=== PATIENT | male | born 1955 | race Two or more races ===

== ENCOUNTER 2016-05-30 15:24 | Inpatient (IN) | payer SELFPAY ==
[~2016-05-30] VITALS: Ht 170.2 cm; Wt 104.3 kg
[2016-05-30] MEDS ORDERED: IV NORMAL SALINE 1000ML BAG 1,000 ML IV SCH (15:52)
[2016-05-30 16:42] LABS: BASO # 0.1 x10^3/uL (0.0-0.2); BASO % 1 % (0-3); EOS % 3 % (0-3); HEMOGLOBIN 12.2 g/dL (13.0-17.5); LYMPH # 1.8 x10^3/uL (1.0-4.8); LYMPH % 17 % (24-48); MEAN CORPUSCULAR HEMOGLOBIN 30 pg (25-35); MEAN CORPUSCULAR HGB CONC 33 g/dL (31-37); MEAN CORPUSCULAR VOLUME 92 fL (79-100); MONO % 5 % (0-9); NEUT % 74 % (31-73); PLATELET COUNT 194 x10^3/uL (140-400); RED BLOOD COUNT 4.03 x10^6/uL (4.30-5.70); RED CELL DISTRIBUTION WIDTH 14.4 % (11.5-14.5); WHITE BLOOD COUNT 10.9 x10^3/uL (4.0-11.0)
[2016-05-30 17:03] LABS: CALCIUM 8.6 mg/dL (8.5-10.1); CREATININE 3.6 mg/dL (0.7-1.3); GFR 17.3; POTASSIUM 3.9 mmol/L (3.5-5.1)
--- NOTE | 2016-05-30 17:23 | PHYS DOC ---
Past Medical History Past Medical History: High Cholesterol, Hypertension, Hypothyroid, Renal Disease, Other Additional Past Medical Histor: pre DM Past Surgical History: Cholecystectomy, Tonsillectomy Alcohol Use: None Drug Use: None Adult General Chief Complaint Chief Complaint: ABNORMAL LABS [facility] HPI Patient is a 60 year old male who presents from Dr. Lord's office for elevated creatinine. Patient states he has been followed recently by nephrology for kidney disease. He states he has slight fatigue, otherwise has no symptoms. He denies take, dizziness, vision changes, chest pain, dyspnea, fever or chills, nausea or vomiting, abdominal pain, diarrhea, dysuria, hematuria. He has been eating and drinking normal. Review of Systems Review of Systems Constitutional: Denies fever or chills [] Eyes: Denies change in visual acuity, redness, or eye pain [] HENT: Denies nasal congestion or sore throat [] Respiratory: Denies cough or shortness of breath [] Cardiovascular: No additional information not addressed in HPI [] GI: Denies abdominal pain, nausea, vomiting, bloody stools or diarrhea [] : Denies dysuria or hematuria [] Musculoskeletal: Denies back pain or joint pain [] Integument: Denies rash or skin lesions [] Neurologic: Denies headache, focal weakness or sensory changes [] Endocrine: Denies polyuria or polydipsia [] Current Medications Current Medications Current Medications Medications (Trade) Dose Ordered Sig/Theo Start Time Stop Time Status Last Admin Dose Admin Acetaminophen (Tylenol) 650 mg PRN Q4HRS PRN 05/30/16 17:30 05/31/16 17:29 Ondansetron HCl (Zofran) 4 mg PRN Q8HRS PRN 05/30/16 17:30 05/31/16 17:29 Sodium Chloride (Iv Sodium Chloride 0.9% 1000ml Bag) 1,000 ml @ 1,000 mls/hr Q1H 05/30/16 15:52 05/30/16 16:51 DC 05/30/16 16:40 1,000 MLS/HR Allergies Allergies Allergies Coded Allergies Type Severity Reaction Last Updated Verified No Known Drug Allergies 05/30/16 No Physical Exam Physical Exam Constitutional: Well developed, well nourished, no acute distress, non-toxic appearance. [] HENT: Normocephalic, atraumatic, bilateral external ears normal, oropharynx moist, no oral exudates, nose normal. [] Eyes: PERRLA, EOMI, conjunctiva normal, no discharge. [] Neck: Normal range of motion, no tenderness, supple, no stridor. [] Cardiovascular:Heart rate regular rhythm, no murmur [] Lungs & Thorax: Bilateral breath sounds clear to auscultation [] Abdomen: Bowel sounds normal, soft, no tenderness, no masses, no pulsatile masses. [] Skin: Warm, dry, no erythema, no rash. [] Back: No tenderness, no CVA tenderness. [] Extremities: No tenderness, no cyanosis, no clubbing, ROM intact, no edema. [] Neurologic: Alert and oriented X 3, normal motor function, normal sensory function, no focal deficits noted. [] Psychologic: Affect normal, judgement normal, mood normal. [] Current Patient Data Vital Signs Vital Signs Date Time Temp Pulse Resp B/P Pulse Ox O2 Delivery O2 Flow Rate FiO2 05/30/16 15:28 97.7 92 18 179/113 97 Room Air 97.7 Lab Values Laboratory Tests Test 05/30/16 16:30 White Blood Count 10.9x10^3/uL (4.0-11.0) Red Blood Count 4.03x10^6/uL (4.30-5.70) L Hemoglobin 12.2g/dL (13.0-17.5) L Hematocrit 37.0% (39.0-53.0) L Mean Corpuscular Volume 92fL (79-100) Mean Corpuscular Hemoglobin 30pg (25-35) Mean Corpuscular Hemoglobin Concent 33g/dL (31-37) Red Cell Distribution Width 14.4% (11.5-14.5) Platelet Count 194x10^3/uL (140-400) Neutrophils (%) (Auto) 74% (31-73) H Lymphocytes (%) (Auto) 17% (24-48) L Monocytes (%) (Auto) 5% (0-9) Eosinophils (%) (Auto) 3% (0-3) Basophils (%) (Auto) 1% (0-3) Neutrophils # (Auto) 8.1x10^3uL (1.8-7.7) H Lymphocytes # (Auto) 1.8x10^3/uL (1.0-4.8) Monocytes # (Auto) 0.5x10^3/uL (0.0-1.1) Eosinophils # (Auto) 0.4x10^3/uL (0.0-0.7) Basophils # (Auto) 0.1x10^3/uL (0.0-0.2) Sodium Level 141mmol/L (136-145) Potassium Level 3.9mmol/L (3.5-5.1) Chloride Level 103mmol/L (98-107) Carbon Dioxide Level 26mmol/L (21-32) Anion Gap 12 (6-14) Blood Urea Nitrogen 57mg/dL (8-26) H Creatinine 3.6mg/dL (0.7-1.3) H Estimated GFR (Cockcroft-Gault) 17.3 Glucose Level 122mg/dL (70-99) H Calcium Level 8.6mg/dL (8.5-10.1) Laboratory Tests 05/30/16 16:30 Laboratory Tests 05/30/16 16:30 Course & Med Decision Making Course & Med Decision Making Pertinent Labs and Imaging studies reviewed. (See chart for details) Creatinine is elevated at 3.6. Discussed case with Dr. Lord, who notes he also had large amount of protein on recent 24-hour urine collection. Dr. Lord recommends admission for renal biopsy and further workup; recommends NPO at midnight for likely procedure tomorrow. Discussed case with Dr. Meraz, who will admit. [place] Disclaimer Dragon Disclaimer This electronic medical record was generated, in whole or in part, using a voice recognition dictation system. Departure Departure Impression: Primary Impression: Acute renal failure Disposition: ADMITTED INPATIENT Condition: STABLE Referrals: UNKNOWN PCP NAME (PCP) Problem Qualifiers Primary Impression: Acute renal failure Acute renal failure type: unspecified Qualified Code: N17.9 - Acute kidney failure, unspecified Kilo RICHARDSON MD May 30, 2016 17:23
[2016-05-30] MEDS ORDERED: ACETAMINOPHEN 325 MG TABLET. PO PRN ×2 (17:30→19:00)
[2016-05-30] MEDS ORDERED: ONDANSETRON PF 4 MG/2 ML VIAL. IV PRN ×2 (17:30→19:00)
[2016-05-30] MEDS ORDERED: hydrALAZINE 20 MG/ML VIAL. IVP PRN (19:00)
[2016-05-30] MEDS ORDERED: HYDROCODONE/APAP 5/325MG TABLET. PO PRN (19:00)
[2016-05-30] MEDS ORDERED: ALBUTEROL SULFATE 2.5 MG/3 ML NEBU. NEB PRN (19:00)
[2016-05-30 19:30] VITALS: BP 180/110
--- NOTE | 2016-05-30 19:32 | PDOC1 ---
History and Physical Current Problem List Problem List Problems Medical Problems: (1) Acute renal failure Status: Acute Current Medications Current Medications Current Medications Medications (Trade) Dose Ordered Sig/Theo Start Time Stop Time Status Last Admin Dose Admin Acetaminophen (Tylenol) 325 mg PRN Q6HRS PRN 05/30/16 19:00 Acetaminophen/ Hydrocodone Bitart (Lortab 5/325) 1 tab PRN Q6HRS PRN 05/30/16 19:00 Albuterol Sulfate (Ventolin Neb Soln) 2.5 mg PRN Q4HRS PRN 05/30/16 19:00 Hydralazine HCl (Apresoline) 10 mg PRN Q4HRS PRN 05/30/16 19:00 Ondansetron HCl (Zofran) 4 mg PRN Q8HRS PRN 05/30/16 19:00 Sodium Chloride (Iv Sodium Chloride 0.9% 1000ml Bag) 1,000 ml @ 1,000 mls/hr Q1H 05/30/16 15:52 05/30/16 16:51 DC 05/30/16 16:40 1,000 MLS/HR Allergies Allergies Allergies Coded Allergies Type Severity Reaction Last Updated Verified No Known Drug Allergies 05/30/16 No ROS Review of System CONSTITUTIONAL: No fever or chills but generalized weakness EYES: No recent changes SKIN: No rash or itching CARDIOVASCULAR: No chest pain, syncope, palpitations, or edema RESPIRATORY: No SOB or cough GASTROINTESTINAL: No nausea, vomiting or abdominal pain NEUROLOGICAL: No headaches or weakness ENDOCRINE: No cold or heat intolerance GENITOURINARY: No urgency or frequency of urination MUSCULOSKELETAL: No back pain or joint pain LYMPHATICS: No enlarged lymph nodes PSYCHIATRIC: No anxiety or depression Physical Exam Physical Exam GEN.: No apparent distress. Alert and oriented. HEENT: Head is normocephalic, atraumatic NECK: Supple. no JVD LUNGS: Clear to auscultation. Normal airflow HEART: RRR, S1, S2 present. Peripheral pulses intact ABDOMEN: Soft, nontender. Positive bowel sounds. EXTREMITIES: Without any cyanosis.+2 edema NEUROLOGIC: Normal speech, normal tone PSYCHIATRIC: Normal affect, normal mood. SKIN: No visible skin lesions Vitals Vitals Vital Signs Date Time Temp Pulse Resp B/P Pulse Ox O2 Delivery O2 Flow Rate FiO2 05/30/16 18:00 88 19 159/103 99 Room Air 05/30/16 15:28 97.7 97.7 Labs Labs Laboratory Tests Test 05/30/16 16:30 White Blood Count 10.9x10^3/uL (4.0-11.0) Red Blood Count 4.03x10^6/uL (4.30-5.70) Hemoglobin 12.2g/dL (13.0-17.5) Hematocrit 37.0% (39.0-53.0) Mean Corpuscular Volume 92fL (79-100) Mean Corpuscular Hemoglobin 30pg (25-35) Mean Corpuscular Hemoglobin Concent 33g/dL (31-37) Red Cell Distribution Width 14.4% (11.5-14.5) Platelet Count 194x10^3/uL (140-400) Neutrophils (%) (Auto) 74% (31-73) Lymphocytes (%) (Auto) 17% (24-48) Monocytes (%) (Auto) 5% (0-9) Eosinophils (%) (Auto) 3% (0-3) Basophils (%) (Auto) 1% (0-3) Neutrophils # (Auto) 8.1x10^3uL (1.8-7.7) Lymphocytes # (Auto) 1.8x10^3/uL (1.0-4.8) Monocytes # (Auto) 0.5x10^3/uL (0.0-1.1) Eosinophils # (Auto) 0.4x10^3/uL (0.0-0.7) Basophils # (Auto) 0.1x10^3/uL (0.0-0.2) Sodium Level 141mmol/L (136-145) Potassium Level 3.9mmol/L (3.5-5.1) Chloride Level 103mmol/L (98-107) Carbon Dioxide Level 26mmol/L (21-32) Anion Gap 12 (6-14) Blood Urea Nitrogen 57mg/dL (8-26) Creatinine 3.6mg/dL (0.7-1.3) Estimated GFR (Cockcroft-Gault) 17.3 Glucose Level 122mg/dL (70-99) Calcium Level 8.6mg/dL (8.5-10.1) Laboratory Tests Test 05/30/16 16:30 White Blood Count 10.9x10^3/uL (4.0-11.0) Red Blood Count 4.03x10^6/uL (4.30-5.70) Hemoglobin 12.2g/dL (13.0-17.5) Hematocrit 37.0% (39.0-53.0) Mean Corpuscular Volume 92fL (79-100) Mean Corpuscular Hemoglobin 30pg (25-35) Mean Corpuscular Hemoglobin Concent 33g/dL (31-37) Red Cell Distribution Width 14.4% (11.5-14.5) Platelet Count 194x10^3/uL (140-400) Neutrophils (%) (Auto) 74% (31-73) Lymphocytes (%) (Auto) 17% (24-48) Monocytes (%) (Auto) 5% (0-9) Eosinophils (%) (Auto) 3% (0-3) Basophils (%) (Auto) 1% (0-3) Neutrophils # (Auto) 8.1x10^3uL (1.8-7.7) Lymphocytes # (Auto) 1.8x10^3/uL (1.0-4.8) Monocytes # (Auto) 0.5x10^3/uL (0.0-1.1) Eosinophils # (Auto) 0.4x10^3/uL (0.0-0.7) Basophils # (Auto) 0.1x10^3/uL (0.0-0.2) Sodium Level 141mmol/L (136-145) Potassium Level 3.9mmol/L (3.5-5.1) Chloride Level 103mmol/L (98-107) Carbon Dioxide Level 26mmol/L (21-32) Anion Gap 12 (6-14) Blood Urea Nitrogen 57mg/dL (8-26) Creatinine 3.6mg/dL (0.7-1.3) Estimated GFR (Cockcroft-Gault) 17.3 Glucose Level 122mg/dL (70-99) Calcium Level 8.6mg/dL (8.5-10.1) VTE Prophylaxis Ordered VTE Prophylaxis Devices: Yes VTE Pharmacological Prophylaxi: Yes DAIJA GOLDSMITH MD May 30, 2016 19:32
[2016-05-30] MEDS: IV NORMAL SALINE 1000ML BAG 1,000 ML IV SCH (21:34)
--- NOTE | 2016-05-30 21:48 | HP ---
ADMIT DATE: 05/30/2016 CHIEF COMPLAINT: Abnormal labs. HISTORY OF PRESENT ILLNESS: A 60-year-old male patient with prior history of hypertension, unknown renal disease, hyperlipidemia, hypothyroidism, presented to the ER with abnormal renal functions. Reportedly, the patient noted to have some kind of fatigue and weakness. Otherwise, he denies any symptoms, visited to Dr. Lord's office today for elevated creatinine. Dr. Lord asked the patient to go to ER, has been admitted to the hospital for abnormal renal functions and fatigue. The patient says lately his blood pressure has been not controlled. Denies any other symptoms such as fever, chills, nausea, vomiting or abdominal pain. PAST MEDICAL HISTORY: Hyperlipidemia, hypertension, hypothyroidism and renal disease. PAST SURGICAL HISTORY: Cholecystectomy and tonsillectomy. PERSONAL HISTORY: No smoking, no alcohol, no drug abuse. FAMILY HISTORY: Unknown to the patient. REVIEW OF SYSTEMS: Please see my electronic H and P. PHYSICAL EXAMINATION: Please see my electronic H and P. ALLERGIES: NKDA. LABORATORY DATA: WBC 10.9, hemoglobin 12.2, MCV 92, platelets 194. Chemistry: Sodium is 141, potassium 3.9, chloride 103, carbon dioxide 26, anion gap 12, BUN is 57, creatinine 3.6, GFR 7.3, glucose 122. ASSESSMENT AND PLAN: 1. Acute kidney injury. 2. Hypertension, not controlled. 3. Hyperlipidemia. 4. Hypothyroidism. PLAN: 1. Keep the patient on n.p.o. from midnight, mild IV hydration. 2. Monitor labs in a.m. 3. Possible renal biopsy. 4. Supportive care. The patient did not bring his home medications at this time. I will ask RN to call pharmacy to verify home medications. Meanwhile, control blood pressure with hydralazine. 5. DVT prophylaxis. DAIJA GOLDSMITH MD DR: ARLETH/david JOB#: [id number] / [id number] JODYD
[2016-05-30 22:50] VITALS: BP 146/102
[2016-05-31] VITALS (27 sets, daily range): BP systolic 128–200; BP diastolic 76–113
[2016-05-31] MEDS ORDERED: hydrALAZINE 20 MG/ML VIAL. IVP PRN (00:30)
[2016-05-31] MEDS: IV NORMAL SALINE 1000ML BAG 1,000 ML IV SCH ×2 (05:18→16:00)
[2016-05-31] MEDS ORDERED: ASPI-482 PO (05:40)
[2016-05-31 06:55] LABS: BASO % 1 % (0-3); EOS % 4 % (0-3); HEMATOCRIT 33.8 % (39.0-53.0); HEMOGLOBIN 11.2 g/dL (13.0-17.5); LYMPH # 1.8 x10^3/uL (1.0-4.8); LYMPH % 22 % (24-48); MEAN CORPUSCULAR HEMOGLOBIN 30 pg (25-35); MEAN CORPUSCULAR HGB CONC 33 g/dL (31-37); MEAN CORPUSCULAR VOLUME 92 fL (79-100); MONO % 7 % (0-9); NEUT % 67 % (31-73); PLATELET COUNT 179 x10^3/uL (140-400); RED BLOOD COUNT 3.69 x10^6/uL (4.30-5.70); WHITE BLOOD COUNT 8.2 x10^3/uL (4.0-11.0)
[2016-05-31 07:14] LABS: ALBUMIN 2.7 g/dL (3.4-5.0); TOTAL PROTEIN 6.1 g/dL (6.4-8.2)
[2016-05-31 07:15] LABS: ALBUMIN/GLOBULIN RATIO 0.8 (1.0-1.7); POTASSIUM 3.8 mmol/L (3.5-5.1); TOTAL BILIRUBIN 0.3 mg/dL (0.2-1.0)
[2016-05-31 07:26] LABS: CALCIUM 8.2 mg/dL (8.5-10.1); CREATININE 3.6 mg/dL (0.7-1.3); GFR 17.3
[2016-05-31 08:14] LABS: INR 1.1 (0.8-1.1); PROTHROMBIN TIME PATIENT 13.4 SEC (11.7-14.0)
[2016-05-31 09:07] LABS: BILIRUBIN,URINE NEGATIVE (NEG); GLUCOSE,URINE NEGATIVE (NEG); NITRITE,URINE NEGATIVE (NEG); PROTEIN,URINE >=300 mg/dL (NEG-TRACE); UROBILINOGEN,URINE 0.2 mg/dL (0.2 mg/dL)
[2016-05-31 09:52] LABS: BACTERIA,URINE 0 /HPF (0-FEW); SQUAMOUS EPITHELIAL CELL,UR FEW /LPF; WBC,URINE 0 /HPF (0-4)
--- NOTE | 2016-05-31 10:02 | PDOC ---
PROGRESS NOTES Chief Complaint Chief Complaint 1. Acute kidney injury. 2. Hypertension, not controlled. 3. Hyperlipidemia. 4. Hypothyroidism. Plan Renal biopsy today BP not controlled Nephrology following metoprolol for HTN Vitals Vitals Vital Signs Date Time Temp Pulse Resp B/P Pulse Ox O2 Delivery O2 Flow Rate FiO2 05/31/16 09:04 98 Room Air 05/31/16 08:30 139/89 05/31/16 07:25 97.7 79 18 97.7 Physical Exam General: Alert, Oriented X3 Heart: Normal S1 Lungs: Wheezing Abdomen: Normal bowel sounds Extremities: No clubbing Labs LABS Laboratory Tests Test 05/30/16 16:30 05/31/16 06:30 05/31/16 07:00 05/31/16 07:30 White Blood Count 10.9x10^3/uL (4.0-11.0) 8.2x10^3/uL (4.0-11.0) Red Blood Count 4.03x10^6/uL (4.30-5.70) 3.69x10^6/uL (4.30-5.70) Hemoglobin 12.2g/dL (13.0-17.5) 11.2g/dL (13.0-17.5) Hematocrit 37.0% (39.0-53.0) 33.8% (39.0-53.0) Mean Corpuscular Volume 92fL (79-100) 92fL (79-100) Mean Corpuscular Hemoglobin 30pg (25-35) 30pg (25-35) Mean Corpuscular Hemoglobin Concent 33g/dL (31-37) 33g/dL (31-37) Red Cell Distribution Width 14.4% (11.5-14.5) 14.0% (11.5-14.5) Platelet Count 194x10^3/uL (140-400) 179x10^3/uL (140-400) Neutrophils (%) (Auto) 74% (31-73) 67% (31-73) Lymphocytes (%) (Auto) 17% (24-48) 22% (24-48) Monocytes (%) (Auto) 5% (0-9) 7% (0-9) Eosinophils (%) (Auto) 3% (0-3) 4% (0-3) Basophils (%) (Auto) 1% (0-3) 1% (0-3) Neutrophils # (Auto) 8.1x10^3uL (1.8-7.7) 5.5x10^3uL (1.8-7.7) Lymphocytes # (Auto) 1.8x10^3/uL (1.0-4.8) 1.8x10^3/uL (1.0-4.8) Monocytes # (Auto) 0.5x10^3/uL (0.0-1.1) 0.6x10^3/uL (0.0-1.1) Eosinophils # (Auto) 0.4x10^3/uL (0.0-0.7) 0.3x10^3/uL (0.0-0.7) Basophils # (Auto) 0.1x10^3/uL (0.0-0.2) 0.0x10^3/uL (0.0-0.2) Sodium Level 141mmol/L (136-145) 143mmol/L (136-145) Potassium Level 3.9mmol/L (3.5-5.1) 3.8mmol/L (3.5-5.1) Chloride Level 103mmol/L (98-107) 106mmol/L (98-107) Carbon Dioxide Level 26mmol/L (21-32) 24mmol/L (21-32) Anion Gap 12 (6-14) 13 (6-14) Blood Urea Nitrogen 57mg/dL (8-26) 51mg/dL (8-26) Creatinine 3.6mg/dL (0.7-1.3) 3.6mg/dL (0.7-1.3) Estimated GFR (Cockcroft-Gault) 17.3 17.3 Glucose Level 122mg/dL (70-99) 120mg/dL (70-99) Calcium Level 8.6mg/dL (8.5-10.1) 8.2mg/dL (8.5-10.1) BUN/Creatinine Ratio 14 (6-20) Total Bilirubin 0.3mg/dL (0.2-1.0) Aspartate Amino Transf (AST/SGOT) 13U/L (15-37) Alanine Aminotransferase (ALT/SGPT) 25U/L (16-63) Alkaline Phosphatase 50U/L (46-116) Total Protein 6.1g/dL (6.4-8.2) Albumin 2.7g/dL (3.4-5.0) Albumin/Globulin Ratio 0.8 (1.0-1.7) Urine Collection Type Unknown Urine Color Yellow Urine Clarity Clear Urine pH 7.0 Urine Specific [place] 1.010 Urine Protein >=300mg/dL (NEG-TRACE) Urine Glucose (UA) Negativemg/dL (NEG) Urine Ketones (Stick) Negativemg/dL (NEG) Urine Blood Trace (NEG) Urine Nitrite Negative (NEG) Urine Bilirubin Negative (NEG) Urine Urobilinogen Dipstick 0.2mg/dL (0.2 mg/dL) Urine Leukocyte Esterase Negative (NEG) Urine RBC 1-2/HPF (0-2) Urine WBC 0/HPF (0-4) Urine Squamous Epithelial Cells Few/LPF Urine Bacteria 0/HPF (0-FEW) Prothrombin Time 13.4SEC (11.7-14.0) Prothromb Time International Ratio 1.1 (0.8-1.1) Assessment and Plan Assessmemt and Plan Problems Medical Problems: (1) Acute renal failure Status: Acute Problems: Comment Review of Relevant I have reviewed the following items jose (where applicable) has been applied. Labs Laboratory Tests Test 05/30/16 16:30 05/31/16 06:30 05/31/16 07:00 05/31/16 07:30 White Blood Count 10.9x10^3/uL (4.0-11.0) 8.2x10^3/uL (4.0-11.0) Red Blood Count 4.03x10^6/uL (4.30-5.70) 3.69x10^6/uL (4.30-5.70) Hemoglobin 12.2g/dL (13.0-17.5) 11.2g/dL (13.0-17.5) Hematocrit 37.0% (39.0-53.0) 33.8% (39.0-53.0) Mean Corpuscular Volume 92fL (79-100) 92fL (79-100) Mean Corpuscular Hemoglobin 30pg (25-35) 30pg (25-35) Mean Corpuscular Hemoglobin Concent 33g/dL (31-37) 33g/dL (31-37) Red Cell Distribution Width 14.4% (11.5-14.5) 14.0% (11.5-14.5) Platelet Count 194x10^3/uL (140-400) 179x10^3/uL (140-400) Neutrophils (%) (Auto) 74% (31-73) 67% (31-73) Lymphocytes (%) (Auto) 17% (24-48) 22% (24-48) Monocytes (%) (Auto) 5% (0-9) 7% (0-9) Eosinophils (%) (Auto) 3% (0-3) 4% (0-3) Basophils (%) (Auto) 1% (0-3) 1% (0-3) Neutrophils # (Auto) 8.1x10^3uL (1.8-7.7) 5.5x10^3uL (1.8-7.7) Lymphocytes # (Auto) 1.8x10^3/uL (1.0-4.8) 1.8x10^3/uL (1.0-4.8) Monocytes # (Auto) 0.5x10^3/uL (0.0-1.1) 0.6x10^3/uL (0.0-1.1) Eosinophils # (Auto) 0.4x10^3/uL (0.0-0.7) 0.3x10^3/uL (0.0-0.7) Basophils # (Auto) 0.1x10^3/uL (0.0-0.2) 0.0x10^3/uL (0.0-0.2) Sodium Level 141mmol/L (136-145) 143mmol/L (136-145) Potassium Level 3.9mmol/L (3.5-5.1) 3.8mmol/L (3.5-5.1) Chloride Level 103mmol/L (98-107) 106mmol/L (98-107) Carbon Dioxide Level 26mmol/L (21-32) 24mmol/L (21-32) Anion Gap 12 (6-14) 13 (6-14) Blood Urea Nitrogen 57mg/dL (8-26) 51mg/dL (8-26) Creatinine 3.6mg/dL (0.7-1.3) 3.6mg/dL (0.7-1.3) Estimated GFR (Cockcroft-Gault) 17.3 17.3 Glucose Level 122mg/dL (70-99) 120mg/dL (70-99) Calcium Level 8.6mg/dL (8.5-10.1) 8.2mg/dL (8.5-10.1) BUN/Creatinine Ratio 14 (6-20) Total Bilirubin 0.3mg/dL (0.2-1.0) Aspartate Amino Transf (AST/SGOT) 13U/L (15-37) Alanine Aminotransferase (ALT/SGPT) 25U/L (16-63) Alkaline Phosphatase 50U/L (46-116) Total Protein 6.1g/dL (6.4-8.2) Albumin 2.7g/dL (3.4-5.0) Albumin/Globulin Ratio 0.8 (1.0-1.7) Urine Collection Type Unknown Urine Color Yellow Urine Clarity Clear Urine pH 7.0 Urine Specific [place] 1.010 Urine Protein >=300mg/dL (NEG-TRACE) Urine Glucose (UA) Negativemg/dL (NEG) Urine Ketones (Stick) Negativemg/dL (NEG) Urine Blood Trace (NEG) Urine Nitrite Negative (NEG) Urine Bilirubin Negative (NEG) Urine Urobilinogen Dipstick 0.2mg/dL (0.2 mg/dL) Urine Leukocyte Esterase Negative (NEG) Urine RBC 1-2/HPF (0-2) Urine WBC 0/HPF (0-4) Urine Squamous Epithelial Cells Few/LPF Urine Bacteria 0/HPF (0-FEW) Prothrombin Time 13.4SEC (11.7-14.0) Prothromb Time International Ratio 1.1 (0.8-1.1) Laboratory Tests Test 05/30/16 16:30 05/31/16 06:30 05/31/16 07:00 05/31/16 07:30 White Blood Count 10.9x10^3/uL (4.0-11.0) 8.2x10^3/uL (4.0-11.0) Red Blood Count 4.03x10^6/uL (4.30-5.70) 3.69x10^6/uL (4.30-5.70) Hemoglobin 12.2g/dL (13.0-17.5) 11.2g/dL (13.0-17.5) Hematocrit 37.0% (39.0-53.0) 33.8% (39.0-53.0) Mean Corpuscular Volume 92fL (79-100) 92fL (79-100) Mean Corpuscular Hemoglobin 30pg (25-35) 30pg (25-35) Mean Corpuscular Hemoglobin Concent 33g/dL (31-37) 33g/dL (31-37) Red Cell Distribution Width 14.4% (11.5-14.5) 14.0% (11.5-14.5) Platelet Count 194x10^3/uL (140-400) 179x10^3/uL (140-400) Neutrophils (%) (Auto) 74% (31-73) 67% (31-73) Lymphocytes (%) (Auto) 17% (24-48) 22% (24-48) Monocytes (%) (Auto) 5% (0-9) 7% (0-9) Eosinophils (%) (Auto) 3% (0-3) 4% (0-3) Basophils (%) (Auto) 1% (0-3) 1% (0-3) Neutrophils # (Auto) 8.1x10^3uL (1.8-7.7) 5.5x10^3uL (1.8-7.7) Lymphocytes # (Auto) 1.8x10^3/uL (1.0-4.8) 1.8x10^3/uL (1.0-4.8) Monocytes # (Auto) 0.5x10^3/uL (0.0-1.1) 0.6x10^3/uL (0.0-1.1) Eosinophils # (Auto) 0.4x10^3/uL (0.0-0.7) 0.3x10^3/uL (0.0-0.7) Basophils # (Auto) 0.1x10^3/uL (0.0-0.2) 0.0x10^3/uL (0.0-0.2) Sodium Level 141mmol/L (136-145) 143mmol/L (136-145) Potassium Level 3.9mmol/L (3.5-5.1) 3.8mmol/L (3.5-5.1) Chloride Level 103mmol/L (98-107) 106mmol/L (98-107) Carbon Dioxide Level 26mmol/L (21-32) 24mmol/L (21-32) Anion Gap 12 (6-14) 13 (6-14) Blood Urea Nitrogen 57mg/dL (8-26) 51mg/dL (8-26) Creatinine 3.6mg/dL (0.7-1.3) 3.6mg/dL (0.7-1.3) Estimated GFR (Cockcroft-Gault) 17.3 17.3 Glucose Level 122mg/dL (70-99) 120mg/dL (70-99) Calcium Level 8.6mg/dL (8.5-10.1) 8.2mg/dL (8.5-10.1) BUN/Creatinine Ratio 14 (6-20) Total Bilirubin 0.3mg/dL (0.2-1.0) Aspartate Amino Transf (AST/SGOT) 13U/L (15-37) Alanine Aminotransferase (ALT/SGPT) 25U/L (16-63) Alkaline Phosphatase 50U/L (46-116) Total Protein 6.1g/dL (6.4-8.2) Albumin 2.7g/dL (3.4-5.0) Albumin/Globulin Ratio 0.8 (1.0-1.7) Urine Collection Type Unknown Urine Color Yellow Urine Clarity Clear Urine pH 7.0 Urine Specific [place] 1.010 Urine Protein >=300mg/dL (NEG-TRACE) Urine Glucose (UA) Negativemg/dL (NEG) Urine Ketones (Stick) Negativemg/dL (NEG) Urine Blood Trace (NEG) Urine Nitrite Negative (NEG) Urine Bilirubin Negative (NEG) Urine Urobilinogen Dipstick 0.2mg/dL (0.2 mg/dL) Urine Leukocyte Esterase Negative (NEG) Urine RBC 1-2/HPF (0-2) Urine WBC 0/HPF (0-4) Urine Squamous Epithelial Cells Few/LPF Urine Bacteria 0/HPF (0-FEW) Prothrombin Time 13.4SEC (11.7-14.0) Prothromb Time International Ratio 1.1 (0.8-1.1) Medications Current Medications Sodium Chloride (Iv Sodium Chloride 0.9% 1000ml Bag) 1,000 ml @ 1,000 mls/hr Q1H IV Last administered on 05/30/16 16:40; Start 05/30/16 at 15:52; Stop at 16:51; Status DC Ondansetron HCl (Zofran) 4 mg PRN Q8HRS PRN IV NAUSEA/VOMITING; Start 05/30/16 at 17:30; Stop 05/31/16 at 17:29 Acetaminophen (Tylenol) 650 mg PRN Q4HRS PRN PO FEVER; Start 05/30/16 at 17:30 ; Stop 05/31/16 at 17:29 Acetaminophen (Tylenol) 325 mg PRN Q6HRS PRN PO MILD PAIN / TEMP; Start at 19:00 Acetaminophen/ Hydrocodone Bitart (Lortab 5/325) 1 tab PRN Q6HRS PRN PO MODERATE TO SEVERE PAIN; Start 05/30/16 at 19:00 Hydralazine HCl (Apresoline) 10 mg PRN Q4HRS PRN IVP ELEVATED BP, SEE COMMENTS ; Start 05/30/16 at 19:00 Ondansetron HCl (Zofran) 4 mg PRN Q8HRS PRN IV NAUSEA/VOMITING; Start 05/30/16 at 19:00 Albuterol Sulfate (Ventolin Neb Soln) 2.5 mg PRN Q4HRS PRN NEB SHORTNESS OF BREATH; Start 05/30/16 at 19:00 Acetaminophen 650 mg 650 mg PRN Q6HRS PRN PO MILD PAIN / TEMP; Start 05/30/16 at 20:00 Sodium Chloride (Iv Sodium Chloride 0.9% 1000ml Bag) 1,000 ml @ 100 mls/hr Q10H IV Last administered on 05/31/16 05:18; Start 05/30/16 at 20:00 Hydralazine HCl (Apresoline) 10 mg PRN Q4HRS PRN IVP for SBP > 170; Start 05/31 at 00:30 Active Scripts Active Reported Aspir 81 (Aspirin) 81 Mg Tablet. 1 Tab PO DAILY Vitals/I & O Vital Sign - Last 24 Hours 05/30/16 05/30/16 05/30/16 05/30/16 15:28 15:30 16:00 16:30 Temp 97.7 97.7 Pulse 92 90 90 88 Resp 18 18 20 22 B/P 179/113 179/106 159/101 158/104 Pulse Ox 97 98 98 97 O2 Delivery Room Air Room Air 05/30/16 05/30/16 05/30/16 05/30/16 17:00 17:30 18:00 19:30 Temp 98.2 98.2 Pulse 90 96 88 86 Resp 17 22 19 20 B/P 156/94 157/103 159/103 180/110 Pulse Ox 97 96 99 97 O2 Delivery Room Air Room Air 05/30/16 05/30/16 05/30/16 05/31/16 21:41 22:13 22:50 03:00 Temp 98.2 98.1 98.2 98.1 Pulse 87 80 Resp 20 20 B/P 146/102 144/99 Pulse Ox 96 96 O2 Delivery Room Air Room Air Room Air Room Air 05/31/16 05/31/16 05/31/16 07:25 08:30 09:04 Temp 97.7 97.7 Pulse 79 Resp 18 B/P 161/106 139/89 Pulse Ox 96 98 O2 Delivery Room Air Room Air Room Air Intake and Output 05/30/16 05/30/16 05/31/16 15:00 23:00 07:00 Intake Total 1480 ml 0 ml Output Total 500 ml Balance 1480 ml -500 ml DAIJA GOLDSMITH MD May 31, 2016 10:02
--- NOTE | 2016-05-31 10:17 | RAD ---
Indication acute renal failure. Grayscale imaging targeted to the kidneys was performed. No prior imaging is available. The right kidney measures 12.7 x 6.3 x 5.3 cm. The kidney is echogenic compatible with medical renal disease. There are 2 hypoechoic masses in the right kidney compatible with cysts. The largest measures 2.6 cm in greatest dimension. The left kidney is also echogenic compatible with medical renal disease. It measures approximately 11.7 x 6.3 x 4.5 cm. There is a left renal cyst measuring approximately 2.5 cm in greatest dimension. No hydronephrosis or definite solid mass is seen associated with either kidney. The urinary bladder appears grossly normal. IMPRESSION: Findings compatible with medical renal disease. Bilateral renal cysts. No hydronephrosis or definite solid mass seen associated with either kidney
--- NOTE | 2016-05-31 11:08 | PDOC2 ---
CONSULT Date of Consult Date of Consult DATE: 05/31/16 TIME: 11:00 Reason for Consult Reason for Consult: NICOLE Referring Physician Referring Physician: RUPAL Identification/Chief Complaint Chief Complaint ABNORMAL LABS Source Source: Chart review History of Present Illness Reason for Visit: THIS IS A 60 YR OLD I FIRST MET SEVERAL WEEKS AGO. HE WAS NOTED TO HAVE WHAT WAS FELT TO BE CKD. HIS CR WAS IN THE 1.4 RANGE IN 2013, THEN 1.7 LAST YEAR AND 2.5 EARLIER THIS MONTH AND NOW 3.6. 24 HR URINE SHOWED ABOUT 14 GRAMS OF PROTEIN. UA HAS SHOWN TRACE BLOOD AND GRANULAR CAST, HPF RBC'S WERE FEW Past Medical History Cardiovascular: HTN Renal/: Chronic renal insuff Past Surgical History Past Surgical History NONE Family History Family History: Hypertension Social History # pack years ALCOHOL: rare Lives: with Family Current Problem List Problem List Problems Medical Problems: (1) Acute renal failure Status: Acute Current Medications Current Medications Current Medications Sodium Chloride (Iv Sodium Chloride 0.9% 1000ml Bag) 1,000 ml @ 1,000 mls/hr Q1H IV Last administered on 05/30/16t 16:40; Start 05/30/16 at 15:52; Stop at 16:51; Status DC Ondansetron HCl (Zofran) 4 mg PRN Q8HRS PRN IV NAUSEA/VOMITING; Start 05/30/16 at 17:30; Stop 05/31/16 at 17:29 Acetaminophen (Tylenol) 650 mg PRN Q4HRS PRN PO FEVER; Start 05/30/16 at 17:30 ; Stop 05/31/16 at 17:29 Acetaminophen (Tylenol) 325 mg PRN Q6HRS PRN PO MILD PAIN / TEMP; Start at 19:00 Acetaminophen/ Hydrocodone Bitart (Lortab 5/325) 1 tab PRN Q6HRS PRN PO MODERATE TO SEVERE PAIN; Start 05/30/16 at 19:00 Hydralazine HCl (Apresoline) 10 mg PRN Q4HRS PRN IVP ELEVATED BP, SEE COMMENTS ; Start 05/30/16 at 19:00 Ondansetron HCl (Zofran) 4 mg PRN Q8HRS PRN IV NAUSEA/VOMITING; Start 05/30/16 at 19:00 Albuterol Sulfate (Ventolin Neb Soln) 2.5 mg PRN Q4HRS PRN NEB SHORTNESS OF BREATH; Start 05/30/16 at 19:00 Acetaminophen 650 mg 650 mg PRN Q6HRS PRN PO MILD PAIN / TEMP; Start 05/30/16 at 20:00 Sodium Chloride (Iv Sodium Chloride 0.9% 1000ml Bag) 1,000 ml @ 100 mls/hr Q10H IV Last administered on 05/31/16t 05:18; Start 05/30/16 at 20:00 Hydralazine HCl (Apresoline) 10 mg PRN Q4HRS PRN IVP for SBP > 170; Start 05/31 at 00:30 Active Scripts Active Reported Aspir 81 (Aspirin) 81 Mg Tablet. 1 Tab PO DAILY Allergies Allergies: Coded Allergies: No Known Drug Allergies (Unverified , 05/30/16) ROS Review of System NO OTHER COMPLAINTS IN FULL ROS General: YES: Fatigue Physical Exam General: Alert, Oriented X3, Cooperative, No acute distress HEENT: Atraumatic, PERRLA, EOMI, Mucous membr. moist/pink Lungs: Clear to auscultation, Normal air movement Heart: Regular rate, Normal S1, Normal S2, No murmurs Abdomen: Normal bowel sounds Extremities: No clubbing Skin: No breakdown Neuro: Normal speech, Cranial nerves 3-12 NL Psych/Mental Status: Mental status NL, Mood NL MUSCULOSKELETAL: No deformity, No swelling Vitals VITALS Vital Signs Date Time Temp Pulse Resp B/P Pulse Ox O2 Delivery O2 Flow Rate FiO2 05/31/16 10:10 97.9 81 18 167/109 96 Room Air 97.9 Labs Labs Laboratory Tests Test 05/30/16 16:30 05/31/16 06:30 05/31/16 07:00 05/31/16 07:30 White Blood Count 10.9x10^3/uL (4.0-11.0) 8.2x10^3/uL (4.0-11.0) Red Blood Count 4.03x10^6/uL (4.30-5.70) 3.69x10^6/uL (4.30-5.70) Hemoglobin 12.2g/dL (13.0-17.5) 11.2g/dL (13.0-17.5) Hematocrit 37.0% (39.0-53.0) 33.8% (39.0-53.0) Mean Corpuscular Volume 92fL (79-100) 92fL (79-100) Mean Corpuscular Hemoglobin 30pg (25-35) 30pg (25-35) Mean Corpuscular Hemoglobin Concent 33g/dL (31-37) 33g/dL (31-37) Red Cell Distribution Width 14.4% (11.5-14.5) 14.0% (11.5-14.5) Platelet Count 194x10^3/uL (140-400) 179x10^3/uL (140-400) Neutrophils (%) (Auto) 74% (31-73) 67% (31-73) Lymphocytes (%) (Auto) 17% (24-48) 22% (24-48) Monocytes (%) (Auto) 5% (0-9) 7% (0-9) Eosinophils (%) (Auto) 3% (0-3) 4% (0-3) Basophils (%) (Auto) 1% (0-3) 1% (0-3) Neutrophils # (Auto) 8.1x10^3uL (1.8-7.7) 5.5x10^3uL (1.8-7.7) Lymphocytes # (Auto) 1.8x10^3/uL (1.0-4.8) 1.8x10^3/uL (1.0-4.8) Monocytes # (Auto) 0.5x10^3/uL (0.0-1.1) 0.6x10^3/uL (0.0-1.1) Eosinophils # (Auto) 0.4x10^3/uL (0.0-0.7) 0.3x10^3/uL (0.0-0.7) Basophils # (Auto) 0.1x10^3/uL (0.0-0.2) 0.0x10^3/uL (0.0-0.2) Sodium Level 141mmol/L (136-145) 143mmol/L (136-145) Potassium Level 3.9mmol/L (3.5-5.1) 3.8mmol/L (3.5-5.1) Chloride Level 103mmol/L (98-107) 106mmol/L (98-107) Carbon Dioxide Level 26mmol/L (21-32) 24mmol/L (21-32) Anion Gap 12 (6-14) 13 (6-14) Blood Urea Nitrogen 57mg/dL (8-26) 51mg/dL (8-26) Creatinine 3.6mg/dL (0.7-1.3) 3.6mg/dL (0.7-1.3) Estimated GFR (Cockcroft-Gault) 17.3 17.3 Glucose Level 122mg/dL (70-99) 120mg/dL (70-99) Calcium Level 8.6mg/dL (8.5-10.1) 8.2mg/dL (8.5-10.1) BUN/Creatinine Ratio 14 (6-20) Total Bilirubin 0.3mg/dL (0.2-1.0) Aspartate Amino Transf (AST/SGOT) 13U/L (15-37) Alanine Aminotransferase (ALT/SGPT) 25U/L (16-63) Alkaline Phosphatase 50U/L (46-116) Total Protein 6.1g/dL (6.4-8.2) Albumin 2.7g/dL (3.4-5.0) Albumin/Globulin Ratio 0.8 (1.0-1.7) Urine Collection Type Unknown Urine Color Yellow Urine Clarity Clear Urine pH 7.0 Urine Specific [place] 1.010 Urine Protein >=300mg/dL (NEG-TRACE) Urine Glucose (UA) Negativemg/dL (NEG) Urine Ketones (Stick) Negativemg/dL (NEG) Urine Blood Trace (NEG) Urine Nitrite Negative (NEG) Urine Bilirubin Negative (NEG) Urine Urobilinogen Dipstick 0.2mg/dL (0.2 mg/dL) Urine Leukocyte Esterase Negative (NEG) Urine RBC 1-2/HPF (0-2) Urine WBC 0/HPF (0-4) Urine Squamous Epithelial Cells Few/LPF Urine Bacteria 0/HPF (0-FEW) Prothrombin Time 13.4SEC (11.7-14.0) Prothromb Time International Ratio 1.1 (0.8-1.1) Laboratory Tests Test 05/30/16 16:30 05/31/16 06:30 05/31/16 07:00 05/31/16 07:30 White Blood Count 10.9x10^3/uL (4.0-11.0) 8.2x10^3/uL (4.0-11.0) Red Blood Count 4.03x10^6/uL (4.30-5.70) 3.69x10^6/uL (4.30-5.70) Hemoglobin 12.2g/dL (13.0-17.5) 11.2g/dL (13.0-17.5) Hematocrit 37.0% (39.0-53.0) 33.8% (39.0-53.0) Mean Corpuscular Volume 92fL (79-100) 92fL (79-100) Mean Corpuscular Hemoglobin 30pg (25-35) 30pg (25-35) Mean Corpuscular Hemoglobin Concent 33g/dL (31-37) 33g/dL (31-37) Red Cell Distribution Width 14.4% (11.5-14.5) 14.0% (11.5-14.5) Platelet Count 194x10^3/uL (140-400) 179x10^3/uL (140-400) Neutrophils (%) (Auto) 74% (31-73) 67% (31-73) Lymphocytes (%) (Auto) 17% (24-48) 22% (24-48) Monocytes (%) (Auto) 5% (0-9) 7% (0-9) Eosinophils (%) (Auto) 3% (0-3) 4% (0-3) Basophils (%) (Auto) 1% (0-3) 1% (0-3) Neutrophils # (Auto) 8.1x10^3uL (1.8-7.7) 5.5x10^3uL (1.8-7.7) Lymphocytes # (Auto) 1.8x10^3/uL (1.0-4.8) 1.8x10^3/uL (1.0-4.8) Monocytes # (Auto) 0.5x10^3/uL (0.0-1.1) 0.6x10^3/uL (0.0-1.1) Eosinophils # (Auto) 0.4x10^3/uL (0.0-0.7) 0.3x10^3/uL (0.0-0.7) Basophils # (Auto) 0.1x10^3/uL (0.0-0.2) 0.0x10^3/uL (0.0-0.2) Sodium Level 141mmol/L (136-145) 143mmol/L (136-145) Potassium Level 3.9mmol/L (3.5-5.1) 3.8mmol/L (3.5-5.1) Chloride Level 103mmol/L (98-107) 106mmol/L (98-107) Carbon Dioxide Level 26mmol/L (21-32) 24mmol/L (21-32) Anion Gap 12 (6-14) 13 (6-14) Blood Urea Nitrogen 57mg/dL (8-26) 51mg/dL (8-26) Creatinine 3.6mg/dL (0.7-1.3) 3.6mg/dL (0.7-1.3) Estimated GFR (Cockcroft-Gault) 17.3 17.3 Glucose Level 122mg/dL (70-99) 120mg/dL (70-99) Calcium Level 8.6mg/dL (8.5-10.1) 8.2mg/dL (8.5-10.1) BUN/Creatinine Ratio 14 (6-20) Total Bilirubin 0.3mg/dL (0.2-1.0) Aspartate Amino Transf (AST/SGOT) 13U/L (15-37) Alanine Aminotransferase (ALT/SGPT) 25U/L (16-63) Alkaline Phosphatase 50U/L (46-116) Total Protein 6.1g/dL (6.4-8.2) Albumin 2.7g/dL (3.4-5.0) Albumin/Globulin Ratio 0.8 (1.0-1.7) Urine Collection Type Unknown Urine Color Yellow Urine Clarity Clear Urine pH 7.0 Urine Specific [place] 1.010 Urine Protein >=300mg/dL (NEG-TRACE) Urine Glucose (UA) Negativemg/dL (NEG) Urine Ketones (Stick) Negativemg/dL (NEG) Urine Blood Trace (NEG) Urine Nitrite Negative (NEG) Urine Bilirubin Negative (NEG) Urine Urobilinogen Dipstick 0.2mg/dL (0.2 mg/dL) Urine Leukocyte Esterase Negative (NEG) Urine RBC 1-2/HPF (0-2) Urine WBC 0/HPF (0-4) Urine Squamous Epithelial Cells Few/LPF Urine Bacteria 0/HPF (0-FEW) Prothrombin Time 13.4SEC (11.7-14.0) Prothromb Time International Ratio 1.1 (0.8-1.1) Assessment/Plan Assessment/Plan IMP NICOLE WITH CR OF 3.6 CKD-UNKNOWN BASELINE BUT PROGRESSIVE SEVERE NEPHROTIC RANGE PROTEINURIA-14 GRAMS A DAY NON COMPLIANCE HTN ? DM VS GLUCOSE INTOLERANCE PLAN IVF'S STOP HIS HOME MEDS MADDI ADD NORVASC RENAL BIOPSY CHECK AIC LEVEL CHECK PO4 CHECK SEROLOGY WILL FOLLOW CHRISSIE AMANDA MD May 31, 2016 11:08
[2016-05-31] MEDS ORDERED: LIDOCAINE 1% / SOD BICARB 8.4% 20 ML VIAL. IJ ONE ×2 (12:22→13:00)
[2016-05-31] MEDS ORDERED: FLUMAZENIL 0.5 MG/5 ML VIAL. IV ONE (12:43)
[2016-05-31] MEDS ORDERED: MIDAZOLAM HCL/PF 5 MG/5 ML VIAL ONE (12:43)
[2016-05-31] MEDS ORDERED: NALOXONE 0.4 MG/ML VIAL. ONE (12:43)
[2016-05-31] MEDS ORDERED: FENTANYL PF 250 MCG/5 ML VIAL. ONE (12:44)
[2016-05-31] MEDS ORDERED: FENTANYL PF 250 MCG/5 ML VIAL. IV ONE (13:00)
[2016-05-31] MEDS ORDERED: MIDAZOLAM HCL/PF 5 MG/5 ML VIAL IV ONE (13:00)
--- NOTE | 2016-05-31 13:46 | PDOC ---
MODERATE SEDATION ASSESSMENT RISKS/ALTERNATIVES Risks/Alternatives Risks and alternatives of this type of sedation and procedure discussed with: RISK/ALTERNATIVES: Patient (Patient and ) H & P ON CHART H & P H & P on chart and reviewed for co-morbid conditions and appropriate labs. H&P ON CHART: Yes STATUS PREG STATUS ASSESSED: N/A MEDS/ALLERGIES REVIEWED Meds/Allergies Reviewed Medications and Allergies including time and route of recently administered narcotics and sedatives. MEDS/ALLERGIES REVIEWED: Yes ASA RATING ASA RATING: II AIRWAY ASSESSMENT Airway Assessment Airway patency, oral function limitations, presence of caps, crowns, dentures, partials, and ability to extend neck assessed. AIRWAY ASSESSMENT: Yes MALLAMPATI SCORE MALLAMPATI SCORE: II PRE-SEDATION ASSESSMENT PRE-SEDATION ASSESSMENT: Yes SOFIE GLEASON MD May 31, 2016 13:46
--- NOTE | 2016-05-31 13:54 | PDOC ---
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 Post-Procedure Diagnosis Post-Procedure Diagnosis Same Procedure Performed Procedure Performed CT guided bx lower pole right kidney Type of Anesthesia Type of Anesthesia Local + Mod sedation Estimated Blood Loss EBL: Minimal Specimens Specimans 3 18G core bx in formalin to path 3 18G core bx in Mahamed's fixative to path Condition of Patient Condition of Patient Hemodynamically stable. Mild post bx perinephric bleed---stable over 30 minutes. Disposition Disposition From IR/CT return to 528. F/u with HIMS and Renal. Full report to follow. Will need close VS observation over next 4 hrs to exclude clinically significant post bx bleed. SOFIE GLEASON MD May 31, 2016 13:54
[2016-05-31] MEDS ORDERED: METOPROLOL TART IMMED RELEASE 25 MG TABLET PO SCH (15:00)
--- NOTE | 2016-05-31 15:08 | RAD ---
CT-guided renal biopsy Indication: 60-year-old male with acute kidney injury, chronic kidney disease, and proteinuria. Image guided renal biopsy has been requested by nephrology. Anesthesia: 52 minutes moderate sedation was provided utilizing a total of 3 mg Versed and 150 mcg fentanyl, IV. The patient was appropriately monitored by a qualified independent observer throughout the time of moderate sedation. PQRS Compliance Statement: One or more of the following individualized dose reduction techniques were utilized for this CT procedure: 1. Automated exposure control. 2. Adjustment of mA and/or kV according to patient size. 3. Iterative reconstruction technique. Procedure: Informed consent was obtained from the patient. He was placed prone on the CT scanner. Preliminary noncontrast CT images were obtained through kidneys. An overlying right posterolateral skin site suitable for CT-guided biopsy of lower pole of right kidney was selected and marked. That area was prepped and draped in the usual sterile fashion. Moderate sedation was provided with IV Versed and fentanyl. Using aseptic technique, local anesthesia, and CT guidance, a 17-gauge guide needle was successfully advanced into parenchyma of lower pole of right kidney. A total of 6 18-gauge core biopsy samples were obtained. 3 samples were submitted in formalin to pathology. 3 samples were submitted in Mahamed's fixative to pathology. Hemostasis was achieved with autologous clot introduced through the biopsy guide needle, which was then removed. A sterile dressing was applied. Completion CT images revealed mild postbiopsy perinephric bleeding, which remained stable on 30 minute follow-up CT images. Impression: CT-guided biopsy of lower pole of right kidney, as described.
[2016-05-31] MEDS: ACETAMINOPHEN 325 MG TABLET. PO PRN ×2 (15:39→21:45)
[2016-05-31] MEDS ORDERED: METO50TA2 PO (16:18)
[2016-05-31] MEDS ORDERED: LEVO150T5 PO ×2 (16:18→16:23)
[2016-05-31] MEDS ORDERED: ALLO100T PO (16:18)
[2016-05-31] MEDS ORDERED: AMLO1TAB78 PO (16:18)
[2016-05-31] MEDS: ALLOPURINOL 100 MG TABLET. PO SCH (17:00)
[2016-05-31] MEDS: METOPROLOL TART IMMED RELEASE 50 MG TABLET PO SCH (21:43)
[2016-06-01] MEDS: IV NORMAL SALINE 1000ML BAG 1,000 ML IV SCH ×2 (02:20→17:47)
[2016-06-01 03:00] VITALS: BP 149/96
[2016-06-01 04:58] LABS: BASO % 1 % (0-3); EOS % 3 % (0-3); HEMOGLOBIN 11.6 g/dL (13.0-17.5); LYMPH # 1.6 x10^3/uL (1.0-4.8); LYMPH % 18 % (24-48); MEAN CORPUSCULAR HEMOGLOBIN 31 pg (25-35); MEAN CORPUSCULAR HGB CONC 33 g/dL (31-37); MEAN CORPUSCULAR VOLUME 92 fL (79-100); MONO % 8 % (0-9); NEUT % 71 % (31-73); PLATELET COUNT 184 x10^3/uL (140-400); RED BLOOD COUNT 3.81 x10^6/uL (4.30-5.70); RED CELL DISTRIBUTION WIDTH 14.5 % (11.5-14.5)
[2016-06-01 05:38] LABS: CALCIUM 8.2 mg/dL (8.5-10.1); CREATININE 3.5 mg/dL (0.7-1.3); GFR 17.8; POTASSIUM 3.6 mmol/L (3.5-5.1)
[2016-06-01] MEDS ORDERED: ONDANSETRON PF 4 MG/2 ML VIAL. IV PRN (05:45)
[2016-06-01 05:48] LABS: ALBUMIN 2.7 g/dL (3.4-5.0); ALK PHOS 52 U/L (46-116); ALT (SGPT) 25 U/L (16-63); AST (SGOT) 15 U/L (15-37); DIRECT BILIRUBIN < 0.1 mg/dL (0.0-0.2); PHOSPHORUS 4.1 mg/dL (2.6-4.7); TOTAL BILIRUBIN 0.2 mg/dL (0.2-1.0); TOTAL PROTEIN 6.2 g/dL (6.4-8.2)
[2016-06-01 07:00] VITALS: BP 158/110
[2016-06-01] MEDS ORDERED: AMLODIPINE BESYLATE 10 MG TABLET. ONE (08:27)
[2016-06-01] MEDS ORDERED: AMLODIPINE BESYLATE 10 MG TABLET PO SCH (09:00)
[2016-06-01] MEDS: LEVOTHYROXINE 150 MCG TABLET PO SCH (09:16)
[2016-06-01] MEDS: LOSARTAN POTASSIUM 50 MG TABLET. PO SCH (09:17)
[2016-06-01] MEDS: ALLOPURINOL 100 MG TABLET. PO SCH (09:18)
[2016-06-01] MEDS: METOPROLOL TART IMMED RELEASE 50 MG TABLET PO SCH ×2 (09:18→20:54)
--- NOTE | 2016-06-01 10:29 | PDOC ---
PROGRESS NOTES Chief Complaint Chief Complaint 1. Acute kidney injury, 2. Hypertension, not controlled. 3. Hyperlipidemia. 4. Hypothyroidism. Plan S/P CT-guided biopsy of lower pole of right kidney BP not controlled, restarted home medications with PRN hydralazine SSI Hemiglobin A1C Nephrology started on IV solumedrol not ready for DC IV hydration Monitor renal functions. History of Present Illness History of Present Illness asymptomatic Vitals Vitals Vital Signs Date Time Temp Pulse Resp B/P Pulse Ox O2 Delivery O2 Flow Rate FiO2 06/01/16 09:18 85 158/110 06/01/16 07:00 97.9 16 97 Room Air 97.9 Physical Exam General: Alert, Oriented X3 Heart: Normal S1 Lungs: Wheezing Abdomen: Normal bowel sounds Extremities: No clubbing Skin: No breakdown Labs LABS Laboratory Tests Test 06/01/16 04:34 White Blood Count 9.0x10^3/uL (4.0-11.0) Red Blood Count 3.81x10^6/uL (4.30-5.70) Hemoglobin 11.6g/dL (13.0-17.5) Hematocrit 35.0% (39.0-53.0) Mean Corpuscular Volume 92fL (79-100) Mean Corpuscular Hemoglobin 31pg (25-35) Mean Corpuscular Hemoglobin Concent 33g/dL (31-37) Red Cell Distribution Width 14.5% (11.5-14.5) Platelet Count 184x10^3/uL (140-400) Neutrophils (%) (Auto) 71% (31-73) Lymphocytes (%) (Auto) 18% (24-48) Monocytes (%) (Auto) 8% (0-9) Eosinophils (%) (Auto) 3% (0-3) Basophils (%) (Auto) 1% (0-3) Neutrophils # (Auto) 6.4x10^3uL (1.8-7.7) Lymphocytes # (Auto) 1.6x10^3/uL (1.0-4.8) Monocytes # (Auto) 0.7x10^3/uL (0.0-1.1) Eosinophils # (Auto) 0.3x10^3/uL (0.0-0.7) Basophils # (Auto) 0.0x10^3/uL (0.0-0.2) Sodium Level 145mmol/L (136-145) Potassium Level 3.6mmol/L (3.5-5.1) Chloride Level 108mmol/L (98-107) Carbon Dioxide Level 26mmol/L (21-32) Anion Gap 11 (6-14) Blood Urea Nitrogen 47mg/dL (8-26) Creatinine 3.5mg/dL (0.7-1.3) Estimated GFR (Cockcroft-Gault) 17.8 Glucose Level 125mg/dL (70-99) Calcium Level 8.2mg/dL (8.5-10.1) Phosphorus Level 4.1mg/dL (2.6-4.7) Total Bilirubin 0.2mg/dL (0.2-1.0) Direct Bilirubin < 0.1mg/dL (0.0-0.2) Aspartate Amino Transf (AST/SGOT) 15U/L (15-37) Alanine Aminotransferase (ALT/SGPT) 25U/L (16-63) Alkaline Phosphatase 52U/L (46-116) Total Protein 6.2g/dL (6.4-8.2) Albumin 2.7g/dL (3.4-5.0) Assessment and Plan Assessmemt and Plan Problems Medical Problems: (1) Acute renal failure Status: Acute Problems: Comment Review of Relevant I have reviewed the following items jose (where applicable) has been applied. Labs Laboratory Tests Test 05/30/16 16:30 05/31/16 06:30 05/31/16 07:00 05/31/16 07:30 White Blood Count 10.9x10^3/uL (4.0-11.0) 8.2x10^3/uL (4.0-11.0) Red Blood Count 4.03x10^6/uL (4.30-5.70) 3.69x10^6/uL (4.30-5.70) Hemoglobin 12.2g/dL (13.0-17.5) 11.2g/dL (13.0-17.5) Hematocrit 37.0% (39.0-53.0) 33.8% (39.0-53.0) Mean Corpuscular Volume 92fL (79-100) 92fL (79-100) Mean Corpuscular Hemoglobin 30pg (25-35) 30pg (25-35) Mean Corpuscular Hemoglobin Concent 33g/dL (31-37) 33g/dL (31-37) Red Cell Distribution Width 14.4% (11.5-14.5) 14.0% (11.5-14.5) Platelet Count 194x10^3/uL (140-400) 179x10^3/uL (140-400) Neutrophils (%) (Auto) 74% (31-73) 67% (31-73) Lymphocytes (%) (Auto) 17% (24-48) 22% (24-48) Monocytes (%) (Auto) 5% (0-9) 7% (0-9) Eosinophils (%) (Auto) 3% (0-3) 4% (0-3) Basophils (%) (Auto) 1% (0-3) 1% (0-3) Neutrophils # (Auto) 8.1x10^3uL (1.8-7.7) 5.5x10^3uL (1.8-7.7) Lymphocytes # (Auto) 1.8x10^3/uL (1.0-4.8) 1.8x10^3/uL (1.0-4.8) Monocytes # (Auto) 0.5x10^3/uL (0.0-1.1) 0.6x10^3/uL (0.0-1.1) Eosinophils # (Auto) 0.4x10^3/uL (0.0-0.7) 0.3x10^3/uL (0.0-0.7) Basophils # (Auto) 0.1x10^3/uL (0.0-0.2) 0.0x10^3/uL (0.0-0.2) Sodium Level 141mmol/L (136-145) 143mmol/L (136-145) Potassium Level 3.9mmol/L (3.5-5.1) 3.8mmol/L (3.5-5.1) Chloride Level 103mmol/L (98-107) 106mmol/L (98-107) Carbon Dioxide Level 26mmol/L (21-32) 24mmol/L (21-32) Anion Gap 12 (6-14) 13 (6-14) Blood Urea Nitrogen 57mg/dL (8-26) 51mg/dL (8-26) Creatinine 3.6mg/dL (0.7-1.3) 3.6mg/dL (0.7-1.3) Estimated GFR (Cockcroft-Gault) 17.3 17.3 Glucose Level 122mg/dL (70-99) 120mg/dL (70-99) Calcium Level 8.6mg/dL (8.5-10.1) 8.2mg/dL (8.5-10.1) BUN/Creatinine Ratio 14 (6-20) Total Bilirubin 0.3mg/dL (0.2-1.0) Aspartate Amino Transf (AST/SGOT) 13U/L (15-37) Alanine Aminotransferase (ALT/SGPT) 25U/L (16-63) Alkaline Phosphatase 50U/L (46-116) Total Protein 6.1g/dL (6.4-8.2) Albumin 2.7g/dL (3.4-5.0) Albumin/Globulin Ratio 0.8 (1.0-1.7) Urine Collection Type Unknown Urine Color Yellow Urine Clarity Clear Urine pH 7.0 Urine Specific [place] 1.010 Urine Protein >=300mg/dL (NEG-TRACE) Urine Glucose (UA) Negativemg/dL (NEG) Urine Ketones (Stick) Negativemg/dL (NEG) Urine Blood Trace (NEG) Urine Nitrite Negative (NEG) Urine Bilirubin Negative (NEG) Urine Urobilinogen Dipstick 0.2mg/dL (0.2 mg/dL) Urine Leukocyte Esterase Negative (NEG) Urine RBC 1-2/HPF (0-2) Urine WBC 0/HPF (0-4) Urine Squamous Epithelial Cells Few/LPF Urine Bacteria 0/HPF (0-FEW) Prothrombin Time 13.4SEC (11.7-14.0) Prothromb Time International Ratio 1.1 (0.8-1.1) Test 06/01/16 04:34 White Blood Count 9.0x10^3/uL (4.0-11.0) Red Blood Count 3.81x10^6/uL (4.30-5.70) Hemoglobin 11.6g/dL (13.0-17.5) Hematocrit 35.0% (39.0-53.0) Mean Corpuscular Volume 92fL (79-100) Mean Corpuscular Hemoglobin 31pg (25-35) Mean Corpuscular Hemoglobin Concent 33g/dL (31-37) Red Cell Distribution Width 14.5% (11.5-14.5) Platelet Count 184x10^3/uL (140-400) Neutrophils (%) (Auto) 71% (31-73) Lymphocytes (%) (Auto) 18% (24-48) Monocytes (%) (Auto) 8% (0-9) Eosinophils (%) (Auto) 3% (0-3) Basophils (%) (Auto) 1% (0-3) Neutrophils # (Auto) 6.4x10^3uL (1.8-7.7) Lymphocytes # (Auto) 1.6x10^3/uL (1.0-4.8) Monocytes # (Auto) 0.7x10^3/uL (0.0-1.1) Eosinophils # (Auto) 0.3x10^3/uL (0.0-0.7) Basophils # (Auto) 0.0x10^3/uL (0.0-0.2) Sodium Level 145mmol/L (136-145) Potassium Level 3.6mmol/L (3.5-5.1) Chloride Level 108mmol/L (98-107) Carbon Dioxide Level 26mmol/L (21-32) Anion Gap 11 (6-14) Blood Urea Nitrogen 47mg/dL (8-26) Creatinine 3.5mg/dL (0.7-1.3) Estimated GFR (Cockcroft-Gault) 17.8 Glucose Level 125mg/dL (70-99) Calcium Level 8.2mg/dL (8.5-10.1) Phosphorus Level 4.1mg/dL (2.6-4.7) Total Bilirubin 0.2mg/dL (0.2-1.0) Direct Bilirubin < 0.1mg/dL (0.0-0.2) Aspartate Amino Transf (AST/SGOT) 15U/L (15-37) Alanine Aminotransferase (ALT/SGPT) 25U/L (16-63) Alkaline Phosphatase 52U/L (46-116) Total Protein 6.2g/dL (6.4-8.2) Albumin 2.7g/dL (3.4-5.0) Laboratory Tests Test 06/01/16 04:34 White Blood Count 9.0x10^3/uL (4.0-11.0) Red Blood Count 3.81x10^6/uL (4.30-5.70) Hemoglobin 11.6g/dL (13.0-17.5) Hematocrit 35.0% (39.0-53.0) Mean Corpuscular Volume 92fL (79-100) Mean Corpuscular Hemoglobin 31pg (25-35) Mean Corpuscular Hemoglobin Concent 33g/dL (31-37) Red Cell Distribution Width 14.5% (11.5-14.5) Platelet Count 184x10^3/uL (140-400) Neutrophils (%) (Auto) 71% (31-73) Lymphocytes (%) (Auto) 18% (24-48) Monocytes (%) (Auto) 8% (0-9) Eosinophils (%) (Auto) 3% (0-3) Basophils (%) (Auto) 1% (0-3) Neutrophils # (Auto) 6.4x10^3uL (1.8-7.7) Lymphocytes # (Auto) 1.6x10^3/uL (1.0-4.8) Monocytes # (Auto) 0.7x10^3/uL (0.0-1.1) Eosinophils # (Auto) 0.3x10^3/uL (0.0-0.7) Basophils # (Auto) 0.0x10^3/uL (0.0-0.2) Sodium Level 145mmol/L (136-145) Potassium Level 3.6mmol/L (3.5-5.1) Chloride Level 108mmol/L (98-107) Carbon Dioxide Level 26mmol/L (21-32) Anion Gap 11 (6-14) Blood Urea Nitrogen 47mg/dL (8-26) Creatinine 3.5mg/dL (0.7-1.3) Estimated GFR (Cockcroft-Gault) 17.8 Glucose Level 125mg/dL (70-99) Calcium Level 8.2mg/dL (8.5-10.1) Phosphorus Level 4.1mg/dL (2.6-4.7) Total Bilirubin 0.2mg/dL (0.2-1.0) Direct Bilirubin < 0.1mg/dL (0.0-0.2) Aspartate Amino Transf (AST/SGOT) 15U/L (15-37) Alanine Aminotransferase (ALT/SGPT) 25U/L (16-63) Alkaline Phosphatase 52U/L (46-116) Total Protein 6.2g/dL (6.4-8.2) Albumin 2.7g/dL (3.4-5.0) Medications Current Medications Sodium Chloride (Iv Sodium Chloride 0.9% 1000ml Bag) 1,000 ml @ 1,000 mls/hr Q1H IV Last administered on 05/30/16 16:40; Start 05/30/16 at 15:52; Stop at 16:51; Status DC Ondansetron HCl (Zofran) 4 mg PRN Q8HRS PRN IV NAUSEA/VOMITING; Start 05/30/16 at 17:30; Stop 05/31/16 at 14:56; Status DC Acetaminophen (Tylenol) 650 mg PRN Q4HRS PRN PO FEVER; Start 05/30/16 at 17:30 ; Stop 05/31/16 at 14:56; Status DC Acetaminophen (Tylenol) 325 mg PRN Q6HRS PRN PO MILD PAIN / TEMP; Start at 19:00; Stop 06/01/16 at 05:45; Status DC Acetaminophen/ Hydrocodone Bitart (Lortab 5/325) 1 tab PRN Q6HRS PRN PO MODERATE TO SEVERE PAIN; Start 05/30/16 at 19:00 Hydralazine HCl (Apresoline) 10 mg PRN Q4HRS PRN IVP ELEVATED BP, SEE COMMENTS Last administered on 05/31/16 14:40; Start 05/30/16 at 19:00; Stop 05/31/16 at 14:56; Status DC Ondansetron HCl (Zofran) 4 mg PRN Q8HRS PRN IV NAUSEA/VOMITING; Start 05/30/16 at 19:00; Stop 06/01/16 at 05:45; Status DC Albuterol Sulfate (Ventolin Neb Soln) 2.5 mg PRN Q4HRS PRN NEB SHORTNESS OF BREATH; Start 05/30/16 at 19:00 Acetaminophen 650 mg 650 mg PRN Q6HRS PRN PO MILD PAIN / TEMP Last administered on 05/31/16 21:45; Start 05/30/16 at 20:00; Stop 06/01/16 at 05:46 ; Status DC Sodium Chloride (Iv Sodium Chloride 0.9% 1000ml Bag) 1,000 ml @ 100 mls/hr Q10H IV Last administered on 06/01/16 02:20; Start 05/30/16 at 20:00 Hydralazine HCl (Apresoline) 10 mg PRN Q4HRS PRN IVP for SBP > 170; Start 05/31 at 00:30 Lidocaine/Sodium Bicarbonate (Buffered Lidocaine 1%) 20 ml STK-MED ONCE IJ ; Start 05/31/16 at 12:22; Stop 05/31/16 at 12:23; Status DC Naloxone HCl (Narcan) 0.4 mg STK-MED ONCE .ROUTE ; Start 05/31/16 at 12:43; Stop 05/31/16 at 12:44; Status DC Flumazenil (Romazicon) 0.5 mg STK-MED ONCE IV ; Start 05/31/16 at 12:43; Stop at 12:44; Status DC Midazolam HCl (Versed) 5 mg STK-MED ONCE .ROUTE ; Start 05/31/16 at 12:43; Stop 05/31/16 at 12:44; Status DC Fentanyl Citrate (Fentanyl 5ml Vial) 250 mcg STK-MED ONCE .ROUTE ; Start at 12:44; Stop 05/31/16 at 12:45; Status DC Lidocaine/Sodium Bicarbonate (Buffered Lidocaine 1%) 20 ml 1X ONCE IJ Last administered on 05/31/16 14:03; Start 05/31/16 at 13:00; Stop 05/31/16 at 13:01 ; Status DC Midazolam HCl (Versed) 5 mg 1X ONCE IV Last administered on 05/31/16 14:04; Start 05/31/16 at 13:00; Stop 05/31/16 at 13:01; Status DC Fentanyl Citrate (Fentanyl 5ml Vial) 250 mcg 1X ONCE IV Last administered on 14:04; Start 05/31/16 at 13:00; Stop 05/31/16 at 13:01; Status DC Metoprolol Tartrate (Lopressor) 25 mg BID PO Last administered on 05/31/16 15: 39; Start 05/31/16 at 15:00; Stop 05/31/16 at 16:51; Status DC Allopurinol (Zyloprim) 100 mg DAILY PO Last administered on 06/01/16 09:18; Start 05/31/16 at 17:00 Levothyroxine Sodium (Synthroid) 150 mcg DAILYAC PO Last administered on 09:16; Start 06/01/16 at 07:30 Metoprolol Tartrate (Lopressor) 50 mg BID PO Last administered on 06/01/16 09: 18; Start 05/31/16 at 21:00 Amlodipine Besylate (Norvasc) 10 mg DAILY PO Last administered on 06/01/16 09: 17; Start 06/01/16 at 09:00 Losartan Potassium (Cozaar) 100 mg DAILY PO Last administered on 06/01/16 09: 17; Start 06/01/16 at 09:00 Acetaminophen (Tylenol) 325 mg PRN Q6HRS PRN PO MILD PAIN / TEMP; Start at 05:45 Ondansetron HCl (Zofran) 4 mg PRN Q8HRS PRN IV NAUSEA/VOMITING; Start 06/01/16 at 05:45 Acetaminophen (Tylenol) 650 mg PRN Q6HRS PRN PO MILD PAIN / TEMP; Start at 05:45 Amlodipine Besylate (Norvasc) 10 mg STK-MED ONCE .ROUTE ; Start 06/01/16 at 08: 27; Stop 06/01/16 at 08:28; Status DC Active Scripts Active Reported Levothyroxine Sodium 150 Mcg Tablet 150 Mcg PO DAILYAC Gaby 10-40 Mg Tablet (Amlodipine Bes/Olmesartan Med) 1 Each Tablet 1 Each PO DAILY Allopurinol 100 Mg Tablet 100 Mg PO Metoprolol Tartrate 50 Mg Tablet 50 Mg PO BID Aspir 81 (Aspirin) 81 Mg Tablet.dr 1 Tab PO DAILY Vitals/I & O Vital Sign - Last 24 Hours 3/29/17 3/29/17 3/29/17 3/29/17 13:08 13:10 13:15 13:20 Pulse 95 95 97 97 Resp 18 14 14 14 Pulse Ox 98 94 94 94 O2 Delivery Room Air Room Air Room Air Room Air 05/31/16 05/31/16 05/31/16 05/31/16 13:25 13:30 13:35 13:40 Pulse 93 93 84 84 Resp 14 14 14 14 Pulse Ox 95 95 95 95 O2 Delivery Room Air Room Air Room Air Room Air 05/31/16 05/31/16 05/31/16 05/31/16 13:45 13:50 14:04 14:04 Pulse 84 84 86 Resp 14 14 14 16 Pulse Ox 98 98 98 98 O2 Delivery Room Air Room Air Room Air 05/31/16 05/31/16 05/31/16 05/31/16 14:15 14:30 14:32 14:40 Temp 97.9 97.9 97.9 97.9 Pulse 80 79 80 80 Resp 15 15 B/P 173/101 155/111 173/101 173/101 Pulse Ox 94 O2 Delivery Room Air Room Air 05/31/16 05/31/16 05/31/16 05/31/16 14:45 15:00 15:15 15:39 Pulse 90 92 94 100 B/P 152/107 168/95 168/96 177/96 05/31/16 05/31/16 05/31/16 05/31/16 15:45 16:15 16:42 17:15 Pulse 100 104 111 108 B/P 177/96 195/108 128/98 149/93 05/31/16 05/31/16 05/31/16 05/31/16 19:00 20:00 21:43 22:53 Temp 98.1 98.1 98.1 98.1 Pulse 109 109 82 Resp 22 22 B/P 154/110 154/110 148/102 Pulse Ox 97 96 O2 Delivery Room Air Room Air Room Air 06/01/16 06/01/16 06/01/16 06/01/16 03:00 07:00 09:17 09:17 Temp 98.1 97.9 98.1 97.9 Pulse 71 85 85 85 Resp 22 16 B/P 149/96 158/110 158/110 158/110 Pulse Ox 97 97 O2 Delivery Room Air Room Air 06/01/16 09:18 Pulse 85 B/P 158/110 Intake and Output 05/31/16 05/31/16 06/01/16 15:00 23:00 07:00 Intake Total 180 ml 1200 ml 0 ml Balance 180 ml 1200 ml 0 ml DAIJA GOLDSMITH MD Jun 01, 2016 10:29
[2016-06-01 11:00] VITALS: BP 144/92
--- NOTE | 2016-06-01 11:26 | PDOC ---
Renal-Progress Notes Subjective Notes Notes NONE History of Present Illness Hx of present illness NO CHANGE Vitals Vitals Vital Signs Date Time Temp Pulse Resp B/P Pulse Ox O2 Delivery O2 Flow Rate FiO2 06/01/16 09:18 85 158/110 06/01/16 08:00 Room Air 06/01/16 07:00 97.9 16 97 97.9 Weight Weight [ ] I.O. Intake and Output Intake and Output 06/01/16 07:00 Intake Total 1380 ml Balance 1380 ml Intake Oral 480 ml IV Total 900 ml # Voids 1 Labs Labs Laboratory Tests Test 06/01/16 04:34 White Blood Count 9.0x10^3/uL (4.0-11.0) Red Blood Count 3.81x10^6/uL (4.30-5.70) Hemoglobin 11.6g/dL (13.0-17.5) Hematocrit 35.0% (39.0-53.0) Mean Corpuscular Volume 92fL (79-100) Mean Corpuscular Hemoglobin 31pg (25-35) Mean Corpuscular Hemoglobin Concent 33g/dL (31-37) Red Cell Distribution Width 14.5% (11.5-14.5) Platelet Count 184x10^3/uL (140-400) Neutrophils (%) (Auto) 71% (31-73) Lymphocytes (%) (Auto) 18% (24-48) Monocytes (%) (Auto) 8% (0-9) Eosinophils (%) (Auto) 3% (0-3) Basophils (%) (Auto) 1% (0-3) Neutrophils # (Auto) 6.4x10^3uL (1.8-7.7) Lymphocytes # (Auto) 1.6x10^3/uL (1.0-4.8) Monocytes # (Auto) 0.7x10^3/uL (0.0-1.1) Eosinophils # (Auto) 0.3x10^3/uL (0.0-0.7) Basophils # (Auto) 0.0x10^3/uL (0.0-0.2) Sodium Level 145mmol/L (136-145) Potassium Level 3.6mmol/L (3.5-5.1) Chloride Level 108mmol/L (98-107) Carbon Dioxide Level 26mmol/L (21-32) Anion Gap 11 (6-14) Blood Urea Nitrogen 47mg/dL (8-26) Creatinine 3.5mg/dL (0.7-1.3) Estimated GFR (Cockcroft-Gault) 17.8 Glucose Level 125mg/dL (70-99) Calcium Level 8.2mg/dL (8.5-10.1) Phosphorus Level 4.1mg/dL (2.6-4.7) Total Bilirubin 0.2mg/dL (0.2-1.0) Direct Bilirubin < 0.1mg/dL (0.0-0.2) Aspartate Amino Transf (AST/SGOT) 15U/L (15-37) Alanine Aminotransferase (ALT/SGPT) 25U/L (16-63) Alkaline Phosphatase 52U/L (46-116) Total Protein 6.2g/dL (6.4-8.2) Albumin 2.7g/dL (3.4-5.0) Review of Systems Constitutional: yes: alert, oriented Ears/Nose/Throat: Yes: no symptom reported Eyes: Yes: no symptom reported Pulmonary: Yes no symptom reported Cardiovascular: Yes no symptom reported Genitourinary: Yes: no symptom reported Skin: Yes no symptom reported Physical Exam General Appearance: no apparent distress Skin: warm Respiratory: bilateral CTA Heart: S1S2, RRR Abdomen: soft, bowel sounds present Genitourinary: bladder flat Extremities: no edema Neurology: alert Assessment Assessment IMP NEPHROTIC SYNDROME-SEVERE WITH ABOUT 14 GM A DAY CKD WITH NICOLE WITH CR AT 3.5 PROB DM II HTN UNCONTROLLED NON COMPLIANCE S/P RENAL BIOPSY RENAL SONO SHOWED CMRD PLAN AWAIT BX RESULTS RESUME BP MEDS START SOLUMEDROL CONT WITH IVF'S SEROLOGY PENDING UPDATED PT AND CHRISSIE AMANDA MD Jun 01, 2016 11:26
[2016-06-01] MEDS ORDERED: DEXTROSE 50% 25 GM / 50ML DISP.SYRIN. IV PRN (11:45)
[2016-06-01] MEDS: INSULIN ASPART 300 UNITS/3 ML INSULN.PEN SQ SCH ×2 (12:00→17:52)
[2016-06-01] MEDS: NORMAL SALINE IV SCH ×2 (12:30→17:47)
[2016-06-01] MEDS: METHYLPREDNISOLONE SOD SUCC IV SCH ×2 (12:30→17:47)
[2016-06-01 13:24] LABS: C3 COMPLEMENT 129 mg/dL (82-167); C4 COMPLEMENT 56 mg/dL (14-44)
[2016-06-01 15:00] VITALS: BP 157/108
[2016-06-01 19:00] VITALS: BP 151/102
[2016-06-01] MEDS: ACETAMINOPHEN 325 MG TABLET. PO PRN (19:26)
[2016-06-01] MEDS: MAG HYDROX/ALUMINUM HYD/SIMETH 30 ML ORAL.SUSP PO PRN (21:47)
[2016-06-01 23:02] VITALS: BP 158/95
[2016-06-02] MEDS: METHYLPREDNISOLONE SOD SUCC IV SCH ×4 (00:09→17:30)
[2016-06-02] MEDS: NORMAL SALINE IV SCH ×4 (00:09→17:30)
[2016-06-02] MEDS: IV NORMAL SALINE 1000ML BAG 1,000 ML IV SCH ×3 (00:10→17:30)
[2016-06-02 03:00] VITALS: BP 120/84
[2016-06-02] MEDS: MAG HYDROX/ALUMINUM HYD/SIMETH 30 ML ORAL.SUSP PO PRN ×3 (05:21→18:31)
[2016-06-02 05:37] LABS: BASO % 0 % (0-3); EOS % 0 % (0-3); HEMOGLOBIN 11.8 g/dL (13.0-17.5); LYMPH % 9 % (24-48); MEAN CORPUSCULAR HEMOGLOBIN 30 pg (25-35); MEAN CORPUSCULAR HGB CONC 34 g/dL (31-37); MEAN CORPUSCULAR VOLUME 90 fL (79-100); MONO % 1 % (0-9); NEUT % 90 % (31-73); PLATELET COUNT 205 x10^3/uL (140-400); RED BLOOD COUNT 3.91 x10^6/uL (4.30-5.70); WHITE BLOOD COUNT 11.2 x10^3/uL (4.0-11.0)
[2016-06-02 05:48] LABS: CALCIUM 8.2 mg/dL (8.5-10.1); CREATININE 3.8 mg/dL (0.7-1.3); GFR 16.2; POTASSIUM 3.6 mmol/L (3.5-5.1)
[2016-06-02] MEDS: LEVOTHYROXINE 150 MCG TABLET PO SCH (06:33)
[2016-06-02] MEDS: ACETAMINOPHEN 325 MG TABLET. PO PRN ×2 (06:35→11:39)
[2016-06-02 07:00] VITALS: BP 157/101
[2016-06-02 07:15] LABS: PLT ESTIMATE ADEQUATE (ADEQUATE)
[2016-06-02] MEDS: LOSARTAN POTASSIUM 50 MG TABLET. PO SCH (08:31)
[2016-06-02] MEDS: AMLODIPINE BESYLATE 10 MG TABLET. PO SCH (08:33)
[2016-06-02] MEDS: ALLOPURINOL 100 MG TABLET. PO SCH (08:33)
[2016-06-02] MEDS: INSULIN ASPART 300 UNITS/3 ML INSULN.PEN SQ SCH ×3 (08:38→17:42)
[2016-06-02] MEDS ORDERED: METOPROLOL TART IMMED RELEASE 50 MG TABLET. PO SCH (09:00)
--- NOTE | 2016-06-02 10:10 | PDOC ---
PROGRESS NOTES Chief Complaint Chief Complaint 1. Acute kidney injury, Nephrotic range proteinuria, 2. Hypertension, not controlled. 3. Hyperlipidemia. 4. Hypothyroidism. 5. Pre diabetes Plan S/P CT-guided biopsy of lower pole of right kidney, bopsy resutls pending, started on Solumedrol per Nephrology BP not controlled, increased metoprolol, add clonidine SSI for hyperglycemia due to steroids. Hemiglobin A1C- 6.1, pre diabetes. Serology pending. History of Present Illness History of Present Illness asymptomatic Vitals Vitals Vital Signs Date Time Temp Pulse Resp B/P Pulse Ox O2 Delivery O2 Flow Rate FiO2 06/02/16 08:33 94 157/101 06/02/16 07:00 98.2 16 93 Room Air 98.2 Physical Exam General: Alert, Oriented X3 Heart: Normal S1 Lungs: Wheezing Abdomen: Normal bowel sounds Extremities: No clubbing, Other (mild edema) Skin: No breakdown Labs LABS Laboratory Tests Test 06/01/16 12:30 06/01/16 15:49 06/02/16 05:06 06/02/16 08:05 Glucose (Fingerstick) 123mg/dL (70-99) 157mg/dL (70-99) 163mg/dL (70-99) White Blood Count 11.2x10^3/uL (4.0-11.0) Red Blood Count 3.91x10^6/uL (4.30-5.70) Hemoglobin 11.8g/dL (13.0-17.5) Hematocrit 35.0% (39.0-53.0) Mean Corpuscular Volume 90fL (79-100) Mean Corpuscular Hemoglobin 30pg (25-35) Mean Corpuscular Hemoglobin Concent 34g/dL (31-37) Red Cell Distribution Width 14.0% (11.5-14.5) Platelet Count 205x10^3/uL (140-400) Neutrophils (%) (Auto) 90% (31-73) Lymphocytes (%) (Auto) 9% (24-48) Monocytes (%) (Auto) 1% (0-9) Eosinophils (%) (Auto) 0% (0-3) Basophils (%) (Auto) 0% (0-3) Neutrophils # (Auto) 10.1x10^3uL (1.8-7.7) Lymphocytes # (Auto) 1.0x10^3/uL (1.0-4.8) Monocytes # (Auto) 0.1x10^3/uL (0.0-1.1) Eosinophils # (Auto) 0.0x10^3/uL (0.0-0.7) Basophils # (Auto) 0.0x10^3/uL (0.0-0.2) Segmented Neutrophils % 90% (35-66) Band Neutrophils % 1% (0-9) Lymphocytes % 9% (24-48) Platelet Estimate Adequate (ADEQUATE) Sodium Level 142mmol/L (136-145) Potassium Level 3.6mmol/L (3.5-5.1) Chloride Level 106mmol/L (98-107) Carbon Dioxide Level 23mmol/L (21-32) Anion Gap 13 (6-14) Blood Urea Nitrogen 43mg/dL (8-26) Creatinine 3.8mg/dL (0.7-1.3) Estimated GFR (Cockcroft-Gault) 16.2 Glucose Level 172mg/dL (70-99) Calcium Level 8.2mg/dL (8.5-10.1) Assessment and Plan Assessmemt and Plan Problems Medical Problems: (1) Acute renal failure Status: Acute Problems: Comment Review of Relevant I have reviewed the following items jose (where applicable) has been applied. Labs Laboratory Tests Test 06/01/16 04:34 06/01/16 12:30 06/01/16 15:49 06/02/16 05:06 White Blood Count 9.0x10^3/uL (4.0-11.0) 11.2x10^3/uL (4.0-11.0) Red Blood Count 3.81x10^6/uL (4.30-5.70) 3.91x10^6/uL (4.30-5.70) Hemoglobin 11.6g/dL (13.0-17.5) 11.8g/dL (13.0-17.5) Hematocrit 35.0% (39.0-53.0) 35.0% (39.0-53.0) Mean Corpuscular Volume 92fL (79-100) 90fL (79-100) Mean Corpuscular Hemoglobin 31pg (25-35) 30pg (25-35) Mean Corpuscular Hemoglobin Concent 33g/dL (31-37) 34g/dL (31-37) Red Cell Distribution Width 14.5% (11.5-14.5) 14.0% (11.5-14.5) Platelet Count 184x10^3/uL (140-400) 205x10^3/uL (140-400) Neutrophils (%) (Auto) 71% (31-73) 90% (31-73) Lymphocytes (%) (Auto) 18% (24-48) 9% (24-48) Monocytes (%) (Auto) 8% (0-9) 1% (0-9) Eosinophils (%) (Auto) 3% (0-3) 0% (0-3) Basophils (%) (Auto) 1% (0-3) 0% (0-3) Neutrophils # (Auto) 6.4x10^3uL (1.8-7.7) 10.1x10^3uL (1.8-7.7) Lymphocytes # (Auto) 1.6x10^3/uL (1.0-4.8) 1.0x10^3/uL (1.0-4.8) Monocytes # (Auto) 0.7x10^3/uL (0.0-1.1) 0.1x10^3/uL (0.0-1.1) Eosinophils # (Auto) 0.3x10^3/uL (0.0-0.7) 0.0x10^3/uL (0.0-0.7) Basophils # (Auto) 0.0x10^3/uL (0.0-0.2) 0.0x10^3/uL (0.0-0.2) Sodium Level 145mmol/L (136-145) 142mmol/L (136-145) Potassium Level 3.6mmol/L (3.5-5.1) 3.6mmol/L (3.5-5.1) Chloride Level 108mmol/L (98-107) 106mmol/L (98-107) Carbon Dioxide Level 26mmol/L (21-32) 23mmol/L (21-32) Anion Gap 11 (6-14) 13 (6-14) Blood Urea Nitrogen 47mg/dL (8-26) 43mg/dL (8-26) Creatinine 3.5mg/dL (0.7-1.3) 3.8mg/dL (0.7-1.3) Estimated GFR (Cockcroft-Gault) 17.8 16.2 Glucose Level 125mg/dL (70-99) 172mg/dL (70-99) Hemoglobin A1c 6.1% (4.8-5.6) Calcium Level 8.2mg/dL (8.5-10.1) 8.2mg/dL (8.5-10.1) Phosphorus Level 4.1mg/dL (2.6-4.7) Total Bilirubin 0.2mg/dL (0.2-1.0) Direct Bilirubin < 0.1mg/dL (0.0-0.2) Aspartate Amino Transf (AST/SGOT) 15U/L (15-37) Alanine Aminotransferase (ALT/SGPT) 25U/L (16-63) Alkaline Phosphatase 52U/L (46-116) Total Protein 6.2g/dL (6.4-8.2) Albumin 2.7g/dL (3.4-5.0) Complement C3 129mg/dL (82-167) Complement C4 56mg/dL (14-44) Hepatitis B Core Total Antibody Negative (Negative) Glucose (Fingerstick) 123mg/dL (70-99) 157mg/dL (70-99) Segmented Neutrophils % 90% (35-66) Band Neutrophils % 1% (0-9) Lymphocytes % 9% (24-48) Platelet Estimate Adequate (ADEQUATE) Test 06/02/16 08:05 Glucose (Fingerstick) 163mg/dL (70-99) Laboratory Tests Test 06/01/16 12:30 06/01/16 15:49 06/02/16 05:06 06/02/16 08:05 Glucose (Fingerstick) 123mg/dL (70-99) 157mg/dL (70-99) 163mg/dL (70-99) White Blood Count 11.2x10^3/uL (4.0-11.0) Red Blood Count 3.91x10^6/uL (4.30-5.70) Hemoglobin 11.8g/dL (13.0-17.5) Hematocrit 35.0% (39.0-53.0) Mean Corpuscular Volume 90fL (79-100) Mean Corpuscular Hemoglobin 30pg (25-35) Mean Corpuscular Hemoglobin Concent 34g/dL (31-37) Red Cell Distribution Width 14.0% (11.5-14.5) Platelet Count 205x10^3/uL (140-400) Neutrophils (%) (Auto) 90% (31-73) Lymphocytes (%) (Auto) 9% (24-48) Monocytes (%) (Auto) 1% (0-9) Eosinophils (%) (Auto) 0% (0-3) Basophils (%) (Auto) 0% (0-3) Neutrophils # (Auto) 10.1x10^3uL (1.8-7.7) Lymphocytes # (Auto) 1.0x10^3/uL (1.0-4.8) Monocytes # (Auto) 0.1x10^3/uL (0.0-1.1) Eosinophils # (Auto) 0.0x10^3/uL (0.0-0.7) Basophils # (Auto) 0.0x10^3/uL (0.0-0.2) Segmented Neutrophils % 90% (35-66) Band Neutrophils % 1% (0-9) Lymphocytes % 9% (24-48) Platelet Estimate Adequate (ADEQUATE) Sodium Level 142mmol/L (136-145) Potassium Level 3.6mmol/L (3.5-5.1) Chloride Level 106mmol/L (98-107) Carbon Dioxide Level 23mmol/L (21-32) Anion Gap 13 (6-14) Blood Urea Nitrogen 43mg/dL (8-26) Creatinine 3.8mg/dL (0.7-1.3) Estimated GFR (Cockcroft-Gault) 16.2 Glucose Level 172mg/dL (70-99) Calcium Level 8.2mg/dL (8.5-10.1) Medications Current Medications Sodium Chloride (Iv Sodium Chloride 0.9% 1000ml Bag) 1,000 ml @ 1,000 mls/hr Q1H IV Last administered on 05/30/16t 16:40; Start 05/30/16 at 15:52; Stop at 16:51; Status DC Ondansetron HCl (Zofran) 4 mg PRN Q8HRS PRN IV NAUSEA/VOMITING; Start 05/30/16 at 17:30; Stop 05/31/16 at 14:56; Status DC Acetaminophen (Tylenol) 650 mg PRN Q4HRS PRN PO FEVER; Start 05/30/16 at 17:30 ; Stop 05/31/16 at 14:56; Status DC Acetaminophen (Tylenol) 325 mg PRN Q6HRS PRN PO MILD PAIN / TEMP; Start at 19:00; Stop 06/01/16 at 05:45; Status DC Acetaminophen/ Hydrocodone Bitart (Lortab 5/325) 1 tab PRN Q6HRS PRN PO MODERATE TO SEVERE PAIN; Start 05/30/16 at 19:00 Hydralazine HCl (Apresoline) 10 mg PRN Q4HRS PRN IVP ELEVATED BP, SEE COMMENTS Last administered on 05/31/16 14:40; Start 05/30/16 at 19:00; Stop 05/31/16 at 14:56; Status DC Ondansetron HCl (Zofran) 4 mg PRN Q8HRS PRN IV NAUSEA/VOMITING; Start 05/30/16 at 19:00; Stop 06/01/16 at 05:45; Status DC Albuterol Sulfate (Ventolin Neb Soln) 2.5 mg PRN Q4HRS PRN NEB SHORTNESS OF BREATH; Start 05/30/16 at 19:00 Acetaminophen 650 mg 650 mg PRN Q6HRS PRN PO MILD PAIN / TEMP Last administered on 05/31/16 21:45; Start 05/30/16 at 20:00; Stop 06/01/16 at 05:46 ; Status DC Sodium Chloride (Iv Sodium Chloride 0.9% 1000ml Bag) 1,000 ml @ 100 mls/hr Q10H IV Last administered on 06/02/16 00:10; Start 05/30/16 at 20:00 Hydralazine HCl (Apresoline) 10 mg PRN Q4HRS PRN IVP for SBP > 170; Start 05/31 at 00:30 Lidocaine/Sodium Bicarbonate (Buffered Lidocaine 1%) 20 ml STK-MED ONCE IJ ; Start 05/31/16 at 12:22; Stop 05/31/16 at 12:23; Status DC Naloxone HCl (Narcan) 0.4 mg STK-MED ONCE .ROUTE ; Start 05/31/16 at 12:43; Stop 05/31/16 at 12:44; Status DC Flumazenil (Romazicon) 0.5 mg STK-MED ONCE IV ; Start 05/31/16 at 12:43; Stop at 12:44; Status DC Midazolam HCl (Versed) 5 mg STK-MED ONCE .ROUTE ; Start 05/31/16 at 12:43; Stop 05/31/16 at 12:44; Status DC Fentanyl Citrate (Fentanyl 5ml Vial) 250 mcg STK-MED ONCE .ROUTE ; Start at 12:44; Stop 05/31/16 at 12:45; Status DC Lidocaine/Sodium Bicarbonate (Buffered Lidocaine 1%) 20 ml 1X ONCE IJ Last administered on 05/31/16 14:03; Start 05/31/16 at 13:00; Stop 05/31/16 at 13:01 ; Status DC Midazolam HCl (Versed) 5 mg 1X ONCE IV Last administered on 05/31/16 14:04; Start 05/31/16 at 13:00; Stop 05/31/16 at 13:01; Status DC Fentanyl Citrate (Fentanyl 5ml Vial) 250 mcg 1X ONCE IV Last administered on 14:04; Start 05/31/16 at 13:00; Stop 05/31/16 at 13:01; Status DC Metoprolol Tartrate (Lopressor) 25 mg BID PO Last administered on 05/31/16 15: 39; Start 05/31/16 at 15:00; Stop 05/31/16 at 16:51; Status DC Allopurinol (Zyloprim) 100 mg DAILY PO Last administered on 06/02/16 08:33; Start 05/31/16 at 17:00 Levothyroxine Sodium (Synthroid) 150 mcg DAILYAC PO Last administered on 06:33; Start 06/01/16 at 07:30 Metoprolol Tartrate (Lopressor) 50 mg BID PO Last administered on 06/01/16 20: 54; Start 05/31/16 at 21:00; Stop 06/02/16 at 05:39; Status DC Amlodipine Besylate (Norvasc) 10 mg DAILY PO Last administered on 06/01/16 09: 17; Start 06/01/16 at 09:00; Stop 06/01/16 at 20:59; Status DC Losartan Potassium (Cozaar) 100 mg DAILY PO Last administered on 06/02/16 08: 31; Start 06/01/16 at 09:00 Acetaminophen (Tylenol) 325 mg PRN Q6HRS PRN PO MILD PAIN / TEMP Last administered on 06/02/16 06:35; Start 06/01/16 at 05:45 Ondansetron HCl (Zofran) 4 mg PRN Q8HRS PRN IV NAUSEA/VOMITING; Start 06/01/16 at 05:45 Acetaminophen (Tylenol) 650 mg PRN Q6HRS PRN PO MILD PAIN / TEMP; Start at 05:45 Amlodipine Besylate 10 mg 10 mg STK-MED ONCE .ROUTE ; Start 06/01/16 at 08:27; Stop 06/01/16 at 08:28; Status DC Methylprednisolone Sodium Succinate/ Sodium Chloride (Solu-Medrol/Iv Sodium Chloride 0.9% 50ml) 50 ml @ 100 mls/hr Q6HRS IV Last administered on 06:13; Start 06/01/16 at 12:00; Stop 06/04/16 at 06:29 Insulin Aspart (Novolog) 0-7 UNITS TIDWMEALS SQ Last administered on 06/02/16 08:38; Start 06/01/16 at 12:00 Dextrose 12.5 gm PRN Q15MIN PRN IV SEE COMMENTS; Start 06/01/16 at 11:45 Amlodipine Besylate (Norvasc) 10 mg DAILY PO Last administered on 06/02/16 08: 33; Start 06/02/16 at 09:00 Al Hydroxide/Mg Hydroxide (Mylanta Plus Xs) 30 ml PRN Q6HRS PRN PO HEARTBURN / GAS Last administered on 06/02/16 05:21; Start 06/01/16 at 21:45 Metoprolol Tartrate (Lopressor) 50 mg BID PO Last administered on 06/02/16t 08: 32; Start 06/02/16 at 09:00 Active Scripts Active Reported Levothyroxine Sodium 150 Mcg Tablet 150 Mcg PO DAILYAC Gaby 10-40 Mg Tablet (Amlodipine Bes/Olmesartan Med) 1 Each Tablet 1 Each PO DAILY Allopurinol 100 Mg Tablet 100 Mg PO Metoprolol Tartrate 50 Mg Tablet 50 Mg PO BID Aspir 81 (Aspirin) 81 Mg Tablet. 1 Tab PO DAILY Vitals/I & O Vital Sign - Last 24 Hours 06/01/16 06/01/16 06/01/16 06/01/16 11:00 15:00 19:00 20:00 Temp 98.7 97.8 97.9 98.7 97.8 97.9 Pulse 78 88 103 Resp 18 B/P 144/92 157/108 151/102 Pulse Ox 97 97 96 O2 Delivery Room Air Room Air Room Air Room Air 06/01/16 06/01/16 06/02/16 06/02/16 20:54 23:02 03:00 07:00 Temp 97.9 96.3 98.2 97.9 96.3 98.2 Pulse 100 85 98 94 Resp 16 B/P 151/108 158/95 120/84 157/101 Pulse Ox 95 93 93 O2 Delivery Room Air Room Air Room Air 06/02/16 06/02/16 06/02/16 08:31 08:32 08:33 Pulse 94 94 94 B/P 157/101 157/101 157/101 Intake and Output 06/01/16 06/01/16 06/02/16 15:00 23:00 07:00 Intake Total 380 ml 200 ml 200 ml Output Total 500 ml Balance 380 ml 200 ml -300 ml DAIJA GOLDSMITH MD Jun 02, 2016 10:10
[2016-06-02] MEDS ORDERED: METOPROLOL TART IMMED RELEASE 25 MG TABLET. PO ONE (10:15)
[2016-06-02 10:34] VITALS: BP 142/103
--- NOTE | 2016-06-02 11:58 | PDOC ---
Renal-Progress Notes Subjective Notes Notes NO NEW COMPLAINTS History of Present Illness Hx of present illness STABLE Vitals Vitals Vital Signs Date Time Temp Pulse Resp B/P Pulse Ox O2 Delivery O2 Flow Rate FiO2 06/02/16 11:40 98 142/103 06/02/16 10:34 98.9 18 97 Room Air 98.9 Weight Weight [ ] I.O. Intake and Output Intake and Output 06/02/16 07:00 Intake Total 780 ml Output Total 500 ml Balance 280 ml Intake Oral 780 ml Output Urine Total 500 ml # Voids 1 Labs Labs Laboratory Tests Test 06/01/16 12:30 06/01/16 15:49 06/02/16 05:06 06/02/16 08:05 Glucose (Fingerstick) 123mg/dL (70-99) 157mg/dL (70-99) 163mg/dL (70-99) White Blood Count 11.2x10^3/uL (4.0-11.0) Red Blood Count 3.91x10^6/uL (4.30-5.70) Hemoglobin 11.8g/dL (13.0-17.5) Hematocrit 35.0% (39.0-53.0) Mean Corpuscular Volume 90fL (79-100) Mean Corpuscular Hemoglobin 30pg (25-35) Mean Corpuscular Hemoglobin Concent 34g/dL (31-37) Red Cell Distribution Width 14.0% (11.5-14.5) Platelet Count 205x10^3/uL (140-400) Neutrophils (%) (Auto) 90% (31-73) Lymphocytes (%) (Auto) 9% (24-48) Monocytes (%) (Auto) 1% (0-9) Eosinophils (%) (Auto) 0% (0-3) Basophils (%) (Auto) 0% (0-3) Neutrophils # (Auto) 10.1x10^3uL (1.8-7.7) Lymphocytes # (Auto) 1.0x10^3/uL (1.0-4.8) Monocytes # (Auto) 0.1x10^3/uL (0.0-1.1) Eosinophils # (Auto) 0.0x10^3/uL (0.0-0.7) Basophils # (Auto) 0.0x10^3/uL (0.0-0.2) Segmented Neutrophils % 90% (35-66) Band Neutrophils % 1% (0-9) Lymphocytes % 9% (24-48) Platelet Estimate Adequate (ADEQUATE) Sodium Level 142mmol/L (136-145) Potassium Level 3.6mmol/L (3.5-5.1) Chloride Level 106mmol/L (98-107) Carbon Dioxide Level 23mmol/L (21-32) Anion Gap 13 (6-14) Blood Urea Nitrogen 43mg/dL (8-26) Creatinine 3.8mg/dL (0.7-1.3) Estimated GFR (Cockcroft-Gault) 16.2 Glucose Level 172mg/dL (70-99) Calcium Level 8.2mg/dL (8.5-10.1) Test 06/02/16 10:58 Glucose (Fingerstick) 200mg/dL (70-99) Review of Systems Constitutional: yes: alert, oriented Ears/Nose/Throat: Yes: no symptom reported Eyes: Yes: no symptom reported Pulmonary: Yes no symptom reported Cardiovascular: Yes no symptom reported Genitourinary: Yes: no symptom reported Skin: Yes no symptom reported Physical Exam General Appearance: no apparent distress Skin: warm Respiratory: bilateral CTA Heart: S1S2, RRR Abdomen: soft, bowel sounds present Genitourinary: bladder flat Extremities: no edema Neurology: alert Assessment Assessment IMP NEPHROTIC SYNDROME-SEVERE WITH ABOUT 14 GM A DAY CKD WITH NICOLE WITH CR AT 3.9 PROB DM II HTN UNCONTROLLED-WORSE DUE TO STEROIDS NON COMPLIANCE S/P RENAL BIOPSY RENAL SONO SHOWED CMRD DM II -AIC GOOD AT 6.1 PLAN AWAIT BX RESULTS ADD PO CLONIDINE CONT SOLUMEDROL CONT WITH IVF'S SEROLOGY PENDING START GLYBURIDE UPDATED PT AND CHRISSIE AMANDA MD Jun 02, 2016 11:58
[2016-06-02 15:00] VITALS: BP 135/91
[2016-06-02] MEDS: GLYBURIDE 5 MG TABLET PO SCH (17:29)
[2016-06-02 19:00] VITALS: BP 129/86
[2016-06-02] MEDS: METOPROLOL TART IMMED RELEASE 50 MG TABLET. PO SCH (20:35)
[2016-06-02 23:00] VITALS: BP 150/92
[2016-06-03] MEDS: NORMAL SALINE IV SCH ×4 (00:10→17:32)
[2016-06-03] MEDS: METHYLPREDNISOLONE SOD SUCC IV SCH ×4 (00:10→17:32)
[2016-06-03 03:00] VITALS: BP 129/86
[2016-06-03] MEDS: IV NORMAL SALINE 1000ML BAG 1,000 ML IV SCH ×2 (05:13→17:32)
[2016-06-03] MEDS: LEVOTHYROXINE 150 MCG TABLET PO SCH (06:22)
[2016-06-03 06:29] LABS: BASO % 0 % (0-3); EOS % 0 % (0-3); HEMOGLOBIN 11.2 g/dL (13.0-17.5); LYMPH # 1.2 x10^3/uL (1.0-4.8); LYMPH % 5 % (24-48); MEAN CORPUSCULAR HEMOGLOBIN 30 pg (25-35); MEAN CORPUSCULAR HGB CONC 33 g/dL (31-37); MEAN CORPUSCULAR VOLUME 90 fL (79-100); MONO % 2 % (0-9); NEUT % 93 % (31-73); PLATELET COUNT 197 x10^3/uL (140-400); RED BLOOD COUNT 3.77 x10^6/uL (4.30-5.70); RED CELL DISTRIBUTION WIDTH 14.7 % (11.5-14.5); WHITE BLOOD COUNT 24.2 x10^3/uL (4.0-11.0)
[2016-06-03 06:42] LABS: CALCIUM 8.2 mg/dL (8.5-10.1); CREATININE 3.6 mg/dL (0.7-1.3); GFR 17.3; POTASSIUM 3.4 mmol/L (3.5-5.1)
[2016-06-03 07:00] VITALS: BP 145/103
[2016-06-03] MEDS: INSULIN ASPART 300 UNITS/3 ML INSULN.PEN SQ SCH ×3 (08:00→17:15)
[2016-06-03] MEDS ORDERED: LOSARTAN POTASSIUM 50 MG TABLET. ONE (08:04)
[2016-06-03] MEDS: ALLOPURINOL 100 MG TABLET. PO SCH (08:20)
[2016-06-03] MEDS: METOPROLOL TART IMMED RELEASE 50 MG TABLET. PO SCH ×2 (08:20→20:56)
[2016-06-03] MEDS: LOSARTAN POTASSIUM 50 MG TABLET. PO SCH (08:21)
[2016-06-03] MEDS: AMLODIPINE BESYLATE 10 MG TABLET. PO SCH (08:22)
[2016-06-03] MEDS: GLYBURIDE 5 MG TABLET PO SCH ×2 (08:22→17:13)
[2016-06-03 09:14] LABS: PLT ESTIMATE ADEQUATE (ADEQUATE)
[2016-06-03 11:13] VITALS: BP 136/88
[2016-06-03] MEDS: POTASSIUM CHLORIDE 20 MEQ TABLET.ER. PO SCH (12:17)
[2016-06-03] MEDS ORDERED: DEXTROSE 50% 25 GM / 50ML DISP.SYRIN. IV PRN (13:30)
[2016-06-03 14:57] VITALS: BP 138/84
--- NOTE | 2016-06-03 15:16 | PDOC ---
PROGRESS NOTES Chief Complaint Chief Complaint NICOLE ASSESSMENT AND PLAN: 1. NICOLE: nephrotic range proteinuria, unchanged creat. s/p renal bx yesterday. Dr Lord following, steroids started. C4 elevated 2. DM2: diet controlled at home (HgbA1c 6.1), but severe with steroids. cover w/ ISS for now. if prolonged steroids, may benefit from long-acting insulin 3. HTN: better controlled; increased dose of Losartan 4. Hyperlipidemia: on statin 5. Hypothyroidism: on synthroid 6. Leukocytosis: massive, suspect response to steroids 7. Anemia: mild. obtain anemia labs. suspect 2/2 compromised renal fxn 8. Pain in RUQ: prob bx related. tylenol works 9. Prophylaxis: H2B, heparin Vitals Vitals Vital Signs Date Time Temp Pulse Resp B/P Pulse Ox O2 Delivery O2 Flow Rate FiO2 06/03/16 14:57 99.0 86 18 138/84 95 Room Air 99.0 Physical Exam General: Alert, Oriented X3, Cooperative, No acute distress Heart: Regular rate Lungs: Clear Abdomen: Normal bowel sounds Extremities: No clubbing, Other (mild edema) Skin: No significant lesion Labs LABS Laboratory Tests Test 06/02/16 16:41 06/02/16 21:07 06/03/16 05:50 06/03/16 11:32 Glucose (Fingerstick) 224mg/dL (70-99) 218mg/dL (70-99) 158mg/dL (70-99) White Blood Count 24.2x10^3/uL (4.0-11.0) Red Blood Count 3.77x10^6/uL (4.30-5.70) Hemoglobin 11.2g/dL (13.0-17.5) Hematocrit 34.0% (39.0-53.0) Mean Corpuscular Volume 90fL (79-100) Mean Corpuscular Hemoglobin 30pg (25-35) Mean Corpuscular Hemoglobin Concent 33g/dL (31-37) Red Cell Distribution Width 14.7% (11.5-14.5) Platelet Count 197x10^3/uL (140-400) Neutrophils (%) (Auto) 93% (31-73) Lymphocytes (%) (Auto) 5% (24-48) Monocytes (%) (Auto) 2% (0-9) Eosinophils (%) (Auto) 0% (0-3) Basophils (%) (Auto) 0% (0-3) Neutrophils # (Auto) 22.4x10^3uL (1.8-7.7) Lymphocytes # (Auto) 1.2x10^3/uL (1.0-4.8) Monocytes # (Auto) 0.5x10^3/uL (0.0-1.1) Eosinophils # (Auto) 0.0x10^3/uL (0.0-0.7) Basophils # (Auto) 0.0x10^3/uL (0.0-0.2) Segmented Neutrophils % 98% (35-66) Monocytes % 2% (0-10) Platelet Estimate Adequate (ADEQUATE) Sodium Level 145mmol/L (136-145) Potassium Level 3.4mmol/L (3.5-5.1) Chloride Level 108mmol/L (98-107) Carbon Dioxide Level 24mmol/L (21-32) Anion Gap 13 (6-14) Blood Urea Nitrogen 46mg/dL (8-26) Creatinine 3.6mg/dL (0.7-1.3) Estimated GFR (Cockcroft-Gault) 17.3 Glucose Level 81mg/dL (70-99) Calcium Level 8.2mg/dL (8.5-10.1) Review of Systems Review of Systems mild pain in R UQ/flank. no N/V or other sx ESTHER RAGLAND MD Jun 03, 2016 15:16
[2016-06-03] MEDS: ACETAMINOPHEN 325 MG TABLET. PO PRN (17:43)
[2016-06-03 19:28] VITALS: BP 144/90
[2016-06-03] MEDS: FAMOTIDINE 20 MG TABLET. PO SCH (20:55)
[2016-06-03] MEDS: HEPARIN PF for SUB-Q USE 5,000 UNIT/0.5 ML VIAL. SQ SCH (22:17)
[2016-06-03] MEDS: MAG HYDROX/ALUMINUM HYD/SIMETH 30 ML ORAL.SUSP PO PRN (22:23)
[2016-06-03 23:40] VITALS: BP 132/85
[2016-06-04] MEDS: METHYLPREDNISOLONE SOD SUCC IV SCH ×2 (00:02→06:02)
[2016-06-04] MEDS: NORMAL SALINE IV SCH ×2 (00:02→06:02)
[2016-06-04 03:45] VITALS: BP 111/54
[2016-06-04 05:11] LABS: BASO % 0 % (0-3); EOS % 0 % (0-3); HEMATOCRIT 31.1 % (39.0-53.0); HEMOGLOBIN 10.1 g/dL (13.0-17.5); LYMPH # 0.9 x10^3/uL (1.0-4.8); LYMPH % 5 % (24-48); MEAN CORPUSCULAR HEMOGLOBIN 30 pg (25-35); MEAN CORPUSCULAR HGB CONC 32 g/dL (31-37); MEAN CORPUSCULAR VOLUME 92 fL (79-100); MONO % 2 % (0-9); NEUT % 94 % (31-73); PLATELET COUNT 171 x10^3/uL (140-400); RED BLOOD COUNT 3.38 x10^6/uL (4.30-5.70); RED CELL DISTRIBUTION WIDTH 14.7 % (11.5-14.5); WHITE BLOOD COUNT 19.7 x10^3/uL (4.0-11.0)
[2016-06-04 05:24] LABS: CALCIUM 7.7 mg/dL (8.5-10.1); CREATININE 3.8 mg/dL (0.7-1.3); GFR 16.2; POTASSIUM 3.7 mmol/L (3.5-5.1)
[2016-06-04 05:34] LABS: % SAT IRON 56 % (15-34); IRON,SERUM 100 ug/dL (65-175)
[2016-06-04] MEDS: LEVOTHYROXINE 150 MCG TABLET PO SCH (06:05)
[2016-06-04] MEDS: HEPARIN PF for SUB-Q USE 5,000 UNIT/0.5 ML VIAL. SQ SCH ×3 (06:13→20:37)
[2016-06-04] MEDS: IV NORMAL SALINE 1000ML BAG 1,000 ML IV SCH ×2 (06:38→22:44)
[2016-06-04 07:00] VITALS: BP 148/98
[2016-06-04] MEDS: INSULIN ASPART 300 UNITS/3 ML INSULN.PEN SQ SCH ×3 (08:00→17:01)
[2016-06-04] MEDS: GLYBURIDE 5 MG TABLET PO SCH ×2 (08:00→16:57)
[2016-06-04] MEDS: METOPROLOL TART IMMED RELEASE 50 MG TABLET. PO SCH ×2 (08:24→20:32)
[2016-06-04] MEDS: POTASSIUM CHLORIDE 20 MEQ TABLET.ER. PO SCH (08:25)
[2016-06-04] MEDS: AMLODIPINE BESYLATE 10 MG TABLET. PO SCH (08:26)
[2016-06-04] MEDS: ALLOPURINOL 100 MG TABLET. PO SCH (08:26)
[2016-06-04] MEDS: LOSARTAN POTASSIUM 50 MG TABLET. PO SCH (08:27)
[2016-06-04 11:00] VITALS: BP 158/111
--- NOTE | 2016-06-04 14:14 | PDOC ---
PROGRESS NOTES Chief Complaint Chief Complaint NICOLE ASSESSMENT AND PLAN: 1. NICOLE: nephrotic range proteinuria, unchanged creat. s/p renal bx 06/02. Dr Lord following, steroids started. serologies pending; C4 elevated 2. DM2: diet controlled at home (HgbA1c 6.1), but severe with steroids. cover w/ glyburide and ISS for now. 3. HTN: better controlled; increased dose of Losartan 4. Hyperlipidemia: on statin 5. Hypothyroidism: on synthroid 6. Leukocytosis: massive, suspect response to steroids 7. Anemia: mild. obtain anemia labs. suspect 2/2 compromised renal fxn 8. Pain in RUQ: prob bx related. tylenol works 9. Prophylaxis: H2B, heparin Vitals Vitals Vital Signs Date Time Temp Pulse Resp B/P Pulse Ox O2 Delivery O2 Flow Rate FiO2 06/04/16 11:00 98.1 79 16 158/111 96 Room Air 98.1 Physical Exam General: Alert, Oriented X3, Cooperative, No acute distress Heart: Regular rate Lungs: Clear Abdomen: Normal bowel sounds Extremities: No clubbing, Other (mild edema) Skin: No significant lesion Labs LABS Laboratory Tests Test 06/03/16 17:00 06/04/16 04:40 06/04/16 08:21 Glucose (Fingerstick) 213mg/dL (70-99) 121mg/dL (70-99) White Blood Count 19.7x10^3/uL (4.0-11.0) Red Blood Count 3.38x10^6/uL (4.30-5.70) Hemoglobin 10.1g/dL (13.0-17.5) Hematocrit 31.1% (39.0-53.0) Mean Corpuscular Volume 92fL (79-100) Mean Corpuscular Hemoglobin 30pg (25-35) Mean Corpuscular Hemoglobin Concent 32g/dL (31-37) Red Cell Distribution Width 14.7% (11.5-14.5) Platelet Count 171x10^3/uL (140-400) Neutrophils (%) (Auto) 94% (31-73) Lymphocytes (%) (Auto) 5% (24-48) Monocytes (%) (Auto) 2% (0-9) Eosinophils (%) (Auto) 0% (0-3) Basophils (%) (Auto) 0% (0-3) Neutrophils # (Auto) 18.4x10^3uL (1.8-7.7) Lymphocytes # (Auto) 0.9x10^3/uL (1.0-4.8) Monocytes # (Auto) 0.4x10^3/uL (0.0-1.1) Eosinophils # (Auto) 0.0x10^3/uL (0.0-0.7) Basophils # (Auto) 0.0x10^3/uL (0.0-0.2) Reticulocyte Count (auto) 1.1% (0.5-2.5) Sodium Level 147mmol/L (136-145) Potassium Level 3.7mmol/L (3.5-5.1) Chloride Level 112mmol/L (98-107) Carbon Dioxide Level 25mmol/L (21-32) Anion Gap 10 (6-14) Blood Urea Nitrogen 58mg/dL (8-26) Creatinine 3.8mg/dL (0.7-1.3) Estimated GFR (Cockcroft-Gault) 16.2 Glucose Level 140mg/dL (70-99) Calcium Level 7.7mg/dL (8.5-10.1) Iron Level 100ug/dL (65-175) Total Iron Binding Capacity 179ug/dL (250-450) Iron Saturation 56% (15-34) Ferritin 344ng/mL (26-388) Review of Systems Review of Systems pain in R abd resolved, mild in flank. tylenol sufficient ESTHER RAGLAND MD Jun 04, 2016 14:14
[2016-06-04 14:25] VITALS: BP 163/98
[2016-06-04] MEDS: ACETAMINOPHEN 325 MG TABLET. PO PRN ×2 (14:34→20:39)
[2016-06-04 19:34] VITALS: BP 144/98
[2016-06-04] MEDS: MAG HYDROX/ALUMINUM HYD/SIMETH 30 ML ORAL.SUSP PO PRN (20:32)
[2016-06-04] MEDS: FAMOTIDINE 20 MG TABLET. PO SCH (20:32)
[2016-06-04] MEDS ORDERED: hydrALAZINE 20 MG/ML VIAL. IVP ONE (23:00)
[2016-06-04 23:29] VITALS: BP 145/102
[2016-06-05 03:55] VITALS: BP 107/53
[2016-06-05] MEDS: LEVOTHYROXINE 150 MCG TABLET PO SCH (06:00)
[2016-06-05 06:03] LABS: BASO % 0 % (0-3); EOS % 0 % (0-3); HEMATOCRIT 30.5 % (39.0-53.0); LYMPH # 1.1 x10^3/uL (1.0-4.8); LYMPH % 6 % (24-48); MEAN CORPUSCULAR HEMOGLOBIN 30 pg (25-35); MEAN CORPUSCULAR HGB CONC 33 g/dL (31-37); MEAN CORPUSCULAR VOLUME 92 fL (79-100); MONO % 5 % (0-9); NEUT % 89 % (31-73); PLATELET COUNT 158 x10^3/uL (140-400); RED BLOOD COUNT 3.31 x10^6/uL (4.30-5.70); RED CELL DISTRIBUTION WIDTH 14.6 % (11.5-14.5); WHITE BLOOD COUNT 18.6 x10^3/uL (4.0-11.0)
[2016-06-05] MEDS: ACETAMINOPHEN 325 MG TABLET. PO PRN ×3 (06:03→20:57)
[2016-06-05] MEDS: HEPARIN PF for SUB-Q USE 5,000 UNIT/0.5 ML VIAL. SQ SCH ×3 (06:07→20:58)
[2016-06-05 06:18] LABS: CALCIUM 7.3 mg/dL (8.5-10.1); CREATININE 3.8 mg/dL (0.7-1.3); GFR 16.2; POTASSIUM 3.4 mmol/L (3.5-5.1)
[2016-06-05 07:00] VITALS: BP 141/85
[2016-06-05] MEDS: INSULIN ASPART 300 UNITS/3 ML INSULN.PEN SQ SCH ×3 (08:00→17:00)
[2016-06-05] MEDS: GLYBURIDE 5 MG TABLET PO SCH ×2 (08:42→18:20)
[2016-06-05] MEDS: POTASSIUM CHLORIDE 20 MEQ TABLET.ER. PO SCH (08:42)
[2016-06-05] MEDS: AMLODIPINE BESYLATE 10 MG TABLET. PO SCH (08:42)
[2016-06-05] MEDS: METOPROLOL TART IMMED RELEASE 50 MG TABLET. PO SCH ×2 (08:43→20:57)
[2016-06-05] MEDS: LOSARTAN POTASSIUM 50 MG TABLET. PO SCH (08:43)
[2016-06-05 08:49] LABS: FOLATE 18.52 ng/ml (3.2-20.0)
[2016-06-05] MEDS: ALLOPURINOL 100 MG TABLET. PO SCH (09:00)
[2016-06-05] MEDS: IV NORMAL SALINE 1000ML BAG 1,000 ML IV SCH ×2 (10:19→14:26)
--- NOTE | 2016-06-05 10:26 | PDOC ---
PROGRESS NOTES Chief Complaint Chief Complaint acute renal failure on poss CKD ASSESSMENT AND PLAN: 1. NICOLE: nephrotic range proteinuria, s/p renal bx 06/02. renal consult following, steroids started. serologies pending; C4 elevated 2. DM2: diet controlled at home (HgbA1c 6.1), exac. with steroids. 3. HTN: 4. Hyperlipidemia: statin 5. Hypothyroidism: synthroid 6. Leukocytosis: response to steroids 7. Anemia: mild. of CKD 8. Pain in RUQ: bx related History of Present Illness History of Present Illness feels well inq. about DC, his sister is a physician in [facility], recommeneded IV nephrovite Vitals Vitals Vital Signs Date Time Temp Pulse Resp B/P Pulse Ox O2 Delivery O2 Flow Rate FiO2 06/05/16 08:43 77 141/85 06/05/16 07:00 98.1 20 96 Room Air 98.1 Physical Exam General: Alert, Oriented X3, Cooperative, No acute distress Heart: Regular rate Lungs: Clear Abdomen: Normal bowel sounds Extremities: No clubbing, Other (mild edema) Skin: No significant lesion Labs LABS Laboratory Tests Test 06/04/16 11:43 06/04/16 16:47 06/05/16 05:10 06/05/16 07:41 Glucose (Fingerstick) 198mg/dL (70-99) 173mg/dL (70-99) 83mg/dL (70-99) White Blood Count 18.6x10^3/uL (4.0-11.0) Red Blood Count 3.31x10^6/uL (4.30-5.70) Hemoglobin 10.0g/dL (13.0-17.5) Hematocrit 30.5% (39.0-53.0) Mean Corpuscular Volume 92fL (79-100) Mean Corpuscular Hemoglobin 30pg (25-35) Mean Corpuscular Hemoglobin Concent 33g/dL (31-37) Red Cell Distribution Width 14.6% (11.5-14.5) Platelet Count 158x10^3/uL (140-400) Neutrophils (%) (Auto) 89% (31-73) Lymphocytes (%) (Auto) 6% (24-48) Monocytes (%) (Auto) 5% (0-9) Eosinophils (%) (Auto) 0% (0-3) Basophils (%) (Auto) 0% (0-3) Neutrophils # (Auto) 16.5x10^3uL (1.8-7.7) Lymphocytes # (Auto) 1.1x10^3/uL (1.0-4.8) Monocytes # (Auto) 1.0x10^3/uL (0.0-1.1) Eosinophils # (Auto) 0.0x10^3/uL (0.0-0.7) Basophils # (Auto) 0.0x10^3/uL (0.0-0.2) Sodium Level 146mmol/L (136-145) Potassium Level 3.4mmol/L (3.5-5.1) Chloride Level 111mmol/L (98-107) Carbon Dioxide Level 23mmol/L (21-32) Anion Gap 12 (6-14) Blood Urea Nitrogen 64mg/dL (8-26) Creatinine 3.8mg/dL (0.7-1.3) Estimated GFR (Cockcroft-Gault) 16.2 Glucose Level 104mg/dL (70-99) Calcium Level 7.3mg/dL (8.5-10.1) Assessment and Plan Assessmemt and Plan Biopsy pending, dc plan soon he needs to locate insurance for follow up plan Problems Medical Problems: (1) Acute renal failure Status: Acute Problems: Comment Review of Relevant I have reviewed the following items jose (where applicable) has been applied. Labs Laboratory Tests Test 06/03/16 11:32 06/03/16 17:00 06/03/16 21:16 06/04/16 04:40 Glucose (Fingerstick) 158mg/dL (70-99) 213mg/dL (70-99) 178mg/dL (70-99) White Blood Count 19.7x10^3/uL (4.0-11.0) Red Blood Count 3.38x10^6/uL (4.30-5.70) Hemoglobin 10.1g/dL (13.0-17.5) Hematocrit 31.1% (39.0-53.0) Mean Corpuscular Volume 92fL (79-100) Mean Corpuscular Hemoglobin 30pg (25-35) Mean Corpuscular Hemoglobin Concent 32g/dL (31-37) Red Cell Distribution Width 14.7% (11.5-14.5) Platelet Count 171x10^3/uL (140-400) Neutrophils (%) (Auto) 94% (31-73) Lymphocytes (%) (Auto) 5% (24-48) Monocytes (%) (Auto) 2% (0-9) Eosinophils (%) (Auto) 0% (0-3) Basophils (%) (Auto) 0% (0-3) Neutrophils # (Auto) 18.4x10^3uL (1.8-7.7) Lymphocytes # (Auto) 0.9x10^3/uL (1.0-4.8) Monocytes # (Auto) 0.4x10^3/uL (0.0-1.1) Eosinophils # (Auto) 0.0x10^3/uL (0.0-0.7) Basophils # (Auto) 0.0x10^3/uL (0.0-0.2) Reticulocyte Count (auto) 1.1% (0.5-2.5) Sodium Level 147mmol/L (136-145) Potassium Level 3.7mmol/L (3.5-5.1) Chloride Level 112mmol/L (98-107) Carbon Dioxide Level 25mmol/L (21-32) Anion Gap 10 (6-14) Blood Urea Nitrogen 58mg/dL (8-26) Creatinine 3.8mg/dL (0.7-1.3) Estimated GFR (Cockcroft-Gault) 16.2 Glucose Level 140mg/dL (70-99) Calcium Level 7.7mg/dL (8.5-10.1) Iron Level 100ug/dL (65-175) Total Iron Binding Capacity 179ug/dL (250-450) Iron Saturation 56% (15-34) Ferritin 344ng/mL (26-388) Vitamin B12 Level 750pg/mL (247-911) Serum Folate 18.52ng/ml (3.2-20.0) Test 06/04/16 08:21 06/04/16 11:43 06/04/16 16:47 06/05/16 05:10 Glucose (Fingerstick) 121mg/dL (70-99) 198mg/dL (70-99) 173mg/dL (70-99) White Blood Count 18.6x10^3/uL (4.0-11.0) Red Blood Count 3.31x10^6/uL (4.30-5.70) Hemoglobin 10.0g/dL (13.0-17.5) Hematocrit 30.5% (39.0-53.0) Mean Corpuscular Volume 92fL (79-100) Mean Corpuscular Hemoglobin 30pg (25-35) Mean Corpuscular Hemoglobin Concent 33g/dL (31-37) Red Cell Distribution Width 14.6% (11.5-14.5) Platelet Count 158x10^3/uL (140-400) Neutrophils (%) (Auto) 89% (31-73) Lymphocytes (%) (Auto) 6% (24-48) Monocytes (%) (Auto) 5% (0-9) Eosinophils (%) (Auto) 0% (0-3) Basophils (%) (Auto) 0% (0-3) Neutrophils # (Auto) 16.5x10^3uL (1.8-7.7) Lymphocytes # (Auto) 1.1x10^3/uL (1.0-4.8) Monocytes # (Auto) 1.0x10^3/uL (0.0-1.1) Eosinophils # (Auto) 0.0x10^3/uL (0.0-0.7) Basophils # (Auto) 0.0x10^3/uL (0.0-0.2) Sodium Level 146mmol/L (136-145) Potassium Level 3.4mmol/L (3.5-5.1) Chloride Level 111mmol/L (98-107) Carbon Dioxide Level 23mmol/L (21-32) Anion Gap 12 (6-14) Blood Urea Nitrogen 64mg/dL (8-26) Creatinine 3.8mg/dL (0.7-1.3) Estimated GFR (Cockcroft-Gault) 16.2 Glucose Level 104mg/dL (70-99) Calcium Level 7.3mg/dL (8.5-10.1) Test 06/05/16 07:41 Glucose (Fingerstick) 83mg/dL (70-99) Laboratory Tests Test 06/04/16 11:43 06/04/16 16:47 06/05/16 05:10 06/05/16 07:41 Glucose (Fingerstick) 198mg/dL (70-99) 173mg/dL (70-99) 83mg/dL (70-99) White Blood Count 18.6x10^3/uL (4.0-11.0) Red Blood Count 3.31x10^6/uL (4.30-5.70) Hemoglobin 10.0g/dL (13.0-17.5) Hematocrit 30.5% (39.0-53.0) Mean Corpuscular Volume 92fL (79-100) Mean Corpuscular Hemoglobin 30pg (25-35) Mean Corpuscular Hemoglobin Concent 33g/dL (31-37) Red Cell Distribution Width 14.6% (11.5-14.5) Platelet Count 158x10^3/uL (140-400) Neutrophils (%) (Auto) 89% (31-73) Lymphocytes (%) (Auto) 6% (24-48) Monocytes (%) (Auto) 5% (0-9) Eosinophils (%) (Auto) 0% (0-3) Basophils (%) (Auto) 0% (0-3) Neutrophils # (Auto) 16.5x10^3uL (1.8-7.7) Lymphocytes # (Auto) 1.1x10^3/uL (1.0-4.8) Monocytes # (Auto) 1.0x10^3/uL (0.0-1.1) Eosinophils # (Auto) 0.0x10^3/uL (0.0-0.7) Basophils # (Auto) 0.0x10^3/uL (0.0-0.2) Sodium Level 146mmol/L (136-145) Potassium Level 3.4mmol/L (3.5-5.1) Chloride Level 111mmol/L (98-107) Carbon Dioxide Level 23mmol/L (21-32) Anion Gap 12 (6-14) Blood Urea Nitrogen 64mg/dL (8-26) Creatinine 3.8mg/dL (0.7-1.3) Estimated GFR (Cockcroft-Gault) 16.2 Glucose Level 104mg/dL (70-99) Calcium Level 7.3mg/dL (8.5-10.1) Medications Current Medications Sodium Chloride (Iv Sodium Chloride 0.9% 1000ml Bag) 1,000 ml @ 1,000 mls/hr Q1H IV Last administered on 05/30/16 16:40; Start 05/30/16 at 15:52; Stop at 16:51; Status DC Ondansetron HCl (Zofran) 4 mg PRN Q8HRS PRN IV NAUSEA/VOMITING; Start 05/30/16 at 17:30; Stop 05/31/16 at 14:56; Status DC Acetaminophen (Tylenol) 650 mg PRN Q4HRS PRN PO FEVER; Start 05/30/16 at 17:30 ; Stop 05/31/16 at 14:56; Status DC Acetaminophen (Tylenol) 325 mg PRN Q6HRS PRN PO MILD PAIN / TEMP; Start at 19:00; Stop 06/01/16 at 05:45; Status DC Acetaminophen/ Hydrocodone Bitart (Lortab 5/325) 1 tab PRN Q6HRS PRN PO MODERATE TO SEVERE PAIN; Start 05/30/16 at 19:00 Hydralazine HCl (Apresoline) 10 mg PRN Q4HRS PRN IVP ELEVATED BP, SEE COMMENTS Last administered on 05/31/16 14:40; Start 05/30/16 at 19:00; Stop 05/31/16 at 14:56; Status DC Ondansetron HCl (Zofran) 4 mg PRN Q8HRS PRN IV NAUSEA/VOMITING; Start 05/30/16 at 19:00; Stop 06/01/16 at 05:45; Status DC Albuterol Sulfate (Ventolin Neb Soln) 2.5 mg PRN Q4HRS PRN NEB SHORTNESS OF BREATH; Start 05/30/16 at 19:00 Acetaminophen 650 mg 650 mg PRN Q6HRS PRN PO MILD PAIN / TEMP Last administered on 05/31/16 21:45; Start 05/30/16 at 20:00; Stop 06/01/16 at 05:46 ; Status DC Sodium Chloride (Iv Sodium Chloride 0.9% 1000ml Bag) 1,000 ml @ 100 mls/hr Q10H IV Last administered on 06/05/16 10:19; Start 05/30/16 at 20:00 Hydralazine HCl (Apresoline) 10 mg PRN Q4HRS PRN IVP for SBP > 170; Start 05/31 at 00:30 Lidocaine/Sodium Bicarbonate (Buffered Lidocaine 1%) 20 ml STK-MED ONCE IJ ; Start 05/31/16 at 12:22; Stop 05/31/16 at 12:23; Status DC Naloxone HCl (Narcan) 0.4 mg STK-MED ONCE .ROUTE ; Start 05/31/16 at 12:43; Stop 05/31/16 at 12:44; Status DC Flumazenil (Romazicon) 0.5 mg STK-MED ONCE IV ; Start 05/31/16 at 12:43; Stop at 12:44; Status DC Midazolam HCl (Versed) 5 mg STK-MED ONCE .ROUTE ; Start 05/31/16 at 12:43; Stop 05/31/16 at 12:44; Status DC Fentanyl Citrate (Fentanyl 5ml Vial) 250 mcg STK-MED ONCE .ROUTE ; Start at 12:44; Stop 05/31/16 at 12:45; Status DC Lidocaine/Sodium Bicarbonate (Buffered Lidocaine 1%) 20 ml 1X ONCE IJ Last administered on 05/31/16 14:03; Start 05/31/16 at 13:00; Stop 05/31/16 at 13:01 ; Status DC Midazolam HCl (Versed) 5 mg 1X ONCE IV Last administered on 05/31/16 14:04; Start 05/31/16 at 13:00; Stop 05/31/16 at 13:01; Status DC Fentanyl Citrate (Fentanyl 5ml Vial) 250 mcg 1X ONCE IV Last administered on 14:04; Start 05/31/16 at 13:00; Stop 05/31/16 at 13:01; Status DC Metoprolol Tartrate (Lopressor) 25 mg BID PO Last administered on 05/31/16 15: 39; Start 05/31/16 at 15:00; Stop 05/31/16 at 16:51; Status DC Allopurinol (Zyloprim) 100 mg DAILY PO Last administered on 06/04/16 08:26; Start 05/31/16 at 17:00 Levothyroxine Sodium (Synthroid) 150 mcg DAILYAC PO Last administered on 06:00; Start 06/01/16 at 07:30 Metoprolol Tartrate (Lopressor) 50 mg BID PO Last administered on 06/01/16 20: 54; Start 05/31/16 at 21:00; Stop 06/02/16 at 05:39; Status DC Amlodipine Besylate (Norvasc) 10 mg DAILY PO Last administered on 06/01/16 09: 17; Start 06/01/16 at 09:00; Stop 06/01/16 at 20:59; Status DC Losartan Potassium (Cozaar) 100 mg DAILY PO Last administered on 06/03/16 08:21 ; Start 06/01/16 at 09:00; Stop 06/03/16 at 13:17; Status DC Acetaminophen (Tylenol) 325 mg PRN Q6HRS PRN PO MILD PAIN / TEMP Last administered on 06/03/16 17:43; Start 06/01/16 at 05:45 Ondansetron HCl (Zofran) 4 mg PRN Q8HRS PRN IV NAUSEA/VOMITING; Start 06/01/16 at 05:45 Acetaminophen (Tylenol) 650 mg PRN Q6HRS PRN PO MILD PAIN / TEMP Last administered on 06/05/16 06:03; Start 06/01/16 at 05:45 Amlodipine Besylate 10 mg 10 mg STK-MED ONCE .ROUTE ; Start 06/01/16 at 08:27; Stop 06/01/16 at 08:28; Status DC Methylprednisolone Sodium Succinate/ Sodium Chloride (Solu-Medrol/Iv Sodium Chloride 0.9% 50ml) 50 ml @ 100 mls/hr Q6HRS IV Last administered on 06/04/16 06:02; Start 06/01/16 at 12:00; Stop 06/04/16 at 06:29; Status DC Insulin Aspart (Novolog) 0-7 UNITS TIDWMEALS SQ Last administered on 06/04/16 17:01; Start 06/01/16 at 12:00 Dextrose 12.5 gm PRN Q15MIN PRN IV SEE COMMENTS; Start 06/01/16 at 11:45; Stop 06/03/16 at 13:17; Status DC Amlodipine Besylate (Norvasc) 10 mg DAILY PO Last administered on 06/05/16 08: 42; Start 06/02/16 at 09:00 Al Hydroxide/Mg Hydroxide (Mylanta Plus Xs) 30 ml PRN Q6HRS PRN PO HEARTBURN / GAS Last administered on 06/04/16 20:32; Start 06/01/16 at 21:45 Metoprolol Tartrate (Lopressor) 50 mg BID PO Last administered on 06/02/16 08: 32; Start 06/02/16 at 09:00; Stop 06/02/16 at 10:10; Status DC Metoprolol Tartrate (Lopressor) 100 mg BID PO Last administered on 06/05/16 08: 43; Start 06/02/16 at 21:00 Metoprolol Tartrate (Lopressor) 25 mg 1X ONCE PO Last administered on 11:40; Start 06/02/16 at 10:15; Stop 06/02/16 at 10:16; Status DC Glyburide (Diabeta) 5 mg BIDWMEALS PO Last administered on 06/05/16 08:42; Start 06/02/16 at 17:00 Losartan Potassium (Cozaar) 50 mg STK-MED ONCE .ROUTE ; Start 06/03/16 at 08:04; Stop 06/03/16 at 08:05; Status DC Potassium Chloride (Klor-Con) 40 meq DAILY PO Last administered on 06/05/16 08: 42; Start 06/03/16 at 12:00 Losartan Potassium (Cozaar) 100 mg DAILY PO Last administered on 06/05/16 08:43 ; Start 06/04/16 at 09:00 Dextrose (Dextrose 50%-Water Syringe) 12.5 gm PRN Q15MIN PRN IV SEE COMMENTS; Start 06/03/16 at 13:30 Heparin Sodium (Porcine) 5,000 unit Q8HRS SQ Last administered on 06/05/16 06: 07; Start 06/03/16 at 22:00 Famotidine (Pepcid) 20 mg QHS PO Last administered on 06/04/16 20:32; Start 06/03/16 at 21:00 Hydralazine HCl (Apresoline) 10 mg 1X ONCE IVP Last administered on 06/04/16t 22:44; Start 06/04/16 at 23:00; Stop 06/04/16 at 23:01; Status DC Active Scripts Active Reported Levothyroxine Sodium 150 Mcg Tablet 150 Mcg PO DAILYAC Gaby 10-40 Mg Tablet (Amlodipine Bes/Olmesartan Med) 1 Each Tablet 1 Each PO DAILY Allopurinol 100 Mg Tablet 100 Mg PO Metoprolol Tartrate 50 Mg Tablet 50 Mg PO BID Aspir 81 (Aspirin) 81 Mg Tablet. 1 Tab PO DAILY Vitals/I & O Vital Sign - Last 24 Hours 06/04/16 06/04/16 06/04/16 06/04/16 11:00 14:25 19:34 20:30 Temp 98.1 98.1 98.5 98.1 98.1 98.5 Pulse 79 80 79 Resp 16 16 18 B/P 158/111 163/98 144/98 Pulse Ox 96 96 97 O2 Delivery Room Air Room Air Room Air Room Air 06/04/16 06/04/16 06/04/16 06/05/16 20:32 22:44 23:29 03:55 Temp 97.8 97.8 Pulse 79 78 78 80 Resp 20 B/P 144/98 145/102 145/102 107/53 Pulse Ox 97 97 O2 Delivery Room Air Room Air 06/05/16 06/05/16 06/05/16 06/05/16 07:00 08:42 08:43 08:43 Temp 98.1 98.1 Pulse 77 77 77 77 Resp 20 B/P 141/85 141/85 141/85 141/85 Pulse Ox 96 O2 Delivery Room Air Intake and Output 06/04/16 06/04/16 06/05/16 15:00 23:00 07:00 Intake Total 600 ml 597 ml Balance 600 ml 597 ml SUPA TEJEDA MD Jun 05, 2016 10:26
[2016-06-05] MEDS ORDERED: POLYETHYLENE GLYCOL 3350 17 GM PACKET. PO PRN (10:30)
[2016-06-05] MEDS ORDERED: DOCUSATE SODIUM 100 MG CAPSULE. PO PRN (10:30)
[2016-06-05 10:37] LABS: MAGNESIUM 2.7 mg/dL (1.8-2.4); PHOSPHORUS 3.7 mg/dL (2.6-4.7)
[2016-06-05 10:47] VITALS: BP 142/96
[2016-06-05] MEDS ORDERED: POLYETHYLENE GLYCOL 3350 17 GM PACKET. PO ONE (11:15)
--- NOTE | 2016-06-05 11:45 | PDOC ---
SUBJECTIVE ROS NICOLE/ CKD IV/ V with Nephrotic Syndrome doig [place] OBJECTIVE Vital Signs Vital Signs Date Time Temp Pulse Resp B/P Pulse Ox O2 Delivery O2 Flow Rate FiO2 06/05/16 10:47 97.5 72 20 142/96 97 Room Air 97.5 I & 0 Intake and Output 06/05/16 07:00 Intake Total 1197 ml Balance 1197 ml Intake Oral 600 ml IV Total 597 ml # Voids 5 # Bowel Movements 1 PHYSICAL EXAM Physical Exam General Appearance: Awake: Alert Oriented x 3 Neck: No JVD or JVP Chest: CTA Estuardo Heart: S1 S2 Abdomen - Soft NTND Extremities - No Edema DIAGNOSIS/ASSESSMENT Assessment & Plan CKD IV/ V - No uremic s/s per se 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 Doubt that he will respond to steroids given current level of int fibrosis. Change to PO prednsone. Check HIV Problems: COMMENT/RELEVANT DATA Meds Current Medications Medications (Trade) Dose Ordered Sig/Theo Start Time Stop Time Status Last Admin Dose Admin Acetaminophen (Tylenol) 650 mg PRN Q6HRS PRN 06/01/16 05:45 06/05/16 06:03 650 MG Acetaminophen 650 mg 650 mg PRN Q6HRS PRN 05/30/16 20:00 06/01/16 05:46 DC 05/31/16 21:45 650 MG Acetaminophen/ Hydrocodone Bitart (Lortab 5/325) 1 tab PRN Q6HRS PRN 05/30/16 19:00 Al Hydroxide/Mg Hydroxide (Mylanta Plus Xs) 30 ml PRN Q6HRS PRN 06/01/16 21:45 06/04/16 20:32 30 ML Albuterol Sulfate (Ventolin Neb Soln) 2.5 mg PRN Q4HRS PRN 05/30/16 19:00 Allopurinol (Zyloprim) 100 mg DAILY 05/31/16 17:00 06/04/16 08:26 100 MG Amlodipine Besylate (Norvasc) 10 mg DAILY 06/02/16 09:00 06/05/16 08:42 10 MG Amlodipine Besylate 10 mg 10 mg STK-MED ONCE 06/01/16 08:27 06/01/16 08:28 DC Dextrose (Dextrose 50%-Water Syringe) 12.5 gm PRN Q15MIN PRN 06/03/16 13:30 Docusate Sodium (Colace) 100 mg PRN DAILY PRN 06/05/16 10:30 Famotidine (Pepcid) 20 mg QHS 06/03/16 21:00 06/04/16 20:32 20 MG Fentanyl Citrate (Fentanyl 5ml Vial) 250 mcg 1X ONCE 05/31/16 13:00 05/31/16 13:01 DC 05/31/16 14:04 150 MCG Flumazenil (Romazicon) 0.5 mg STK-MED ONCE 05/31/16 12:43 05/31/16 12:44 DC Glyburide (Diabeta) 5 mg BIDWMEALS 06/02/16 17:00 06/05/16 08:42 5 MG Heparin Sodium (Porcine) 5,000 unit Q8HRS 06/03/16 22:00 06/05/16 06:07 5,000 UNIT Hydralazine HCl (Apresoline) 10 mg 1X ONCE 06/04/16 23:00 06/04/16 23:01 DC 06/04/16 22:44 10 MG Insulin Aspart (Novolog) 0-7 UNITS TIDWMEALS 06/01/16 12:00 06/04/16 17:01 3 UNITS Levothyroxine Sodium (Synthroid) 150 mcg DAILYAC 06/01/16 07:30 06/05/16 06:00 150 MCG Lidocaine/Sodium Bicarbonate (Buffered Lidocaine 1%) 20 ml 1X ONCE 05/31/16 13:00 05/31/16 13:01 DC 05/31/16 14:03 3 ML Losartan Potassium (Cozaar) 100 mg DAILY 06/04/16 09:00 06/05/16 08:43 100 MG Methylprednisolone Sodium Succinate/ Sodium Chloride (Solu-Medrol/Iv Sodium Chloride 0.9% 50ml) 50 ml @ 100 mls/hr Q6HRS 06/01/16 12:00 06/04/16 06:29 DC 06/04/16 06:02 100 MLS/HR Metoprolol Tartrate (Lopressor) 25 mg 1X ONCE 06/02/16 10:15 06/02/16 10:16 DC 06/02/16 11:40 25 MG Midazolam HCl (Versed) 5 mg 1X ONCE 05/31/16 13:00 05/31/16 13:01 DC 05/31/16 14:04 3 MG Naloxone HCl (Narcan) 0.4 mg STK-MED ONCE 05/31/16 12:43 05/31/16 12:44 DC Ondansetron HCl (Zofran) 4 mg PRN Q8HRS PRN 06/01/16 05:45 Polyethylene Glycol (miraLAX PACKET) 17 gm PRN DAILY PRN 06/05/16 10:30 Potassium Chloride (Klor-Con) 40 meq DAILY 06/03/16 12:00 06/05/16 08:42 40 MEQ Sodium Chloride (Iv Sodium Chloride 0.9% 1000ml Bag) 1,000 ml @ 100 mls/hr Q10H 05/30/16 20:00 06/05/16 10:19 100 MLS/HR Vitamin B Complex/ Vitamin C (Vikki-Toño) 1 tab DAILY 06/05/16 11:30 Lab Laboratory Tests Test 06/04/16 11:43 06/04/16 16:47 06/05/16 05:10 06/05/16 07:41 Glucose (Fingerstick) 198mg/dL (70-99) 173mg/dL (70-99) 83mg/dL (70-99) White Blood Count 18.6x10^3/uL (4.0-11.0) Red Blood Count 3.31x10^6/uL (4.30-5.70) Hemoglobin 10.0g/dL (13.0-17.5) Hematocrit 30.5% (39.0-53.0) Mean Corpuscular Volume 92fL (79-100) Mean Corpuscular Hemoglobin 30pg (25-35) Mean Corpuscular Hemoglobin Concent 33g/dL (31-37) Red Cell Distribution Width 14.6% (11.5-14.5) Platelet Count 158x10^3/uL (140-400) Neutrophils (%) (Auto) 89% (31-73) Lymphocytes (%) (Auto) 6% (24-48) Monocytes (%) (Auto) 5% (0-9) Eosinophils (%) (Auto) 0% (0-3) Basophils (%) (Auto) 0% (0-3) Neutrophils # (Auto) 16.5x10^3uL (1.8-7.7) Lymphocytes # (Auto) 1.1x10^3/uL (1.0-4.8) Monocytes # (Auto) 1.0x10^3/uL (0.0-1.1) Eosinophils # (Auto) 0.0x10^3/uL (0.0-0.7) Basophils # (Auto) 0.0x10^3/uL (0.0-0.2) Sodium Level 146mmol/L (136-145) Potassium Level 3.4mmol/L (3.5-5.1) Chloride Level 111mmol/L (98-107) Carbon Dioxide Level 23mmol/L (21-32) Anion Gap 12 (6-14) Blood Urea Nitrogen 64mg/dL (8-26) Creatinine 3.8mg/dL (0.7-1.3) Estimated GFR (Cockcroft-Gault) 16.2 Glucose Level 104mg/dL (70-99) Calcium Level 7.3mg/dL (8.5-10.1) Phosphorus Level 3.7mg/dL (2.6-4.7) Magnesium Level 2.7mg/dL (1.8-2.4) Test 06/05/16 10:27 Glucose (Fingerstick) 101mg/dL (70-99) SHILO SIBLEY MD Jun 05, 2016 11:45
[2016-06-05] MEDS ORDERED: GLYB2.5T2 PO (12:12)
[2016-06-05] MEDS ORDERED: FOLI0.8T21 PO (12:12)
[2016-06-05] MEDS ORDERED: PRED20TA PO (12:12)
[2016-06-05] MEDS ORDERED: METO100T2 PO (12:12)
[2016-06-05] MEDS ORDERED: POTA10TA10 PO (12:14)
[2016-06-05] MEDS: FOLIC/VIT B COMP W-C (RENAL) TABLET. PO SCH (13:27)
[2016-06-05] MEDS: PREDNISONE 20 MG TABLET PO SCH (13:28)
[2016-06-05 15:00] VITALS: BP 138/86
[2016-06-05 15:27] LABS: ALPHA 1 0.1 g/dL (0.0-0.4); ALPHA 2 0.9 g/dL (0.4-1.0); BETA 0.9 g/dL (0.7-1.3); GAMMA 0.9 g/dL (0.4-1.8); M-SPIKE Not Observed g/dL (Not Observed); PROTEIN TOTAL 5.6 g/dL (6.0-8.5)
[2016-06-05] MEDS: MAG HYDROX/ALUMINUM HYD/SIMETH 30 ML ORAL.SUSP PO PRN (18:24)
[2016-06-05 19:00] VITALS: BP 144/99
[2016-06-05] MEDS: FAMOTIDINE 20 MG TABLET. PO SCH (20:57)
[2016-06-05 21:14] LABS: HEP A IGM ABDY Negative (Negative); HEP B SURFACE ABDY Non Reactive (.)
[2016-06-05 23:00] VITALS: BP 144/103
[2016-06-06] MEDS: MAG HYDROX/ALUMINUM HYD/SIMETH 30 ML ORAL.SUSP PO PRN ×3 (00:22→16:11)
[2016-06-06 03:00] VITALS: BP 115/79
[2016-06-06 04:42] LABS: CALCIUM 7.5 mg/dL (8.5-10.1); CREATININE 3.5 mg/dL (0.7-1.3); GFR 17.8; POTASSIUM 3.5 mmol/L (3.5-5.1)
[2016-06-06] MEDS: LEVOTHYROXINE 150 MCG TABLET PO SCH (05:17)
[2016-06-06] MEDS: HEPARIN PF for SUB-Q USE 5,000 UNIT/0.5 ML VIAL. SQ SCH ×2 (05:21→14:21)
[2016-06-06 07:00] VITALS: BP 134/99
[2016-06-06] MEDS: INSULIN ASPART 300 UNITS/3 ML INSULN.PEN SQ SCH ×3 (08:00→17:00)
[2016-06-06] MEDS: LOSARTAN POTASSIUM 50 MG TABLET. PO SCH (08:40)
[2016-06-06] MEDS: POTASSIUM CHLORIDE 20 MEQ TABLET.ER. PO SCH (08:41)
[2016-06-06] MEDS: METOPROLOL TART IMMED RELEASE 50 MG TABLET. PO SCH (08:41)
[2016-06-06] MEDS: FOLIC/VIT B COMP W-C (RENAL) TABLET. PO SCH (08:42)
[2016-06-06] MEDS: PREDNISONE 20 MG TABLET PO SCH (08:42)
[2016-06-06] MEDS: AMLODIPINE BESYLATE 10 MG TABLET. PO SCH (08:42)
[2016-06-06] MEDS: GLYBURIDE 5 MG TABLET PO SCH (08:42)
[2016-06-06] MEDS: ALLOPURINOL 100 MG TABLET. PO SCH (08:52)
[2016-06-06 11:23] LABS: KAPPA LAMBDA RATIO 1.08 (0.26-1.65)
[2016-06-06 11:24] VITALS: BP 140/100
[2016-06-06 14:28] LABS: PTH INTACT 328 pg/mL (15-65)
[2016-06-06 14:45] VITALS: BP 129/89
--- NOTE | 2016-06-06 15:01 | PDOC ---
PROGRESS NOTES Chief Complaint Chief Complaint Focal segmental glomerular sclerosis, 1. NICOLE: nephrotic range proteinuria, 2. DM2: diet controlled at home (HgbA1c 6.1), exac. with steroids. 3. HTN: 4. Hyperlipidemia: statin 5. Hypothyroidism: synthroid 6. Leukocytosis: response to steroids 7. Anemia: mild. of CKD 8. Pain in RUQ: bx related History of Present Illness History of Present Illness feels well DC today 24 hour urine done at 4pm labs hguhes pending, will f/u renal Vitals Vitals Vital Signs Date Time Temp Pulse Resp B/P Pulse Ox O2 Delivery O2 Flow Rate FiO2 06/06/16 14:45 98.7 67 20 129/89 94 Room Air 98.7 Physical Exam General: Alert, Oriented X3, Cooperative, No acute distress Heart: Regular rate Lungs: Clear Abdomen: Normal bowel sounds Extremities: No clubbing, Other (mild edema) Skin: No significant lesion Labs LABS Laboratory Tests Test 06/05/16 16:19 06/06/16 03:33 06/06/16 07:49 06/06/16 08:13 Glucose (Fingerstick) 74mg/dL (70-99) 63mg/dL (70-99) 162mg/dL (70-99) Sodium Level 143mmol/L (136-145) Potassium Level 3.5mmol/L (3.5-5.1) Chloride Level 106mmol/L (98-107) Carbon Dioxide Level 25mmol/L (21-32) Anion Gap 12 (6-14) Blood Urea Nitrogen 56mg/dL (8-26) Creatinine 3.5mg/dL (0.7-1.3) Estimated GFR (Cockcroft-Gault) 17.8 Glucose Level 66mg/dL (70-99) Calcium Level 7.5mg/dL (8.5-10.1) Test 06/06/16 10:22 Glucose (Fingerstick) 131mg/dL (70-99) Assessment and Plan Assessmemt and Plan DC home Problems Medical Problems: (1) Acute renal failure Status: Acute (2) FSGS (focal segmental glomerulosclerosis) Status: Acute Problems: Comment Review of Relevant I have reviewed the following items jose (where applicable) has been applied. Labs Laboratory Tests Test 06/04/16 16:47 06/05/16 05:10 06/05/16 07:41 06/05/16 10:27 Glucose (Fingerstick) 173mg/dL (70-99) 83mg/dL (70-99) 101mg/dL (70-99) White Blood Count 18.6x10^3/uL (4.0-11.0) Red Blood Count 3.31x10^6/uL (4.30-5.70) Hemoglobin 10.0g/dL (13.0-17.5) Hematocrit 30.5% (39.0-53.0) Mean Corpuscular Volume 92fL (79-100) Mean Corpuscular Hemoglobin 30pg (25-35) Mean Corpuscular Hemoglobin Concent 33g/dL (31-37) Red Cell Distribution Width 14.6% (11.5-14.5) Platelet Count 158x10^3/uL (140-400) Neutrophils (%) (Auto) 89% (31-73) Lymphocytes (%) (Auto) 6% (24-48) Monocytes (%) (Auto) 5% (0-9) Eosinophils (%) (Auto) 0% (0-3) Basophils (%) (Auto) 0% (0-3) Neutrophils # (Auto) 16.5x10^3uL (1.8-7.7) Lymphocytes # (Auto) 1.1x10^3/uL (1.0-4.8) Monocytes # (Auto) 1.0x10^3/uL (0.0-1.1) Eosinophils # (Auto) 0.0x10^3/uL (0.0-0.7) Basophils # (Auto) 0.0x10^3/uL (0.0-0.2) Sodium Level 146mmol/L (136-145) Potassium Level 3.4mmol/L (3.5-5.1) Chloride Level 111mmol/L (98-107) Carbon Dioxide Level 23mmol/L (21-32) Anion Gap 12 (6-14) Blood Urea Nitrogen 64mg/dL (8-26) Creatinine 3.8mg/dL (0.7-1.3) Estimated GFR (Cockcroft-Gault) 16.2 Glucose Level 104mg/dL (70-99) Calcium Level 7.3mg/dL (8.5-10.1) Phosphorus Level 3.7mg/dL (2.6-4.7) Magnesium Level 2.7mg/dL (1.8-2.4) Test 06/05/16 12:10 06/05/16 16:19 06/06/16 03:33 06/06/16 07:49 Erythrocyte Sedimentation Rate 58 (0-15) Estimated GFR (Non- 17 (>59) EGFR 19 (>59) PTH (Intact) Specimen Description Comment (.) Parathyroid Hormone (Intact) 328pg/mL (15-65) Calcium (PTH Intact) 7.6mg/dL (8.6-10.2) Creatinine (PTH Intact) 3.65mg/dL (0.76-1.27) Phosphorus (PTH Intact) 3.4mg/dL (2.5-4.5) Immunoglobulin [place]/Lambda Ratio 1.08 (0.26-1.65) Free [place] Light Chains 23.45mg/L (3.30-19.40) Free Lambda Light Chains 21.69mg/L (5.71-26.30) Hepatitis A IgM Antibody Negative (Negative) Hepatitis B Surface Antigen Negative (Negative) Hepatitis B Surface Antibody Non reactive (.) Hepatitis B Core IgM Antibody Negative (Negative) Hepatitis C Antibody <0.1s/co ratio (0.0-0.9) HIV-1 Antibody Non reactive (Non Reactive) Glucose (Fingerstick) 74mg/dL (70-99) 63mg/dL (70-99) Sodium Level 143mmol/L (136-145) Potassium Level 3.5mmol/L (3.5-5.1) Chloride Level 106mmol/L (98-107) Carbon Dioxide Level 25mmol/L (21-32) Anion Gap 12 (6-14) Blood Urea Nitrogen 56mg/dL (8-26) Creatinine 3.5mg/dL (0.7-1.3) Estimated GFR (Cockcroft-Gault) 17.8 Glucose Level 66mg/dL (70-99) Calcium Level 7.5mg/dL (8.5-10.1) Test 06/06/16 08:13 06/06/16 10:22 Glucose (Fingerstick) 162mg/dL (70-99) 131mg/dL (70-99) Laboratory Tests Test 06/05/16 16:19 06/06/16 03:33 06/06/16 07:49 06/06/16 08:13 Glucose (Fingerstick) 74mg/dL (70-99) 63mg/dL (70-99) 162mg/dL (70-99) Sodium Level 143mmol/L (136-145) Potassium Level 3.5mmol/L (3.5-5.1) Chloride Level 106mmol/L (98-107) Carbon Dioxide Level 25mmol/L (21-32) Anion Gap 12 (6-14) Blood Urea Nitrogen 56mg/dL (8-26) Creatinine 3.5mg/dL (0.7-1.3) Estimated GFR (Cockcroft-Gault) 17.8 Glucose Level 66mg/dL (70-99) Calcium Level 7.5mg/dL (8.5-10.1) Test 06/06/16 10:22 Glucose (Fingerstick) 131mg/dL (70-99) Medications Current Medications Sodium Chloride (Iv Sodium Chloride 0.9% 1000ml Bag) 1,000 ml @ 1,000 mls/hr Q1H IV Last administered on 05/30/16t 16:40; Start 05/30/16 at 15:52; Stop at 16:51; Status DC Ondansetron HCl (Zofran) 4 mg PRN Q8HRS PRN IV NAUSEA/VOMITING; Start 05/30/16 at 17:30; Stop 05/31/16 at 14:56; Status DC Acetaminophen (Tylenol) 650 mg PRN Q4HRS PRN PO FEVER; Start 05/30/16 at 17:30 ; Stop 05/31/16 at 14:56; Status DC Acetaminophen (Tylenol) 325 mg PRN Q6HRS PRN PO MILD PAIN / TEMP; Start at 19:00; Stop 06/01/16 at 05:45; Status DC Acetaminophen/ Hydrocodone Bitart (Lortab 5/325) 1 tab PRN Q6HRS PRN PO MODERATE TO SEVERE PAIN; Start 05/30/16 at 19:00 Hydralazine HCl (Apresoline) 10 mg PRN Q4HRS PRN IVP ELEVATED BP, SEE COMMENTS Last administered on 05/31/16 14:40; Start 05/30/16 at 19:00; Stop 05/31/16 at 14:56; Status DC Ondansetron HCl (Zofran) 4 mg PRN Q8HRS PRN IV NAUSEA/VOMITING; Start 05/30/16 at 19:00; Stop 06/01/16 at 05:45; Status DC Albuterol Sulfate (Ventolin Neb Soln) 2.5 mg PRN Q4HRS PRN NEB SHORTNESS OF BREATH; Start 05/30/16 at 19:00 Acetaminophen 650 mg 650 mg PRN Q6HRS PRN PO MILD PAIN / TEMP Last administered on 05/31/16 21:45; Start 05/30/16 at 20:00; Stop 06/01/16 at 05:46 ; Status DC Sodium Chloride (Iv Sodium Chloride 0.9% 1000ml Bag) 1,000 ml @ 100 mls/hr Q10H IV Last administered on 06/05/16 10:19; Start 05/30/16 at 20:00; Stop 06/05 at 11:34; Status DC Hydralazine HCl (Apresoline) 10 mg PRN Q4HRS PRN IVP for SBP > 170; Start 05/31 at 00:30 Lidocaine/Sodium Bicarbonate (Buffered Lidocaine 1%) 20 ml STK-MED ONCE IJ ; Start 05/31/16 at 12:22; Stop 05/31/16 at 12:23; Status DC Naloxone HCl (Narcan) 0.4 mg STK-MED ONCE .ROUTE ; Start 05/31/16 at 12:43; Stop 05/31/16 at 12:44; Status DC Flumazenil (Romazicon) 0.5 mg STK-MED ONCE IV ; Start 05/31/16 at 12:43; Stop at 12:44; Status DC Midazolam HCl (Versed) 5 mg STK-MED ONCE .ROUTE ; Start 05/31/16 at 12:43; Stop 05/31/16 at 12:44; Status DC Fentanyl Citrate (Fentanyl 5ml Vial) 250 mcg STK-MED ONCE .ROUTE ; Start at 12:44; Stop 05/31/16 at 12:45; Status DC Lidocaine/Sodium Bicarbonate (Buffered Lidocaine 1%) 20 ml 1X ONCE IJ Last administered on 05/31/16 14:03; Start 05/31/16 at 13:00; Stop 05/31/16 at 13:01 ; Status DC Midazolam HCl (Versed) 5 mg 1X ONCE IV Last administered on 05/31/16 14:04; Start 05/31/16 at 13:00; Stop 05/31/16 at 13:01; Status DC Fentanyl Citrate (Fentanyl 5ml Vial) 250 mcg 1X ONCE IV Last administered on 14:04; Start 05/31/16 at 13:00; Stop 05/31/16 at 13:01; Status DC Metoprolol Tartrate (Lopressor) 25 mg BID PO Last administered on 05/31/16 15: 39; Start 05/31/16 at 15:00; Stop 05/31/16 at 16:51; Status DC Allopurinol (Zyloprim) 100 mg DAILY PO Last administered on 06/04/16 08:26; Start 05/31/16 at 17:00 Levothyroxine Sodium (Synthroid) 150 mcg DAILYAC PO Last administered on 05:17; Start 06/01/16 at 07:30 Metoprolol Tartrate (Lopressor) 50 mg BID PO Last administered on 06/01/16 20: 54; Start 05/31/16 at 21:00; Stop 06/02/16 at 05:39; Status DC Amlodipine Besylate (Norvasc) 10 mg DAILY PO Last administered on 06/01/16 09: 17; Start 06/01/16 at 09:00; Stop 06/01/16 at 20:59; Status DC Losartan Potassium (Cozaar) 100 mg DAILY PO Last administered on 06/03/16 08:21 ; Start 06/01/16 at 09:00; Stop 06/03/16 at 13:17; Status DC Acetaminophen (Tylenol) 325 mg PRN Q6HRS PRN PO MILD PAIN / TEMP Last administered on 06/05/16 20:57; Start 06/01/16 at 05:45 Ondansetron HCl (Zofran) 4 mg PRN Q8HRS PRN IV NAUSEA/VOMITING; Start 06/01/16 at 05:45 Acetaminophen (Tylenol) 650 mg PRN Q6HRS PRN PO MILD PAIN / TEMP Last administered on 06/05/16 13:28; Start 06/01/16 at 05:45 Amlodipine Besylate 10 mg 10 mg STK-MED ONCE .ROUTE ; Start 06/01/16 at 08:27; Stop 06/01/16 at 08:28; Status DC Methylprednisolone Sodium Succinate/ Sodium Chloride (Solu-Medrol/Iv Sodium Chloride 0.9% 50ml) 50 ml @ 100 mls/hr Q6HRS IV Last administered on 06/04/16 06:02; Start 06/01/16 at 12:00; Stop 06/04/16 at 06:29; Status DC Insulin Aspart (Novolog) 0-7 UNITS TIDWMEALS SQ Last administered on 06/04/16 17:01; Start 06/01/16 at 12:00 Dextrose 12.5 gm PRN Q15MIN PRN IV SEE COMMENTS; Start 06/01/16 at 11:45; Stop 06/03/16 at 13:17; Status DC Amlodipine Besylate (Norvasc) 10 mg DAILY PO Last administered on 06/06/16 08: 42; Start 06/02/16 at 09:00 Al Hydroxide/Mg Hydroxide (Mylanta Plus Xs) 30 ml PRN Q6HRS PRN PO HEARTBURN / GAS Last administered on 06/06/16 08:42; Start 06/01/16 at 21:45 Metoprolol Tartrate (Lopressor) 50 mg BID PO Last administered on 06/02/16 08: 32; Start 06/02/16 at 09:00; Stop 06/02/16 at 10:10; Status DC Metoprolol Tartrate (Lopressor) 100 mg BID PO Last administered on 06/06/16 08: 41; Start 06/02/16 at 21:00 Metoprolol Tartrate (Lopressor) 25 mg 1X ONCE PO Last administered on 11:40; Start 06/02/16 at 10:15; Stop 06/02/16 at 10:16; Status DC Glyburide (Diabeta) 5 mg BIDWMEALS PO Last administered on 06/06/16 08:42; Start 06/02/16 at 17:00; Stop 06/06/16 at 10:16; Status DC Losartan Potassium (Cozaar) 50 mg STK-MED ONCE .ROUTE ; Start 06/03/16 at 08:04; Stop 06/03/16 at 08:05; Status DC Potassium Chloride (Klor-Con) 40 meq DAILY PO Last administered on 06/06/16 08: 41; Start 06/03/16 at 12:00 Losartan Potassium (Cozaar) 100 mg DAILY PO Last administered on 06/06/16 08:40 ; Start 06/04/16 at 09:00 Dextrose (Dextrose 50%-Water Syringe) 12.5 gm PRN Q15MIN PRN IV SEE COMMENTS Last administered on 06/06/16 08:04; Start 06/03/16 at 13:30 Heparin Sodium (Porcine) 5,000 unit Q8HRS SQ Last administered on 06/06/16 14: 21; Start 06/03/16 at 22:00 Famotidine (Pepcid) 20 mg QHS PO Last administered on 06/05/16 20:57; Start 06/03/16 at 21:00 Hydralazine HCl (Apresoline) 10 mg 1X ONCE IVP Last administered on 06/04/16 22:44; Start 06/04/16 at 23:00; Stop 06/04/16 at 23:01; Status DC Docusate Sodium (Colace) 100 mg PRN DAILY PRN PO CONSTIPATION Last administered on 06/06/16 00:22; Start 06/05/16 at 10:30 Polyethylene Glycol (miraLAX PACKET) 17 gm 1X ONCE PO Last administered on 06/05 13:27; Start 06/05/16 at 11:15; Stop 06/05/16 at 11:16; Status DC Polyethylene Glycol (miraLAX PACKET) 17 gm PRN DAILY PRN PO CONSTIPATION Last administered on 06/06/16 00:23; Start 06/05/16 at 10:30 Vitamin B Complex/ Vitamin C (Vikki-Toño) 1 tab DAILY PO Last administered on 08:42; Start 06/05/16 at 11:30 Prednisone (Prednisone) 40 mg DAILY PO Last administered on 06/06/16 08:42; Start 06/05/16 at 11:45 Glyburide (Diabeta) 2.5 mg DAILY08 PO ; Start 06/07/16 at 08:00 Active Scripts Active Reported Levothyroxine Sodium 150 Mcg Tablet 150 Mcg PO DAILYAC Gaby 10-40 Mg Tablet (Amlodipine Bes/Olmesartan Med) 1 Each Tablet 1 Each PO DAILY Allopurinol 100 Mg Tablet 100 Mg PO Metoprolol Tartrate 50 Mg Tablet 50 Mg PO BID Aspir 81 (Aspirin) 81 Mg Tablet. 1 Tab PO DAILY Vitals/I & O Vital Sign - Last 24 Hours 06/05/16 06/05/16 06/05/16 06/05/16 19:00 20:00 20:57 23:00 Temp 98.4 98.4 98.4 98.4 Pulse 82 83 69 Resp 18 B/P 144/99 149/89 144/103 Pulse Ox 95 95 O2 Delivery Room Air 06/06/16 06/06/16 06/06/16 06/06/16 03:00 07:00 08:00 08:40 Temp 97.9 98.4 97.9 98.4 Pulse 69 76 76 Resp 16 20 B/P 115/79 134/99 134/99 Pulse Ox 83 93 O2 Delivery Room Air Room Air 06/06/16 06/06/16 06/06/16 06/06/16 08:41 08:42 11:24 14:45 Temp 98.8 98.7 98.8 98.7 Pulse 76 76 69 67 Resp 20 B/P 134/99 134/99 140/100 129/89 Pulse Ox 95 94 O2 Delivery Room Air Room Air Intake and Output 06/05/16 06/05/16 06/06/16 15:00 23:00 07:00 Intake Total 550 ml 250 ml Output Total 700 ml 3900 ml Balance 550 ml -450 ml -3900 ml SUPA TEJEDA MD Jun 06, 2016 15:01
--- NOTE | 2016-06-06 15:05 | PDOC3 ---
Discharge Summary Visit Information Date of Admission: May 30, 2016 Date of Discharge: Jun 06, 2016 Admitting Diagnosis: renal failure Final Diagnosis Focal segmental glomerular sclerosis, 1. NICOLE: nephrotic range proteinuria, 2. DM2: diet controlled at home (HgbA1c 6.1), 3. HTN: 4. Hyperlipidemia: statin 5. Hypothyroidism: synthroid 6. Leukocytosis: 7. Anemia: mild. of CKD 8. Pain in RUQ: bx related Problems Medical Problems: (1) Acute renal failure Status: Acute (2) FSGS (focal segmental glomerulosclerosis) Status: Acute Brief Hospital Course Allergies Allergies Coded Allergies Type Severity Reaction Last Updated Verified No Known Drug Allergies 05/30/16 No Vital Signs Vital Signs Date Time Temp Pulse Resp B/P Pulse Ox O2 Delivery O2 Flow Rate FiO2 06/06/16 14:45 98.7 67 20 129/89 94 Room Air 98.7 Lab Results Laboratory Tests Test 06/04/16 16:47 06/05/16 05:10 06/05/16 07:41 06/05/16 10:27 Glucose (Fingerstick) 173mg/dL (70-99) 83mg/dL (70-99) 101mg/dL (70-99) White Blood Count 18.6x10^3/uL (4.0-11.0) Red Blood Count 3.31x10^6/uL (4.30-5.70) Hemoglobin 10.0g/dL (13.0-17.5) Hematocrit 30.5% (39.0-53.0) Mean Corpuscular Volume 92fL (79-100) Mean Corpuscular Hemoglobin 30pg (25-35) Mean Corpuscular Hemoglobin Concent 33g/dL (31-37) Red Cell Distribution Width 14.6% (11.5-14.5) Platelet Count 158x10^3/uL (140-400) Neutrophils (%) (Auto) 89% (31-73) Lymphocytes (%) (Auto) 6% (24-48) Monocytes (%) (Auto) 5% (0-9) Eosinophils (%) (Auto) 0% (0-3) Basophils (%) (Auto) 0% (0-3) Neutrophils # (Auto) 16.5x10^3uL (1.8-7.7) Lymphocytes # (Auto) 1.1x10^3/uL (1.0-4.8) Monocytes # (Auto) 1.0x10^3/uL (0.0-1.1) Eosinophils # (Auto) 0.0x10^3/uL (0.0-0.7) Basophils # (Auto) 0.0x10^3/uL (0.0-0.2) Sodium Level 146mmol/L (136-145) Potassium Level 3.4mmol/L (3.5-5.1) Chloride Level 111mmol/L (98-107) Carbon Dioxide Level 23mmol/L (21-32) Anion Gap 12 (6-14) Blood Urea Nitrogen 64mg/dL (8-26) Creatinine 3.8mg/dL (0.7-1.3) Estimated GFR (Cockcroft-Gault) 16.2 Glucose Level 104mg/dL (70-99) Calcium Level 7.3mg/dL (8.5-10.1) Phosphorus Level 3.7mg/dL (2.6-4.7) Magnesium Level 2.7mg/dL (1.8-2.4) Test 06/05/16 12:10 06/05/16 16:19 06/06/16 03:33 06/06/16 07:49 Erythrocyte Sedimentation Rate 58 (0-15) Estimated GFR (Non- 17 (>59) EGFR 19 (>59) PTH (Intact) Specimen Description Comment (.) Parathyroid Hormone (Intact) 328pg/mL (15-65) Calcium (PTH Intact) 7.6mg/dL (8.6-10.2) Creatinine (PTH Intact) 3.65mg/dL (0.76-1.27) Phosphorus (PTH Intact) 3.4mg/dL (2.5-4.5) Immunoglobulin [place]/Lambda Ratio 1.08 (0.26-1.65) Free [place] Light Chains 23.45mg/L (3.30-19.40) Free Lambda Light Chains 21.69mg/L (5.71-26.30) Hepatitis A IgM Antibody Negative (Negative) Hepatitis B Surface Antigen Negative (Negative) Hepatitis B Surface Antibody Non reactive (.) Hepatitis B Core IgM Antibody Negative (Negative) Hepatitis C Antibody <0.1s/co ratio (0.0-0.9) HIV-1 Antibody Non reactive (Non Reactive) Glucose (Fingerstick) 74mg/dL (70-99) 63mg/dL (70-99) Sodium Level 143mmol/L (136-145) Potassium Level 3.5mmol/L (3.5-5.1) Chloride Level 106mmol/L (98-107) Carbon Dioxide Level 25mmol/L (21-32) Anion Gap 12 (6-14) Blood Urea Nitrogen 56mg/dL (8-26) Creatinine 3.5mg/dL (0.7-1.3) Estimated GFR (Cockcroft-Gault) 17.8 Glucose Level 66mg/dL (70-99) Calcium Level 7.5mg/dL (8.5-10.1) Test 06/06/16 08:13 06/06/16 10:22 Glucose (Fingerstick) 162mg/dL (70-99) 131mg/dL (70-99) Laboratory Tests Test 06/05/16 16:19 06/06/16 03:33 06/06/16 07:49 06/06/16 08:13 Glucose (Fingerstick) 74mg/dL (70-99) 63mg/dL (70-99) 162mg/dL (70-99) Sodium Level 143mmol/L (136-145) Potassium Level 3.5mmol/L (3.5-5.1) Chloride Level 106mmol/L (98-107) Carbon Dioxide Level 25mmol/L (21-32) Anion Gap 12 (6-14) Blood Urea Nitrogen 56mg/dL (8-26) Creatinine 3.5mg/dL (0.7-1.3) Estimated GFR (Cockcroft-Gault) 17.8 Glucose Level 66mg/dL (70-99) Calcium Level 7.5mg/dL (8.5-10.1) Test 06/06/16 10:22 Glucose (Fingerstick) 131mg/dL (70-99) Brief Hospital Course Mr. Frazier is a 60 old male, sent from Dr. Lei office, renal for elevated creatinine. was 1.4 in 2013, then 1.7, then 2.5, now 3.6 cr stable on this Admit admit and renal biopsy done 24 hour urine repeated, HIV pending, FSGS diagnosed, steroids started, f.u Dr. lei Discharge Information Condition at Discharge: Improved Follow Up: Weeks Disposition/Orders: D/C to Home Scheduled Amlodipine Bes/Olmesartan Med ([place]aby 10-40 Mg Tablet) 1 EACH PO DAILY (Reported) Aspirin (Aspir 81) 1 TAB PO DAILY (Reported) Levothyroxine Sodium (Levothyroxine Sodium) 150 MCG PO DAILYAC (Reported) Metoprolol Tartrate (Metoprolol Tartrate) 50 MG PO BID (Reported) Miscellaneous Medications Allopurinol (Allopurinol) 100 MG PO (Reported) Patient Instructions Patient Instructions time > 30 min cont steroids w/u other causes pending f/u renal 2-4 weeks handout given in indonesian text explaining FSGS SUPA TEJEDA MD Jun 06, 2016 15:05
[2016-06-07] MEDS ORDERED: GLYBURIDE 5 MG TABLET PO SCH (08:00)
[2016-06-07 16:23] LABS: TOTAL SERUM CREATININE 3.39 mg/dL (0.76-1.27); TOTAL URINE CREATININE 30.6 mg/dL (Not Estab.)
[2016-06-08 17:18] LABS: ALPHA 1 0.2 g/dL (0.0-0.4); ALPHA 2 1.2 g/dL (0.4-1.0); BETA 0.9 g/dL (0.7-1.3); GAMMA 0.9 g/dL (0.4-1.8); M-SPIKE Not Observed g/dL (Not Observed); PROTEIN TOTAL 5.8 g/dL (6.0-8.5)
[2016-06-08 18:14] LABS: IMMUNOGLOBULIN A 169 mg/dL (61-437); IMMUNOGLOBULIN G 900 mg/dL (700-1600); IMMUNOGLOBULIN M 42 mg/dL (20-172)
[2016-06-09 16:22] LABS: GAMMA UR 11.2 % (.); M-SPIKE, % Not Observed % (Not Observed); PROTEIN 24 UR 20929.1 mg/24 hr (30.0-150.0); PROTEIN UR 377.1 mg/dL (Not Estab.)
== END 2016-06-06 16:30 | disposition home or self-care (01) | DRG 699 ==
LOC: ER 15:24 → 5 NORTH 17:20
PROVIDERS: ADMIT Internal Medicine; ATTEND Internal Medicine
PROC: 0TB03ZX Excision of Right Kidney, Percutaneous Approach, Diagnostic (ICD-10-PCS; principal; 2016-05-31)
DX: N04.9 Nephrotic syndrome with unspecified morphologic changes (principal); I12.0 Hypertensive chronic kidney disease with stage 5 chronic kidney disease or end stage renal disease; N17.9 Acute kidney failure, unspecified; D64.9 Anemia, unspecified; E03.9 Hypothyroidism, unspecified; E11.22 Type 2 diabetes mellitus with diabetic chronic kidney disease; E78.00 Pure hypercholesterolemia, unspecified; E78.5 Hyperlipidemia, unspecified; T38.0X5A Adverse effect of glucocorticoids and synthetic analogues, initial encounter; R80.9 Proteinuria, unspecified; N18.5 Chronic kidney disease, stage 5; D63.1 Anemia in chronic kidney disease; Z82.49 Family history of ischemic heart disease and other diseases of the circulatory system; Z91.19 Patient's noncompliance with other medical treatment and regimen; Z90.49 Acquired absence of other specified parts of digestive tract
CPT/HCPCS: 36415; 50200; 76770; 77012; 80048; 80053; 80074; 80076; 81001; 82575; 82607; 82728; 82746; 82947; 83036; 83520; 83540; 83550; 83735; 83970; 84100; 84165; 84166; 85007; 85027; 85045; 85610; 85651; 86160; 86162; 86334; 86703; 86704; 86706; 94640; 96360; C1892; J0360; J1815; J2250; J2930; J3010; J7030; J7042; J7512; 99285-25

== ENCOUNTER 2016-06-12 07:46 | Inpatient (IN) | payer SELFPAY ==
[~2016-06-12] VITALS: Ht 170.2 cm; Wt 98.4 kg
[~2016-06-12 07:46] MED LIST: ALLO100T PO; AMLO1TAB78 PO; ASPI-482 PO; FOLI0.8T21 PO; GLYB2.5T2 PO; LEVO150T5 PO; METO100T2 PO; METO50TA2 PO; POTA10TA10 PO; PRED20TA PO
[2016-06-12 08:41] LABS: CALCIUM 7.4 mg/dL (8.5-10.1); CREATININE 4.7 mg/dL (0.7-1.3); GFR 12.7; POTASSIUM 4.5 mmol/L (3.5-5.1)
[2016-06-12] MEDS ORDERED: MORPHINE SULFATE 10 MG/ML VIAL. IV ONE ×2 (08:45→11:00)
[2016-06-12] MEDS ORDERED: ONDANSETRON PF 4 MG/2 ML VIAL. IV ONE (08:45)
[2016-06-12 08:47] LABS: ALBUMIN 2.7 g/dL (3.4-5.0); TOTAL BILIRUBIN 0.3 mg/dL (0.2-1.0); TOTAL PROTEIN 5.5 g/dL (6.4-8.2)
[2016-06-12 08:49] LABS: BASO # 0.1 x10^3/uL (0.0-0.2); BASO % 0 % (0-3); EOS % 0 % (0-3); HEMATOCRIT 33.3 % (39.0-53.0); HEMOGLOBIN 10.7 g/dL (13.0-17.5); LYMPH # 1.5 x10^3/uL (1.0-4.8); LYMPH % 6 % (24-48); MEAN CORPUSCULAR HEMOGLOBIN 30 pg (25-35); MEAN CORPUSCULAR HGB CONC 32 g/dL (31-37); MEAN CORPUSCULAR VOLUME 93 fL (79-100); MONO % 4 % (0-9); NEUT % 90 % (31-73); PLATELET COUNT 132 x10^3/uL (140-400); RED BLOOD COUNT 3.58 x10^6/uL (4.30-5.70); RED CELL DISTRIBUTION WIDTH 14.6 % (11.5-14.5); WHITE BLOOD COUNT 25.9 x10^3/uL (4.0-11.0)
--- NOTE | 2016-06-12 08:53 | PHYS DOC ---
Past Medical History Past Medical History: High Cholesterol, Hypertension, Hypothyroid, Renal Disease, Other Additional Past Medical Histor: pre DM Past Surgical History: Cholecystectomy, Tonsillectomy, Other Additional Past Surgical Histo: R kidney biopsy Alcohol Use: None Drug Use: None Adult General Chief Complaint Chief Complaint: FLANK PAIN HPI HPI Patient is a 60 year old male with history of hypertension high cholesterol renal disease who presents today with mild right flank pain that began last night. Patient's also complaining of blood in his urine. Patient states he had a biopsy done of his kidneys May 31, 2016. He is also complaining of vomiting. Denies any dysuria. Denies any abdominal pain. Denies any fever. Review of Systems Review of Systems Constitutional: Denies fever or chills [] Eyes: Denies change in visual acuity, redness, or eye pain [] HENT: Denies nasal congestion or sore throat [] Respiratory: Denies cough or shortness of breath [] Cardiovascular: No additional information not addressed in HPI [] GI: Denies abdominal pain, nausea, vomiting, bloody stools or diarrhea [] : Right flank pain and hematuria Musculoskeletal: Denies back pain or joint pain [] Integument: Denies rash or skin lesions [] Neurologic: Denies headache, focal weakness or sensory changes [] Endocrine: Denies polyuria or polydipsia [] Current Medications Current Medications Current Medications Medications (Trade) Dose Ordered Sig/[facility] Start Time Stop Time Status Last Admin Dose Admin Morphine Sulfate 5 mg 1X ONCE 06/12/16 08:45 06/12/16 08:46 DC 06/12/16 08:30 5 MG Ondansetron HCl (Zofran) 4 mg 1X ONCE 06/12/16 08:45 06/12/16 08:46 DC 06/12/16 08:30 4 MG Allergies Allergies Allergies Coded Allergies Type Severity Reaction Last Updated Verified No Known Drug Allergies 06/12/16 No Physical Exam Physical Exam Constitutional: Well developed, well nourished, no acute distress, non-toxic appearance. [] HENT: Normocephalic, atraumatic, bilateral external ears normal, oropharynx moist, no oral exudates, nose normal. [] Eyes: PERRLA, EOMI, conjunctiva normal, no discharge. [] Neck: Normal range of motion, no tenderness, supple, no stridor. [] Cardiovascular:Heart rate regular rhythm, no murmur [] Lungs & Thorax: Bilateral breath sounds clear to auscultation [] Abdomen: Bowel sounds normal, soft, no tenderness, no masses, no pulsatile masses. [] Skin: Warm, dry, no erythema, no rash. [] Back: No tenderness, mild right CVA tenderness. [] Extremities: No tenderness, no cyanosis, no clubbing, ROM intact, no edema. [] Neurologic: Alert and oriented X 3, normal motor function, normal sensory function, no focal deficits noted. [] Psychologic: Affect normal, judgement normal, mood normal. [] Current Patient Data Vital Signs Vital Signs Date Time Temp Pulse Resp B/P Pulse Ox O2 Delivery O2 Flow Rate FiO2 06/12/16 10:43 81 20 148/95 92 06/12/16 07:57 98.8 Room Air 98.8 Lab Values Laboratory Tests Test 06/12/16 08:03 06/12/16 08:20 White Blood Count 25.9x10^3/uL (4.0-11.0) H Red Blood Count 3.58x10^6/uL (4.30-5.70) L Hemoglobin 10.7g/dL (13.0-17.5) L Hematocrit 33.3% (39.0-53.0) L Mean Corpuscular Volume 93fL (79-100) Mean Corpuscular Hemoglobin 30pg (25-35) Mean Corpuscular Hemoglobin Concent 32g/dL (31-37) Red Cell Distribution Width 14.6% (11.5-14.5) H Platelet Count 132x10^3/uL (140-400) L Neutrophils (%) (Auto) 90% (31-73) H Lymphocytes (%) (Auto) 6% (24-48) L Monocytes (%) (Auto) 4% (0-9) Eosinophils (%) (Auto) 0% (0-3) Basophils (%) (Auto) 0% (0-3) Neutrophils # (Auto) 23.2x10^3uL (1.8-7.7) H Lymphocytes # (Auto) 1.5x10^3/uL (1.0-4.8) Monocytes # (Auto) 1.0x10^3/uL (0.0-1.1) Eosinophils # (Auto) 0.0x10^3/uL (0.0-0.7) Basophils # (Auto) 0.1x10^3/uL (0.0-0.2) Segmented Neutrophils % 91% (35-66) H Band Neutrophils % 1% (0-9) Lymphocytes % 5% (24-48) L Monocytes % 3% (0-10) Toxic Granulation Present Platelet Estimate Decreased (ADEQUATE) Anisocytosis Present Sodium Level 140mmol/L (136-145) Potassium Level 4.5mmol/L (3.5-5.1) Chloride Level 103mmol/L (98-107) Carbon Dioxide Level 26mmol/L (21-32) Anion Gap 11 (6-14) Blood Urea Nitrogen 81mg/dL (8-26) H Creatinine 4.7mg/dL (0.7-1.3) H Estimated GFR (Cockcroft-Gault) 12.7 BUN/Creatinine Ratio 17 (6-20) Glucose Level 118mg/dL (70-99) H Calcium Level 7.4mg/dL (8.5-10.1) L Total Bilirubin 0.3mg/dL (0.2-1.0) Aspartate Amino Transferase (AST) 18U/L (15-37) Alanine Aminotransferase (ALT) 46U/L (16-63) Alkaline Phosphatase 43U/L (46-116) L Total Protein 5.5g/dL (6.4-8.2) L Albumin 2.7g/dL (3.4-5.0) L Albumin/Globulin Ratio 1.0 (1.0-1.7) Lipase 634U/L (73-393) H Ethyl Alcohol Level < 10mg/dL (0-10) Urine Color Red Urine Clarity Turbid Urine pH 6.5 Urine Specific [place] 1.015 Urine Protein >=300mg/dL (NEG-TRACE) Urine Glucose (UA) Negativemg/dL (NEG) Urine Ketones (Stick) 15mg/dL (NEG) Urine Blood Large (NEG) Urine Nitrite Negative (NEG) Urine Bilirubin Moderate (NEG) Urine Urobilinogen Dipstick 1.0mg/dL (0.2 mg/dL) Urine Leukocyte Esterase Moderate (NEG) Urine RBC Tntc/HPF (0-2) Urine WBC 5-10/HPF (0-4) Urine Squamous Epithelial Cells Occ/LPF Urine Bacteria 0/HPF (0-FEW) Urine Opiates Screen Neg (NEG) Urine Methadone Screen Neg (NEG) Urine Barbiturates Neg (NEG) Urine Phencyclidine Screen Neg (NEG) Urine Amphetamine/Methamphetamine Neg (NEG) Urine Benzodiazepines Screen Neg (NEG) Urine Cocaine Screen Neg (NEG) Urine Cannabinoids Screen Neg (NEG) Urine Ethyl Alcohol Neg (NEG) Laboratory Tests 06/12/16 08:03 Laboratory Tests 06/12/16 08:03 EKG EKG [] Radiology/Procedures Radiology/Procedures []PROCEDURE: CT ABDOMEN PELVIS WO CONTRAST CT scan of the abdomen and pelvis without contrast 06/12/2016 Clinical history: Right flank pain. Technique: Unenhanced, contiguous, 2 mm axial sections were obtained through the abdomen and pelvis. One or more of the following individualized dose reduction techniques were utilized for this study: 1. Automated exposure control. 2. Adjustment of the mA and/or kV according to patient size. 3. Use of iterative reconstruction technique. Findings: Comparison is made to images from a recent CT-guided renal biopsy dated 05/31/2016. Findings: Images through the lung bases demonstrate minimal dependent subsegmental atelectasis bilaterally. Fairly extensive coronary artery calcifications are seen. The heart is mildly enlarged. The unenhanced CT appearance of the liver, spleen, pancreas and right adrenal gland are within normal limits. A 2.9 cm rounded predominantly low-attenuation lesion is seen involving the left adrenal gland. This is consistent with an adrenal adenoma. No renal or ureteral calculus is seen. A 3.5 cm residual hematoma is seen involving the lower pole of the right kidney consistent with the patient's history of a recent renal biopsy. No focal abnormality of the left kidney is seen. Atherosclerotic calcification of the abdominal aorta and its branches is noted. The abdominal aorta is ectatic tapers normally. No free fluid or free air is seen within the abdomen. Scattered diverticula are seen involving the colon. No inflammatory changes are seen adjacent fat. The appendix is well-visualized and is within normal limits. Images through the pelvis demonstrate the urinary bladder distended with urine. A 6 cm rounded area of slightly increased attenuation is seen within the dependent aspect of the urinary bladder which is presumably a hematoma related to the patient's recent renal biopsy. An underlying mass in this region is not excluded. The prostate gland is enlarged likely related to BPH. Calcifications are seen within the pelvis consistent with phleboliths. Multiple diverticula are seen along the sigmoid colon. No inflammatory changes are seen in the adjacent fat. Degenerative changes are seen involving the lower thoracic and throughout the lumbar spine Impression: Hematomas are seen involving the right kidney and within the dependent aspect of the urinary bladder consistent with the patient's history of a recent renal biopsy. No additional acute abnormality is seen. DICTATED and SIGNED BY: SOFIE MANUEL MD DATE: 06/12/16 0934 CC: ERICA GAMA APRN; NON,STAFF; UNKNOWN PCP NAME ~ Course & Med Decision Making Course & Med Decision Making Pertinent Labs and Imaging studies reviewed. (See chart for details) Patient is in the ED with complaints of right flank pain and hematuria. He had a renal biopsy done 05/31/2016. Patient was given morphine on arrival to the ED. Patient was also given Zofran. CBC with a WBC of 25.9. Hemoglobin 10.7, hematocrit 33.3. Creatinine 4.[address] Lord who stated this patient is on prednisone. He requested patient to be admitted under HIMs and consult to interventional radiology. CT of the abdomen and pelvic was hematomas are seen involving the right kidney and within the dependent aspect of the urinary bladder consistent with the patient's history of a recent renal biopsy. No additional acute abnormality is seen. I spoke to Dr. Gonzalez who accepted patient for admission. I spoke to Breana the Interventional radiologist and gave her information on patient's condition. Admitted in stable condition. Dragon Disclaimer Dragon Disclaimer This electronic medical record was generated, in whole or in part, using a voice recognition dictation system. Departure Departure Impression: Primary Impression: Acute renal failure Disposition: ADMITTED INPATIENT Condition: STABLE Referrals: UNKNOWN PCP NAME (PCP) Problem Qualifiers Primary Impression: Acute renal failure Acute renal failure type: unspecified Qualified Code: N17.9 - Acute kidney failure, unspecified ERICA GAMA APRN Jun 12, 2016 08:53
[2016-06-12 09:09] LABS: BARBITURATES NEG (NEG); BENZODIAZEPINES NEG (NEG); CANNABINOIDS NEG (NEG); COCAINE NEG (NEG); METHADONE NEG (NEG); OPIATES NEG (NEG); PHENCYCLIDINE NEG (NEG)
[2016-06-12 09:10] LABS: ETHANOL, URINE NEG (NEG)
--- NOTE | 2016-06-12 09:50 | RAD ---
CT scan of the abdomen and pelvis without contrast 06/12/2016 Clinical history: Right flank pain. Technique: Unenhanced, contiguous, 2 mm axial sections were obtained through the abdomen and pelvis. One or more of the following individualized dose reduction techniques were utilized for this study: 1. Automated exposure control. 2. Adjustment of the mA and/or kV according to patient size. 3. Use of iterative reconstruction technique. Findings: Comparison is made to images from a recent CT-guided renal biopsy dated 05/31/2016. Findings: Images through the lung bases demonstrate minimal dependent subsegmental atelectasis bilaterally. Fairly extensive coronary artery calcifications are seen. The heart is mildly enlarged. The unenhanced CT appearance of the liver, spleen, pancreas and right adrenal gland are within normal limits. A 2.9 cm rounded predominantly low-attenuation lesion is seen involving the left adrenal gland. This is consistent with an adrenal adenoma. No renal or ureteral calculus is seen. A 3.5 cm residual hematoma is seen involving the lower pole of the right kidney consistent with the patient's history of a recent renal biopsy. No focal abnormality of the left kidney is seen. Atherosclerotic calcification of the abdominal aorta and its branches is noted. The abdominal aorta is ectatic tapers normally. No free fluid or free air is seen within the abdomen. Scattered diverticula are seen involving the colon. No inflammatory changes are seen adjacent fat. The appendix is well-visualized and is within normal limits. Images through the pelvis demonstrate the urinary bladder distended with urine. A 6 cm rounded area of slightly increased attenuation is seen within the dependent aspect of the urinary bladder which is presumably a hematoma related to the patient's recent renal biopsy. An underlying mass in this region is not excluded. The prostate gland is enlarged likely related to BPH. Calcifications are seen within the pelvis consistent with phleboliths. Multiple diverticula are seen along the sigmoid colon. No inflammatory changes are seen in the adjacent fat. Degenerative changes are seen involving the lower thoracic and throughout the lumbar spine Impression: Hematomas are seen involving the right kidney and within the dependent aspect of the urinary bladder consistent with the patient's history of a recent renal biopsy. No additional acute abnormality is seen.
[2016-06-12 10:39] LABS: ANISOCYTOSIS PRESENT; PLT ESTIMATE DECREASED (ADEQUATE); TOXIC GRANULATION PRESENT
[2016-06-12] MEDS ORDERED: ONDANSETRON PF 4 MG/2 ML VIAL. IV PRN ×3 (11:30→17:30)
[2016-06-12] MEDS ORDERED: hydrALAZINE 20 MG/ML VIAL. IVP PRN ×2 (12:30→17:30)
[2016-06-12] MEDS ORDERED: IV NORMAL SALINE 1000ML BAG 1,000 ML IV ONE (12:30)
[2016-06-12] MEDS ORDERED: HYDROCODONE/APAP 5/325MG TABLET. PO PRN (12:30)
[2016-06-12] MEDS ORDERED: ACETAMINOPHEN 325 MG TABLET. PO PRN ×3 (12:30→17:45)
[2016-06-12] MEDS ORDERED: ALBUTEROL SULFATE 2.5 MG/3 ML NEBU. NEB PRN ×2 (12:30→17:30)
--- NOTE | 2016-06-12 13:31 | PDOC ---
Provider Note Provider Note IR Note: Mr Frazier is 60 YO male admitted with right flank pain and hematuria. He is s/p CT guided bx lower pole right kidney 06/01/15. Current CT revealed hyperdense post-bx intraparenchymal hematoma within lower pole right kidney, with hyperdense blood clot at right UPJ and within urinary bladder, but only minimal caliectasis, and no evidence of significant perinephric bleeding. Compared to discharge labs from 06/05/16, today's Hgb is stable at 10.7. VS stable, as well, with SBP of 148 and HR of 81. Leukocytosis likely secondary to steroids. Creatinine worse at 4.1. 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 In light of CT findings, stable hgb and stable VS, and severe kidney disease, I would defer contrast angio evaluation for now---have discussed with Dr Lord, who is in agreement. I would Rx Urology consult---have discussed with Dr Burciaga---tentatively on schedule for cystoscopy tomorrow. If persistent bleeding results in blood loss anemia or hemodynamic compromise, then would proceed to angio +/- embolization. Will follow. SOFIE GLEASON MD Jun 12, 2016 13:31
[2016-06-12 13:35] LABS: BILIRUBIN,URINE MODERATE (NEG); GLUCOSE,URINE NEGATIVE (NEG); NITRITE,URINE NEGATIVE (NEG); PH,URINE 6.5; PROTEIN,URINE >=300 mg/dL (NEG-TRACE)
[2016-06-12 14:27] LABS: BACTERIA,URINE 0 /HPF (0-FEW); RBC,URINE TNTC /HPF (0-2); SQUAMOUS EPITHELIAL CELL,UR OCC /LPF
[2016-06-12 14:55] VITALS: BP 150/99
[2016-06-12] MEDS: MORPHINE SULFATE 4 MG/ML DISP.SYRIN. IV PRN ×2 (15:29→20:33)
--- NOTE | 2016-06-12 16:38 | PDOC2 ---
CONSULT Date of Consult Date of Consult DATE: 06/12/16 TIME: 16:28 Reason for Consult Reason for Consult: RENAL FAILURE Referring Physician Referring Physician: RUPAL Identification/Chief Complaint Chief Complaint BLOOD IN THE URINE Source Source: Chart review, Patient History of Present Illness Reason for Visit: THIS IS A 60 YR OLD WHO COMES IN WITH HEMATURIA. HE UNDERWENT A RENAL BIOPSY A LITTLE MORE THAN A WEEK AGO. IMAGING SHOWED SOME BLOOD IN THE RIGHT KIDNEY. NO HYDRONEPHROSIS AND THE KIDNEYS APPEAR TO BE DRAINING WELL. HX IS NOTABLE TO A CR OF 1.7 LATE LAST YEAR, THEN ABOUT A MONTH AGO HE SAW ME IN THE OFFICE FOR THE FIRST TIME WHEN HIS CR WAS ABOUT 2.5, TWO WEEKS AGO CR WENT UP TO 3.6 AND NOT IT IS 4.7. THE RENAL BX UNFORTUNATELY SHOWED ENDSTAGE FSGS. HE WAS STARTED ON STEROIDS IMMEDIATELY AFTER THE BX PENDING RESULTS. SEROLOGY HAS BEEN NEG Past Medical History Past Medical History PROTEINURIA Cardiovascular: HTN Heme/Onc: Anemia NOS Renal/: Chronic renal failure Past Surgical History Past Surgical History RENAL BX Family History Family History: Hypertension Social History ALCOHOL: rare Lives: with Family Current Problem List Problem List Problems Medical Problems: (1) Acute renal failure Status: Acute Current Medications Current Medications Current Medications Ondansetron HCl (Zofran) 4 mg 1X ONCE IV Last administered on 06/12/16 08:30 ; Start 06/12/16 at 08:45; Stop 06/12/16 at 08:46; Status DC Morphine Sulfate 5 mg 1X ONCE IV Last administered on 06/12/16 08:30; Start 06/12/16 at 08:45; Stop 06/12/16 at 08:46; Status DC Morphine Sulfate 5 mg 1X ONCE IV Last administered on 06/12/16 10:20; Start 06/12/16 at 11:00; Stop 06/12/16 at 11:01; Status DC Morphine Sulfate 4 mg PRN Q2HR PRN IV PAIN Last administered on 06/12/16 15:29 ; Start 06/12/16 at 11:30; Stop 06/13/16 at 11:29 Ondansetron HCl (Zofran) 4 mg PRN Q6HRS PRN IV NAUSEA/VOMITING; Start 06/12/16 at 11:30 Acetaminophen (Tylenol) 325 mg PRN Q6HRS PRN PO MILD PAIN / TEMP; Start at 12:30 Acetaminophen/ Hydrocodone Bitart (Lortab 5/325) 1 tab PRN Q6HRS PRN PO MODERATE TO SEVERE PAIN; Start 06/12/16 at 12:30 Hydralazine HCl (Apresoline) 10 mg PRN Q4HRS PRN IVP ELEVATED BP, SEE COMMENTS ; Start 06/12/16 at 12:30 Ondansetron HCl (Zofran) 4 mg PRN Q8HRS PRN IV NAUSEA/VOMITING; Start 06/12/16 at 12:30 Albuterol Sulfate 2.5 mg 2.5 mg PRN Q4HRS PRN NEB SHORTNESS OF BREATH; Start at 12:30 Sodium Chloride (Iv Sodium Chloride 0.9% 1000ml Bag) 1,000 ml @ 75 mls/hr 1X ONCE IV Last administered on 06/12/16t 15:30; Start 06/12/16 at 12:30; Stop 01/19 at 01:49 Active Scripts Active Potassium Chloride 10 Meq Tablet.er 10 Meq PO DAILY Metoprolol Tartrate 100 Mg Tablet 1 Tab PO BID Prednisone 20 Mg Tablet 40 Mg PO DAILY Glyburide 2.5 Mg Tablet 1 Tab PO DAILY Vikki-Toño Tablet (Folic Acid/Vitamin B Comp W-C) 0.8 Mg Tablet 1 Tab PO DAILY Reported Levothyroxine Sodium 150 Mcg Tablet 150 Mcg PO DAILYAC Gaby 10-40 Mg Tablet (Amlodipine Bes/Olmesartan Med) 1 Each Tablet 1 Each PO DAILY Allopurinol 100 Mg Tablet 100 Mg PO Aspir 81 (Aspirin) 81 Mg Tablet. 1 Tab PO DAILY Allergies Allergies: Coded Allergies: No Known Drug Allergies (Unverified , 06/12/16) ROS General: YES: Fatigue PSYCHOLOGICAL ROS: YES: Anxiety, Depression Eyes: Yes Decreased vision HEENT: YES: Heacaches Respiratory: YES: Cough Gastrointestinal: Yes Constipation Genitourinary: YES Hematuria Musculoskeletal: Yes Muscular Weakness Neurological: Yes Weakness Skin: Yes Dry Skin Physical Exam General: Alert, Oriented X3, Cooperative, No acute distress HEENT: Atraumatic, PERRLA Lungs: Clear to auscultation Heart: Regular rate Abdomen: Normal bowel sounds, Soft, No tenderness Skin: No rashes Neuro: Normal speech, Cranial nerves 3-12 NL Psych/Mental Status: Mental status NL, Mood NL MUSCULOSKELETAL: No joint tenderness, No swelling Vitals VITALS Vital Signs Date Time Temp Pulse Resp B/P Pulse Ox O2 Delivery O2 Flow Rate FiO2 06/12/16 14:55 97.9 63 18 150/99 97 Room Air 97.9 Labs Labs Laboratory Tests Test 06/12/16 08:03 06/12/16 08:20 06/12/16 16:17 White Blood Count 25.9x10^3/uL (4.0-11.0) Red Blood Count 3.58x10^6/uL (4.30-5.70) Hemoglobin 10.7g/dL (13.0-17.5) Hematocrit 33.3% (39.0-53.0) Mean Corpuscular Volume 93fL (79-100) Mean Corpuscular Hemoglobin 30pg (25-35) Mean Corpuscular Hemoglobin Concent 32g/dL (31-37) Red Cell Distribution Width 14.6% (11.5-14.5) Platelet Count 132x10^3/uL (140-400) Neutrophils (%) (Auto) 90% (31-73) Lymphocytes (%) (Auto) 6% (24-48) Monocytes (%) (Auto) 4% (0-9) Eosinophils (%) (Auto) 0% (0-3) Basophils (%) (Auto) 0% (0-3) Neutrophils # (Auto) 23.2x10^3uL (1.8-7.7) Lymphocytes # (Auto) 1.5x10^3/uL (1.0-4.8) Monocytes # (Auto) 1.0x10^3/uL (0.0-1.1) Eosinophils # (Auto) 0.0x10^3/uL (0.0-0.7) Basophils # (Auto) 0.1x10^3/uL (0.0-0.2) Segmented Neutrophils % 91% (35-66) Band Neutrophils % 1% (0-9) Lymphocytes % 5% (24-48) Monocytes % 3% (0-10) Toxic Granulation Present Platelet Estimate Decreased (ADEQUATE) Anisocytosis Present Sodium Level 140mmol/L (136-145) Potassium Level 4.5mmol/L (3.5-5.1) Chloride Level 103mmol/L (98-107) Carbon Dioxide Level 26mmol/L (21-32) Anion Gap 11 (6-14) Blood Urea Nitrogen 81mg/dL (8-26) Creatinine 4.7mg/dL (0.7-1.3) Estimated GFR (Cockcroft-Gault) 12.7 BUN/Creatinine Ratio 17 (6-20) Glucose Level 118mg/dL (70-99) Calcium Level 7.4mg/dL (8.5-10.1) Total Bilirubin 0.3mg/dL (0.2-1.0) Aspartate Amino Transf (AST/SGOT) 18U/L (15-37) Alanine Aminotransferase (ALT/SGPT) 46U/L (16-63) Alkaline Phosphatase 43U/L (46-116) Total Protein 5.5g/dL (6.4-8.2) Albumin 2.7g/dL (3.4-5.0) Albumin/Globulin Ratio 1.0 (1.0-1.7) Lipase 634U/L (73-393) Ethyl Alcohol Level < 10mg/dL (0-10) Urine Color Red Urine Clarity Turbid Urine pH 6.5 Urine Specific [place] 1.015 Urine Protein >=300mg/dL (NEG-TRACE) Urine Glucose (UA) Negativemg/dL (NEG) Urine Ketones (Stick) 15mg/dL (NEG) Urine Blood Large (NEG) Urine Nitrite Negative (NEG) Urine Bilirubin Moderate (NEG) Urine Urobilinogen Dipstick 1.0mg/dL (0.2 mg/dL) Urine Leukocyte Esterase Moderate (NEG) Urine RBC Tntc/HPF (0-2) Urine WBC 5-10/HPF (0-4) Urine Squamous Epithelial Cells Occ/LPF Urine Bacteria 0/HPF (0-FEW) Urine Opiates Screen Neg (NEG) Urine Methadone Screen Neg (NEG) Urine Barbiturates Neg (NEG) Urine Phencyclidine Screen Neg (NEG) Urine Amphetamine/Methamphetamine Neg (NEG) Urine Benzodiazepines Screen Neg (NEG) Urine Cocaine Screen Neg (NEG) Urine Cannabinoids Screen Neg (NEG) Urine Ethyl Alcohol Neg (NEG) Glucose (Fingerstick) 118mg/dL (70-99) Laboratory Tests Test 06/12/16 08:03 06/12/16 08:20 06/12/16 16:17 White Blood Count 25.9x10^3/uL (4.0-11.0) Red Blood Count 3.58x10^6/uL (4.30-5.70) Hemoglobin 10.7g/dL (13.0-17.5) Hematocrit 33.3% (39.0-53.0) Mean Corpuscular Volume 93fL (79-100) Mean Corpuscular Hemoglobin 30pg (25-35) Mean Corpuscular Hemoglobin Concent 32g/dL (31-37) Red Cell Distribution Width 14.6% (11.5-14.5) Platelet Count 132x10^3/uL (140-400) Neutrophils (%) (Auto) 90% (31-73) Lymphocytes (%) (Auto) 6% (24-48) Monocytes (%) (Auto) 4% (0-9) Eosinophils (%) (Auto) 0% (0-3) Basophils (%) (Auto) 0% (0-3) Neutrophils # (Auto) 23.2x10^3uL (1.8-7.7) Lymphocytes # (Auto) 1.5x10^3/uL (1.0-4.8) Monocytes # (Auto) 1.0x10^3/uL (0.0-1.1) Eosinophils # (Auto) 0.0x10^3/uL (0.0-0.7) Basophils # (Auto) 0.1x10^3/uL (0.0-0.2) Segmented Neutrophils % 91% (35-66) Band Neutrophils % 1% (0-9) Lymphocytes % 5% (24-48) Monocytes % 3% (0-10) Toxic Granulation Present Platelet Estimate Decreased (ADEQUATE) Anisocytosis Present Sodium Level 140mmol/L (136-145) Potassium Level 4.5mmol/L (3.5-5.1) Chloride Level 103mmol/L (98-107) Carbon Dioxide Level 26mmol/L (21-32) Anion Gap 11 (6-14) Blood Urea Nitrogen 81mg/dL (8-26) Creatinine 4.7mg/dL (0.7-1.3) Estimated GFR (Cockcroft-Gault) 12.7 BUN/Creatinine Ratio 17 (6-20) Glucose Level 118mg/dL (70-99) Calcium Level 7.4mg/dL (8.5-10.1) Total Bilirubin 0.3mg/dL (0.2-1.0) Aspartate Amino Transf (AST/SGOT) 18U/L (15-37) Alanine Aminotransferase (ALT/SGPT) 46U/L (16-63) Alkaline Phosphatase 43U/L (46-116) Total Protein 5.5g/dL (6.4-8.2) Albumin 2.7g/dL (3.4-5.0) Albumin/Globulin Ratio 1.0 (1.0-1.7) Lipase 634U/L (73-393) Ethyl Alcohol Level < 10mg/dL (0-10) Urine Color Red Urine Clarity Turbid Urine pH 6.5 Urine Specific [place] 1.015 Urine Protein >=300mg/dL (NEG-TRACE) Urine Glucose (UA) Negativemg/dL (NEG) Urine Ketones (Stick) 15mg/dL (NEG) Urine Blood Large (NEG) Urine Nitrite Negative (NEG) Urine Bilirubin Moderate (NEG) Urine Urobilinogen Dipstick 1.0mg/dL (0.2 mg/dL) Urine Leukocyte Esterase Moderate (NEG) Urine RBC Tntc/HPF (0-2) Urine WBC 5-10/HPF (0-4) Urine Squamous Epithelial Cells Occ/LPF Urine Bacteria 0/HPF (0-FEW) Urine Opiates Screen Neg (NEG) Urine Methadone Screen Neg (NEG) Urine Barbiturates Neg (NEG) Urine Phencyclidine Screen Neg (NEG) Urine Amphetamine/Methamphetamine Neg (NEG) Urine Benzodiazepines Screen Neg (NEG) Urine Cocaine Screen Neg (NEG) Urine Cannabinoids Screen Neg (NEG) Urine Ethyl Alcohol Neg (NEG) Glucose (Fingerstick) 118mg/dL (70-99) Assessment/Plan Assessment/Plan IMP 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
--- NOTE | 2016-06-12 17:22 | ACF ---
Admission Forms Criteria RENAL FAILURE, ACUTE Clinical Indications for Admission to Inpatient Care ( Place 'X' for any and all applicable criteria): Admission is indicated for ALL (if I & II) or III of the following [A](2)(3)(4)( 5)(6)(7): [X]I. Acute renal failure as indicated by ANY ONE of the following: [ ]a) A 3-fold rise in serum creatinine from baseline [X]b) Serum creatinine greater than 4 mg/dL (354 micromoles/L) with an acute rise greater than 0.5 mg/dL (44.2 micromoles/L) [ ]c) Reduction of more than 75% in estimated glomerular filtration rate from baseline [ ]d) Estimated glomerular filtration rate less than 35 mL/min/1.73m2 (0.59mL/sec/1.73m2)in a child up to 18 years of age [ ]e) Anuria indicated by ALL of the following: [ ]i) Adequate volume status [ ]ii) Cessation of urine output indicated by ANY ONE of the following: [ ]1) Urine output less than 0.3 mL/kg/hr for 24 hours [ ]2) Anuria (urine output less than 0.1 mL/kg/ hr) for 12 hours [X] II. Renal failure cannot be managed in an outpatient setting or observational care setting as indicating by ANY ONE of the following: [ ]a) Altered mental status that is severe or persistent [ ]b) Volume overload or Respiratory distress (eg, clinically significant pulmonary edema) that is severe or persistent [ ]c) Cardiac arrhythmias of immediate concern [ ]d) Hemodynamic instability [ ]e) Clinically significant electrolyte abnormality that requires inpatient care (eg, hyperkalemia with severe ECG findings)[B] [ ]f) Clinically significant metabolic abnormality (eg, acidosis) that is severe or persistent [ ]g) Acute treatment of renal failure (eg, renal replacement therapy) not feasible or appropriate in observational care setting [ ]h) Clinical situation too unstable or uncertain (eg, inadequate urine output, ongoing decline in renal function, etiology unclear) [ ]i) Necessary support and caregiver ability to comply with outpatient treatment cannot be arranged in observation care timeframe (eg, within 24 hours) [X]j) Other significant finding or clinical condition judged not to be within scope of observation care [ ]III.General contraindications and/or Inappropriate clinical situations for Observational Care in patients with Acute Renal Failure, when ANY ONE of the following is required: [ ]a) Prediction of prolongation of LOS based on ANY ONE of the following may be considered as a contraindication for observational care 2, 3, 4, 5, 6, 7, 8 , 9, 10, 11 [ ]i) Age > 65 yrs. [ ]ii) Patient arriving by ambulance [ ]iii) Patient with high acuity [ ]iv) Patient requiring vital sign monitoring [ ]v) Patient on IV medication [ ]b) Systolic blood pressures 180mmHg 3,12 [ ]c) Patient with altered mental status including delirium and other alteration of consciousness, (3) [ ]d) Patient whose discharge disposition will be to a senior care home or rehabilitation home should not be managed in Emergency Department Observation Unit. CMS rule requires 3 days hospital stay before such placement.3,13 [ ]e) Patient with failure to thrive due to broad array of etiologies 3, 16,17 [ ]f) Inability to ambulate 3,14 Extended stay beyond goal length of stay may be needed for(13) [ ]a) Continuing uremic complications [ ]b) Care for comorbidities [ ]c) acute renal failure [ ]d) Need for dialysis The original [employer] content created by [employer] has been revised. The portions of the content which have been revised are identified through the use of italic text or in bold, and [facility] reviewed nor approved the modified material. All other unmodified content is copyright [employer]. Please see references footnoted in the original [facility] edition 2016 Admission Criteria Met?: Yes SOWMYA MONREAL Jun 12, 2016 17:21
--- NOTE | 2016-06-12 17:29 | PDOC1 ---
History and Physical Past Medical History Cardiovascular: HTN Heme/Onc: Anemia NOS Renal/: Chronic renal failure Family History Family History: Hypertension Social History ALCOHOL: rare Current Problem List Problem List Problems Medical Problems: (1) Acute renal failure Status: Acute Current Medications Current Medications Current Medications Medications (Trade) Dose Ordered Sig/Theo Start Time Stop Time Status Last Admin Dose Admin Acetaminophen (Tylenol) 325 mg PRN Q6HRS PRN 06/12/16 12:30 Acetaminophen/ Hydrocodone Bitart (Lortab 5/325) 1 tab PRN Q6HRS PRN 06/12/16 12:30 Albuterol Sulfate 2.5 mg 2.5 mg PRN Q4HRS PRN 06/12/16 12:30 Darbepoetin Richard (Aranesp) 60 mcg WEEKLYHS 06/12/16 21:00 Hydralazine HCl (Apresoline) 10 mg PRN Q4HRS PRN 06/12/16 12:30 Morphine Sulfate 4 mg PRN Q2HR PRN 06/12/16 11:30 06/13/16 11:29 06/12/16 15:29 4 MG Ondansetron HCl (Zofran) 4 mg PRN Q8HRS PRN 06/12/16 12:30 Sodium Chloride (Iv Sodium Chloride 0.9% 1000ml Bag) 1,000 ml @ 75 mls/hr 1X ONCE 06/12/16 12:30 06/13/16 01:49 06/12/16 15:30 75 MLS/HR Allergies Allergies Allergies Coded Allergies Type Severity Reaction Last Updated Verified No Known Drug Allergies 06/12/16 No ROS Review of System CONSTITUTIONAL: No fever or chills EYES: No recent changes SKIN: No rash or itching CARDIOVASCULAR: No chest pain, syncope, palpitations, or edema RESPIRATORY: No SOB or cough GASTROINTESTINAL: No nausea, vomiting or abdominal pain NEUROLOGICAL: No headaches or weakness ENDOCRINE: No cold or heat intolerance GENITOURINARY: No urgency or frequency of urination, hematuria. MUSCULOSKELETAL: No back pain or joint pain LYMPHATICS: No enlarged lymph nodes PSYCHIATRIC: No anxiety or depression Physical Exam Physical Exam GEN.: No apparent distress. Alert and oriented. HEENT: Head is normocephalic, atraumatic NECK: Supple. no JVD LUNGS: Clear to auscultation. Normal airflow HEART: RRR, S1, S2 present. Peripheral pulses intact ABDOMEN: Soft, nontender. Positive bowel sounds. EXTREMITIES: Without any cyanosis. NEUROLOGIC: Normal speech, normal tone PSYCHIATRIC: Normal affect, normal mood. SKIN: No ulcerations Vitals Vitals Vital Signs Date Time Temp Pulse Resp B/P Pulse Ox O2 Delivery O2 Flow Rate FiO2 06/12/16 17:14 98 Room Air 06/12/16 14:55 97.9 63 18 150/99 97.9 Labs Labs Laboratory Tests Test 06/12/16 08:03 06/12/16 08:20 06/12/16 16:17 White Blood Count 25.9x10^3/uL (4.0-11.0) Red Blood Count 3.58x10^6/uL (4.30-5.70) Hemoglobin 10.7g/dL (13.0-17.5) Hematocrit 33.3% (39.0-53.0) Mean Corpuscular Volume 93fL (79-100) Mean Corpuscular Hemoglobin 30pg (25-35) Mean Corpuscular Hemoglobin Concent 32g/dL (31-37) Red Cell Distribution Width 14.6% (11.5-14.5) Platelet Count 132x10^3/uL (140-400) Neutrophils (%) (Auto) 90% (31-73) Lymphocytes (%) (Auto) 6% (24-48) Monocytes (%) (Auto) 4% (0-9) Eosinophils (%) (Auto) 0% (0-3) Basophils (%) (Auto) 0% (0-3) Neutrophils # (Auto) 23.2x10^3uL (1.8-7.7) Lymphocytes # (Auto) 1.5x10^3/uL (1.0-4.8) Monocytes # (Auto) 1.0x10^3/uL (0.0-1.1) Eosinophils # (Auto) 0.0x10^3/uL (0.0-0.7) Basophils # (Auto) 0.1x10^3/uL (0.0-0.2) Segmented Neutrophils % 91% (35-66) Band Neutrophils % 1% (0-9) Lymphocytes % 5% (24-48) Monocytes % 3% (0-10) Toxic Granulation Present Platelet Estimate Decreased (ADEQUATE) Anisocytosis Present Sodium Level 140mmol/L (136-145) Potassium Level 4.5mmol/L (3.5-5.1) Chloride Level 103mmol/L (98-107) Carbon Dioxide Level 26mmol/L (21-32) Anion Gap 11 (6-14) Blood Urea Nitrogen 81mg/dL (8-26) Creatinine 4.7mg/dL (0.7-1.3) Estimated GFR (Cockcroft-Gault) 12.7 BUN/Creatinine Ratio 17 (6-20) Glucose Level 118mg/dL (70-99) Calcium Level 7.4mg/dL (8.5-10.1) Total Bilirubin 0.3mg/dL (0.2-1.0) Aspartate Amino Transf (AST/SGOT) 18U/L (15-37) Alanine Aminotransferase (ALT/SGPT) 46U/L (16-63) Alkaline Phosphatase 43U/L (46-116) Total Protein 5.5g/dL (6.4-8.2) Albumin 2.7g/dL (3.4-5.0) Albumin/Globulin Ratio 1.0 (1.0-1.7) Lipase 634U/L (73-393) Ethyl Alcohol Level < 10mg/dL (0-10) Urine Color Red Urine Clarity Turbid Urine pH 6.5 Urine Specific [place] 1.015 Urine Protein >=300mg/dL (NEG-TRACE) Urine Glucose (UA) Negativemg/dL (NEG) Urine Ketones (Stick) 15mg/dL (NEG) Urine Blood Large (NEG) Urine Nitrite Negative (NEG) Urine Bilirubin Moderate (NEG) Urine Urobilinogen Dipstick 1.0mg/dL (0.2 mg/dL) Urine Leukocyte Esterase Moderate (NEG) Urine RBC Tntc/HPF (0-2) Urine WBC 5-10/HPF (0-4) Urine Squamous Epithelial Cells Occ/LPF Urine Bacteria 0/HPF (0-FEW) Urine Opiates Screen Neg (NEG) Urine Methadone Screen Neg (NEG) Urine Barbiturates Neg (NEG) Urine Phencyclidine Screen Neg (NEG) Urine Amphetamine/Methamphetamine Neg (NEG) Urine Benzodiazepines Screen Neg (NEG) Urine Cocaine Screen Neg (NEG) Urine Cannabinoids Screen Neg (NEG) Urine Ethyl Alcohol Neg (NEG) Glucose (Fingerstick) 118mg/dL (70-99) Laboratory Tests Test 06/12/16 08:03 06/12/16 08:20 06/12/16 16:17 White Blood Count 25.9x10^3/uL (4.0-11.0) Red Blood Count 3.58x10^6/uL (4.30-5.70) Hemoglobin 10.7g/dL (13.0-17.5) Hematocrit 33.3% (39.0-53.0) Mean Corpuscular Volume 93fL (79-100) Mean Corpuscular Hemoglobin 30pg (25-35) Mean Corpuscular Hemoglobin Concent 32g/dL (31-37) Red Cell Distribution Width 14.6% (11.5-14.5) Platelet Count 132x10^3/uL (140-400) Neutrophils (%) (Auto) 90% (31-73) Lymphocytes (%) (Auto) 6% (24-48) Monocytes (%) (Auto) 4% (0-9) Eosinophils (%) (Auto) 0% (0-3) Basophils (%) (Auto) 0% (0-3) Neutrophils # (Auto) 23.2x10^3uL (1.8-7.7) Lymphocytes # (Auto) 1.5x10^3/uL (1.0-4.8) Monocytes # (Auto) 1.0x10^3/uL (0.0-1.1) Eosinophils # (Auto) 0.0x10^3/uL (0.0-0.7) Basophils # (Auto) 0.1x10^3/uL (0.0-0.2) Segmented Neutrophils % 91% (35-66) Band Neutrophils % 1% (0-9) Lymphocytes % 5% (24-48) Monocytes % 3% (0-10) Toxic Granulation Present Platelet Estimate Decreased (ADEQUATE) Anisocytosis Present Sodium Level 140mmol/L (136-145) Potassium Level 4.5mmol/L (3.5-5.1) Chloride Level 103mmol/L (98-107) Carbon Dioxide Level 26mmol/L (21-32) Anion Gap 11 (6-14) Blood Urea Nitrogen 81mg/dL (8-26) Creatinine 4.7mg/dL (0.7-1.3) Estimated GFR (Cockcroft-Gault) 12.7 BUN/Creatinine Ratio 17 (6-20) Glucose Level 118mg/dL (70-99) Calcium Level 7.4mg/dL (8.5-10.1) Total Bilirubin 0.3mg/dL (0.2-1.0) Aspartate Amino Transf (AST/SGOT) 18U/L (15-37) Alanine Aminotransferase (ALT/SGPT) 46U/L (16-63) Alkaline Phosphatase 43U/L (46-116) Total Protein 5.5g/dL (6.4-8.2) Albumin 2.7g/dL (3.4-5.0) Albumin/Globulin Ratio 1.0 (1.0-1.7) Lipase 634U/L (73-393) Ethyl Alcohol Level < 10mg/dL (0-10) Urine Color Red Urine Clarity Turbid Urine pH 6.5 Urine Specific [place] 1.015 Urine Protein >=300mg/dL (NEG-TRACE) Urine Glucose (UA) Negativemg/dL (NEG) Urine Ketones (Stick) 15mg/dL (NEG) Urine Blood Large (NEG) Urine Nitrite Negative (NEG) Urine Bilirubin Moderate (NEG) Urine Urobilinogen Dipstick 1.0mg/dL (0.2 mg/dL) Urine Leukocyte Esterase Moderate (NEG) Urine RBC Tntc/HPF (0-2) Urine WBC 5-10/HPF (0-4) Urine Squamous Epithelial Cells Occ/LPF Urine Bacteria 0/HPF (0-FEW) Urine Opiates Screen Neg (NEG) Urine Methadone Screen Neg (NEG) Urine Barbiturates Neg (NEG) Urine Phencyclidine Screen Neg (NEG) Urine Amphetamine/Methamphetamine Neg (NEG) Urine Benzodiazepines Screen Neg (NEG) Urine Cocaine Screen Neg (NEG) Urine Cannabinoids Screen Neg (NEG) Urine Ethyl Alcohol Neg (NEG) Glucose (Fingerstick) 118mg/dL (70-99) VTE Prophylaxis Ordered VTE Prophylaxis Devices: No VTE Pharmacological Prophylaxi: Contraindicated DAIJA GOLDSMITH MD Jun 12, 2016 17:29
[2016-06-12 18:11] LABS: INR 1.1 (0.8-1.1); PROTHROMBIN TIME PATIENT 13.4 SEC (11.7-14.0)
[2016-06-12 19:00] VITALS: BP 130/83
[2016-06-12] MEDS ORDERED: DARBEPOETIN ALFA 60 MCG/0.3 ML DISP.SYRIN. SQ SCH (21:00)
[2016-06-12 22:28] LABS: HEMATOCRIT 34.7 % (39.0-53.0); HEMOGLOBIN 11.2 g/dL (13.0-17.5); RED BLOOD COUNT 3.73 x10^6/uL (4.30-5.70); WHITE BLOOD COUNT 21.6 x10^3/uL (4.0-11.0)
[2016-06-12 22:37] VITALS: BP 162/104
[2016-06-13] VITALS (12 sets, daily range): BP systolic 126–183; BP diastolic 76–118
[2016-06-13 06:16] LABS: BASO % 0 % (0-3); EOS % 0 % (0-3); HEMOGLOBIN 9.6 g/dL (13.0-17.5); LYMPH # 0.8 x10^3/uL (1.0-4.8); LYMPH % 5 % (24-48); MEAN CORPUSCULAR HEMOGLOBIN 30 pg (25-35); MEAN CORPUSCULAR HGB CONC 32 g/dL (31-37); MEAN CORPUSCULAR VOLUME 94 fL (79-100); MONO % 6 % (0-9); NEUT % 89 % (31-73); PLATELET COUNT 107 x10^3/uL (140-400); RED CELL DISTRIBUTION WIDTH 14.8 % (11.5-14.5); WHITE BLOOD COUNT 18.2 x10^3/uL (4.0-11.0)
[2016-06-13 06:45] LABS: CALCIUM 7.3 mg/dL (8.5-10.1); GFR 11.8; POTASSIUM 4.6 mmol/L (3.5-5.1)
[2016-06-13] MEDS ORDERED: ONDANSETRON PF 4 MG/2 ML VIAL. IV PRN ×2 (06:45→21:00)
[2016-06-13] MEDS ORDERED: MORPHINE SULFATE 2 MG/ML DISP.SYRIN. IV PRN (06:45)
[2016-06-13] MEDS ORDERED: LIDOCAINE 1% 1 ML SYRINGE. ID PRN (06:45)
[2016-06-13] MEDS ORDERED: FENTANYL PF 100 MCG/2 ML VIAL. IV PRN ×2 (06:45)
[2016-06-13] MEDS ORDERED: IV RINGERS,LACTATED 1000ML 1,000 ML IV SCH (06:45)
[2016-06-13] MEDS ORDERED: HYDROMORPHONE 2 MG/ML VIAL. IV PRN (06:45)
[2016-06-13] MEDS ORDERED: PROCHLORPERAZINE 10 MG/2 ML VIAL. IV PRN (06:45)
[2016-06-13 06:52] LABS: ALBUMIN 2.3 g/dL (3.4-5.0); DIRECT BILIRUBIN 0.2 mg/dL (0.0-0.2); TOTAL BILIRUBIN 0.4 mg/dL (0.2-1.0); TOTAL PROTEIN 5.1 g/dL (6.4-8.2)
[2016-06-13] MEDS: IV NORMAL SALINE 1000ML BAG 1,000 ML IV SCH (07:30)
--- NOTE | 2016-06-13 08:57 | PDOC ---
PROGRESS NOTES Chief Complaint Chief Complaint cc: hematuria A/P Acute renal failure, FSGS, CKD IV Hematuria, Right flank pain HTN DM Leucocytosis due to steroids Plan cystocope today hemoglobin stable HDC catheter placement, d/w Dr Lord HD planning in AM pain control with Dilaudid SSI PRN hydralazine labs reviewed, hemoglobin stable IR following, Prognosis guarded. History of Present Illness History of Present Illness pain 11/12 Vitals Vitals Vital Signs Date Time Temp Pulse Resp B/P Pulse Ox O2 Delivery O2 Flow Rate FiO2 06/13/16 07:00 98.4 75 18 158/103 95 Room Air 98.4 Physical Exam General: Alert, Oriented X3, Cooperative, No acute distress Heart: Regular rate, Normal S1, Normal S2 Lungs: Clear Abdomen: Normal bowel sounds, Soft, No tenderness, Other (falnk tenderness mild ) Skin: No rashes Labs LABS Laboratory Tests Test 06/12/16 16:17 06/12/16 20:21 06/12/16 22:03 06/13/16 05:30 Glucose (Fingerstick) 118mg/dL (70-99) 131mg/dL (70-99) White Blood Count 21.6x10^3/uL (4.0-11.0) 18.2x10^3/uL (4.0-11.0) Red Blood Count 3.73x10^6/uL (4.30-5.70) 3.20x10^6/uL (4.30-5.70) Hemoglobin 11.2g/dL (13.0-17.5) 9.6g/dL (13.0-17.5) Hematocrit 34.7% (39.0-53.0) 30.0% (39.0-53.0) Mean Corpuscular Volume 93fL (79-100) 94fL (79-100) Mean Corpuscular Hemoglobin 30pg (25-35) 30pg (25-35) Mean Corpuscular Hemoglobin Concent 32g/dL (31-37) 32g/dL (31-37) Red Cell Distribution Width 15.0% (11.5-14.5) 14.8% (11.5-14.5) Platelet Count 135x10^3/uL (140-400) 107x10^3/uL (140-400) Neutrophils (%) (Auto) 89% (31-73) Lymphocytes (%) (Auto) 5% (24-48) Monocytes (%) (Auto) 6% (0-9) Eosinophils (%) (Auto) 0% (0-3) Basophils (%) (Auto) 0% (0-3) Neutrophils # (Auto) 16.3x10^3uL (1.8-7.7) Lymphocytes # (Auto) 0.8x10^3/uL (1.0-4.8) Monocytes # (Auto) 1.1x10^3/uL (0.0-1.1) Eosinophils # (Auto) 0.0x10^3/uL (0.0-0.7) Basophils # (Auto) 0.0x10^3/uL (0.0-0.2) Sodium Level 141mmol/L (136-145) Potassium Level 4.6mmol/L (3.5-5.1) Chloride Level 105mmol/L (98-107) Carbon Dioxide Level 24mmol/L (21-32) Anion Gap 12 (6-14) Blood Urea Nitrogen 78mg/dL (8-26) Creatinine 5.0mg/dL (0.7-1.3) Estimated GFR (Cockcroft-Gault) 11.8 Glucose Level 113mg/dL (70-99) Calcium Level 7.3mg/dL (8.5-10.1) Total Bilirubin 0.4mg/dL (0.2-1.0) Direct Bilirubin 0.2mg/dL (0.0-0.2) Aspartate Amino Transf (AST/SGOT) 17U/L (15-37) Alanine Aminotransferase (ALT/SGPT) 40U/L (16-63) Alkaline Phosphatase 43U/L (46-116) Total Protein 5.1g/dL (6.4-8.2) Albumin 2.3g/dL (3.4-5.0) Test 06/13/16 07:33 Glucose (Fingerstick) 115mg/dL (70-99) Assessment and Plan Assessmemt and Plan Problems Medical Problems: (1) Acute renal failure Status: Acute Problems: Comment Review of Relevant I have reviewed the following items jose (where applicable) has been applied. Labs Laboratory Tests Test 06/12/16 08:03 4/10/17 08:20 06/12/16 16:17 06/12/16 20:21 White Blood Count 25.9x10^3/uL (4.0-11.0) Red Blood Count 3.58x10^6/uL (4.30-5.70) Hemoglobin 10.7g/dL (13.0-17.5) Hematocrit 33.3% (39.0-53.0) Mean Corpuscular Volume 93fL (79-100) Mean Corpuscular Hemoglobin 30pg (25-35) Mean Corpuscular Hemoglobin Concent 32g/dL (31-37) Red Cell Distribution Width 14.6% (11.5-14.5) Platelet Count 132x10^3/uL (140-400) Neutrophils (%) (Auto) 90% (31-73) Lymphocytes (%) (Auto) 6% (24-48) Monocytes (%) (Auto) 4% (0-9) Eosinophils (%) (Auto) 0% (0-3) Basophils (%) (Auto) 0% (0-3) Neutrophils # (Auto) 23.2x10^3uL (1.8-7.7) Lymphocytes # (Auto) 1.5x10^3/uL (1.0-4.8) Monocytes # (Auto) 1.0x10^3/uL (0.0-1.1) Eosinophils # (Auto) 0.0x10^3/uL (0.0-0.7) Basophils # (Auto) 0.1x10^3/uL (0.0-0.2) Segmented Neutrophils % 91% (35-66) Band Neutrophils % 1% (0-9) Lymphocytes % 5% (24-48) Monocytes % 3% (0-10) Toxic Granulation Present Platelet Estimate Decreased (ADEQUATE) Anisocytosis Present Prothrombin Time 13.4SEC (11.7-14.0) Prothromb Time International Ratio 1.1 (0.8-1.1) Sodium Level 140mmol/L (136-145) Potassium Level 4.5mmol/L (3.5-5.1) Chloride Level 103mmol/L (98-107) Carbon Dioxide Level 26mmol/L (21-32) Anion Gap 11 (6-14) Blood Urea Nitrogen 81mg/dL (8-26) Creatinine 4.7mg/dL (0.7-1.3) Estimated GFR (Cockcroft-Gault) 12.7 BUN/Creatinine Ratio 17 (6-20) Glucose Level 118mg/dL (70-99) Calcium Level 7.4mg/dL (8.5-10.1) Total Bilirubin 0.3mg/dL (0.2-1.0) Aspartate Amino Transf (AST/SGOT) 18U/L (15-37) Alanine Aminotransferase (ALT/SGPT) 46U/L (16-63) Alkaline Phosphatase 43U/L (46-116) Total Protein 5.5g/dL (6.4-8.2) Albumin 2.7g/dL (3.4-5.0) Albumin/Globulin Ratio 1.0 (1.0-1.7) Lipase 634U/L (73-393) Ethyl Alcohol Level < 10mg/dL (0-10) Urine Color Red Urine Clarity Turbid Urine pH 6.5 Urine Specific [place] 1.015 Urine Protein >=300mg/dL (NEG-TRACE) Urine Glucose (UA) Negativemg/dL (NEG) Urine Ketones (Stick) 15mg/dL (NEG) Urine Blood Large (NEG) Urine Nitrite Negative (NEG) Urine Bilirubin Moderate (NEG) Urine Urobilinogen Dipstick 1.0mg/dL (0.2 mg/dL) Urine Leukocyte Esterase Moderate (NEG) Urine RBC Tntc/HPF (0-2) Urine WBC 5-10/HPF (0-4) Urine Squamous Epithelial Cells Occ/LPF Urine Bacteria 0/HPF (0-FEW) Urine Opiates Screen Neg (NEG) Urine Methadone Screen Neg (NEG) Urine Barbiturates Neg (NEG) Urine Phencyclidine Screen Neg (NEG) Urine Amphetamine/Methamphetamine Neg (NEG) Urine Benzodiazepines Screen Neg (NEG) Urine Cocaine Screen Neg (NEG) Urine Cannabinoids Screen Neg (NEG) Urine Ethyl Alcohol Neg (NEG) Glucose (Fingerstick) 118mg/dL (70-99) 131mg/dL (70-99) Test 06/12/16 22:03 06/13/16 05:30 06/13/16 07:33 White Blood Count 21.6x10^3/uL (4.0-11.0) 18.2x10^3/uL (4.0-11.0) Red Blood Count 3.73x10^6/uL (4.30-5.70) 3.20x10^6/uL (4.30-5.70) Hemoglobin 11.2g/dL (13.0-17.5) 9.6g/dL (13.0-17.5) Hematocrit 34.7% (39.0-53.0) 30.0% (39.0-53.0) Mean Corpuscular Volume 93fL (79-100) 94fL (79-100) Mean Corpuscular Hemoglobin 30pg (25-35) 30pg (25-35) Mean Corpuscular Hemoglobin Concent 32g/dL (31-37) 32g/dL (31-37) Red Cell Distribution Width 15.0% (11.5-14.5) 14.8% (11.5-14.5) Platelet Count 135x10^3/uL (140-400) 107x10^3/uL (140-400) Neutrophils (%) (Auto) 89% (31-73) Lymphocytes (%) (Auto) 5% (24-48) Monocytes (%) (Auto) 6% (0-9) Eosinophils (%) (Auto) 0% (0-3) Basophils (%) (Auto) 0% (0-3) Neutrophils # (Auto) 16.3x10^3uL (1.8-7.7) Lymphocytes # (Auto) 0.8x10^3/uL (1.0-4.8) Monocytes # (Auto) 1.1x10^3/uL (0.0-1.1) Eosinophils # (Auto) 0.0x10^3/uL (0.0-0.7) Basophils # (Auto) 0.0x10^3/uL (0.0-0.2) Sodium Level 141mmol/L (136-145) Potassium Level 4.6mmol/L (3.5-5.1) Chloride Level 105mmol/L (98-107) Carbon Dioxide Level 24mmol/L (21-32) Anion Gap 12 (6-14) Blood Urea Nitrogen 78mg/dL (8-26) Creatinine 5.0mg/dL (0.7-1.3) Estimated GFR (Cockcroft-Gault) 11.8 Glucose Level 113mg/dL (70-99) Calcium Level 7.3mg/dL (8.5-10.1) Total Bilirubin 0.4mg/dL (0.2-1.0) Direct Bilirubin 0.2mg/dL (0.0-0.2) Aspartate Amino Transf (AST/SGOT) 17U/L (15-37) Alanine Aminotransferase (ALT/SGPT) 40U/L (16-63) Alkaline Phosphatase 43U/L (46-116) Total Protein 5.1g/dL (6.4-8.2) Albumin 2.3g/dL (3.4-5.0) Glucose (Fingerstick) 115mg/dL (70-99) Laboratory Tests Test 06/12/16 16:17 06/12/16 20:21 06/12/16 22:03 06/13/16 05:30 Glucose (Fingerstick) 118mg/dL (70-99) 131mg/dL (70-99) White Blood Count 21.6x10^3/uL (4.0-11.0) 18.2x10^3/uL (4.0-11.0) Red Blood Count 3.73x10^6/uL (4.30-5.70) 3.20x10^6/uL (4.30-5.70) Hemoglobin 11.2g/dL (13.0-17.5) 9.6g/dL (13.0-17.5) Hematocrit 34.7% (39.0-53.0) 30.0% (39.0-53.0) Mean Corpuscular Volume 93fL (79-100) 94fL (79-100) Mean Corpuscular Hemoglobin 30pg (25-35) 30pg (25-35) Mean Corpuscular Hemoglobin Concent 32g/dL (31-37) 32g/dL (31-37) Red Cell Distribution Width 15.0% (11.5-14.5) 14.8% (11.5-14.5) Platelet Count 135x10^3/uL (140-400) 107x10^3/uL (140-400) Neutrophils (%) (Auto) 89% (31-73) Lymphocytes (%) (Auto) 5% (24-48) Monocytes (%) (Auto) 6% (0-9) Eosinophils (%) (Auto) 0% (0-3) Basophils (%) (Auto) 0% (0-3) Neutrophils # (Auto) 16.3x10^3uL (1.8-7.7) Lymphocytes # (Auto) 0.8x10^3/uL (1.0-4.8) Monocytes # (Auto) 1.1x10^3/uL (0.0-1.1) Eosinophils # (Auto) 0.0x10^3/uL (0.0-0.7) Basophils # (Auto) 0.0x10^3/uL (0.0-0.2) Sodium Level 141mmol/L (136-145) Potassium Level 4.6mmol/L (3.5-5.1) Chloride Level 105mmol/L (98-107) Carbon Dioxide Level 24mmol/L (21-32) Anion Gap 12 (6-14) Blood Urea Nitrogen 78mg/dL (8-26) Creatinine 5.0mg/dL (0.7-1.3) Estimated GFR (Cockcroft-Gault) 11.8 Glucose Level 113mg/dL (70-99) Calcium Level 7.3mg/dL (8.5-10.1) Total Bilirubin 0.4mg/dL (0.2-1.0) Direct Bilirubin 0.2mg/dL (0.0-0.2) Aspartate Amino Transf (AST/SGOT) 17U/L (15-37) Alanine Aminotransferase (ALT/SGPT) 40U/L (16-63) Alkaline Phosphatase 43U/L (46-116) Total Protein 5.1g/dL (6.4-8.2) Albumin 2.3g/dL (3.4-5.0) Test 06/13/16 07:33 Glucose (Fingerstick) 115mg/dL (70-99) Medications Current Medications Ondansetron HCl (Zofran) 4 mg 1X ONCE IV Last administered on 06/12/16t 08:30 ; Start 06/12/16 at 08:45; Stop 06/12/16 at 08:46; Status DC Morphine Sulfate 5 mg 1X ONCE IV Last administered on 06/12/16 08:30; Start 06/12/16 at 08:45; Stop 06/12/16 at 08:46; Status DC Morphine Sulfate 5 mg 1X ONCE IV Last administered on 06/12/16 10:20; Start 06/12/16 at 11:00; Stop 06/12/16 at 11:01; Status DC Morphine Sulfate 4 mg PRN Q2HR PRN IV PAIN Last administered on 06/12/16 20:33 ; Start 06/12/16 at 11:30; Stop 06/13/16 at 11:29 Ondansetron HCl (Zofran) 4 mg PRN Q6HRS PRN IV NAUSEA/VOMITING; Start 06/12/16 at 11:30; Stop 06/12/16 at 17:35; Status DC Acetaminophen (Tylenol) 325 mg PRN Q6HRS PRN PO MILD PAIN / TEMP; Start at 12:30; Stop 06/12/16 at 17:35; Status DC Acetaminophen/ Hydrocodone Bitart (Lortab 5/325) 1 tab PRN Q6HRS PRN PO MODERATE TO SEVERE PAIN; Start 06/12/16 at 12:30; Stop 06/12/16 at 17:35; Status DC Hydralazine HCl (Apresoline) 10 mg PRN Q4HRS PRN IVP ELEVATED BP, SEE COMMENTS ; Start 06/12/16 at 12:30; Stop 06/12/16 at 17:35; Status DC Ondansetron HCl (Zofran) 4 mg PRN Q8HRS PRN IV NAUSEA/VOMITING; Start 06/12/16 at 12:30; Stop 06/12/16 at 17:35; Status DC Albuterol Sulfate 2.5 mg 2.5 mg PRN Q4HRS PRN NEB SHORTNESS OF BREATH; Start at 12:30; Stop 06/12/16 at 17:35; Status DC Sodium Chloride (Iv Sodium Chloride 0.9% 1000ml Bag) 1,000 ml @ 75 mls/hr 1X ONCE IV Last administered on 06/12/16 15:30; Start 06/12/16 at 12:30; Stop 01/19 at 01:49; Status DC Darbepoetin Richard (Aranesp) 60 mcg WEEKLYHS SQ Last administered on 06/12/16t 20 :28; Start 06/12/16 at 21:00 Acetaminophen (Tylenol) 325 mg PRN Q6HRS PRN PO MILD PAIN / TEMP; Start at 17:30; Stop 06/12/16 at 17:34; Status DC Acetaminophen/ Hydrocodone Bitart (Lortab 5/325) 1 tab PRN Q6HRS PRN PO MODERATE TO SEVERE PAIN; Start 06/12/16 at 17:30 Hydralazine HCl (Apresoline) 10 mg PRN Q4HRS PRN IVP ELEVATED BP, SEE COMMENTS ; Start 06/12/16 at 17:30 Ondansetron HCl (Zofran) 4 mg PRN Q8HRS PRN IV NAUSEA/VOMITING; Start 06/12/16 at 17:30 Albuterol Sulfate (Ventolin Neb Soln) 2.5 mg PRN Q4HRS PRN NEB SHORTNESS OF BREATH; Start 06/12/16 at 17:30 Acetaminophen (Tylenol) 325 mg PRN Q6HRS PRN PO MILD PAIN / TEMP; Start at 17:45 Ondansetron HCl (Zofran) 4 mg PRN Q6HRS PRN IV NAUSEA/VOMITING; Start 06/13/16 at 06:45; Stop 06/14/16 at 06:44 Fentanyl Citrate (Fentanyl 2ml Vial) 25 mcg PRN Q5MIN PRN IV MILD PAIN; Start 06/13/16 at 06:45; Stop 06/14/16 at 06:44 Fentanyl Citrate (Fentanyl 2ml Vial) 50 mcg PRN Q5MIN PRN IV MODERATE PAIN; Start 06/13/16 at 06:45; Stop 06/14/16 at 06:44 Morphine Sulfate 1 mg 1 mg PRN Q10MIN PRN IV SEVERE PAIN; Start 06/13/16 at 06: 45; Stop 06/14/16 at 06:44 Lactated Ringer's (Iv Lactated Ringers) 1,000 ml @ 0 mls/hr Q0M IV ; Start 01/19 at 06:45; Stop 06/13/16 at 15:00; Status Cancel Lidocaine HCl 2 ml PRN 1X PRN ID PRIOR TO IV START; Start 06/13/16 at 06:45; Stop 06/14/16 at 06:44 Hydromorphone HCl (Dilaudid) 0.5 mg PRN Q10MIN PRN IV SEV PAIN, Second choice; Start 06/13/16 at 06:45; Stop 06/14/16 at 06:44 Prochlorperazine Edisylate 5 mg 5 mg PACU PRN PRN IV NAUSEA, MRX1; Start at 06:45; Stop 06/14/16 at 06:44 Sodium Chloride (Iv Sodium Chloride 0.9% 1000ml Bag) 1,000 ml @ 30 mls/hr Q24H IV ; Start 06/13/16 at 07:30 Active Scripts Active Potassium Chloride 10 Meq Tablet.er 10 Meq PO DAILY Metoprolol Tartrate 100 Mg Tablet 1 Tab PO BID Prednisone 20 Mg Tablet 40 Mg PO DAILY Glyburide 2.5 Mg Tablet 1 Tab PO DAILY Vikki-Toño Tablet (Folic Acid/Vitamin B Comp W-C) 0.8 Mg Tablet 1 Tab PO DAILY Reported Levothyroxine Sodium 150 Mcg Tablet 150 Mcg PO DAILYAC Gaby 10-40 Mg Tablet (Amlodipine Bes/Olmesartan Med) 1 Each Tablet 1 Each PO DAILY Allopurinol 100 Mg Tablet 100 Mg PO Aspir 81 (Aspirin) 81 Mg Tablet. 1 Tab PO DAILY Vitals/I & O Vital Sign - Last 24 Hours 06/12/16 06/12/16 06/12/16 06/12/16 10:20 10:43 11:49 12:19 Pulse 68 81 62 64 Resp 20 20 18 18 B/P 170/99 148/95 167/100 164/96 Pulse Ox 96 92 94 94 O2 Delivery Room Air Room Air 06/12/16 06/12/16 06/12/16 06/12/16 12:56 14:55 17:14 19:00 Temp 97.9 98.2 97.9 98.2 Pulse 70 63 62 Resp 18 18 18 B/P 175/94 150/99 130/83 Pulse Ox 96 97 98 92 O2 Delivery Room Air Room Air Room Air Room Air 06/12/16 06/12/16 06/12/16 06/12/16 20:00 20:33 21:03 22:37 Temp 97.7 97.7 Pulse 70 Resp 18 B/P 162/104 Pulse Ox 92 92 95 O2 Delivery Room Air Room Air 06/13/16 06/13/16 00:37 07:00 Temp 98.4 98.4 Pulse 56 75 Resp 18 B/P 135/89 158/103 Pulse Ox 95 O2 Delivery Room Air Intake and Output 06/12/16 06/12/16 06/13/16 15:00 23:00 07:00 Intake Total 250 ml 1100 ml Output Total 500 ml Balance 250 ml 600 ml DAIJA GOLDSMITH MD Jun 13, 2016 08:57
[2016-06-13] MEDS ORDERED: IOHEXOL 300 MG/ML 50 ML VIAL. ONE (10:10)
[2016-06-13] MEDS ORDERED: LEVOFLOXACIN PREMIX 500 MG/100 ML BAG. IV ONE (10:30)
[2016-06-13] MEDS ORDERED: PROPOFOL 20 ML IV ONE (11:07)
[2016-06-13] MEDS ORDERED: LIDOCAINE 1% PF 5 ML VIAL. ONE (11:07)
[2016-06-13] MEDS ORDERED: DEXAMETHASONE SOD PHOS 20 MG/5 ML VIAL. ONE (11:07)
[2016-06-13] MEDS ORDERED: SUCCINYLCHOLINE 200 MG/10 ML VIAL. ONE (11:07)
[2016-06-13] MEDS ORDERED: ONDANSETRON PF 4 MG/2 ML VIAL. ONE (11:07)
[2016-06-13] MEDS ORDERED: FENTANYL PF 100 MCG/2 ML VIAL. ONE ×2 (11:07→12:41)
[2016-06-13] MEDS ORDERED: ROCURONIUM 50 MG/5 ML VIAL. ONE (11:09)
--- NOTE | 2016-06-13 11:33 | PDOC ---
Renal-Progress Notes Subjective Notes Notes NO CHANGE History of Present Illness Hx of present illness STABLE Vitals Vitals Vital Signs Date Time Temp Pulse Resp B/P Pulse Ox O2 Delivery O2 Flow Rate FiO2 06/13/16 10:43 98.4 75 19 187/98 95 Room Air 98.4 Weight Weight [ ] I.O. Intake and Output Intake and Output 06/13/16 07:00 Intake Total 1350 ml Output Total 500 ml Balance 850 ml Intake Oral 1350 ml Output Urine Total 500 ml # Voids 3 Labs Labs Laboratory Tests Test 06/12/16 16:17 06/12/16 20:21 06/12/16 22:03 06/13/16 05:30 Glucose (Fingerstick) 118mg/dL (70-99) 131mg/dL (70-99) White Blood Count 21.6x10^3/uL (4.0-11.0) 18.2x10^3/uL (4.0-11.0) Red Blood Count 3.73x10^6/uL (4.30-5.70) 3.20x10^6/uL (4.30-5.70) Hemoglobin 11.2g/dL (13.0-17.5) 9.6g/dL (13.0-17.5) Hematocrit 34.7% (39.0-53.0) 30.0% (39.0-53.0) Mean Corpuscular Volume 93fL (79-100) 94fL (79-100) Mean Corpuscular Hemoglobin 30pg (25-35) 30pg (25-35) Mean Corpuscular Hemoglobin Concent 32g/dL (31-37) 32g/dL (31-37) Red Cell Distribution Width 15.0% (11.5-14.5) 14.8% (11.5-14.5) Platelet Count 135x10^3/uL (140-400) 107x10^3/uL (140-400) Neutrophils (%) (Auto) 89% (31-73) Lymphocytes (%) (Auto) 5% (24-48) Monocytes (%) (Auto) 6% (0-9) Eosinophils (%) (Auto) 0% (0-3) Basophils (%) (Auto) 0% (0-3) Neutrophils # (Auto) 16.3x10^3uL (1.8-7.7) Lymphocytes # (Auto) 0.8x10^3/uL (1.0-4.8) Monocytes # (Auto) 1.1x10^3/uL (0.0-1.1) Eosinophils # (Auto) 0.0x10^3/uL (0.0-0.7) Basophils # (Auto) 0.0x10^3/uL (0.0-0.2) Sodium Level 141mmol/L (136-145) Potassium Level 4.6mmol/L (3.5-5.1) Chloride Level 105mmol/L (98-107) Carbon Dioxide Level 24mmol/L (21-32) Anion Gap 12 (6-14) Blood Urea Nitrogen 78mg/dL (8-26) Creatinine 5.0mg/dL (0.7-1.3) Estimated GFR (Cockcroft-Gault) 11.8 Glucose Level 113mg/dL (70-99) Calcium Level 7.3mg/dL (8.5-10.1) Total Bilirubin 0.4mg/dL (0.2-1.0) Direct Bilirubin 0.2mg/dL (0.0-0.2) Aspartate Amino Transf (AST/SGOT) 17U/L (15-37) Alanine Aminotransferase (ALT/SGPT) 40U/L (16-63) Alkaline Phosphatase 43U/L (46-116) Total Protein 5.1g/dL (6.4-8.2) Albumin 2.3g/dL (3.4-5.0) Test 06/13/16 07:33 06/13/16 10:59 Glucose (Fingerstick) 115mg/dL (70-99) 112mg/dL (70-99) Assessment Assessment IMP 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
[2016-06-13] MEDS ORDERED: EPHEDRINE PF IN SALINE 50 MG/5 ML DISP.SYRIN. IV ONE (11:43)
[2016-06-13] MEDS ORDERED: NEOSTIGMINE METHYLSULFATE 5 MG/5 ML SYRINGE. ONE (12:05)
[2016-06-13] MEDS ORDERED: GLYCOPYRROLATE 1 MG/5 ML VIAL. ONE (12:05)
[2016-06-13] MEDS ORDERED: DESFLURANE 61 TO 120 MINUTES IH ONE (12:34)
--- NOTE | 2016-06-13 12:53 | PDOC ---
BRIEF OPERATIVE NOTE Date: Jun 13, 2016 Pre-Op Diagnosis Gross hematuria, urinary clot retention Post-Op Diagnosis Same Procedure Performed Cystoscopy evacuation bladder clots, placement of right ureteral stent 6fr by 26cm) Surgeon Patrica Anesthesia Type: General Specimens Obtained bladder clots Findings bladder clots bleeding from right ureteral orifice right hydronephrosis Complications None Additional Remarks Placed 3-way jackman to continuous bladder irrigation BUBBA DODGE DO Jun 13, 2016 12:53
[2016-06-13] MEDS ORDERED: LIDOCAINE 2%/EPI 1:100,000 20 ML VIAL. ONE (12:59)
[2016-06-13] MEDS ORDERED: HEPARIN for IV BOLUS 10,000 UNIT/10 ML VIAL. ONE (12:59)
[2016-06-13] MEDS ORDERED: FENTANYL PF 250 MCG/5 ML VIAL. ONE (13:46)
[2016-06-13] MEDS ORDERED: MIDAZOLAM HCL/PF 5 MG/5 ML VIAL. ONE (13:46)
[2016-06-13] MEDS ORDERED: CEFAZOLIN 1GM IVPB FOR OMNI 50 ML IV ONE ×2 (13:46→14:30)
[2016-06-13] MEDS ORDERED: HEPARIN for IV BOLUS 10,000 UNIT/10 ML VIAL. IV ONE (14:00)
[2016-06-13] MEDS ORDERED: FENTANYL PF 250 MCG/5 ML VIAL. IV ONE (14:00)
[2016-06-13] MEDS ORDERED: LIDOCAINE 1% / SOD BICARB 8.4% 20 ML VIAL. IJ ONE (14:00)
[2016-06-13] MEDS ORDERED: LIDOCAINE 2%/EPI 1:100,000 20 ML VIAL. IJ ONE (14:00)
[2016-06-13] MEDS ORDERED: MIDAZOLAM HCL/PF 5 MG/5 ML VIAL. IV ONE (14:00)
--- NOTE | 2016-06-13 14:12 | PDOC ---
MODERATE SEDATION ASSESSMENT RISKS/ALTERNATIVES Risks/Alternatives Risks and alternatives of this type of sedation and procedure discussed with: RISK/ALTERNATIVES: Patient H & P ON CHART H & P H & P on chart and reviewed for co-morbid conditions and appropriate labs. H&P ON CHART: Yes STATUS PREG STATUS ASSESSED: N/A MEDS/ALLERGIES REVIEWED Meds/Allergies Reviewed Medications and Allergies including time and route of recently administered narcotics and sedatives. MEDS/ALLERGIES REVIEWED: Yes ASA RATING ASA RATING: II AIRWAY ASSESSMENT Airway Assessment Airway patency, oral function limitations, presence of caps, crowns, dentures, partials, and ability to extend neck assessed. AIRWAY ASSESSMENT: Yes MALLAMPATI SCORE MALLAMPATI SCORE: II PRE-SEDATION ASSESSMENT PRE-SEDATION ASSESSMENT: Yes SOFIE GLEASON MD Jun 13, 2016 14:12
--- NOTE | 2016-06-13 14:22 | OP ---
DATE OF SURGERY: 06/13/2016 PREOPERATIVE DIAGNOSIS: Gross hematuria, urinary clot retention. POSTOPERATIVE DIAGNOSIS: Gross hematuria, urinary clot retention. PROCEDURE: Cystoscopy, evacuation of bladder clots, right retrograde pyelogram, placement of indwelling right ureteral stent (6-Gabonese x 26 cm). SURGEON: Bubba Dodge DO. ANESTHESIA: General. INDICATIONS AND JUDGMENT: This is a 60-year-old male, Romansh-Uruguayan, speaks very little Sami. He recently underwent percutaneous biopsy of the right kidney. He has had some gross hematuria since that procedure and was admitted to the hospital with gross hematuria. He has continued to have gross hematuria as well as a large bladder clots within the bladder. It was felt that he would benefit from cystoscopy, evacuation of bladder clots, and possible right stent placement. The procedure was explained to the patient. He appeared to understand and was agreeable. DESCRIPTION OF PROCEDURE: The patient was preloaded with 500 mg of IV Levaquin. He was taken to the operating room and placed on the operating room table in a supine position, given a general anesthetic, and then placed in a dorsolithotomy position using Paolo stirrups since we do not have a cystoscopy table. A C-arm was moved into position. The patient was prepped and draped in sterile fashion. Rigid cystoscopy was performed. The urethra was normal in course and caliber. The patient had a large prostate estimated be about 25-30 grams, he is visually obstructed. He also has a medium lobe, which extends into the bladder. The scope was advanced into the bladder. The bladder was full of clots. I then began to use Ellik evacuator and for the next 30 minutes evacuated and removed blood clots from the patient's bladder. He had a great deal of clots within the bladder. Once the clots were removed, visual inspection of the bladder was carried out. There is no active bleeding in the bladder itself. There was a blood clot extending from the right ureteral orifice that was grasped and removed. All the bleeding was actually coming from the right ureteral orifice. I did not see any active bleeding however. I, then, cannulated the right ureteral orifice and passed a Glidewire up the right ureter. Over this Glidewire, I passed an open-ended 5-Gabonese ureteral catheter and passed this ureteral catheter up to about the ureteropelvic junction and injected contrast. It appeared that he had some blood clots in the right renal pelvis, the pelvis was dilated as were the calices. There was no extravasation of contrast. The course and caliber of the ureter was normal, is somewhat dilated. The 5-Gabonese ureteral catheter was removed leaving the wire in place. At that point, I decided to leave an indwelling right ureteral stent since the renal pelvis was dilated. So, I advanced a 6-Gabonese x 26 cm double-J ureteral stent over the Glidewire under fluoroscopy up into the renal pelvis. The positioning appeared to be satisfactory. Therefore, the wire was removed leaving the stent coiled in the right renal pelvis and the distal coil in the bladder. No active bleeding was identified. The clots had been removed from the bladder. Therefore, the scope was removed. I then placed a 22-Gabonese 3-way Sabillon catheter, irrigated and placed into the bladder. A 20 mL balloon was filled and this was connected to saline irrigation. Sponge and needle counts were correct. The patient was then sent to the recovery room in satisfactory condition. BUBBA DODGE DO DR: RAYNA/david JOB#: [id number] / [id number]
--- NOTE | 2016-06-13 14:28 | PDOC ---
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 ESRD. Tunneled HDC requested by Renal. Post-Procedure Diagnosis Post-Procedure Diagnosis Same Procedure Performed Procedure Performed Sono/fluoro guided tunneled HDC insertion Type of Anesthesia Type of Anesthesia Local + Mod sedation Estimated Blood Loss EBL: Minimal Drain/Tubes Drains/Tubes 15.5F 24cm DuraMax rt IJ tunneled HDC Condition of Patient Condition of Patient Stable. No apparent complication. Disposition Disposition From IR return to 54. F/u with Renal. OK to use tunneled HDC. Full report to follow. SOFIE GLEASON MD Jun 13, 2016 14:28
[2016-06-13 15:31] LABS: HEMATOCRIT 32.2 % (39.0-53.0); HEMOGLOBIN 10.4 g/dL (13.0-17.5); RED BLOOD COUNT 3.44 x10^6/uL (4.30-5.70); RED CELL DISTRIBUTION WIDTH 14.5 % (11.5-14.5); WHITE BLOOD COUNT 21.9 x10^3/uL (4.0-11.0)
--- NOTE | 2016-06-13 17:05 | RAD ---
Ultrasound and fluoro guided placement of right IJ tunneled hemodialysis catheter Indication: 60-year-old male with collapsing focal segmental nephrosclerosis. End-stage renal disease. Tunneled dialysis catheter insertion requested by renal. Fluoro time: 0.5 minute Kerma-Area Product: 1 Gycm2 Moderate sedation: 23 minutes moderate sedation was provided utilizing a total of 2.5 mg percent and 125 mcg fentanyl, IV. The patient was appropriately monitored by a qualified independent observer throughout the time of moderate sedation. Antibiotic: A single dose of Ancef was administered within 1 hour of the procedure start time. Sterility: All elements of maximal sterile barrier technique, including the use of a cap, mask, sterile gown, sterile gloves, large sterile sheet, appropriate hand hygiene, and 2% chlorhexidine for cutaneous antisepsis (or acceptable alternative antiseptic per current guidelines) were utilized. Procedure: Informed consent was obtained from the patient. He was placed supine on the angiography table. Preliminary ultrasound examination of right neck revealed wide patency of right internal jugular vein, which was documented with a hard copy ultrasound image. Right neck and upper chest were then prepped and draped in the usual sterile fashion, utilizing all elements of maximal sterile barrier technique, as described above. Moderate sedation was provided with IV Versed and Fentanyl. 1 gram Ancef was given IV, prophylactically. Using aseptic technique and local anesthesia, a small skin incision was made lateral to right internal jugular vein, just above clavicle. Using aseptic technique, local anesthesia, and direct ultrasound guidance, a micropuncture needle was successfully introduced into right internal jugular vein. The micropuncture needle was then exchanged over a microguidewire for a micropuncture sheath, through which an Amplatz wire was advanced into IVC, under fluoroscopic control. A second small skin incision was then made along upper anterior aspect of right chest. A subcutaneous tunnel was then fashioned between the right chest and supraclavicular incisions. A 15.5 F 24 cm Dura Max dialysis catheter was pulled through the subcutaneous tunnel from inferior to superior, utilizing the tunneling device provided. The right IJ venostomy tract was then sequentially dilated and the 15.5 [place] dialysis catheter was easily advanced centrally through a 16 [place] peel-away sheath, and was positioned with its tip at the level of upper right atrium utilizing fluoroscopic guidance. This catheter was demonstrated to flush and aspirate normally, was packed, and was secured at the right chest exit site utilizing 2-0 Prolene and sterile dressing. The small supraclavicular incision was closed with 4-0 Vicryl, Steri-Strips, and sterile dressing. Patient tolerated the procedure well without apparent complication. Satisfactory position of the dialysis catheter was confirmed with a single fluoroscopic spot image. Impression: Successful, uneventful ultrasound and fluoro guided placement of right IJ 15.5 F 24 cm Dura Max tunneled hemodialysis catheter, as described.
[2016-06-13] MEDS: HYDROCODONE/APAP 5/325MG TABLET. PO PRN (17:17)
[2016-06-13] MEDS ORDERED: DARBEPOETIN ALFA 60 MCG/0.3 ML DISP.SYRIN. SQ SCH (21:00)
[2016-06-13] MEDS ORDERED: ALBUTEROL SULFATE 2.5 MG/3 ML NEBU. NEB PRN (21:00)
[2016-06-13] MEDS ORDERED: ACETAMINOPHEN 325 MG TABLET. PO PRN (21:00)
[2016-06-13] MEDS ORDERED: hydrALAZINE 20 MG/ML VIAL. IVP PRN (21:00)
--- NOTE | 2016-06-13 22:55 | HP ---
ADMIT DATE: 06/12/2016 CHIEF COMPLAINT: Right flank pain. HISTORY OF PRESENT ILLNESS: This is a 60-year-old male patient who was recently admitted to the hospital for renal failure. At that time, the patient had a right kidney biopsy. Later the patient was sent home with outpatient followup with Nephrology; however, the patient presented back to the ER with complaints of right flank pain; chest pain, intractable in nature; and also he was having some hematuria. The patient consulted Dr. Lord who asked him to come to the ER. At the time of examination, the patient is still complaining of right flank pain, which has been 9/10. Hematuria is persistent. He denies any fevers, chills, nausea or vomiting. PAST MEDICAL HISTORY: Prediabetes and renal failure and CKD4 , FSGS. ALLERGIES: NKDA. PERSONAL HISTORY: No smoking, no alcohol, no drug abuse. FAMILY HISTORY: Hypertension. REVIEW OF SYSTEMS: Please see my electronic H and P. PHYSICAL EXAMINATION: Please see my electronic H and P. LABORATORY FINDINGS: WBC 25,000, hemoglobin is 10.7, MCV is 93, platelets are 132. Toxic granulation present. Chemistry: Sodium is 140, potassium is 4.5, chloride is 105, anion gap 11, BUN is 81, creatinine 4.7, GFR is 12.1, calcium is 7.4, albumin is 2.7, lipase is 634. Toxicology is negative. Urine glucose negative, nitrites negative, bilirubin negative, leukocyte esterase negative. IMAGING STUDIES: CT abdomen and pelvis showed hematoma indwelling the right kidney and within the ____ aspect of the urinary bladder consistent with the patient's history of recent biopsy. ASSESSMENT: 1. Hematuria, likely due to hematoma around biopsy region of the right kidney. 2. Acute renal failure, chronic kidney disease 4. 3. Right flank pain due to hematoma. 4. Prediabetes. 5. Leukocytosis due to steroids. 6. Hypertension. PLAN: 1. The patient has been admitted for pain control and monitoring for his hemoglobin. Hemoglobin and hematocrit has been ordered q. 6 hours. 2. Interventional Radiology has been consulted. 3. Surgical plans if the patient shows any significant drop of hemoglobin. 4. Dr. Lord has been consulted and is planning for hemodialysis. The patient needs a tunneled catheter placement. 5. We will stop steroids. 6. Sliding scale insulin as needed. 7. His recent biopsy shows FSGS (focal segmental glomerulosclerosis). 8. Plan explained to the patient. Prognosis is guarded. He is agreeable for hemodialysis. 9. Urology has been consulted for hematuria. 10. No DVT prophylaxis due to thrombocytopenia and hematuria. Monitor platelets. DAIJA GOLDSMITH MD DR: ARLETH/david JOB#: [id number] / [id number] AJ
[2016-06-13] MEDS: METOPROLOL TART IMMED RELEASE 50 MG TABLET. PO SCH (22:56)
[2016-06-14 03:00] VITALS: BP 140/86
[2016-06-14] MEDS: HYDROCODONE/APAP 5/325MG TABLET. PO PRN (05:28)
[2016-06-14 05:57] LABS: HEMATOCRIT 27.5 % (39.0-53.0); HEMOGLOBIN 9.2 g/dL (13.0-17.5); RED BLOOD COUNT 2.97 x10^6/uL (4.30-5.70); RED CELL DISTRIBUTION WIDTH 14.6 % (11.5-14.5); WHITE BLOOD COUNT 15.9 x10^3/uL (4.0-11.0)
[2016-06-14 06:30] LABS: CALCIUM 7.7 mg/dL (8.5-10.1); CREATININE 5.3 mg/dL (0.7-1.3); DIRECT BILIRUBIN 0.1 mg/dL (0.0-0.2); POTASSIUM 4.2 mmol/L (3.5-5.1); TOTAL BILIRUBIN 0.3 mg/dL (0.2-1.0); TOTAL PROTEIN 5.3 g/dL (6.4-8.2)
[2016-06-14 07:00] VITALS: BP 149/98
[2016-06-14] MEDS: IV NORMAL SALINE 1000ML BAG 1,000 ML IV SCH ×2 (07:30→09:42)
[2016-06-14] MEDS ORDERED: IV NORMAL SALINE 1000ML BAG 1,000 ML IV PRN ×2 (08:54)
[2016-06-14] MEDS: METOPROLOL TART IMMED RELEASE 50 MG TABLET. PO SCH ×2 (09:00→21:45)
[2016-06-14] MEDS ORDERED: 0.9 % SODIUM CHLORIDE 10 ML DISP.SYRIN. IV PRN ×2 (09:00)
[2016-06-14] MEDS ORDERED: DIALYSIS PATIENT. MC PRN (09:00)
[2016-06-14] MEDS ORDERED: OLMESARTAN MED PO SCH (09:00)
[2016-06-14] MEDS ORDERED: AMLODIPINE BES PO SCH (09:00)
[2016-06-14] MEDS: FOLIC/VIT B COMP W-C (RENAL) TABLET. PO SCH (09:38)
[2016-06-14] MEDS: POTASSIUM CHLORIDE 10 MEQ TABLET.ER. PO SCH (09:39)
[2016-06-14] MEDS: LEVOTHYROXINE 150 MCG TABLET PO SCH (09:39)
[2016-06-14] MEDS: GLYBURIDE 5 MG TABLET PO SCH (09:39)
--- NOTE | 2016-06-14 10:24 | PDOC ---
PROGRESS NOTES Chief Complaint Chief Complaint cc: hematuria A/P Acute renal failure, FSGS, CKD IV, on HD Hematuria, better, Right flank pain better HTN DM Leucocytosis due to steroids Plan s/p cystoscopy, hemoglobin stable s/p HDC catheter placement, HD today. pain control with Dilaudid SSI PRN hydralazine labs reviewed, hemoglobin stable IR following, Prognosis guarded. out pt HD set up by SW. History of Present Illness History of Present Illness PAIN 06/12, Vitals Vitals Vital Signs Date Time Temp Pulse Resp B/P Pulse Ox O2 Delivery O2 Flow Rate FiO2 06/14/16 07:45 Room Air 06/14/16 07:00 97.9 72 18 149/98 95 97.9 06/14/16 06:28 2.0 Physical Exam General: Alert, Oriented X3, Cooperative, No acute distress Heart: Regular rate, Normal S1, Normal S2 Lungs: Clear Abdomen: Normal bowel sounds, Soft, No tenderness, Other Skin: No rashes Labs LABS Laboratory Tests Test 06/13/16 10:59 06/13/16 13:19 06/13/16 15:20 06/13/16 16:06 Glucose (Fingerstick) 112mg/dL (70-99) 126mg/dL (70-99) 142mg/dL (70-99) White Blood Count 21.9x10^3/uL (4.0-11.0) Red Blood Count 3.44x10^6/uL (4.30-5.70) Hemoglobin 10.4g/dL (13.0-17.5) Hematocrit 32.2% (39.0-53.0) Mean Corpuscular Volume 94fL (79-100) Mean Corpuscular Hemoglobin 30pg (25-35) Mean Corpuscular Hemoglobin Concent 32g/dL (31-37) Red Cell Distribution Width 14.5% (11.5-14.5) Platelet Count 104x10^3/uL (140-400) Test 06/13/16 20:17 06/14/16 05:35 06/14/16 07:04 Glucose (Fingerstick) 173mg/dL (70-99) 127mg/dL (70-99) White Blood Count 15.9x10^3/uL (4.0-11.0) Red Blood Count 2.97x10^6/uL (4.30-5.70) Hemoglobin 9.2g/dL (13.0-17.5) Hematocrit 27.5% (39.0-53.0) Mean Corpuscular Volume 93fL (79-100) Mean Corpuscular Hemoglobin 31pg (25-35) Mean Corpuscular Hemoglobin Concent 33g/dL (31-37) Red Cell Distribution Width 14.6% (11.5-14.5) Platelet Count 105x10^3/uL (140-400) Sodium Level 140mmol/L (136-145) Potassium Level 4.2mmol/L (3.5-5.1) Chloride Level 104mmol/L (98-107) Carbon Dioxide Level 25mmol/L (21-32) Anion Gap 11 (6-14) Blood Urea Nitrogen 74mg/dL (8-26) Creatinine 5.3mg/dL (0.7-1.3) Estimated GFR (Cockcroft-Gault) 11.0 Glucose Level 141mg/dL (70-99) Calcium Level 7.7mg/dL (8.5-10.1) Phosphorus Level 7.0mg/dL (2.6-4.7) Total Bilirubin 0.3mg/dL (0.2-1.0) Direct Bilirubin 0.1mg/dL (0.0-0.2) Aspartate Amino Transf (AST/SGOT) 17U/L (15-37) Alanine Aminotransferase (ALT/SGPT) 45U/L (16-63) Alkaline Phosphatase 40U/L (46-116) Total Protein 5.3g/dL (6.4-8.2) Albumin 2.0g/dL (3.4-5.0) Assessment and Plan Assessmemt and Plan Problems Medical Problems: (1) Acute renal failure Status: Acute Problems: Comment Review of Relevant I have reviewed the following items jose (where applicable) has been applied. Labs Laboratory Tests Test 06/12/16 16:17 06/12/16 20:21 06/12/16 22:03 06/13/16 05:30 Glucose (Fingerstick) 118mg/dL (70-99) 131mg/dL (70-99) White Blood Count 21.6x10^3/uL (4.0-11.0) 18.2x10^3/uL (4.0-11.0) Red Blood Count 3.73x10^6/uL (4.30-5.70) 3.20x10^6/uL (4.30-5.70) Hemoglobin 11.2g/dL (13.0-17.5) 9.6g/dL (13.0-17.5) Hematocrit 34.7% (39.0-53.0) 30.0% (39.0-53.0) Mean Corpuscular Volume 93fL (79-100) 94fL (79-100) Mean Corpuscular Hemoglobin 30pg (25-35) 30pg (25-35) Mean Corpuscular Hemoglobin Concent 32g/dL (31-37) 32g/dL (31-37) Red Cell Distribution Width 15.0% (11.5-14.5) 14.8% (11.5-14.5) Platelet Count 135x10^3/uL (140-400) 107x10^3/uL (140-400) Neutrophils (%) (Auto) 89% (31-73) Lymphocytes (%) (Auto) 5% (24-48) Monocytes (%) (Auto) 6% (0-9) Eosinophils (%) (Auto) 0% (0-3) Basophils (%) (Auto) 0% (0-3) Neutrophils # (Auto) 16.3x10^3uL (1.8-7.7) Lymphocytes # (Auto) 0.8x10^3/uL (1.0-4.8) Monocytes # (Auto) 1.1x10^3/uL (0.0-1.1) Eosinophils # (Auto) 0.0x10^3/uL (0.0-0.7) Basophils # (Auto) 0.0x10^3/uL (0.0-0.2) Sodium Level 141mmol/L (136-145) Potassium Level 4.6mmol/L (3.5-5.1) Chloride Level 105mmol/L (98-107) Carbon Dioxide Level 24mmol/L (21-32) Anion Gap 12 (6-14) Blood Urea Nitrogen 78mg/dL (8-26) Creatinine 5.0mg/dL (0.7-1.3) Estimated GFR (Cockcroft-Gault) 11.8 Glucose Level 113mg/dL (70-99) Calcium Level 7.3mg/dL (8.5-10.1) Total Bilirubin 0.4mg/dL (0.2-1.0) Direct Bilirubin 0.2mg/dL (0.0-0.2) Aspartate Amino Transf (AST/SGOT) 17U/L (15-37) Alanine Aminotransferase (ALT/SGPT) 40U/L (16-63) Alkaline Phosphatase 43U/L (46-116) Total Protein 5.1g/dL (6.4-8.2) Albumin 2.3g/dL (3.4-5.0) Test 06/13/16 07:33 06/13/16 10:59 06/13/16 13:19 06/13/16 15:20 Glucose (Fingerstick) 115mg/dL (70-99) 112mg/dL (70-99) 126mg/dL (70-99) White Blood Count 21.9x10^3/uL (4.0-11.0) Red Blood Count 3.44x10^6/uL (4.30-5.70) Hemoglobin 10.4g/dL (13.0-17.5) Hematocrit 32.2% (39.0-53.0) Mean Corpuscular Volume 94fL (79-100) Mean Corpuscular Hemoglobin 30pg (25-35) Mean Corpuscular Hemoglobin Concent 32g/dL (31-37) Red Cell Distribution Width 14.5% (11.5-14.5) Platelet Count 104x10^3/uL (140-400) Test 06/13/16 16:06 06/13/16 20:17 06/14/16 05:35 06/14/16 07:04 Glucose (Fingerstick) 142mg/dL (70-99) 173mg/dL (70-99) 127mg/dL (70-99) White Blood Count 15.9x10^3/uL (4.0-11.0) Red Blood Count 2.97x10^6/uL (4.30-5.70) Hemoglobin 9.2g/dL (13.0-17.5) Hematocrit 27.5% (39.0-53.0) Mean Corpuscular Volume 93fL (79-100) Mean Corpuscular Hemoglobin 31pg (25-35) Mean Corpuscular Hemoglobin Concent 33g/dL (31-37) Red Cell Distribution Width 14.6% (11.5-14.5) Platelet Count 105x10^3/uL (140-400) Sodium Level 140mmol/L (136-145) Potassium Level 4.2mmol/L (3.5-5.1) Chloride Level 104mmol/L (98-107) Carbon Dioxide Level 25mmol/L (21-32) Anion Gap 11 (6-14) Blood Urea Nitrogen 74mg/dL (8-26) Creatinine 5.3mg/dL (0.7-1.3) Estimated GFR (Cockcroft-Gault) 11.0 Glucose Level 141mg/dL (70-99) Calcium Level 7.7mg/dL (8.5-10.1) Phosphorus Level 7.0mg/dL (2.6-4.7) Total Bilirubin 0.3mg/dL (0.2-1.0) Direct Bilirubin 0.1mg/dL (0.0-0.2) Aspartate Amino Transf (AST/SGOT) 17U/L (15-37) Alanine Aminotransferase (ALT/SGPT) 45U/L (16-63) Alkaline Phosphatase 40U/L (46-116) Total Protein 5.3g/dL (6.4-8.2) Albumin 2.0g/dL (3.4-5.0) Laboratory Tests Test 06/13/16 10:59 06/13/16 13:19 06/13/16 15:20 06/13/16 16:06 Glucose (Fingerstick) 112mg/dL (70-99) 126mg/dL (70-99) 142mg/dL (70-99) White Blood Count 21.9x10^3/uL (4.0-11.0) Red Blood Count 3.44x10^6/uL (4.30-5.70) Hemoglobin 10.4g/dL (13.0-17.5) Hematocrit 32.2% (39.0-53.0) Mean Corpuscular Volume 94fL (79-100) Mean Corpuscular Hemoglobin 30pg (25-35) Mean Corpuscular Hemoglobin Concent 32g/dL (31-37) Red Cell Distribution Width 14.5% (11.5-14.5) Platelet Count 104x10^3/uL (140-400) Test 06/13/16 20:17 06/14/16 05:35 06/14/16 07:04 Glucose (Fingerstick) 173mg/dL (70-99) 127mg/dL (70-99) White Blood Count 15.9x10^3/uL (4.0-11.0) Red Blood Count 2.97x10^6/uL (4.30-5.70) Hemoglobin 9.2g/dL (13.0-17.5) Hematocrit 27.5% (39.0-53.0) Mean Corpuscular Volume 93fL (79-100) Mean Corpuscular Hemoglobin 31pg (25-35) Mean Corpuscular Hemoglobin Concent 33g/dL (31-37) Red Cell Distribution Width 14.6% (11.5-14.5) Platelet Count 105x10^3/uL (140-400) Sodium Level 140mmol/L (136-145) Potassium Level 4.2mmol/L (3.5-5.1) Chloride Level 104mmol/L (98-107) Carbon Dioxide Level 25mmol/L (21-32) Anion Gap 11 (6-14) Blood Urea Nitrogen 74mg/dL (8-26) Creatinine 5.3mg/dL (0.7-1.3) Estimated GFR (Cockcroft-Gault) 11.0 Glucose Level 141mg/dL (70-99) Calcium Level 7.7mg/dL (8.5-10.1) Phosphorus Level 7.0mg/dL (2.6-4.7) Total Bilirubin 0.3mg/dL (0.2-1.0) Direct Bilirubin 0.1mg/dL (0.0-0.2) Aspartate Amino Transf (AST/SGOT) 17U/L (15-37) Alanine Aminotransferase (ALT/SGPT) 45U/L (16-63) Alkaline Phosphatase 40U/L (46-116) Total Protein 5.3g/dL (6.4-8.2) Albumin 2.0g/dL (3.4-5.0) Microbiology 06/12/16 Urine Culture - Preliminary, Resulted 06/12/16 Urine Culture Result 1 (QUENTIN) - Preliminary, Resulted Medications Current Medications Ondansetron HCl (Zofran) 4 mg 1X ONCE IV Last administered on 06/12/16 08:30 ; Start 06/12/16 at 08:45; Stop 06/12/16 at 08:46; Status DC Morphine Sulfate 5 mg 1X ONCE IV Last administered on 06/12/16 08:30; Start 06/12/16 at 08:45; Stop 06/12/16 at 08:46; Status DC Morphine Sulfate 5 mg 1X ONCE IV Last administered on 06/12/16 10:20; Start 06/12/16 at 11:00; Stop 06/12/16 at 11:01; Status DC Morphine Sulfate 4 mg PRN Q2HR PRN IV PAIN Last administered on 06/12/16 20:33 ; Start 06/12/16 at 11:30; Stop 06/13/16 at 11:29; Status DC Ondansetron HCl (Zofran) 4 mg PRN Q6HRS PRN IV NAUSEA/VOMITING; Start 06/12/16 at 11:30; Stop 06/12/16 at 17:35; Status DC Acetaminophen (Tylenol) 325 mg PRN Q6HRS PRN PO MILD PAIN / TEMP; Start at 12:30; Stop 06/12/16 at 17:35; Status DC Acetaminophen/ Hydrocodone Bitart (Lortab 5/325) 1 tab PRN Q6HRS PRN PO MODERATE TO SEVERE PAIN; Start 06/12/16 at 12:30; Stop 06/12/16 at 17:35; Status DC Hydralazine HCl (Apresoline) 10 mg PRN Q4HRS PRN IVP ELEVATED BP, SEE COMMENTS ; Start 06/12/16 at 12:30; Stop 06/12/16 at 17:35; Status DC Ondansetron HCl (Zofran) 4 mg PRN Q8HRS PRN IV NAUSEA/VOMITING; Start 06/12/16 at 12:30; Stop 06/12/16 at 17:35; Status DC Albuterol Sulfate 2.5 mg 2.5 mg PRN Q4HRS PRN NEB SHORTNESS OF BREATH; Start at 12:30; Stop 06/12/16 at 17:35; Status DC Sodium Chloride (Iv Sodium Chloride 0.9% 1000ml Bag) 1,000 ml @ 75 mls/hr 1X ONCE IV Last administered on 06/12/16 15:30; Start 06/12/16 at 12:30; Stop 01/19 at 01:49; Status DC Darbepoetin Richard (Aranesp) 60 mcg WEEKLYHS SQ Last administered on 06/12/16 20 :28; Start 06/12/16 at 21:00 Acetaminophen (Tylenol) 325 mg PRN Q6HRS PRN PO MILD PAIN / TEMP; Start at 17:30; Stop 06/12/16 at 17:34; Status DC Acetaminophen/ Hydrocodone Bitart (Lortab 5/325) 1 tab PRN Q6HRS PRN PO MODERATE TO SEVERE PAIN Last administered on 06/14/16 05:28; Start 06/12/16 at 17:30 Hydralazine HCl (Apresoline) 10 mg PRN Q4HRS PRN IVP ELEVATED BP, SEE COMMENTS Last administered on 06/13/16 17:13; Start 06/12/16 at 17:30 Ondansetron HCl (Zofran) 4 mg PRN Q8HRS PRN IV NAUSEA/VOMITING; Start 06/12/16 at 17:30 Albuterol Sulfate (Ventolin Neb Soln) 2.5 mg PRN Q4HRS PRN NEB SHORTNESS OF BREATH; Start 06/12/16 at 17:30 Acetaminophen (Tylenol) 325 mg PRN Q6HRS PRN PO MILD PAIN / TEMP; Start at 17:45 Ondansetron HCl (Zofran) 4 mg PRN Q6HRS PRN IV NAUSEA/VOMITING; Start 06/13/16 at 06:45; Stop 06/14/16 at 06:44; Status DC Fentanyl Citrate (Fentanyl 2ml Vial) 25 mcg PRN Q5MIN PRN IV MILD PAIN; Start 06/13/16 at 06:45; Stop 06/14/16 at 06:44; Status DC Fentanyl Citrate (Fentanyl 2ml Vial) 50 mcg PRN Q5MIN PRN IV MODERATE PAIN; Start 06/13/16 at 06:45; Stop 06/14/16 at 06:44; Status DC Morphine Sulfate 1 mg 1 mg PRN Q10MIN PRN IV SEVERE PAIN; Start 06/13/16 at 06: 45; Stop 06/14/16 at 06:44; Status DC Lactated Ringer's (Iv Lactated Ringers) 1,000 ml @ 0 mls/hr Q0M IV ; Start 01/19 at 06:45; Stop 06/13/16 at 15:00; Status Cancel Lidocaine HCl 2 ml PRN 1X PRN ID PRIOR TO IV START; Start 06/13/16 at 06:45; Stop 06/14/16 at 06:44; Status DC Hydromorphone HCl (Dilaudid) 0.5 mg PRN Q10MIN PRN IV SEV PAIN, Second choice; Start 06/13/16 at 06:45; Stop 06/14/16 at 06:44; Status DC Prochlorperazine Edisylate 5 mg 5 mg PACU PRN PRN IV NAUSEA, MRX1; Start at 06:45; Stop 06/14/16 at 06:44; Status DC Sodium Chloride (Iv Sodium Chloride 0.9% 1000ml Bag) 1,000 ml @ 30 mls/hr Q24H IV ; Start 06/13/16 at 07:30 Iohexol 50 ml 50 ml STK-MED ONCE .ROUTE Last administered on 06/13/16t 14:23; Start 06/13/16 at 10:10; Stop 06/13/16 at 10:11; Status DC Levofloxacin/ Dextrose (LEVAQUIN 500mg PREMIX) 100 ml @ As Directed STK-MED ONCE IV ; Start 06/13/16 at 10:21; Stop 06/13/16 at 10:22; Status DC Dexamethasone Sodium Phosphate (Decadron) 20 mg STK-MED ONCE .ROUTE ; Start 01/19 at 11:07; Stop 06/13/16 at 11:08; Status DC Ondansetron HCl 4 mg 4 mg STK-MED ONCE .ROUTE ; Start 06/13/16 at 11:07; Stop at 11:08; Status DC Propofol (Diprivan) 20 ml @ As Directed STK-MED ONCE IV ; Start 06/13/16 at 11: 07; Stop 06/13/16 at 11:08; Status DC Lidocaine HCl (Xylocaine-Mpf 1% Vial) 5 ml STK-MED ONCE .ROUTE ; Start 06/13/16 at 11:07; Stop 06/13/16 at 11:08; Status DC Fentanyl Citrate (Fentanyl 2ml Vial) 100 mcg STK-MED ONCE .ROUTE ; Start at 11:07; Stop 06/13/16 at 11:08; Status DC Succinylcholine Chloride (Anectine) 200 mg STK-MED ONCE .ROUTE ; Start 06/13/16 at 11:07; Stop 06/13/16 at 11:08; Status DC Rocuronium Gibbs (Zemuron) 50 mg STK-MED ONCE .ROUTE ; Start 06/13/16 at 11:09 ; Stop 06/13/16 at 11:10; Status DC Darbepoetin Richard (Aranesp) 60 mcg WEEKLYHS SQ ; Start 06/13/16 at 21:00; Status Cancel Ephedrine Sulfate 50 mg STK-MED ONCE IV ; Start 06/13/16 at 11:43; Stop at 11:44; Status DC Glycopyrrolate (Robinul) 1 mg STK-MED ONCE .ROUTE ; Start 06/13/16 at 12:05; Stop 06/13/16 at 12:06; Status DC Neostigmine Methylsulfate 5 mg 5 mg STK-MED ONCE .ROUTE ; Start 06/13/16 at 12: 05; Stop 06/13/16 at 12:06; Status DC Levofloxacin/ Dextrose (LEVAQUIN 500mg PREMIX) 100 ml @ 100 mls/hr 1X PREOP IV ; Start 06/13/16 at 12:30; Stop 06/14/16 at 18:00 Desflurane (Suprane) 60 ml STK-MED ONCE IH ; Start 06/13/16 at 12:34; Stop 06/13 at 12:35; Status DC Fentanyl Citrate (Fentanyl 2ml Vial) 100 mcg STK-MED ONCE .ROUTE ; Start at 12:41; Stop 06/13/16 at 12:42; Status DC Lidocaine/ Epinephrine (Xylocaine 2%-Epi 1:100,000) 20 ml STK-MED ONCE .ROUTE ; Start 06/13/16 at 12:59; Stop 06/13/16 at 13:00; Status DC Heparin Sodium (Porcine) 43543 unit 10,000 unit STK-MED ONCE .ROUTE ; Start 01/19 at 12:59; Stop 06/13/16 at 13:00; Status DC Heparin Sodium/ Sodium Chloride 500 ml @ As Directed STK-MED ONCE .ROUTE ; Start 06/13/16 at 12:59; Stop 06/13/16 at 13:00; Status DC Midazolam HCl (Versed) 5 mg STK-MED ONCE .ROUTE ; Start 06/13/16 at 13:46; Stop 06/13/16 at 13:47; Status DC Fentanyl Citrate 250 mcg 250 mcg STK-MED ONCE .ROUTE ; Start 06/13/16 at 13:46; Stop 06/13/16 at 13:47; Status DC Cefazolin Sodium (Ancef 1gm Ivpb For Omni) 50 ml @ As Directed STK-MED ONCE IV ; Start 06/13/16 at 13:46; Stop 06/13/16 at 13:47; Status DC Heparin Sodium/ Sodium Chloride 1,000 unit 1X ONCE IART Last administered on 14:12; Start 06/13/16 at 14:00; Stop 06/13/16 at 14:04; Status DC Lidocaine/Sodium Bicarbonate (Buffered Lidocaine 1%) 20 ml 1X ONCE IJ ; Start 06/13/16 at 14:00; Stop 06/13/16 at 14:04; Status DC Midazolam HCl (Versed) 2.5 mg 1X ONCE IV Last administered on 06/13/16 14:12 ; Start 06/13/16 at 14:00; Stop 06/13/16 at 14:04; Status DC Fentanyl Citrate (Fentanyl 5ml Vial) 125 mcg 1X ONCE IV Last administered on 14:11; Start 06/13/16 at 14:00; Stop 06/13/16 at 14:04; Status DC Heparin Sodium (Porcine) (Heparin Sodium) 4,000 unit 1X ONCE IV Last administered on 06/13/16 14:14; Start 06/13/16 at 14:00; Stop 06/13/16 at 14:04 ; Status DC Lidocaine/ Epinephrine 20 ml 20 ml 1X ONCE IJ Last administered on 06/13/16 14:12; Start 06/13/16 at 14:00; Stop 06/13/16 at 14:04; Status DC Cefazolin Sodium (Ancef 1gm Ivpb For Omni) 50 ml @ 100 mls/hr 1X ONCE IV Last administered on 06/13/16 13:52; Start 06/13/16 at 14:30; Stop 06/13/16 at 14:59; Status DC Vitamin B Complex/ Vitamin C (Vikki-Toño) 1 tab DAILY PO Last administered on 09:38; Start 06/14/16 at 09:00 Levothyroxine Sodium (Synthroid) 150 mcg DAILYAC PO Last administered on 09:39; Start 06/14/16 at 07:30 Non-Formulary Medication 1 each DAILY PO ; Start 06/14/16 at 09:00; Stop at 09:00; Status DC Glyburide (Diabeta) 2.5 mg DAILYWBKFT PO Last administered on 06/14/16 09:39; Start 06/14/16 at 08:00 Metoprolol Tartrate (Lopressor) 100 mg BID PO Last administered on 06/13/16 22 :56; Start 06/13/16 at 22:00 Potassium Chloride (Klor-Con) 10 meq DAILYWBKFT PO Last administered on 09:39; Start 06/14/16 at 08:00 Acetaminophen (Tylenol) 325 mg PRN Q6HRS PRN PO MILD PAIN / TEMP; Start at 21:00 Hydralazine HCl (Apresoline) 10 mg PRN Q4HRS PRN IVP ELEVATED BP, SEE COMMENTS ; Start 06/13/16 at 21:00 Ondansetron HCl (Zofran) 4 mg PRN Q8HRS PRN IV NAUSEA/VOMITING; Start 06/13/16 at 21:00 Albuterol Sulfate (Ventolin Neb Soln) 2.5 mg PRN Q4HRS PRN NEB SHORTNESS OF BREATH; Start 06/13/16 at 21:00 Amlodipine Besylate (Norvasc) 10 mg DAILY PO ; Start 06/14/16 at 09:00 Losartan Potassium (Cozaar) 100 mg DAILY PO ; Start 06/14/16 at 09:00 Levofloxacin/ Dextrose 500 mg 500 mg STK-MED ONCE IV ; Start 06/13/16 at 10:30; Stop 06/14/16 at 08:22; Status DC Sodium Chloride (Iv Sodium Chloride 0.9% 1000ml Bag) 1,000 ml @ 1,000 mls/hr Q1H PRN IV hypotension; Start 06/14/16 at 08:54; Stop 06/14/16 at 14:53 Sodium Chloride (Normal Saline Flush) 10 ml 1X PRN PRN IV AP catheter pack; Start 06/14/16 at 09:00; Stop 06/15/16 at 08:59 Sodium Chloride 10 ml 10 ml 1X PRN PRN IV INSOLE REINFORCER catheter pack; Start 06/14/16 at 09:00; Stop 06/15/16 at 08:59 Sodium Chloride (Iv Sodium Chloride 0.9% 1000ml Bag) 1,000 ml @ 400 mls/hr Q2H30M PRN IV PATENCY; Start 06/14/16 at 08:54; Stop 06/14/16 at 20:53 Info (PHARMACY MONITORING -- do not chart) 1 each PRN DAILY PRN MC SEE COMMENTS ; Start 06/14/16 at 09:00 Active Scripts Active Potassium Chloride 10 Meq Tablet.er 10 Meq PO DAILY Metoprolol Tartrate 100 Mg Tablet 1 Tab PO BID Prednisone 20 Mg Tablet 40 Mg PO DAILY Glyburide 2.5 Mg Tablet 1 Tab PO DAILY Vikki-Toño Tablet (Folic Acid/Vitamin B Comp W-C) 0.8 Mg Tablet 1 Tab PO DAILY Reported Levothyroxine Sodium 150 Mcg Tablet 150 Mcg PO DAILYAC Gaby 10-40 Mg Tablet (Amlodipine Bes/Olmesartan Med) 1 Each Tablet 1 Each PO DAILY Allopurinol 100 Mg Tablet 100 Mg PO Aspir 81 (Aspirin) 81 Mg Tablet. 1 Tab PO DAILY Vitals/I & O Vital Sign - Last 24 Hours 06/13/16 06/13/16 06/13/16 06/13/16 10:43 12:49 12:49 13:04 Temp 98.4 97.2 98.4 97.2 Pulse 75 93 88 Resp 19 18 18 B/P 187/98 160/92 175/92 Pulse Ox 95 99 100 O2 Delivery Room Air Simple Mask Mask Simple Mask O2 Flow Rate 10 10 10 4/11/17 4/11/17 4/11/17 4/11/17 13:15 13:19 14:07 14:11 Pulse 86 92 Resp 18 14 14 B/P 171/81 Pulse Ox 97 95 95 O2 Delivery Nasal Cannula Nasal Cannula Nasal Cannula Nasal Cannula O2 Flow Rate 2 2 2.0 2.0 06/13/16 06/13/16 06/13/16 06/13/16 14:30 14:45 15:00 15:30 Pulse 94 86 94 91 B/P 144/85 156/93 159/99 148/97 06/13/16 06/13/16 06/13/16 06/13/16 16:00 17:13 17:27 19:00 Temp 98.6 98.6 Pulse 100 93 112 Resp 18 B/P 156/104 178/114 173/112 183/118 Pulse Ox 93 O2 Delivery Room Air 06/13/16 06/13/16 06/13/16 06/13/16 20:00 20:19 22:56 22:59 Temp 98.6 98.6 Pulse 112 97 Resp 18 B/P 153/101 153/101 140/89 Pulse Ox 95 O2 Delivery Room Air Room Air 06/14/16 06/14/16 06/14/16 06/14/16 03:00 05:28 06:28 07:00 Temp 97.9 97.9 Pulse 72 Resp 18 B/P 140/86 149/98 Pulse Ox 95 95 95 O2 Delivery Room Air Room Air O2 Flow Rate 2.0 2.0 06/14/16 07:45 O2 Delivery Room Air Intake and Output 06/13/16 06/13/16 06/14/16 15:00 23:00 07:00 Intake Total 600 ml 400 ml Output Total 650 ml 4100 ml 2450 ml Balance -650 ml -3500 ml -2050 ml DAIJA GOLDSMITH MD Jun 14, 2016 10:24
[2016-06-14 11:00] VITALS: BP 161/92
--- NOTE | 2016-06-14 11:57 | PDOC ---
Renal-Progress Notes Subjective Notes Notes NONE History of Present Illness Hx of present illness NO CHANGE Vitals Vitals Vital Signs Date Time Temp Pulse Resp B/P Pulse Ox O2 Delivery O2 Flow Rate FiO2 06/14/16 11:00 97.9 78 18 161/92 94 Room Air 97.9 06/14/16 06:28 2.0 Weight Weight [ ] I.O. Intake and Output Intake and Output 06/14/16 07:00 Intake Total 1000 ml Output Total 7200 ml Balance -6200 ml Intake Oral 1000 ml Output Urine Total 5525 ml Other 1675 ml Labs Labs Laboratory Tests Test 06/13/16 13:19 06/13/16 15:20 06/13/16 16:06 06/13/16 20:17 Glucose (Fingerstick) 126mg/dL (70-99) 142mg/dL (70-99) 173mg/dL (70-99) White Blood Count 21.9x10^3/uL (4.0-11.0) Red Blood Count 3.44x10^6/uL (4.30-5.70) Hemoglobin 10.4g/dL (13.0-17.5) Hematocrit 32.2% (39.0-53.0) Mean Corpuscular Volume 94fL (79-100) Mean Corpuscular Hemoglobin 30pg (25-35) Mean Corpuscular Hemoglobin Concent 32g/dL (31-37) Red Cell Distribution Width 14.5% (11.5-14.5) Platelet Count 104x10^3/uL (140-400) Test 06/14/16 05:35 06/14/16 07:04 06/14/16 10:06 White Blood Count 15.9x10^3/uL (4.0-11.0) Red Blood Count 2.97x10^6/uL (4.30-5.70) Hemoglobin 9.2g/dL (13.0-17.5) Hematocrit 27.5% (39.0-53.0) Mean Corpuscular Volume 93fL (79-100) Mean Corpuscular Hemoglobin 31pg (25-35) Mean Corpuscular Hemoglobin Concent 33g/dL (31-37) Red Cell Distribution Width 14.6% (11.5-14.5) Platelet Count 105x10^3/uL (140-400) Sodium Level 140mmol/L (136-145) Potassium Level 4.2mmol/L (3.5-5.1) Chloride Level 104mmol/L (98-107) Carbon Dioxide Level 25mmol/L (21-32) Anion Gap 11 (6-14) Blood Urea Nitrogen 74mg/dL (8-26) Creatinine 5.3mg/dL (0.7-1.3) Estimated GFR (Cockcroft-Gault) 11.0 Glucose Level 141mg/dL (70-99) Calcium Level 7.7mg/dL (8.5-10.1) Phosphorus Level 7.0mg/dL (2.6-4.7) Total Bilirubin 0.3mg/dL (0.2-1.0) Direct Bilirubin 0.1mg/dL (0.0-0.2) Aspartate Amino Transf (AST/SGOT) 17U/L (15-37) Alanine Aminotransferase (ALT/SGPT) 45U/L (16-63) Alkaline Phosphatase 40U/L (46-116) Total Protein 5.3g/dL (6.4-8.2) Albumin 2.0g/dL (3.4-5.0) Glucose (Fingerstick) 127mg/dL (70-99) 118mg/dL (70-99) Micro Micro Microbiology 06/12/16 Urine Culture - Preliminary, Resulted 06/12/16 Urine Culture Result 1 (QUENTIN) - Preliminary, Resulted Review of Systems Constitutional: yes: alert, oriented Ears/Nose/Throat: Yes: no symptom reported Eyes: Yes: no symptom reported Cardiovascular: Yes no symptom reported Genitourinary: Yes: no symptom reported Skin: Yes no symptom reported Endocrine: Yes: no symptom reported Physical Exam General Appearance: no apparent distress Respiratory: bilateral CTA Heart: S1S2 Abdomen: soft Genitourinary: bladder flat Neurology: alert Assessment Assessment IMP NEW 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
[2016-06-14] MEDS: SEVELAMER CARBONATE 800 MG TABLET. PO SCH ×2 (12:00→17:30)
[2016-06-14 16:57] VITALS: BP 144/88
[2016-06-14] MEDS: LOSARTAN POTASSIUM 50 MG TABLET. PO SCH (17:30)
[2016-06-14] MEDS: AMLODIPINE BESYLATE 10 MG TABLET. PO SCH (17:30)
[2016-06-14 19:00] VITALS: BP 120/78
[2016-06-14 23:00] VITALS: BP 132/65
[2016-06-15 03:00] VITALS: BP 148/72
[2016-06-15 06:58] LABS: HEMATOCRIT 27.9 % (39.0-53.0); HEMOGLOBIN 9.2 g/dL (13.0-17.5); RED CELL DISTRIBUTION WIDTH 14.7 % (11.5-14.5); WHITE BLOOD COUNT 14.9 x10^3/uL (4.0-11.0)
[2016-06-15 07:00] VITALS: BP 126/90
[2016-06-15 07:12] LABS: CALCIUM 7.6 mg/dL (8.5-10.1); CREATININE 3.7 mg/dL (0.7-1.3); GFR 16.7; POTASSIUM 4.1 mmol/L (3.5-5.1)
[2016-06-15] MEDS: SEVELAMER CARBONATE 800 MG TABLET. PO SCH ×3 (08:00→17:54)
[2016-06-15] MEDS ORDERED: IV NORMAL SALINE 1000ML BAG 1,000 ML IV PRN (08:03)
[2016-06-15] MEDS ORDERED: ALBUMIN HUMAN 25% 200 ML IV PRN (08:15)
[2016-06-15] MEDS ORDERED: DIALYSIS PATIENT. MC PRN (08:15)
[2016-06-15] MEDS ORDERED: DIPHENHYDRAMINE 50 MG/ML VIAL. IV PRN ×2 (08:15)
[2016-06-15] MEDS ORDERED: CLONIDINE HCL 0.1 MG TABLET PO PRN (08:15)
[2016-06-15] MEDS ORDERED: LABETALOL 20 MG/4 ML DISP.SYRIN. IVP PRN (08:15)
[2016-06-15] MEDS ORDERED: ACETAMINOPHEN 500 MG TABLET PO PRN (08:15)
--- NOTE | 2016-06-15 08:40 | PDOC ---
Provider Note Provider Note Urology: s/p cystoscopy evacuation bladder clots, hematuria from R collecting system Currently: has 3-way jackman to CBI has right ureteral stent Urine color improved Plan: probable d/c bladder irrigation tomorrow AM d/c jackman the following day will need Cysto stent removal after above Thanks, BUBBA DODGE DO Jun 15, 2016 08:40
[2016-06-15 12:14] VITALS: BP 136/90
[2016-06-15] MEDS: FOLIC/VIT B COMP W-C (RENAL) TABLET. PO SCH (12:18)
[2016-06-15] MEDS: METOPROLOL TART IMMED RELEASE 50 MG TABLET. PO SCH ×2 (12:19→22:10)
[2016-06-15] MEDS: LOSARTAN POTASSIUM 50 MG TABLET. PO SCH (12:19)
[2016-06-15] MEDS: AMLODIPINE BESYLATE 10 MG TABLET. PO SCH (12:20)
[2016-06-15] MEDS: LEVOTHYROXINE 150 MCG TABLET PO SCH (12:21)
[2016-06-15] MEDS: POTASSIUM CHLORIDE 10 MEQ TABLET.ER. PO SCH (12:21)
[2016-06-15] MEDS: GLYBURIDE 5 MG TABLET PO SCH (12:21)
--- NOTE | 2016-06-15 12:43 | PDOC ---
Renal-Progress Notes Subjective Notes Notes NONE History of Present Illness Hx of present illness STABLE Vitals Vitals Vital Signs Date Time Temp Pulse Resp B/P Pulse Ox O2 Delivery O2 Flow Rate FiO2 06/15/16 12:20 99 136/90 06/15/16 12:14 99.3 18 96 Room Air 99.3 Weight Weight [ ] I.O. Intake and Output Intake and Output 06/15/16 07:00 Intake Total 800 ml Output Total 80018 ml Balance -94559 ml Intake Oral 800 ml Output Urine Total 9375 ml Other 49682 ml Labs Labs Laboratory Tests Test 06/14/16 16:31 06/14/16 21:11 06/15/16 05:45 06/15/16 07:10 Glucose (Fingerstick) 76mg/dL (70-99) 93mg/dL (70-99) 95mg/dL (70-99) White Blood Count 14.9x10^3/uL (4.0-11.0) Red Blood Count 3.00x10^6/uL (4.30-5.70) Hemoglobin 9.2g/dL (13.0-17.5) Hematocrit 27.9% (39.0-53.0) Mean Corpuscular Volume 93fL (79-100) Mean Corpuscular Hemoglobin 31pg (25-35) Mean Corpuscular Hemoglobin Concent 33g/dL (31-37) Red Cell Distribution Width 14.7% (11.5-14.5) Platelet Count 97x10^3/uL (140-400) Sodium Level 142mmol/L (136-145) Potassium Level 4.1mmol/L (3.5-5.1) Chloride Level 105mmol/L (98-107) Carbon Dioxide Level 28mmol/L (21-32) Anion Gap 9 (6-14) Blood Urea Nitrogen 41mg/dL (8-26) Creatinine 3.7mg/dL (0.7-1.3) Estimated GFR (Cockcroft-Gault) 16.7 Glucose Level 85mg/dL (70-99) Calcium Level 7.6mg/dL (8.5-10.1) Micro Micro Microbiology 06/12/16 Urine Culture - Final, Complete 06/12/16 Urine Culture Result 1 (QUENTIN) - Final, Complete Review of Systems Constitutional: yes: alert, oriented Ears/Nose/Throat: Yes: no symptom reported Eyes: Yes: no symptom reported Cardiovascular: Yes no symptom reported Genitourinary: Yes: no symptom reported Skin: Yes no symptom reported Endocrine: Yes: no symptom reported Physical Exam General Appearance: no apparent distress Respiratory: bilateral CTA Heart: S1S2 Abdomen: soft Genitourinary: bladder flat Neurology: alert Assessment Assessment IMP 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
--- NOTE | 2016-06-15 13:11 | PDOC ---
PROGRESS NOTES Chief Complaint Chief Complaint cc: hematuria A/P Acute renal failure, FSGS, CKD IV, on HD Hematuria, better, Right flank pain better HTN DM Leucocytosis due to steroids Plan s/p cystoscopy, hemoglobin stable s/p HDC catheter placement, HD per nephrology. pain control with Dilaudid prn SSI PRN hydralazine labs reviewed, hemoglobin stable IR following, Prognosis guarded. out pt HD set up by SW. History of Present Illness History of Present Illness PAIN 06/12, Vitals Vitals Vital Signs Date Time Temp Pulse Resp B/P Pulse Ox O2 Delivery O2 Flow Rate FiO2 06/15/16 12:20 99 136/90 06/15/16 12:14 99.3 18 96 Room Air 99.3 Physical Exam General: Alert, Oriented X3, Cooperative, No acute distress Heart: Regular rate, Normal S1, Normal S2 Lungs: Clear Abdomen: Normal bowel sounds, Soft, No tenderness, Other Skin: No rashes Labs LABS Laboratory Tests Test 06/14/16 16:31 06/14/16 21:11 06/15/16 05:45 06/15/16 07:10 Glucose (Fingerstick) 76mg/dL (70-99) 93mg/dL (70-99) 95mg/dL (70-99) White Blood Count 14.9x10^3/uL (4.0-11.0) Red Blood Count 3.00x10^6/uL (4.30-5.70) Hemoglobin 9.2g/dL (13.0-17.5) Hematocrit 27.9% (39.0-53.0) Mean Corpuscular Volume 93fL (79-100) Mean Corpuscular Hemoglobin 31pg (25-35) Mean Corpuscular Hemoglobin Concent 33g/dL (31-37) Red Cell Distribution Width 14.7% (11.5-14.5) Platelet Count 97x10^3/uL (140-400) Sodium Level 142mmol/L (136-145) Potassium Level 4.1mmol/L (3.5-5.1) Chloride Level 105mmol/L (98-107) Carbon Dioxide Level 28mmol/L (21-32) Anion Gap 9 (6-14) Blood Urea Nitrogen 41mg/dL (8-26) Creatinine 3.7mg/dL (0.7-1.3) Estimated GFR (Cockcroft-Gault) 16.7 Glucose Level 85mg/dL (70-99) Calcium Level 7.6mg/dL (8.5-10.1) Assessment and Plan Assessmemt and Plan Problems Medical Problems: (1) Acute renal failure Status: Acute Problems: Comment Review of Relevant I have reviewed the following items jose (where applicable) has been applied. Labs Laboratory Tests Test 06/13/16 13:19 06/13/16 15:20 06/13/16 16:06 06/13/16 20:17 Glucose (Fingerstick) 126mg/dL (70-99) 142mg/dL (70-99) 173mg/dL (70-99) White Blood Count 21.9x10^3/uL (4.0-11.0) Red Blood Count 3.44x10^6/uL (4.30-5.70) Hemoglobin 10.4g/dL (13.0-17.5) Hematocrit 32.2% (39.0-53.0) Mean Corpuscular Volume 94fL (79-100) Mean Corpuscular Hemoglobin 30pg (25-35) Mean Corpuscular Hemoglobin Concent 32g/dL (31-37) Red Cell Distribution Width 14.5% (11.5-14.5) Platelet Count 104x10^3/uL (140-400) Test 06/14/16 05:35 06/14/16 07:04 06/14/16 07:55 06/14/16 10:06 White Blood Count 15.9x10^3/uL (4.0-11.0) Red Blood Count 2.97x10^6/uL (4.30-5.70) Hemoglobin 9.2g/dL (13.0-17.5) Hematocrit 27.5% (39.0-53.0) Mean Corpuscular Volume 93fL (79-100) Mean Corpuscular Hemoglobin 31pg (25-35) Mean Corpuscular Hemoglobin Concent 33g/dL (31-37) Red Cell Distribution Width 14.6% (11.5-14.5) Platelet Count 105x10^3/uL (140-400) Sodium Level 140mmol/L (136-145) Potassium Level 4.2mmol/L (3.5-5.1) Chloride Level 104mmol/L (98-107) Carbon Dioxide Level 25mmol/L (21-32) Anion Gap 11 (6-14) Blood Urea Nitrogen 74mg/dL (8-26) Creatinine 5.3mg/dL (0.7-1.3) Estimated GFR (Cockcroft-Gault) 11.0 Glucose Level 141mg/dL (70-99) Calcium Level 7.7mg/dL (8.5-10.1) Phosphorus Level 7.0mg/dL (2.6-4.7) Total Bilirubin 0.3mg/dL (0.2-1.0) Direct Bilirubin 0.1mg/dL (0.0-0.2) Aspartate Amino Transf (AST/SGOT) 17U/L (15-37) Alanine Aminotransferase (ALT/SGPT) 45U/L (16-63) Alkaline Phosphatase 40U/L (46-116) Total Protein 5.3g/dL (6.4-8.2) Albumin 2.0g/dL (3.4-5.0) Glucose (Fingerstick) 127mg/dL (70-99) 118mg/dL (70-99) Hepatitis B Surface Antigen Negative (Negative) Test 06/14/16 16:31 06/14/16 21:11 06/15/16 05:45 06/15/16 07:10 Glucose (Fingerstick) 76mg/dL (70-99) 93mg/dL (70-99) 95mg/dL (70-99) White Blood Count 14.9x10^3/uL (4.0-11.0) Red Blood Count 3.00x10^6/uL (4.30-5.70) Hemoglobin 9.2g/dL (13.0-17.5) Hematocrit 27.9% (39.0-53.0) Mean Corpuscular Volume 93fL (79-100) Mean Corpuscular Hemoglobin 31pg (25-35) Mean Corpuscular Hemoglobin Concent 33g/dL (31-37) Red Cell Distribution Width 14.7% (11.5-14.5) Platelet Count 97x10^3/uL (140-400) Sodium Level 142mmol/L (136-145) Potassium Level 4.1mmol/L (3.5-5.1) Chloride Level 105mmol/L (98-107) Carbon Dioxide Level 28mmol/L (21-32) Anion Gap 9 (6-14) Blood Urea Nitrogen 41mg/dL (8-26) Creatinine 3.7mg/dL (0.7-1.3) Estimated GFR (Cockcroft-Gault) 16.7 Glucose Level 85mg/dL (70-99) Calcium Level 7.6mg/dL (8.5-10.1) Laboratory Tests Test 06/14/16 16:31 06/14/16 21:11 06/15/16 05:45 06/15/16 07:10 Glucose (Fingerstick) 76mg/dL (70-99) 93mg/dL (70-99) 95mg/dL (70-99) White Blood Count 14.9x10^3/uL (4.0-11.0) Red Blood Count 3.00x10^6/uL (4.30-5.70) Hemoglobin 9.2g/dL (13.0-17.5) Hematocrit 27.9% (39.0-53.0) Mean Corpuscular Volume 93fL (79-100) Mean Corpuscular Hemoglobin 31pg (25-35) Mean Corpuscular Hemoglobin Concent 33g/dL (31-37) Red Cell Distribution Width 14.7% (11.5-14.5) Platelet Count 97x10^3/uL (140-400) Sodium Level 142mmol/L (136-145) Potassium Level 4.1mmol/L (3.5-5.1) Chloride Level 105mmol/L (98-107) Carbon Dioxide Level 28mmol/L (21-32) Anion Gap 9 (6-14) Blood Urea Nitrogen 41mg/dL (8-26) Creatinine 3.7mg/dL (0.7-1.3) Estimated GFR (Cockcroft-Gault) 16.7 Glucose Level 85mg/dL (70-99) Calcium Level 7.6mg/dL (8.5-10.1) Microbiology 06/12/16 Urine Culture - Final, Complete 06/12/16 Urine Culture Result 1 (QUENTIN) - Final, Complete Medications Current Medications Ondansetron HCl (Zofran) 4 mg 1X ONCE IV Last administered on 06/12/16 08:30 ; Start 06/12/16 at 08:45; Stop 06/12/16 at 08:46; Status DC Morphine Sulfate 5 mg 1X ONCE IV Last administered on 06/12/16 08:30; Start 06/12/16 at 08:45; Stop 06/12/16 at 08:46; Status DC Morphine Sulfate 5 mg 1X ONCE IV Last administered on 06/12/16 10:20; Start 06/12/16 at 11:00; Stop 06/12/16 at 11:01; Status DC Morphine Sulfate 4 mg PRN Q2HR PRN IV PAIN Last administered on 06/12/16 20:33 ; Start 06/12/16 at 11:30; Stop 06/13/16 at 11:29; Status DC Ondansetron HCl (Zofran) 4 mg PRN Q6HRS PRN IV NAUSEA/VOMITING; Start 06/12/16 at 11:30; Stop 06/12/16 at 17:35; Status DC Acetaminophen (Tylenol) 325 mg PRN Q6HRS PRN PO MILD PAIN / TEMP; Start at 12:30; Stop 06/12/16 at 17:35; Status DC Acetaminophen/ Hydrocodone Bitart (Lortab 5/325) 1 tab PRN Q6HRS PRN PO MODERATE TO SEVERE PAIN; Start 06/12/16 at 12:30; Stop 06/12/16 at 17:35; Status DC Hydralazine HCl (Apresoline) 10 mg PRN Q4HRS PRN IVP ELEVATED BP, SEE COMMENTS ; Start 06/12/16 at 12:30; Stop 06/12/16 at 17:35; Status DC Ondansetron HCl (Zofran) 4 mg PRN Q8HRS PRN IV NAUSEA/VOMITING; Start 06/12/16 at 12:30; Stop 06/12/16 at 17:35; Status DC Albuterol Sulfate 2.5 mg 2.5 mg PRN Q4HRS PRN NEB SHORTNESS OF BREATH; Start at 12:30; Stop 06/12/16 at 17:35; Status DC Sodium Chloride (Iv Sodium Chloride 0.9% 1000ml Bag) 1,000 ml @ 75 mls/hr 1X ONCE IV Last administered on 06/12/16 15:30; Start 06/12/16 at 12:30; Stop 01/19 at 01:49; Status DC Darbepoetin Richard (Aranesp) 60 mcg WEEKLYHS SQ Last administered on 06/12/16 20 :28; Start 06/12/16 at 21:00 Acetaminophen (Tylenol) 325 mg PRN Q6HRS PRN PO MILD PAIN / TEMP; Start at 17:30; Stop 06/12/16 at 17:34; Status DC Acetaminophen/ Hydrocodone Bitart (Lortab 5/325) 1 tab PRN Q6HRS PRN PO MODERATE TO SEVERE PAIN Last administered on 06/14/16 05:28; Start 06/12/16 at 17:30 Hydralazine HCl (Apresoline) 10 mg PRN Q4HRS PRN IVP ELEVATED BP, SEE COMMENTS Last administered on 06/13/16 17:13; Start 06/12/16 at 17:30 Ondansetron HCl (Zofran) 4 mg PRN Q8HRS PRN IV NAUSEA/VOMITING; Start 06/12/16 at 17:30 Albuterol Sulfate (Ventolin Neb Soln) 2.5 mg PRN Q4HRS PRN NEB SHORTNESS OF BREATH; Start 06/12/16 at 17:30; Stop 06/15/16 at 08:18; Status DC Acetaminophen (Tylenol) 325 mg PRN Q6HRS PRN PO MILD PAIN / TEMP Last administered on 06/14/16 21:44; Start 06/12/16 at 17:45; Stop 06/15/16 at 08:18 ; Status DC Ondansetron HCl (Zofran) 4 mg PRN Q6HRS PRN IV NAUSEA/VOMITING; Start 06/13/16 at 06:45; Stop 06/14/16 at 06:44; Status DC Fentanyl Citrate (Fentanyl 2ml Vial) 25 mcg PRN Q5MIN PRN IV MILD PAIN; Start 06/13/16 at 06:45; Stop 06/14/16 at 06:44; Status DC Fentanyl Citrate (Fentanyl 2ml Vial) 50 mcg PRN Q5MIN PRN IV MODERATE PAIN; Start 06/13/16 at 06:45; Stop 06/14/16 at 06:44; Status DC Morphine Sulfate 1 mg 1 mg PRN Q10MIN PRN IV SEVERE PAIN; Start 06/13/16 at 06: 45; Stop 06/14/16 at 06:44; Status DC Lactated Ringer's (Iv Lactated Ringers) 1,000 ml @ 0 mls/hr Q0M IV ; Start 01/19 at 06:45; Stop 06/13/16 at 15:00; Status Cancel Lidocaine HCl 2 ml PRN 1X PRN ID PRIOR TO IV START; Start 06/13/16 at 06:45; Stop 06/14/16 at 06:44; Status DC Hydromorphone HCl (Dilaudid) 0.5 mg PRN Q10MIN PRN IV SEV PAIN, Second choice; Start 06/13/16 at 06:45; Stop 06/14/16 at 06:44; Status DC Prochlorperazine Edisylate 5 mg 5 mg PACU PRN PRN IV NAUSEA, MRX1; Start at 06:45; Stop 06/14/16 at 06:44; Status DC Sodium Chloride (Iv Sodium Chloride 0.9% 1000ml Bag) 1,000 ml @ 30 mls/hr Q24H IV ; Start 06/13/16 at 07:30; Stop 06/14/16 at 16:54; Status DC Iohexol 50 ml 50 ml STK-MED ONCE .ROUTE Last administered on 06/13/16t 14:23; Start 06/13/16 at 10:10; Stop 06/13/16 at 10:11; Status DC Levofloxacin/ Dextrose (LEVAQUIN 500mg PREMIX) 100 ml @ As Directed STK-MED ONCE IV ; Start 06/13/16 at 10:21; Stop 06/13/16 at 10:22; Status DC Dexamethasone Sodium Phosphate (Decadron) 20 mg STK-MED ONCE .ROUTE ; Start 01/19 at 11:07; Stop 06/13/16 at 11:08; Status DC Ondansetron HCl 4 mg 4 mg STK-MED ONCE .ROUTE ; Start 06/13/16 at 11:07; Stop at 11:08; Status DC Propofol (Diprivan) 20 ml @ As Directed STK-MED ONCE IV ; Start 06/13/16 at 11: 07; Stop 06/13/16 at 11:08; Status DC Lidocaine HCl (Xylocaine-Mpf 1% Vial) 5 ml STK-MED ONCE .ROUTE ; Start 06/13/16 at 11:07; Stop 06/13/16 at 11:08; Status DC Fentanyl Citrate (Fentanyl 2ml Vial) 100 mcg STK-MED ONCE .ROUTE ; Start at 11:07; Stop 06/13/16 at 11:08; Status DC Succinylcholine Chloride (Anectine) 200 mg STK-MED ONCE .ROUTE ; Start 06/13/16 at 11:07; Stop 06/13/16 at 11:08; Status DC Rocuronium [place] (Zemuron) 50 mg STK-MED ONCE .ROUTE ; Start 06/13/16 at 11:09 ; Stop 06/13/16 at 11:10; Status DC Darbepoetin Richard (Aranesp) 60 mcg WEEKLYHS SQ ; Start 06/13/16 at 21:00; Status Cancel Ephedrine Sulfate 50 mg STK-MED ONCE IV ; Start 06/13/16 at 11:43; Stop at 11:44; Status DC Glycopyrrolate (Robinul) 1 mg STK-MED ONCE .ROUTE ; Start 06/13/16 at 12:05; Stop 06/13/16 at 12:06; Status DC Neostigmine Methylsulfate 5 mg 5 mg STK-MED ONCE .ROUTE ; Start 06/13/16 at 12: 05; Stop 06/13/16 at 12:06; Status DC Levofloxacin/ Dextrose (LEVAQUIN 500mg PREMIX) 100 ml @ 100 mls/hr 1X PREOP IV ; Start 06/13/16 at 12:30; Stop 06/14/16 at 18:00; Status DC Desflurane (Suprane) 60 ml STK-MED ONCE IH ; Start 06/13/16 at 12:34; Stop 06/13 at 12:35; Status DC Fentanyl Citrate (Fentanyl 2ml Vial) 100 mcg STK-MED ONCE .ROUTE ; Start at 12:41; Stop 06/13/16 at 12:42; Status DC Lidocaine/ Epinephrine (Xylocaine 2%-Epi 1:100,000) 20 ml STK-MED ONCE .ROUTE ; Start 06/13/16 at 12:59; Stop 06/13/16 at 13:00; Status DC Heparin Sodium (Porcine) 71549 unit 10,000 unit STK-MED ONCE .ROUTE ; Start 01/19 at 12:59; Stop 06/13/16 at 13:00; Status DC Heparin Sodium/ Sodium Chloride 500 ml @ As Directed STK-MED ONCE .ROUTE ; Start 06/13/16 at 12:59; Stop 06/13/16 at 13:00; Status DC Midazolam HCl (Versed) 5 mg STK-MED ONCE .ROUTE ; Start 06/13/16 at 13:46; Stop 06/13/16 at 13:47; Status DC Fentanyl Citrate 250 mcg 250 mcg STK-MED ONCE .ROUTE ; Start 06/13/16 at 13:46; Stop 06/13/16 at 13:47; Status DC Cefazolin Sodium (Ancef 1gm Ivpb For Omni) 50 ml @ As Directed STK-MED ONCE IV ; Start 06/13/16 at 13:46; Stop 06/13/16 at 13:47; Status DC Heparin Sodium/ Sodium Chloride 1,000 unit 1X ONCE IART Last administered on 14:12; Start 06/13/16 at 14:00; Stop 06/13/16 at 14:04; Status DC Lidocaine/Sodium Bicarbonate (Buffered Lidocaine 1%) 20 ml 1X ONCE IJ ; Start 06/13/16 at 14:00; Stop 06/13/16 at 14:04; Status DC Midazolam HCl (Versed) 2.5 mg 1X ONCE IV Last administered on 06/13/16 14:12 ; Start 06/13/16 at 14:00; Stop 06/13/16 at 14:04; Status DC Fentanyl Citrate (Fentanyl 5ml Vial) 125 mcg 1X ONCE IV Last administered on 14:11; Start 06/13/16 at 14:00; Stop 06/13/16 at 14:04; Status DC Heparin Sodium (Porcine) (Heparin Sodium) 4,000 unit 1X ONCE IV Last administered on 06/13/16 14:14; Start 06/13/16 at 14:00; Stop 06/13/16 at 14:04 ; Status DC Lidocaine/ Epinephrine 20 ml 20 ml 1X ONCE IJ Last administered on 06/13/16 14:12; Start 06/13/16 at 14:00; Stop 06/13/16 at 14:04; Status DC Cefazolin Sodium (Ancef 1gm Ivpb For Omni) 50 ml @ 100 mls/hr 1X ONCE IV Last administered on 06/13/16 13:52; Start 06/13/16 at 14:30; Stop 06/13/16 at 14:59; Status DC Vitamin B Complex/ Vitamin C (Vikki-Toño) 1 tab DAILY PO Last administered on 12:18; Start 06/14/16 at 09:00 Levothyroxine Sodium (Synthroid) 150 mcg DAILYAC PO Last administered on 12:21; Start 06/14/16 at 07:30 Non-Formulary Medication 1 each DAILY PO ; Start 06/14/16 at 09:00; Stop at 09:00; Status DC Glyburide (Diabeta) 2.5 mg DAILYWBKFT PO Last administered on 06/15/16 12:21; Start 06/14/16 at 08:00 Metoprolol Tartrate (Lopressor) 100 mg BID PO Last administered on 06/15/16 12 :19; Start 06/13/16 at 22:00 Potassium Chloride (Klor-Con) 10 meq DAILYWBKFT PO Last administered on 12:21; Start 06/14/16 at 08:00 Acetaminophen (Tylenol) 325 mg PRN Q6HRS PRN PO MILD PAIN / TEMP; Start at 21:00 Hydralazine HCl (Apresoline) 10 mg PRN Q4HRS PRN IVP ELEVATED BP, SEE COMMENTS ; Start 06/13/16 at 21:00 Ondansetron HCl (Zofran) 4 mg PRN Q8HRS PRN IV NAUSEA/VOMITING; Start 06/13/16 at 21:00 Albuterol Sulfate (Ventolin Neb Soln) 2.5 mg PRN Q4HRS PRN NEB SHORTNESS OF BREATH; Start 06/13/16 at 21:00 Amlodipine Besylate (Norvasc) 10 mg DAILY PO Last administered on 06/15/16 12: 20; Start 06/14/16 at 09:00 Losartan Potassium (Cozaar) 100 mg DAILY PO Last administered on 06/15/16 12: 19; Start 06/14/16 at 09:00 Levofloxacin/ Dextrose 500 mg 500 mg STK-MED ONCE IV ; Start 06/13/16 at 10:30; Stop 06/14/16 at 08:22; Status DC Sodium Chloride (Iv Sodium Chloride 0.9% 1000ml Bag) 1,000 ml @ 1,000 mls/hr Q1H PRN IV hypotension; Start 06/14/16 at 08:54; Stop 06/14/16 at 14:53; Status DC Sodium Chloride (Normal Saline Flush) 10 ml 1X PRN PRN IV AP catheter pack; Start 06/14/16 at 09:00; Stop 06/15/16 at 08:59; Status DC Sodium Chloride 10 ml 10 ml 1X PRN PRN IV PERSONAL INJ[employer]Y [employer]IST catheter pack; Start 06/14/16 at 09:00; Stop 06/15/16 at 08:59; Status DC Sodium Chloride (Iv Sodium Chloride 0.9% 1000ml Bag) 1,000 ml @ 400 mls/hr Q2H30M PRN IV PATENCY; Start 06/14/16 at 08:54; Stop 06/14/16 at 20:53; Status DC Info (PHARMACY MONITORING -- do not chart) 1 each PRN DAILY PRN MC SEE COMMENTS ; Start 06/14/16 at 09:00 Sevelamer Carbonate 800 mg 800 mg TIDWMEALS PO Last administered on 06/15/16 12:18; Start 06/14/16 at 12:00 Sodium Chloride 1,000 ml @ 1,000 mls/hr Q1H PRN IV hypotension; Start 06/15/16 at 08:03; Stop 06/15/16 at 14:02 Albumin Human (Albuminar) 200 ml @ 200 mls/hr 1X PRN PRN IV Hypotension; Start 06/15/16 at 08:15; Stop 06/15/16 at 14:14 Acetaminophen (Tylenol) 500 mg 1X PRN PRN PO MILD PAIN / TEMP; Start 06/15/16 at 08:15; Stop 06/16/16 at 08:14 Diphenhydramine HCl (Benadryl) 25 mg 1X PRN PRN IV ITCHING; Start 06/15/16 at 08:15; Stop 06/16/16 at 08:14 Diphenhydramine HCl (Benadryl) 25 mg 1X PRN PRN IV ITCHING; Start 06/15/16 at 08:15; Stop 06/16/16 at 08:14 Labetalol HCl (Normodyne) 10 mg PRN Q1HR PRN IVP SBP > 180; Start 06/15/16 at 08:15; Stop 06/16/16 at 08:14 Clonidine HCl (Catapres) 0.1 mg 1X PRN PRN PO SBP > 180; Start 06/15/16 at 08: 15; Stop 06/16/16 at 08:14 Info (PHARMACY MONITORING -- do not chart) 1 each PRN DAILY PRN MC SEE COMMENTS ; Start 06/15/16 at 08:15 Active Scripts Active Potassium Chloride 10 Meq Tablet.er 10 Meq PO DAILY Metoprolol Tartrate 100 Mg Tablet 1 Tab PO BID Prednisone 20 Mg Tablet 40 Mg PO DAILY Glyburide 2.5 Mg Tablet 1 Tab PO DAILY Vkiki-Toño Tablet (Folic Acid/Vitamin B Comp W-C) 0.8 Mg Tablet 1 Tab PO DAILY Reported Levothyroxine Sodium 150 Mcg Tablet 150 Mcg PO DAILYAC Gaby 10-40 Mg Tablet (Amlodipine Bes/Olmesartan Med) 1 Each Tablet 1 Each PO DAILY Allopurinol 100 Mg Tablet 100 Mg PO Aspir 81 (Aspirin) 81 Mg Tablet. 1 Tab PO DAILY Vitals/I & O Vital Sign - Last 24 Hours 06/14/16 06/14/16 06/14/16 06/14/16 16:57 17:30 17:30 19:00 Temp 97.7 100.8 97.7 100.8 Pulse 89 89 89 91 Resp 16 18 B/P 144/88 144/88 144/88 120/78 Pulse Ox 93 96 O2 Delivery Room Air Room Air 06/14/16 06/14/16 06/14/16 06/15/16 20:00 21:45 23:00 03:00 Temp 99.9 99.8 99.9 99.8 Pulse 91 83 74 Resp 18 19 B/P 120/78 132/65 148/72 Pulse Ox 95 97 O2 Delivery Room Air Room Air Room Air 06/15/16 06/15/16 06/15/16 06/15/16 07:00 12:14 12:19 12:19 Temp 98.6 99.3 98.6 99.3 Pulse 85 99 99 99 Resp 20 18 B/P 126/90 136/90 136/90 136/90 Pulse Ox 94 96 O2 Delivery Room Air Room Air 06/15/16 12:20 Pulse 99 B/P 136/90 Intake and Output 06/14/16 06/14/16 06/15/16 15:00 23:00 07:00 Intake Total 500 ml 300 ml Output Total 28587 ml 43627 ml 3350 ml Balance -94051 ml -33323 ml -3050 ml DAIJA GOLDSMITH MD Jun 15, 2016 13:11
[2016-06-15 14:55] VITALS: BP 117/80
[2016-06-15 19:30] VITALS: BP 137/78
[2016-06-15 23:25] VITALS: BP 133/83
[2016-06-16 03:34] VITALS: BP 134/83
[2016-06-16 07:00] VITALS: BP 120/78
[2016-06-16 07:13] LABS: HEMATOCRIT 27.9 % (39.0-53.0); RED CELL DISTRIBUTION WIDTH 14.5 % (11.5-14.5)
[2016-06-16 07:22] LABS: CALCIUM 6.9 mg/dL (8.5-10.1); CREATININE 3.6 mg/dL (0.7-1.3); GFR 17.3; POTASSIUM 3.7 mmol/L (3.5-5.1)
[2016-06-16] MEDS ORDERED: DEXTROSE 50% 25 GM / 50ML DISP.SYRIN. IV ONE ×2 (07:28→07:30)
[2016-06-16] MEDS ORDERED: DEXTROSE 50% 25 GM / 50ML DISP.SYRIN. IV PRN (07:30)
[2016-06-16] MEDS: GLYBURIDE 5 MG TABLET PO SCH (08:00)
[2016-06-16] MEDS: LEVOTHYROXINE 150 MCG TABLET PO SCH (08:29)
[2016-06-16] MEDS: SEVELAMER CARBONATE 800 MG TABLET. PO SCH ×3 (08:29→17:35)
[2016-06-16] MEDS: POTASSIUM CHLORIDE 10 MEQ TABLET.ER. PO SCH (08:29)
[2016-06-16] MEDS: FOLIC/VIT B COMP W-C (RENAL) TABLET. PO SCH (08:29)
[2016-06-16] MEDS: HYDROCODONE/APAP 5/325MG TABLET. PO PRN ×2 (08:31→23:51)
[2016-06-16] MEDS: METOPROLOL TART IMMED RELEASE 50 MG TABLET. PO SCH ×2 (09:00→21:23)
[2016-06-16 10:45] VITALS: BP 101/80
--- NOTE | 2016-06-16 11:38 | PDOC ---
Renal-Progress Notes Subjective Notes Notes NONE History of Present Illness Hx of present illness NO CHANGE Vitals Vitals Vital Signs Date Time Temp Pulse Resp B/P Pulse Ox O2 Delivery O2 Flow Rate FiO2 06/16/16 10:45 99.3 90 18 101/80 95 Room Air 99.3 Weight Weight [ ] I.O. Intake and Output Intake and Output 06/16/16 07:00 Intake Total 990 ml Output Total 35917 ml Balance -92906 ml Intake Oral 990 ml Output Urine Total 3275 ml Other 8100 ml Labs Labs Laboratory Tests Test 06/15/16 17:13 06/15/16 17:58 06/15/16 20:25 06/15/16 21:15 Glucose (Fingerstick) 54mg/dL (70-99) 104mg/dL (70-99) 55mg/dL (70-99) 61mg/dL (70-99) Test 06/15/16 21:38 06/15/16 22:23 06/16/16 03:28 06/16/16 04:17 Glucose (Fingerstick) 55mg/dL (70-99) 82mg/dL (70-99) 50mg/dL (70-99) 72mg/dL (70-99) Test 06/16/16 06:05 06/16/16 07:28 06/16/16 10:55 White Blood Count 19.0x10^3/uL (4.0-11.0) Red Blood Count 3.00x10^6/uL (4.30-5.70) Hemoglobin 9.0g/dL (13.0-17.5) Hematocrit 27.9% (39.0-53.0) Mean Corpuscular Volume 93fL (79-100) Mean Corpuscular Hemoglobin 30pg (25-35) Mean Corpuscular Hemoglobin Concent 32g/dL (31-37) Red Cell Distribution Width 14.5% (11.5-14.5) Platelet Count 99x10^3/uL (140-400) Sodium Level 140mmol/L (136-145) Potassium Level 3.7mmol/L (3.5-5.1) Chloride Level 101mmol/L (98-107) Carbon Dioxide Level 27mmol/L (21-32) Anion Gap 12 (6-14) Blood Urea Nitrogen 32mg/dL (8-26) Creatinine 3.6mg/dL (0.7-1.3) Estimated GFR (Cockcroft-Gault) 17.3 Glucose Level 39mg/dL (70-99) Calcium Level 6.9mg/dL (8.5-10.1) Glucose (Fingerstick) 118mg/dL (70-99) 66mg/dL (70-99) Micro Micro Microbiology 06/12/16 Urine Culture - Final, Complete 06/12/16 Urine Culture Result 1 (QUENTIN) - Final, Complete Review of Systems Constitutional: yes: alert, oriented Ears/Nose/Throat: Yes: no symptom reported Eyes: Yes: no symptom reported Cardiovascular: Yes no symptom reported Genitourinary: Yes: no symptom reported Skin: Yes no symptom reported Endocrine: Yes: no symptom reported Physical Exam General Appearance: no apparent distress Respiratory: bilateral CTA Heart: S1S2 Abdomen: soft Genitourinary: bladder flat Neurology: alert Assessment Assessment IMP NEW 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
[2016-06-16] MEDS: LIDOCAINE (700MG/PATCH) PATCH. TD SCH (12:17)
--- NOTE | 2016-06-16 12:25 | PDOC ---
PROGRESS NOTES Chief Complaint Chief Complaint cc: hematuria A/P Acute renal failure, FSGS, CKD IV, on HD Hematuria, better, Right flank pain better HTN DM now Hypoglycemia Leucocytosis due to steroids Plan stop glyburide s/p HDC catheter placement, HD per nephrology. monitor hemoglobin labs reviwed, hypoglycemia protocol out pt HD set up by FABRICE. History of Present Illness History of Present Illness PAIN 06/12, Vitals Vitals Vital Signs Date Time Temp Pulse Resp B/P Pulse Ox O2 Delivery O2 Flow Rate FiO2 06/16/16 10:45 99.3 90 18 101/80 95 Room Air 99.3 Physical Exam General: Alert, Oriented X3, Cooperative, No acute distress Heart: Regular rate, Normal S1, Normal S2 Lungs: Clear Abdomen: Normal bowel sounds, Soft, No tenderness, Other Skin: No rashes Labs LABS Laboratory Tests Test 06/15/16 17:13 06/15/16 17:58 06/15/16 20:25 06/15/16 21:15 Glucose (Fingerstick) 54mg/dL (70-99) 104mg/dL (70-99) 55mg/dL (70-99) 61mg/dL (70-99) Test 06/15/16 21:38 06/15/16 22:23 06/16/16 03:28 06/16/16 04:17 Glucose (Fingerstick) 55mg/dL (70-99) 82mg/dL (70-99) 50mg/dL (70-99) 72mg/dL (70-99) Test 06/16/16 06:05 06/16/16 07:28 06/16/16 10:55 06/16/16 11:37 White Blood Count 19.0x10^3/uL (4.0-11.0) Red Blood Count 3.00x10^6/uL (4.30-5.70) Hemoglobin 9.0g/dL (13.0-17.5) Hematocrit 27.9% (39.0-53.0) Mean Corpuscular Volume 93fL (79-100) Mean Corpuscular Hemoglobin 30pg (25-35) Mean Corpuscular Hemoglobin Concent 32g/dL (31-37) Red Cell Distribution Width 14.5% (11.5-14.5) Platelet Count 99x10^3/uL (140-400) Sodium Level 140mmol/L (136-145) Potassium Level 3.7mmol/L (3.5-5.1) Chloride Level 101mmol/L (98-107) Carbon Dioxide Level 27mmol/L (21-32) Anion Gap 12 (6-14) Blood Urea Nitrogen 32mg/dL (8-26) Creatinine 3.6mg/dL (0.7-1.3) Estimated GFR (Cockcroft-Gault) 17.3 Glucose Level 39mg/dL (70-99) Calcium Level 6.9mg/dL (8.5-10.1) Glucose (Fingerstick) 118mg/dL (70-99) 66mg/dL (70-99) 68mg/dL (70-99) Assessment and Plan Assessmemt and Plan Problems Medical Problems: (1) Acute renal failure Status: Acute Problems: Comment Review of Relevant I have reviewed the following items jose (where applicable) has been applied. Labs Laboratory Tests Test 06/14/16 16:31 06/14/16 21:11 06/15/16 05:45 06/15/16 07:10 Glucose (Fingerstick) 76mg/dL (70-99) 93mg/dL (70-99) 95mg/dL (70-99) White Blood Count 14.9x10^3/uL (4.0-11.0) Red Blood Count 3.00x10^6/uL (4.30-5.70) Hemoglobin 9.2g/dL (13.0-17.5) Hematocrit 27.9% (39.0-53.0) Mean Corpuscular Volume 93fL (79-100) Mean Corpuscular Hemoglobin 31pg (25-35) Mean Corpuscular Hemoglobin Concent 33g/dL (31-37) Red Cell Distribution Width 14.7% (11.5-14.5) Platelet Count 97x10^3/uL (140-400) Sodium Level 142mmol/L (136-145) Potassium Level 4.1mmol/L (3.5-5.1) Chloride Level 105mmol/L (98-107) Carbon Dioxide Level 28mmol/L (21-32) Anion Gap 9 (6-14) Blood Urea Nitrogen 41mg/dL (8-26) Creatinine 3.7mg/dL (0.7-1.3) Estimated GFR (Cockcroft-Gault) 16.7 Glucose Level 85mg/dL (70-99) Calcium Level 7.6mg/dL (8.5-10.1) Test 06/15/16 08:40 06/15/16 17:13 06/15/16 17:58 06/15/16 20:25 Hepatitis B Surface Antibody Non reactive (.) Glucose (Fingerstick) 54mg/dL (70-99) 104mg/dL (70-99) 55mg/dL (70-99) Test 06/15/16 21:15 06/15/16 21:38 06/15/16 22:23 06/16/16 03:28 Glucose (Fingerstick) 61mg/dL (70-99) 55mg/dL (70-99) 82mg/dL (70-99) 50mg/dL (70-99) Test 06/16/16 04:17 06/16/16 06:05 06/16/16 07:28 06/16/16 10:55 Glucose (Fingerstick) 72mg/dL (70-99) 118mg/dL (70-99) 66mg/dL (70-99) White Blood Count 19.0x10^3/uL (4.0-11.0) Red Blood Count 3.00x10^6/uL (4.30-5.70) Hemoglobin 9.0g/dL (13.0-17.5) Hematocrit 27.9% (39.0-53.0) Mean Corpuscular Volume 93fL (79-100) Mean Corpuscular Hemoglobin 30pg (25-35) Mean Corpuscular Hemoglobin Concent 32g/dL (31-37) Red Cell Distribution Width 14.5% (11.5-14.5) Platelet Count 99x10^3/uL (140-400) Sodium Level 140mmol/L (136-145) Potassium Level 3.7mmol/L (3.5-5.1) Chloride Level 101mmol/L (98-107) Carbon Dioxide Level 27mmol/L (21-32) Anion Gap 12 (6-14) Blood Urea Nitrogen 32mg/dL (8-26) Creatinine 3.6mg/dL (0.7-1.3) Estimated GFR (Cockcroft-Gault) 17.3 Glucose Level 39mg/dL (70-99) Calcium Level 6.9mg/dL (8.5-10.1) Test 06/16/16 11:37 Glucose (Fingerstick) 68mg/dL (70-99) Laboratory Tests Test 06/15/16 17:13 06/15/16 17:58 06/15/16 20:25 06/15/16 21:15 Glucose (Fingerstick) 54mg/dL (70-99) 104mg/dL (70-99) 55mg/dL (70-99) 61mg/dL (70-99) Test 06/15/16 21:38 06/15/16 22:23 06/16/16 03:28 06/16/16 04:17 Glucose (Fingerstick) 55mg/dL (70-99) 82mg/dL (70-99) 50mg/dL (70-99) 72mg/dL (70-99) Test 06/16/16 06:05 06/16/16 07:28 06/16/16 10:55 06/16/16 11:37 White Blood Count 19.0x10^3/uL (4.0-11.0) Red Blood Count 3.00x10^6/uL (4.30-5.70) Hemoglobin 9.0g/dL (13.0-17.5) Hematocrit 27.9% (39.0-53.0) Mean Corpuscular Volume 93fL (79-100) Mean Corpuscular Hemoglobin 30pg (25-35) Mean Corpuscular Hemoglobin Concent 32g/dL (31-37) Red Cell Distribution Width 14.5% (11.5-14.5) Platelet Count 99x10^3/uL (140-400) Sodium Level 140mmol/L (136-145) Potassium Level 3.7mmol/L (3.5-5.1) Chloride Level 101mmol/L (98-107) Carbon Dioxide Level 27mmol/L (21-32) Anion Gap 12 (6-14) Blood Urea Nitrogen 32mg/dL (8-26) Creatinine 3.6mg/dL (0.7-1.3) Estimated GFR (Cockcroft-Gault) 17.3 Glucose Level 39mg/dL (70-99) Calcium Level 6.9mg/dL (8.5-10.1) Glucose (Fingerstick) 118mg/dL (70-99) 66mg/dL (70-99) 68mg/dL (70-99) Microbiology 06/12/16 Urine Culture - Final, Complete 06/12/16 Urine Culture Result 1 (QUENTIN) - Final, Complete Medications Current Medications Ondansetron HCl (Zofran) 4 mg 1X ONCE IV Last administered on 06/12/16 08:30 ; Start 06/12/16 at 08:45; Stop 06/12/16 at 08:46; Status DC Morphine Sulfate 5 mg 1X ONCE IV Last administered on 06/12/16 08:30; Start 06/12/16 at 08:45; Stop 06/12/16 at 08:46; Status DC Morphine Sulfate 5 mg 1X ONCE IV Last administered on 06/12/16 10:20; Start 06/12/16 at 11:00; Stop 06/12/16 at 11:01; Status DC Morphine Sulfate 4 mg PRN Q2HR PRN IV PAIN Last administered on 06/12/16 20:33 ; Start 06/12/16 at 11:30; Stop 06/13/16 at 11:29; Status DC Ondansetron HCl (Zofran) 4 mg PRN Q6HRS PRN IV NAUSEA/VOMITING; Start 06/12/16 at 11:30; Stop 06/12/16 at 17:35; Status DC Acetaminophen (Tylenol) 325 mg PRN Q6HRS PRN PO MILD PAIN / TEMP; Start at 12:30; Stop 06/12/16 at 17:35; Status DC Acetaminophen/ Hydrocodone Bitart (Lortab 5/325) 1 tab PRN Q6HRS PRN PO MODERATE TO SEVERE PAIN; Start 06/12/16 at 12:30; Stop 06/12/16 at 17:35; Status DC Hydralazine HCl (Apresoline) 10 mg PRN Q4HRS PRN IVP ELEVATED BP, SEE COMMENTS ; Start 06/12/16 at 12:30; Stop 06/12/16 at 17:35; Status DC Ondansetron HCl (Zofran) 4 mg PRN Q8HRS PRN IV NAUSEA/VOMITING; Start 06/12/16 at 12:30; Stop 06/12/16 at 17:35; Status DC Albuterol Sulfate 2.5 mg 2.5 mg PRN Q4HRS PRN NEB SHORTNESS OF BREATH; Start at 12:30; Stop 06/12/16 at 17:35; Status DC Sodium Chloride (Iv Sodium Chloride 0.9% 1000ml Bag) 1,000 ml @ 75 mls/hr 1X ONCE IV Last administered on 06/12/16 15:30; Start 06/12/16 at 12:30; Stop 01/19 at 01:49; Status DC Darbepoetin Richard (Aranesp) 60 mcg WEEKLYHS SQ Last administered on 06/12/16 20 :28; Start 06/12/16 at 21:00 Acetaminophen (Tylenol) 325 mg PRN Q6HRS PRN PO MILD PAIN / TEMP; Start at 17:30; Stop 06/12/16 at 17:34; Status DC Acetaminophen/ Hydrocodone Bitart (Lortab 5/325) 1 tab PRN Q6HRS PRN PO MODERATE TO SEVERE PAIN Last administered on 06/16/16 08:31; Start 06/12/16 at 17:30 Hydralazine HCl (Apresoline) 10 mg PRN Q4HRS PRN IVP ELEVATED BP, SEE COMMENTS Last administered on 06/13/16 17:13; Start 06/12/16 at 17:30 Ondansetron HCl (Zofran) 4 mg PRN Q8HRS PRN IV NAUSEA/VOMITING; Start 06/12/16 at 17:30 Albuterol Sulfate (Ventolin Neb Soln) 2.5 mg PRN Q4HRS PRN NEB SHORTNESS OF BREATH; Start 06/12/16 at 17:30; Stop 06/15/16 at 08:18; Status DC Acetaminophen (Tylenol) 325 mg PRN Q6HRS PRN PO MILD PAIN / TEMP Last administered on 06/14/16 21:44; Start 06/12/16 at 17:45; Stop 06/15/16 at 08:18 ; Status DC Ondansetron HCl (Zofran) 4 mg PRN Q6HRS PRN IV NAUSEA/VOMITING; Start 06/13/16 at 06:45; Stop 06/14/16 at 06:44; Status DC Fentanyl Citrate (Fentanyl 2ml Vial) 25 mcg PRN Q5MIN PRN IV MILD PAIN; Start 06/13/16 at 06:45; Stop 06/14/16 at 06:44; Status DC Fentanyl Citrate (Fentanyl 2ml Vial) 50 mcg PRN Q5MIN PRN IV MODERATE PAIN; Start 06/13/16 at 06:45; Stop 06/14/16 at 06:44; Status DC Morphine Sulfate 1 mg 1 mg PRN Q10MIN PRN IV SEVERE PAIN; Start 06/13/16 at 06: 45; Stop 06/14/16 at 06:44; Status DC Lactated Ringer's (Iv Lactated Ringers) 1,000 ml @ 0 mls/hr Q0M IV ; Start 01/19 at 06:45; Stop 06/13/16 at 15:00; Status Cancel Lidocaine HCl 2 ml PRN 1X PRN ID PRIOR TO IV START; Start 06/13/16 at 06:45; Stop 06/14/16 at 06:44; Status DC Hydromorphone HCl (Dilaudid) 0.5 mg PRN Q10MIN PRN IV SEV PAIN, Second choice; Start 06/13/16 at 06:45; Stop 06/14/16 at 06:44; Status DC Prochlorperazine Edisylate 5 mg 5 mg PACU PRN PRN IV NAUSEA, MRX1; Start at 06:45; Stop 06/14/16 at 06:44; Status DC Sodium Chloride (Iv Sodium Chloride 0.9% 1000ml Bag) 1,000 ml @ 30 mls/hr Q24H IV ; Start 06/13/16 at 07:30; Stop 06/14/16 at 16:54; Status DC Iohexol 50 ml 50 ml STK-MED ONCE .ROUTE Last administered on 06/13/16t 14:23; Start 06/13/16 at 10:10; Stop 06/13/16 at 10:11; Status DC Levofloxacin/ Dextrose (LEVAQUIN 500mg PREMIX) 100 ml @ As Directed STK-MED ONCE IV ; Start 06/13/16 at 10:21; Stop 06/13/16 at 10:22; Status DC Dexamethasone Sodium Phosphate (Decadron) 20 mg STK-MED ONCE .ROUTE ; Start 01/19 at 11:07; Stop 06/13/16 at 11:08; Status DC Ondansetron HCl 4 mg 4 mg STK-MED ONCE .ROUTE ; Start 06/13/16 at 11:07; Stop at 11:08; Status DC Propofol (Diprivan) 20 ml @ As Directed STK-MED ONCE IV ; Start 06/13/16 at 11: 07; Stop 06/13/16 at 11:08; Status DC Lidocaine HCl (Xylocaine-Mpf 1% Vial) 5 ml STK-MED ONCE .ROUTE ; Start 06/13/16 at 11:07; Stop 06/13/16 at 11:08; Status DC Fentanyl Citrate (Fentanyl 2ml Vial) 100 mcg STK-MED ONCE .ROUTE ; Start at 11:07; Stop 06/13/16 at 11:08; Status DC Succinylcholine Chloride (Anectine) 200 mg STK-MED ONCE .ROUTE ; Start 06/13/16 at 11:07; Stop 06/13/16 at 11:08; Status DC Rocuronium [place] (Zemuron) 50 mg STK-MED ONCE .ROUTE ; Start 06/13/16 at 11:09 ; Stop 06/13/16 at 11:10; Status DC Darbepoetin Richard (Aranesp) 60 mcg WEEKLYHS SQ ; Start 06/13/16 at 21:00; Status Cancel Ephedrine Sulfate 50 mg STK-MED ONCE IV ; Start 06/13/16 at 11:43; Stop at 11:44; Status DC Glycopyrrolate (Robinul) 1 mg STK-MED ONCE .ROUTE ; Start 06/13/16 at 12:05; Stop 06/13/16 at 12:06; Status DC Neostigmine Methylsulfate 5 mg 5 mg STK-MED ONCE .ROUTE ; Start 06/13/16 at 12: 05; Stop 06/13/16 at 12:06; Status DC Levofloxacin/ Dextrose (LEVAQUIN 500mg PREMIX) 100 ml @ 100 mls/hr 1X PREOP IV ; Start 06/13/16 at 12:30; Stop 06/14/16 at 18:00; Status DC Desflurane (Suprane) 60 ml STK-MED ONCE IH ; Start 06/13/16 at 12:34; Stop 06/13 at 12:35; Status DC Fentanyl Citrate (Fentanyl 2ml Vial) 100 mcg STK-MED ONCE .ROUTE ; Start at 12:41; Stop 06/13/16 at 12:42; Status DC Lidocaine/ Epinephrine (Xylocaine 2%-Epi 1:100,000) 20 ml STK-MED ONCE .ROUTE ; Start 06/13/16 at 12:59; Stop 06/13/16 at 13:00; Status DC Heparin Sodium (Porcine) 55348 unit 10,000 unit STK-MED ONCE .ROUTE ; Start 01/19 at 12:59; Stop 06/13/16 at 13:00; Status DC Heparin Sodium/ Sodium Chloride 500 ml @ As Directed STK-MED ONCE .ROUTE ; Start 06/13/16 at 12:59; Stop 06/13/16 at 13:00; Status DC Midazolam HCl (Versed) 5 mg STK-MED ONCE .ROUTE ; Start 06/13/16 at 13:46; Stop 06/13/16 at 13:47; Status DC Fentanyl Citrate 250 mcg 250 mcg STK-MED ONCE .ROUTE ; Start 06/13/16 at 13:46; Stop 06/13/16 at 13:47; Status DC Cefazolin Sodium (Ancef 1gm Ivpb For Omni) 50 ml @ As Directed STK-MED ONCE IV ; Start 06/13/16 at 13:46; Stop 06/13/16 at 13:47; Status DC Heparin Sodium/ Sodium Chloride 1,000 unit 1X ONCE IART Last administered on t 14:12; Start 06/13/16 at 14:00; Stop 06/13/16 at 14:04; Status DC Lidocaine/Sodium Bicarbonate (Buffered Lidocaine 1%) 20 ml 1X ONCE IJ ; Start 06/13/16 at 14:00; Stop 06/13/16 at 14:04; Status DC Midazolam HCl (Versed) 2.5 mg 1X ONCE IV Last administered on 06/13/16t 14:12 ; Start 06/13/16 at 14:00; Stop 06/13/16 at 14:04; Status DC Fentanyl Citrate (Fentanyl 5ml Vial) 125 mcg 1X ONCE IV Last administered on 14:11; Start 06/13/16 at 14:00; Stop 06/13/16 at 14:04; Status DC Heparin Sodium (Porcine) (Heparin Sodium) 4,000 unit 1X ONCE IV Last administered on 06/13/16 14:14; Start 06/13/16 at 14:00; Stop 06/13/16 at 14:04 ; Status DC Lidocaine/ Epinephrine 20 ml 20 ml 1X ONCE IJ Last administered on 06/13/16 14:12; Start 06/13/16 at 14:00; Stop 06/13/16 at 14:04; Status DC Cefazolin Sodium (Ancef 1gm Ivpb For Omni) 50 ml @ 100 mls/hr 1X ONCE IV Last administered on 06/13/16 13:52; Start 06/13/16 at 14:30; Stop 06/13/16 at 14:59; Status DC Vitamin B Complex/ Vitamin C (Vikki-Toño) 1 tab DAILY PO Last administered on 08:29; Start 06/14/16 at 09:00 Levothyroxine Sodium (Synthroid) 150 mcg DAILYAC PO Last administered on 08:29; Start 06/14/16 at 07:30 Non-Formulary Medication 1 each DAILY PO ; Start 06/14/16 at 09:00; Stop at 09:00; Status DC Glyburide (Diabeta) 2.5 mg DAILYWBKFT PO Last administered on 06/15/16 12:21; Start 06/14/16 at 08:00; Stop 06/16/16 at 11:28; Status DC Metoprolol Tartrate (Lopressor) 100 mg BID PO Last administered on 06/15/16 22 :10; Start 06/13/16 at 22:00 Potassium Chloride (Klor-Con) 10 meq DAILYWBKFT PO Last administered on 08:29; Start 06/14/16 at 08:00 Acetaminophen (Tylenol) 325 mg PRN Q6HRS PRN PO MILD PAIN / TEMP Last administered on 06/16/16 06:39; Start 06/13/16 at 21:00 Hydralazine HCl (Apresoline) 10 mg PRN Q4HRS PRN IVP ELEVATED BP, SEE COMMENTS ; Start 06/13/16 at 21:00 Ondansetron HCl (Zofran) 4 mg PRN Q8HRS PRN IV NAUSEA/VOMITING; Start 06/13/16 at 21:00 Albuterol Sulfate (Ventolin Neb Soln) 2.5 mg PRN Q4HRS PRN NEB SHORTNESS OF BREATH; Start 06/13/16 at 21:00 Amlodipine Besylate (Norvasc) 10 mg DAILY PO Last administered on 06/15/16 12: 20; Start 06/14/16 at 09:00 Losartan Potassium (Cozaar) 100 mg DAILY PO Last administered on 06/15/16 12: 19; Start 06/14/16 at 09:00 Levofloxacin/ Dextrose 500 mg 500 mg STK-MED ONCE IV ; Start 06/13/16 at 10:30; Stop 06/14/16 at 08:22; Status DC Sodium Chloride (Iv Sodium Chloride 0.9% 1000ml Bag) 1,000 ml @ 1,000 mls/hr Q1H PRN IV hypotension; Start 06/14/16 at 08:54; Stop 06/14/16 at 14:53; Status DC Sodium Chloride (Normal Saline Flush) 10 ml 1X PRN PRN IV AP catheter pack; Start 06/14/16 at 09:00; Stop 06/15/16 at 08:59; Status DC Sodium Chloride 10 ml 10 ml 1X PRN PRN IV [employer] TRA[employer] catheter pack; Start 06/14/16 at 09:00; Stop 06/15/16 at 08:59; Status DC Sodium Chloride (Iv Sodium Chloride 0.9% 1000ml Bag) 1,000 ml @ 400 mls/hr Q2H30M PRN IV PATENCY; Start 06/14/16 at 08:54; Stop 06/14/16 at 20:53; Status DC Info (PHARMACY MONITORING -- do not chart) 1 each PRN DAILY PRN MC SEE COMMENTS ; Start 06/14/16 at 09:00; Status Cancel Sevelamer Carbonate 800 mg 800 mg TIDWMEALS PO Last administered on 06/16/16 12:16; Start 06/14/16 at 12:00 Sodium Chloride 1,000 ml @ 1,000 mls/hr Q1H PRN IV hypotension; Start 06/15/16 at 08:03; Stop 06/15/16 at 14:02; Status DC Albumin Human (Albuminar) 200 ml @ 200 mls/hr 1X PRN PRN IV Hypotension; Start 06/15/16 at 08:15; Stop 06/15/16 at 14:14; Status DC Acetaminophen (Tylenol) 500 mg 1X PRN PRN PO MILD PAIN / TEMP; Start 06/15/16 at 08:15; Stop 06/16/16 at 08:14; Status DC Diphenhydramine HCl (Benadryl) 25 mg 1X PRN PRN IV ITCHING; Start 06/15/16 at 08:15; Stop 06/16/16 at 08:14; Status DC Diphenhydramine HCl (Benadryl) 25 mg 1X PRN PRN IV ITCHING; Start 06/15/16 at 08:15; Stop 06/16/16 at 08:14; Status DC Labetalol HCl (Normodyne) 10 mg PRN Q1HR PRN IVP SBP > 180; Start 06/15/16 at 08:15; Stop 06/16/16 at 08:14; Status DC Clonidine HCl (Catapres) 0.1 mg 1X PRN PRN PO SBP > 180; Start 06/15/16 at 08: 15; Stop 06/16/16 at 08:14; Status DC Info (PHARMACY MONITORING -- do not chart) 1 each PRN DAILY PRN MC SEE COMMENTS ; Start 06/15/16 at 08:15 Dextrose (Dextrose 50%-Water Syringe) 25 gm STK-MED ONCE IV ; Start 06/16/16 at 07:28; Stop 06/16/16 at 07:29; Status DC Dextrose (Dextrose 50%-Water Syringe) 12.5 gm PRN Q15MIN PRN IV SEE COMMENTS; Start 06/16/16 at 07:30 Lidocaine (Lidoderm) 1 patch DAILY TD Last administered on 06/16/16t 12:17; Start 06/16/16 at 11:30 Active Scripts Active Potassium Chloride 10 Meq Tablet.er 10 Meq PO DAILY Metoprolol Tartrate 100 Mg Tablet 1 Tab PO BID Prednisone 20 Mg Tablet 40 Mg PO DAILY Glyburide 2.5 Mg Tablet 1 Tab PO DAILY Vikki-Toño Tablet (Folic Acid/Vitamin B Comp W-C) 0.8 Mg Tablet 1 Tab PO DAILY Reported Levothyroxine Sodium 150 Mcg Tablet 150 Mcg PO DAILYAC Gaby 10-40 Mg Tablet (Amlodipine Bes/Olmesartan Med) 1 Each Tablet 1 Each PO DAILY Allopurinol 100 Mg Tablet 100 Mg PO Aspir 81 (Aspirin) 81 Mg Tablet. 1 Tab PO DAILY Vitals/I & O Vital Sign - Last 24 Hours 06/15/16 06/15/16 06/15/16 06/15/16 14:55 16:12 19:30 20:00 Temp 98.6 98.4 98.6 98.4 Pulse 79 92 Resp 18 16 B/P 117/80 137/78 Pulse Ox 96 98 94 O2 Delivery Room Air Room Air Room Air 06/15/16 06/15/16 06/16/16 06/16/16 22:10 23:25 03:34 07:00 Temp 100.2 99.2 99.7 100.2 99.2 99.7 Pulse 92 100 93 90 Resp 18 16 18 B/P 137/78 133/83 134/83 120/78 Pulse Ox 96 95 96 O2 Delivery Room Air Room Air Room Air 06/16/16 06/16/16 06/16/16 06/16/16 07:50 08:31 09:30 10:45 Temp 99.3 99.3 Pulse 90 Resp 18 B/P 101/80 Pulse Ox 95 O2 Delivery Room Air Room Air Room Air Room Air Intake and Output 06/15/16 06/15/16 06/16/16 14:59 22:59 06:59 Intake Total 240 ml 750 ml Output Total 5675 ml 3650 ml 2050 ml Balance -5435 ml -3650 ml -1300 ml DAIJA GOLDSMITH MD Jun 16, 2016 12:25
[2016-06-16] MEDS ORDERED: PIP/TAZO PER PHARMACY MC PRN (12:30)
[2016-06-16] MEDS ORDERED: IV NORMAL SALINE 1000ML BAG 1,000 ML IV PRN (14:08)
[2016-06-16] MEDS ORDERED: DIALYSIS PATIENT. MC PRN (14:15)
[2016-06-16] MEDS: PIPERACILLIN/TAZOBACTAM 2.25 GM in IV NORMAL SALINE 50ML 50 ML IV SCH ×2 (17:35→23:14)
[2016-06-16] MEDS: LOSARTAN POTASSIUM 50 MG TABLET. PO SCH (17:38)
[2016-06-16] MEDS: AMLODIPINE BESYLATE 10 MG TABLET. PO SCH (17:39)
[2016-06-16 19:00] VITALS: BP 136/94
[2016-06-16 23:00] VITALS: BP 139/92
[2016-06-17] MEDS: PIPERACILLIN/TAZOBACTAM 2.25 GM in IV NORMAL SALINE 50ML 50 ML IV SCH ×4 (00:20→22:30)
[2016-06-17 03:00] VITALS: BP 110/77
[2016-06-17 07:00] VITALS: BP 124/84
[2016-06-17] MEDS: FOLIC/VIT B COMP W-C (RENAL) TABLET. PO SCH (08:30)
[2016-06-17] MEDS: LEVOTHYROXINE 150 MCG TABLET PO SCH (08:30)
[2016-06-17] MEDS: SEVELAMER CARBONATE 800 MG TABLET. PO SCH ×3 (08:30→16:36)
[2016-06-17] MEDS: POTASSIUM CHLORIDE 10 MEQ TABLET.ER. PO SCH (08:30)
[2016-06-17] MEDS: AMLODIPINE BESYLATE 10 MG TABLET. PO SCH (08:31)
[2016-06-17] MEDS: HYDROCODONE/APAP 5/325MG TABLET. PO PRN ×2 (08:32→21:02)
[2016-06-17] MEDS: LIDOCAINE (700MG/PATCH) PATCH. TD SCH (08:32)
[2016-06-17] MEDS: METOPROLOL TART IMMED RELEASE 50 MG TABLET. PO SCH ×2 (09:31→21:01)
[2016-06-17] MEDS: LOSARTAN POTASSIUM 50 MG TABLET. PO SCH (09:32)
[2016-06-17 11:00] VITALS: BP 123/70
--- NOTE | 2016-06-17 11:20 | PDOC ---
Provider Note Provider Note Patient seen and examined urine still heme colored but improved, no clots Lab reviewed. IMPRESSION: Gross hematuria s/p renal bx Renal failure- on HD Plan: continue slow CBI until urine clear Will need cysto right stent removal before discharge Thanks, Laboratory Tests Test 06/16/16 11:37 06/16/16 16:47 06/16/16 21:36 06/17/16 07:38 Glucose (Fingerstick) 68mg/dL 96mg/dL 140mg/dL 146mg/dL Current Medications Medications (Trade) Dose Ordered Sig/Theo Route PRN Reason Start Time Stop Time Status Last Admin Dose Admin Ondansetron HCl (Zofran) 4 mg 1X ONCE IV 06/12/16 08:45 06/12/16 08:46 DC 06/12/16 08:30 Morphine Sulfate 5 mg 1X ONCE IV 06/12/16 08:45 06/12/16 08:46 DC 06/12/16 08:30 Morphine Sulfate 5 mg 1X ONCE IV 06/12/16 11:00 06/12/16 11:01 DC 06/12/16 10:20 Morphine Sulfate 4 mg PRN Q2HR PRN IV PAIN 06/12/16 11:30 06/13/16 11:29 DC 06/12/16 20:33 Ondansetron HCl (Zofran) 4 mg PRN Q6HRS PRN IV NAUSEA/VOMITING 06/12/16 11:30 06/12/16 17:35 DC Acetaminophen (Tylenol) 325 mg PRN Q6HRS PRN PO MILD PAIN / TEMP 06/12/16 12:30 06/12/16 17:35 DC Acetaminophen/ Hydrocodone Bitart (Lortab 5/325) 1 tab PRN Q6HRS PRN PO MODERATE TO SEVERE PAIN 06/12/16 12:30 06/12/16 17:35 DC Hydralazine HCl (Apresoline) 10 mg PRN Q4HRS PRN IVP ELEVATED BP, SEE COMMENTS 06/12/16 12:30 06/12/16 17:35 DC Ondansetron HCl (Zofran) 4 mg PRN Q8HRS PRN IV NAUSEA/VOMITING 06/12/16 12:30 06/12/16 17:35 DC Albuterol Sulfate 2.5 mg 2.5 mg PRN Q4HRS PRN NEB SHORTNESS OF BREATH 06/12/16 12:30 06/12/16 17:35 DC Sodium Chloride (Iv Sodium Chloride 0.9% 1000ml Bag) 1,000 ml @ 75 mls/hr 1X ONCE IV 06/12/16 12:30 06/13/16 01:49 DC 06/12/16 15:30 Darbepoetin Richard (Aranesp) 60 mcg WEEKLYHS SQ 06/12/16 21:00 06/12/16 20:28 Acetaminophen (Tylenol) 325 mg PRN Q6HRS PRN PO MILD PAIN / TEMP 06/12/16 17:30 06/12/16 17:34 DC Acetaminophen/ Hydrocodone Bitart (Lortab 5/325) 1 tab PRN Q6HRS PRN PO MODERATE TO SEVERE PAIN 06/12/16 17:30 06/17/16 08:32 Hydralazine HCl (Apresoline) 10 mg PRN Q4HRS PRN IVP ELEVATED BP, SEE COMMENTS 06/12/16 17:30 06/13/16 17:13 Ondansetron HCl (Zofran) 4 mg PRN Q8HRS PRN IV NAUSEA/VOMITING 06/12/16 17:30 06/16/16 16:43 DC Albuterol Sulfate (Ventolin Neb Soln) 2.5 mg PRN Q4HRS PRN NEB SHORTNESS OF BREATH 06/12/16 17:30 06/15/16 08:18 DC Acetaminophen (Tylenol) 325 mg PRN Q6HRS PRN PO MILD PAIN / TEMP 06/12/16 17:45 06/15/16 08:18 DC 06/14/16 21:44 Ondansetron HCl (Zofran) 4 mg PRN Q6HRS PRN IV NAUSEA/VOMITING 06/13/16 06:45 06/14/16 06:44 DC Fentanyl Citrate (Fentanyl 2ml Vial) 25 mcg PRN Q5MIN PRN IV MILD PAIN 06/13/16 06:45 06/14/16 06:44 DC Fentanyl Citrate (Fentanyl 2ml Vial) 50 mcg PRN Q5MIN PRN IV MODERATE PAIN 06/13/16 06:45 06/14/16 06:44 DC Morphine Sulfate 1 mg 1 mg PRN Q10MIN PRN IV SEVERE PAIN 06/13/16 06:45 06/14/16 06:44 DC Lactated Ringer's (Iv Lactated Ringers) 1,000 ml @ 0 mls/hr Q0M IV 06/13/16 06:45 06/13/16 15:00 Cancel Lidocaine HCl 2 ml PRN 1X PRN ID PRIOR TO IV START 06/13/16 06:45 06/14/16 06:44 DC Hydromorphone HCl (Dilaudid) 0.5 mg PRN Q10MIN PRN IV SEV PAIN, Second choice 06/13/16 06:45 06/14/16 06:44 DC Prochlorperazine Edisylate 5 mg 5 mg PACU PRN PRN IV NAUSEA, MRX1 06/13/16 06:45 06/14/16 06:44 DC Sodium Chloride (Iv Sodium Chloride 0.9% 1000ml Bag) 1,000 ml @ 30 mls/hr Q24H IV 06/13/16 07:30 06/14/16 16:54 DC Iohexol 50 ml 50 ml STK-MED ONCE .ROUTE 06/13/16 10:10 06/13/16 10:11 DC 06/13/16 14:23 Levofloxacin/ Dextrose (LEVAQUIN 500mg PREMIX) 100 ml @ As Directed STK-MED ONCE IV 06/13/16 10:21 06/13/16 10:22 DC Dexamethasone Sodium Phosphate (Decadron) 20 mg STK-MED ONCE .ROUTE 06/13/16 11:07 06/13/16 11:08 DC Ondansetron HCl 4 mg 4 mg STK-MED ONCE .ROUTE 06/13/16 11:07 06/13/16 11:08 DC Propofol (Diprivan) 20 ml @ As Directed STK-MED ONCE IV 06/13/16 11:07 06/13/16 11:08 DC Lidocaine HCl (Xylocaine-Mpf 1% Vial) 5 ml STK-MED ONCE .ROUTE 06/13/16 11:07 06/13/16 11:08 DC Fentanyl Citrate (Fentanyl 2ml Vial) 100 mcg STK-MED ONCE .ROUTE 06/13/16 11:07 06/13/16 11:08 DC Succinylcholine Chloride (Anectine) 200 mg STK-MED ONCE .ROUTE 06/13/16 11:07 06/13/16 11:08 DC Rocuronium [place] (Zemuron) 50 mg STK-MED ONCE .ROUTE 06/13/16 11:09 06/13/16 11:10 DC Darbepoetin Richard (Aranesp) 60 mcg WEEKLYHS SQ 06/13/16 21:00 Cancel Ephedrine Sulfate 50 mg STK-MED ONCE IV 06/13/16 11:43 06/13/16 11:44 DC Glycopyrrolate (Robinul) 1 mg STK-MED ONCE .ROUTE 06/13/16 12:05 06/13/16 12:06 DC Neostigmine Methylsulfate 5 mg 5 mg STK-MED ONCE .ROUTE 06/13/16 12:05 06/13/16 12:06 DC Levofloxacin/ Dextrose (LEVAQUIN 500mg PREMIX) 100 ml @ 100 mls/hr 1X PREOP IV 06/13/16 12:30 06/14/16 18:00 DC Desflurane (Suprane) 60 ml STK-MED ONCE IH 06/13/16 12:34 06/13/16 12:35 DC Fentanyl Citrate (Fentanyl 2ml Vial) 100 mcg STK-MED ONCE .ROUTE 06/13/16 12:41 06/13/16 12:42 DC Lidocaine/ Epinephrine (Xylocaine 2%-Epi 1:100,000) 20 ml STK-MED ONCE .ROUTE 06/13/16 12:59 06/13/16 13:00 DC Heparin Sodium (Porcine) 39058 unit 10,000 unit STK-MED ONCE .ROUTE 06/13/16 12:59 06/13/16 13:00 DC Heparin Sodium/ Sodium Chloride 500 ml @ As Directed STK-MED ONCE .ROUTE 06/13/16 12:59 06/13/16 13:00 DC Midazolam HCl (Versed) 5 mg STK-MED ONCE .ROUTE 06/13/16 13:46 06/13/16 13:47 DC Fentanyl Citrate 250 mcg 250 mcg STK-MED ONCE .ROUTE 06/13/16 13:46 06/13/16 13:47 DC Cefazolin Sodium (Ancef 1gm Ivpb For Omni) 50 ml @ As Directed STK-MED ONCE IV 06/13/16 13:46 06/13/16 13:47 DC Heparin Sodium/ Sodium Chloride 1,000 unit 1X ONCE IART 06/13/16 14:00 06/13/16 14:04 DC 06/13/16 14:12 Lidocaine/Sodium Bicarbonate (Buffered Lidocaine 1%) 20 ml 1X ONCE IJ 06/13/16 14:00 06/13/16 14:04 DC Midazolam HCl (Versed) 2.5 mg 1X ONCE IV 06/13/16 14:00 06/13/16 14:04 DC 06/13/16 14:12 Fentanyl Citrate (Fentanyl 5ml Vial) 125 mcg 1X ONCE IV 06/13/16 14:00 06/13/16 14:04 DC 06/13/16 14:11 Heparin Sodium (Porcine) (Heparin Sodium) 4,000 unit 1X ONCE IV 06/13/16 14:00 06/13/16 14:04 DC 06/13/16 14:14 Lidocaine/ Epinephrine 20 ml 20 ml 1X ONCE IJ 06/13/16 14:00 06/13/16 14:04 DC 06/13/16 14:12 Cefazolin Sodium (Ancef 1gm Ivpb For Omni) 50 ml @ 100 mls/hr 1X ONCE IV 06/13/16 14:30 06/13/16 14:59 DC 06/13/16 13:52 Vitamin B Complex/ Vitamin C (Vikki-Toño) 1 tab DAILY PO 06/14/16 09:00 06/17/16 08:30 Levothyroxine Sodium (Synthroid) 150 mcg DAILYAC PO 06/14/16 07:30 06/17/16 08:30 Non-Formulary Medication 1 each DAILY PO 06/14/16 09:00 06/14/16 09:00 DC Glyburide (Diabeta) 2.5 mg DAILYWBKFT PO 06/14/16 08:00 06/16/16 11:28 DC 06/15/16 12:21 Metoprolol Tartrate (Lopressor) 100 mg BID PO 06/13/16 22:00 06/17/16 09:31 Potassium Chloride (Klor-Con) 10 meq DAILYWBKFT PO 06/14/16 08:00 06/17/16 08:30 Acetaminophen (Tylenol) 325 mg PRN Q6HRS PRN PO MILD PAIN / TEMP 06/13/16 21:00 06/16/16 06:39 Hydralazine HCl (Apresoline) 10 mg PRN Q4HRS PRN IVP ELEVATED BP, SEE COMMENTS 06/13/16 21:00 Cancel Ondansetron HCl (Zofran) 4 mg PRN Q8HRS PRN IV NAUSEA/VOMITING 06/13/16 21:00 Albuterol Sulfate (Ventolin Neb Soln) 2.5 mg PRN Q4HRS PRN NEB SHORTNESS OF BREATH 06/13/16 21:00 Amlodipine Besylate (Norvasc) 10 mg DAILY PO 06/14/16 09:00 06/17/16 08:31 Losartan Potassium (Cozaar) 100 mg DAILY PO 06/14/16 09:00 06/17/16 09:32 Levofloxacin/ Dextrose 500 mg 500 mg STK-MED ONCE IV 06/13/16 10:30 06/14/16 08:22 DC Sodium Chloride (Iv Sodium Chloride 0.9% 1000ml Bag) 1,000 ml @ 1,000 mls/hr Q1H PRN IV hypotension 06/14/16 08:54 06/14/16 14:53 DC Sodium Chloride (Normal Saline Flush) 10 ml 1X PRN PRN IV AP catheter pack 06/14/16 09:00 06/15/16 08:59 DC Sodium Chloride 10 ml 10 ml 1X PRN PRN IV MANDOLIN REPAIR PERSON catheter pack 06/14/16 09:00 06/15/16 08:59 DC Sodium Chloride (Iv Sodium Chloride 0.9% 1000ml Bag) 1,000 ml @ 400 mls/hr Q2H30M PRN IV PATENCY 06/14/16 08:54 06/14/16 20:53 DC Info (PHARMACY MONITORING -- do not chart) 1 each PRN DAILY PRN MC SEE COMMENTS 06/14/16 09:00 Cancel Sevelamer Carbonate 800 mg 800 mg TIDWMEALS PO 06/14/16 12:00 06/17/16 08:30 Sodium Chloride 1,000 ml @ 1,000 mls/hr Q1H PRN IV hypotension 06/15/16 08:03 06/15/16 14:02 DC Albumin Human (Albuminar) 200 ml @ 200 mls/hr 1X PRN PRN IV Hypotension 06/15/16 08:15 06/15/16 14:14 DC Acetaminophen (Tylenol) 500 mg 1X PRN PRN PO MILD PAIN / TEMP 06/15/16 08:15 06/16/16 08:14 DC Diphenhydramine HCl (Benadryl) 25 mg 1X PRN PRN IV ITCHING 06/15/16 08:15 06/16/16 08:14 DC Diphenhydramine HCl (Benadryl) 25 mg 1X PRN PRN IV ITCHING 06/15/16 08:15 06/16/16 08:14 DC Labetalol HCl (Normodyne) 10 mg PRN Q1HR PRN IVP SBP > 180 06/15/16 08:15 06/16/16 08:14 DC Clonidine HCl (Catapres) 0.1 mg 1X PRN PRN PO SBP > 180 06/15/16 08:15 06/16/16 08:14 DC Info (PHARMACY MONITORING -- do not chart) 1 each PRN DAILY PRN MC SEE COMMENTS 06/15/16 08:15 Cancel Dextrose (Dextrose 50%-Water Syringe) 25 gm STK-MED ONCE IV 06/16/16 07:28 06/16/16 07:29 DC Dextrose (Dextrose 50%-Water Syringe) 12.5 gm PRN Q15MIN PRN IV SEE COMMENTS 06/16/16 07:30 Lidocaine (Lidoderm) 1 patch DAILY TD 06/16/16 11:30 06/17/16 08:32 Piperacillin Sod/ Tazobactam Sod 1 each 1 each PRN DAILY PRN MC SEE COMMENTS 06/16/16 12:30 Piperacillin Sod/ Tazobactam Sod 2.25 gm/Sodium Chloride 50 ml @ 100 mls/hr Q8HRS IV 06/16/16 14:00 06/17/16 06:23 Sodium Chloride (Iv Sodium Chloride 0.9% 1000ml Bag) 1,000 ml @ 1,000 mls/hr Q1H PRN IV hypotension 06/16/16 14:08 06/16/16 20:07 DC Info (PHARMACY MONITORING -- do not chart) 1 each PRN DAILY PRN MC SEE COMMENTS 06/16/16 14:15 Laboratory Tests Test 06/16/16 11:37 06/16/16 16:47 06/16/16 21:36 06/17/16 07:38 Glucose (Fingerstick) 68mg/dL 96mg/dL 140mg/dL 146mg/dL Current Medications Medications (Trade) Dose Ordered Sig/Theo Route PRN Reason Start Time Stop Time Status Last Admin Dose Admin Ondansetron HCl (Zofran) 4 mg 1X ONCE IV 06/12/16 08:45 06/12/16 08:46 DC 06/12/16 08:30 Morphine Sulfate 5 mg 1X ONCE IV 06/12/16 08:45 06/12/16 08:46 DC 06/12/16 08:30 Morphine Sulfate 5 mg 1X ONCE IV 06/12/16 11:00 06/12/16 11:01 DC 06/12/16 10:20 Morphine Sulfate 4 mg PRN Q2HR PRN IV PAIN 06/12/16 11:30 06/13/16 11:29 DC 06/12/16 20:33 Ondansetron HCl (Zofran) 4 mg PRN Q6HRS PRN IV NAUSEA/VOMITING 06/12/16 11:30 06/12/16 17:35 DC Acetaminophen (Tylenol) 325 mg PRN Q6HRS PRN PO MILD PAIN / TEMP 06/12/16 12:30 06/12/16 17:35 DC Acetaminophen/ Hydrocodone Bitart (Lortab 5/325) 1 tab PRN Q6HRS PRN PO MODERATE TO SEVERE PAIN 06/12/16 12:30 06/12/16 17:35 DC Hydralazine HCl (Apresoline) 10 mg PRN Q4HRS PRN IVP ELEVATED BP, SEE COMMENTS 06/12/16 12:30 06/12/16 17:35 DC Ondansetron HCl (Zofran) 4 mg PRN Q8HRS PRN IV NAUSEA/VOMITING 06/12/16 12:30 06/12/16 17:35 DC Albuterol Sulfate 2.5 mg 2.5 mg PRN Q4HRS PRN NEB SHORTNESS OF BREATH 06/12/16 12:30 06/12/16 17:35 DC Sodium Chloride (Iv Sodium Chloride 0.9% 1000ml Bag) 1,000 ml @ 75 mls/hr 1X ONCE IV 06/12/16 12:30 06/13/16 01:49 DC 06/12/16 15:30 Darbepoetin Richard (Aranesp) 60 mcg WEEKLYHS SQ 06/12/16 21:00 06/12/16 20:28 Acetaminophen (Tylenol) 325 mg PRN Q6HRS PRN PO MILD PAIN / TEMP 06/12/16 17:30 06/12/16 17:34 DC Acetaminophen/ Hydrocodone Bitart (Lortab 5/325) 1 tab PRN Q6HRS PRN PO MODERATE TO SEVERE PAIN 06/12/16 17:30 06/17/16 08:32 Hydralazine HCl (Apresoline) 10 mg PRN Q4HRS PRN IVP ELEVATED BP, SEE COMMENTS 06/12/16 17:30 06/13/16 17:13 Ondansetron HCl (Zofran) 4 mg PRN Q8HRS PRN IV NAUSEA/VOMITING 06/12/16 17:30 06/16/16 16:43 DC Albuterol Sulfate (Ventolin Neb Soln) 2.5 mg PRN Q4HRS PRN NEB SHORTNESS OF BREATH 06/12/16 17:30 06/15/16 08:18 DC Acetaminophen (Tylenol) 325 mg PRN Q6HRS PRN PO MILD PAIN / TEMP 06/12/16 17:45 06/15/16 08:18 DC 06/14/16 21:44 Ondansetron HCl (Zofran) 4 mg PRN Q6HRS PRN IV NAUSEA/VOMITING 06/13/16 06:45 06/14/16 06:44 DC Fentanyl Citrate (Fentanyl 2ml Vial) 25 mcg PRN Q5MIN PRN IV MILD PAIN 06/13/16 06:45 06/14/16 06:44 DC Fentanyl Citrate (Fentanyl 2ml Vial) 50 mcg PRN Q5MIN PRN IV MODERATE PAIN 06/13/16 06:45 06/14/16 06:44 DC Morphine Sulfate 1 mg 1 mg PRN Q10MIN PRN IV SEVERE PAIN 06/13/16 06:45 06/14/16 06:44 DC Lactated Ringer's (Iv Lactated Ringers) 1,000 ml @ 0 mls/hr Q0M IV 06/13/16 06:45 06/13/16 15:00 Cancel Lidocaine HCl 2 ml PRN 1X PRN ID PRIOR TO IV START 06/13/16 06:45 06/14/16 06:44 DC Hydromorphone HCl (Dilaudid) 0.5 mg PRN Q10MIN PRN IV SEV PAIN, Second choice 06/13/16 06:45 06/14/16 06:44 DC Prochlorperazine Edisylate 5 mg 5 mg PACU PRN PRN IV NAUSEA, MRX1 06/13/16 06:45 06/14/16 06:44 DC Sodium Chloride (Iv Sodium Chloride 0.9% 1000ml Bag) 1,000 ml @ 30 mls/hr Q24H IV 06/13/16 07:30 06/14/16 16:54 DC Iohexol 50 ml 50 ml STK-MED ONCE .ROUTE 06/13/16 10:10 06/13/16 10:11 DC 06/13/16 14:23 Levofloxacin/ Dextrose (LEVAQUIN 500mg PREMIX) 100 ml @ As Directed STK-MED ONCE IV 06/13/16 10:21 06/13/16 10:22 DC Dexamethasone Sodium Phosphate (Decadron) 20 mg STK-MED ONCE .ROUTE 06/13/16 11:07 06/13/16 11:08 DC Ondansetron HCl 4 mg 4 mg STK-MED ONCE .ROUTE 06/13/16 11:07 06/13/16 11:08 DC Propofol (Diprivan) 20 ml @ As Directed STK-MED ONCE IV 06/13/16 11:07 06/13/16 11:08 DC Lidocaine HCl (Xylocaine-Mpf 1% Vial) 5 ml STK-MED ONCE .ROUTE 06/13/16 11:07 06/13/16 11:08 DC Fentanyl Citrate (Fentanyl 2ml Vial) 100 mcg STK-MED ONCE .ROUTE 06/13/16 11:07 06/13/16 11:08 DC Succinylcholine Chloride (Anectine) 200 mg STK-MED ONCE .ROUTE 06/13/16 11:07 06/13/16 11:08 DC Rocuronium [place] (Zemuron) 50 mg STK-MED ONCE .ROUTE 06/13/16 11:09 06/13/16 11:10 DC Darbepoetin Richard (Aranesp) 60 mcg WEEKLYHS SQ 06/13/16 21:00 Cancel Ephedrine Sulfate 50 mg STK-MED ONCE IV 06/13/16 11:43 06/13/16 11:44 DC Glycopyrrolate (Robinul) 1 mg STK-MED ONCE .ROUTE 06/13/16 12:05 06/13/16 12:06 DC Neostigmine Methylsulfate 5 mg 5 mg STK-MED ONCE .ROUTE 06/13/16 12:05 06/13/16 12:06 DC Levofloxacin/ Dextrose (LEVAQUIN 500mg PREMIX) 100 ml @ 100 mls/hr 1X PREOP IV 06/13/16 12:30 06/14/16 18:00 DC Desflurane (Suprane) 60 ml STK-MED ONCE IH 06/13/16 12:34 06/13/16 12:35 DC Fentanyl Citrate (Fentanyl 2ml Vial) 100 mcg STK-MED ONCE .ROUTE 06/13/16 12:41 06/13/16 12:42 DC Lidocaine/ Epinephrine (Xylocaine 2%-Epi 1:100,000) 20 ml STK-MED ONCE .ROUTE 06/13/16 12:59 06/13/16 13:00 DC Heparin Sodium (Porcine) 64843 unit 10,000 unit STK-MED ONCE .ROUTE 06/13/16 12:59 06/13/16 13:00 DC Heparin Sodium/ Sodium Chloride 500 ml @ As Directed STK-MED ONCE .ROUTE 06/13/16 12:59 06/13/16 13:00 DC Midazolam HCl (Versed) 5 mg STK-MED ONCE .ROUTE 06/13/16 13:46 06/13/16 13:47 DC Fentanyl Citrate 250 mcg 250 mcg STK-MED ONCE .ROUTE 06/13/16 13:46 06/13/16 13:47 DC Cefazolin Sodium (Ancef 1gm Ivpb For Omni) 50 ml @ As Directed STK-MED ONCE IV 06/13/16 13:46 06/13/16 13:47 DC Heparin Sodium/ Sodium Chloride 1,000 unit 1X ONCE IART 06/13/16 14:00 06/13/16 14:04 DC 06/13/16 14:12 Lidocaine/Sodium Bicarbonate (Buffered Lidocaine 1%) 20 ml 1X ONCE IJ 06/13/16 14:00 06/13/16 14:04 DC Midazolam HCl (Versed) 2.5 mg 1X ONCE IV 06/13/16 14:00 06/13/16 14:04 DC 06/13/16 14:12 Fentanyl Citrate (Fentanyl 5ml Vial) 125 mcg 1X ONCE IV 06/13/16 14:00 06/13/16 14:04 DC 06/13/16 14:11 Heparin Sodium (Porcine) (Heparin Sodium) 4,000 unit 1X ONCE IV 06/13/16 14:00 06/13/16 14:04 DC 06/13/16 14:14 Lidocaine/ Epinephrine 20 ml 20 ml 1X ONCE IJ 06/13/16 14:00 06/13/16 14:04 DC 06/13/16 14:12 Cefazolin Sodium (Ancef 1gm Ivpb For Omni) 50 ml @ 100 mls/hr 1X ONCE IV 06/13/16 14:30 06/13/16 14:59 DC 06/13/16 13:52 Vitamin B Complex/ Vitamin C (Vikki-Toño) 1 tab DAILY PO 06/14/16 09:00 06/17/16 08:30 Levothyroxine Sodium (Synthroid) 150 mcg DAILYAC PO 06/14/16 07:30 06/17/16 08:30 Non-Formulary Medication 1 each DAILY PO 06/14/16 09:00 06/14/16 09:00 DC Glyburide (Diabeta) 2.5 mg DAILYWBKFT PO 06/14/16 08:00 06/16/16 11:28 DC 06/15/16 12:21 Metoprolol Tartrate (Lopressor) 100 mg BID PO 06/13/16 22:00 06/17/16 09:31 Potassium Chloride (Klor-Con) 10 meq DAILYWBKFT PO 06/14/16 08:00 06/17/16 08:30 Acetaminophen (Tylenol) 325 mg PRN Q6HRS PRN PO MILD PAIN / TEMP 06/13/16 21:00 06/16/16 06:39 Hydralazine HCl (Apresoline) 10 mg PRN Q4HRS PRN IVP ELEVATED BP, SEE COMMENTS 06/13/16 21:00 Cancel Ondansetron HCl (Zofran) 4 mg PRN Q8HRS PRN IV NAUSEA/VOMITING 06/13/16 21:00 Albuterol Sulfate (Ventolin Neb Soln) 2.5 mg PRN Q4HRS PRN NEB SHORTNESS OF BREATH 06/13/16 21:00 Amlodipine Besylate (Norvasc) 10 mg DAILY PO 06/14/16 09:00 06/17/16 08:31 Losartan Potassium (Cozaar) 100 mg DAILY PO 06/14/16 09:00 06/17/16 09:32 Levofloxacin/ Dextrose 500 mg 500 mg STK-MED ONCE IV 06/13/16 10:30 06/14/16 08:22 DC Sodium Chloride (Iv Sodium Chloride 0.9% 1000ml Bag) 1,000 ml @ 1,000 mls/hr Q1H PRN IV hypotension 06/14/16 08:54 06/14/16 14:53 DC Sodium Chloride (Normal Saline Flush) 10 ml 1X PRN PRN IV AP catheter pack 06/14/16 09:00 06/15/16 08:59 DC Sodium Chloride 10 ml 10 ml 1X PRN PRN IV MANDOLIN REPAIR PERSON catheter pack 06/14/16 09:00 06/15/16 08:59 DC Sodium Chloride (Iv Sodium Chloride 0.9% 1000ml Bag) 1,000 ml @ 400 mls/hr Q2H30M PRN IV PATENCY 06/14/16 08:54 06/14/16 20:53 DC Info (PHARMACY MONITORING -- do not chart) 1 each PRN DAILY PRN MC SEE COMMENTS 06/14/16 09:00 Cancel Sevelamer Carbonate 800 mg 800 mg TIDWMEALS PO 06/14/16 12:00 06/17/16 08:30 Sodium Chloride 1,000 ml @ 1,000 mls/hr Q1H PRN IV hypotension 06/15/16 08:03 06/15/16 14:02 DC Albumin Human (Albuminar) 200 ml @ 200 mls/hr 1X PRN PRN IV Hypotension 06/15/16 08:15 06/15/16 14:14 DC Acetaminophen (Tylenol) 500 mg 1X PRN PRN PO MILD PAIN / TEMP 06/15/16 08:15 06/16/16 08:14 DC Diphenhydramine HCl (Benadryl) 25 mg 1X PRN PRN IV ITCHING 06/15/16 08:15 06/16/16 08:14 DC Diphenhydramine HCl (Benadryl) 25 mg 1X PRN PRN IV ITCHING 06/15/16 08:15 06/16/16 08:14 DC Labetalol HCl (Normodyne) 10 mg PRN Q1HR PRN IVP SBP > 180 06/15/16 08:15 06/16/16 08:14 DC Clonidine HCl (Catapres) 0.1 mg 1X PRN PRN PO SBP > 180 06/15/16 08:15 06/16/16 08:14 DC Info (PHARMACY MONITORING -- do not chart) 1 each PRN DAILY PRN MC SEE COMMENTS 06/15/16 08:15 Cancel Dextrose (Dextrose 50%-Water Syringe) 25 gm STK-MED ONCE IV 06/16/16 07:28 06/16/16 07:29 DC Dextrose (Dextrose 50%-Water Syringe) 12.5 gm PRN Q15MIN PRN IV SEE COMMENTS 06/16/16 07:30 Lidocaine (Lidoderm) 1 patch DAILY TD 06/16/16 11:30 06/17/16 08:32 Piperacillin Sod/ Tazobactam Sod 1 each 1 each PRN DAILY PRN MC SEE COMMENTS 06/16/16 12:30 Piperacillin Sod/ Tazobactam Sod 2.25 gm/Sodium Chloride 50 ml @ 100 mls/hr Q8HRS IV 06/16/16 14:00 06/17/16 06:23 Sodium Chloride (Iv Sodium Chloride 0.9% 1000ml Bag) 1,000 ml @ 1,000 mls/hr Q1H PRN IV hypotension 06/16/16 14:08 06/16/16 20:07 DC Info (PHARMACY MONITORING -- do not chart) 1 each PRN DAILY PRN MC SEE COMMENTS 06/16/16 14:15 BUBBA DODGE DO Jun 17, 2016 11:20
--- NOTE | 2016-06-17 13:30 | PDOC ---
PROGRESS NOTES Chief Complaint Chief Complaint cc: hematuria A/P Acute renal failure, FSGS, CKD IV, on HD Fever, wbc, unclear source. Hematuria, better, Right flank pain better HTN DM now Hypoglycemia Leucocytosis Plan IV Zosyn blood cx pending wbc elevated at presentation due to steroids, ID consult persistent fevers, CBI s/p HDC catheter placement, HD per nephrology. monitor hemoglobin labs reviwed, hypoglycemia protocol out pt HD set up by SW. Constipation protocol History of Present Illness History of Present Illness PAIN 06/12, Vitals Vitals Vital Signs Date Time Temp Pulse Resp B/P Pulse Ox O2 Delivery O2 Flow Rate FiO2 06/17/16 11:00 99.1 93 18 123/70 97 Room Air 99.1 Physical Exam General: Alert, Oriented X3, Cooperative, No acute distress Heart: Regular rate, Normal S1, Normal S2 Lungs: Clear Abdomen: Normal bowel sounds, Soft, No tenderness, Other Skin: No rashes Labs LABS Laboratory Tests Test 06/16/16 16:47 06/16/16 21:36 06/17/16 07:38 06/17/16 11:43 Glucose (Fingerstick) 96mg/dL (70-99) 140mg/dL (70-99) 146mg/dL (70-99) 129mg/dL (70-99) Assessment and Plan Assessmemt and Plan Problems Medical Problems: (1) Acute renal failure Status: Acute Problems: Comment Review of Relevant I have reviewed the following items jose (where applicable) has been applied. Labs Laboratory Tests Test 06/15/16 17:13 06/15/16 17:58 06/15/16 20:25 06/15/16 21:15 Glucose (Fingerstick) 54mg/dL (70-99) 104mg/dL (70-99) 55mg/dL (70-99) 61mg/dL (70-99) Test 06/15/16 21:38 06/15/16 22:23 06/16/16 03:28 06/16/16 04:17 Glucose (Fingerstick) 55mg/dL (70-99) 82mg/dL (70-99) 50mg/dL (70-99) 72mg/dL (70-99) Test 06/16/16 06:05 06/16/16 07:28 06/16/16 10:55 06/16/16 11:37 White Blood Count 19.0x10^3/uL (4.0-11.0) Red Blood Count 3.00x10^6/uL (4.30-5.70) Hemoglobin 9.0g/dL (13.0-17.5) Hematocrit 27.9% (39.0-53.0) Mean Corpuscular Volume 93fL (79-100) Mean Corpuscular Hemoglobin 30pg (25-35) Mean Corpuscular Hemoglobin Concent 32g/dL (31-37) Red Cell Distribution Width 14.5% (11.5-14.5) Platelet Count 99x10^3/uL (140-400) Sodium Level 140mmol/L (136-145) Potassium Level 3.7mmol/L (3.5-5.1) Chloride Level 101mmol/L (98-107) Carbon Dioxide Level 27mmol/L (21-32) Anion Gap 12 (6-14) Blood Urea Nitrogen 32mg/dL (8-26) Creatinine 3.6mg/dL (0.7-1.3) Estimated GFR (Cockcroft-Gault) 17.3 Glucose Level 39mg/dL (70-99) Calcium Level 6.9mg/dL (8.5-10.1) Glucose (Fingerstick) 118mg/dL (70-99) 66mg/dL (70-99) 68mg/dL (70-99) Test 06/16/16 16:47 06/16/16 21:36 06/17/16 07:38 06/17/16 11:43 Glucose (Fingerstick) 96mg/dL (70-99) 140mg/dL (70-99) 146mg/dL (70-99) 129mg/dL (70-99) Laboratory Tests Test 06/16/16 16:47 06/16/16 21:36 06/17/16 07:38 06/17/16 11:43 Glucose (Fingerstick) 96mg/dL (70-99) 140mg/dL (70-99) 146mg/dL (70-99) 129mg/dL (70-99) Microbiology 06/12/16 Urine Culture - Final, Complete 06/12/16 Urine Culture Result 1 (QUENTIN) - Final, Complete Medications Current Medications Ondansetron HCl (Zofran) 4 mg 1X ONCE IV Last administered on 06/12/16 08:30 ; Start 06/12/16 at 08:45; Stop 06/12/16 at 08:46; Status DC Morphine Sulfate 5 mg 1X ONCE IV Last administered on 06/12/16 08:30; Start 06/12/16 at 08:45; Stop 06/12/16 at 08:46; Status DC Morphine Sulfate 5 mg 1X ONCE IV Last administered on 06/12/16 10:20; Start 06/12/16 at 11:00; Stop 06/12/16 at 11:01; Status DC Morphine Sulfate 4 mg PRN Q2HR PRN IV PAIN Last administered on 06/12/16 20:33 ; Start 06/12/16 at 11:30; Stop 06/13/16 at 11:29; Status DC Ondansetron HCl (Zofran) 4 mg PRN Q6HRS PRN IV NAUSEA/VOMITING; Start 06/12/16 at 11:30; Stop 06/12/16 at 17:35; Status DC Acetaminophen (Tylenol) 325 mg PRN Q6HRS PRN PO MILD PAIN / TEMP; Start at 12:30; Stop 06/12/16 at 17:35; Status DC Acetaminophen/ Hydrocodone Bitart (Lortab 5/325) 1 tab PRN Q6HRS PRN PO MODERATE TO SEVERE PAIN; Start 06/12/16 at 12:30; Stop 06/12/16 at 17:35; Status DC Hydralazine HCl (Apresoline) 10 mg PRN Q4HRS PRN IVP ELEVATED BP, SEE COMMENTS ; Start 06/12/16 at 12:30; Stop 06/12/16 at 17:35; Status DC Ondansetron HCl (Zofran) 4 mg PRN Q8HRS PRN IV NAUSEA/VOMITING; Start 06/12/16 at 12:30; Stop 06/12/16 at 17:35; Status DC Albuterol Sulfate 2.5 mg 2.5 mg PRN Q4HRS PRN NEB SHORTNESS OF BREATH; Start at 12:30; Stop 06/12/16 at 17:35; Status DC Sodium Chloride (Iv Sodium Chloride 0.9% 1000ml Bag) 1,000 ml @ 75 mls/hr 1X ONCE IV Last administered on 06/12/16 15:30; Start 06/12/16 at 12:30; Stop 01/19 at 01:49; Status DC Darbepoetin Richard (Aranesp) 60 mcg WEEKLYHS SQ Last administered on 06/12/16 20 :28; Start 06/12/16 at 21:00 Acetaminophen (Tylenol) 325 mg PRN Q6HRS PRN PO MILD PAIN / TEMP; Start at 17:30; Stop 06/12/16 at 17:34; Status DC Acetaminophen/ Hydrocodone Bitart (Lortab 5/325) 1 tab PRN Q6HRS PRN PO MODERATE TO SEVERE PAIN Last administered on 06/17/16 08:32; Start 06/12/16 at 17:30 Hydralazine HCl (Apresoline) 10 mg PRN Q4HRS PRN IVP ELEVATED BP, SEE COMMENTS Last administered on 06/13/16 17:13; Start 06/12/16 at 17:30 Ondansetron HCl (Zofran) 4 mg PRN Q8HRS PRN IV NAUSEA/VOMITING; Start 06/12/16 at 17:30; Stop 06/16/16 at 16:43; Status DC Albuterol Sulfate (Ventolin Neb Soln) 2.5 mg PRN Q4HRS PRN NEB SHORTNESS OF BREATH; Start 06/12/16 at 17:30; Stop 06/15/16 at 08:18; Status DC Acetaminophen (Tylenol) 325 mg PRN Q6HRS PRN PO MILD PAIN / TEMP Last administered on 06/14/16 21:44; Start 06/12/16 at 17:45; Stop 06/15/16 at 08:18 ; Status DC Ondansetron HCl (Zofran) 4 mg PRN Q6HRS PRN IV NAUSEA/VOMITING; Start 06/13/16 at 06:45; Stop 06/14/16 at 06:44; Status DC Fentanyl Citrate (Fentanyl 2ml Vial) 25 mcg PRN Q5MIN PRN IV MILD PAIN; Start 06/13/16 at 06:45; Stop 06/14/16 at 06:44; Status DC Fentanyl Citrate (Fentanyl 2ml Vial) 50 mcg PRN Q5MIN PRN IV MODERATE PAIN; Start 06/13/16 at 06:45; Stop 06/14/16 at 06:44; Status DC Morphine Sulfate 1 mg 1 mg PRN Q10MIN PRN IV SEVERE PAIN; Start 06/13/16 at 06: 45; Stop 06/14/16 at 06:44; Status DC Lactated Ringer's (Iv Lactated Ringers) 1,000 ml @ 0 mls/hr Q0M IV ; Start 01/19 at 06:45; Stop 06/13/16 at 15:00; Status Cancel Lidocaine HCl 2 ml PRN 1X PRN ID PRIOR TO IV START; Start 06/13/16 at 06:45; Stop 06/14/16 at 06:44; Status DC Hydromorphone HCl (Dilaudid) 0.5 mg PRN Q10MIN PRN IV SEV PAIN, Second choice; Start 06/13/16 at 06:45; Stop 06/14/16 at 06:44; Status DC Prochlorperazine Edisylate 5 mg 5 mg PACU PRN PRN IV NAUSEA, MRX1; Start at 06:45; Stop 06/14/16 at 06:44; Status DC Sodium Chloride (Iv Sodium Chloride 0.9% 1000ml Bag) 1,000 ml @ 30 mls/hr Q24H IV ; Start 06/13/16 at 07:30; Stop 06/14/16 at 16:54; Status DC Iohexol 50 ml 50 ml STK-MED ONCE .ROUTE Last administered on 06/13/16t 14:23; Start 06/13/16 at 10:10; Stop 06/13/16 at 10:11; Status DC Levofloxacin/ Dextrose (LEVAQUIN 500mg PREMIX) 100 ml @ As Directed STK-MED ONCE IV ; Start 06/13/16 at 10:21; Stop 06/13/16 at 10:22; Status DC Dexamethasone Sodium Phosphate (Decadron) 20 mg STK-MED ONCE .ROUTE ; Start 01/19 at 11:07; Stop 06/13/16 at 11:08; Status DC Ondansetron HCl 4 mg 4 mg STK-MED ONCE .ROUTE ; Start 06/13/16 at 11:07; Stop at 11:08; Status DC Propofol (Diprivan) 20 ml @ As Directed STK-MED ONCE IV ; Start 06/13/16 at 11: 07; Stop 06/13/16 at 11:08; Status DC Lidocaine HCl (Xylocaine-Mpf 1% Vial) 5 ml STK-MED ONCE .ROUTE ; Start 06/13/16 at 11:07; Stop 06/13/16 at 11:08; Status DC Fentanyl Citrate (Fentanyl 2ml Vial) 100 mcg STK-MED ONCE .ROUTE ; Start at 11:07; Stop 06/13/16 at 11:08; Status DC Succinylcholine Chloride (Anectine) 200 mg STK-MED ONCE .ROUTE ; Start 06/13/16 at 11:07; Stop 06/13/16 at 11:08; Status DC Rocuronium [place] (Zemuron) 50 mg STK-MED ONCE .ROUTE ; Start 06/13/16 at 11:09 ; Stop 06/13/16 at 11:10; Status DC Darbepoetin Richard (Aranesp) 60 mcg WEEKLYHS SQ ; Start 06/13/16 at 21:00; Status Cancel Ephedrine Sulfate 50 mg STK-MED ONCE IV ; Start 06/13/16 at 11:43; Stop at 11:44; Status DC Glycopyrrolate (Robinul) 1 mg STK-MED ONCE .ROUTE ; Start 06/13/16 at 12:05; Stop 06/13/16 at 12:06; Status DC Neostigmine Methylsulfate 5 mg 5 mg STK-MED ONCE .ROUTE ; Start 06/13/16 at 12: 05; Stop 06/13/16 at 12:06; Status DC Levofloxacin/ Dextrose (LEVAQUIN 500mg PREMIX) 100 ml @ 100 mls/hr 1X PREOP IV ; Start 06/13/16 at 12:30; Stop 06/14/16 at 18:00; Status DC Desflurane (Suprane) 60 ml STK-MED ONCE IH ; Start 06/13/16 at 12:34; Stop 06/13 at 12:35; Status DC Fentanyl Citrate (Fentanyl 2ml Vial) 100 mcg STK-MED ONCE .ROUTE ; Start at 12:41; Stop 06/13/16 at 12:42; Status DC Lidocaine/ Epinephrine (Xylocaine 2%-Epi 1:100,000) 20 ml STK-MED ONCE .ROUTE ; Start 06/13/16 at 12:59; Stop 06/13/16 at 13:00; Status DC Heparin Sodium (Porcine) 91989 unit 10,000 unit STK-MED ONCE .ROUTE ; Start 01/19 at 12:59; Stop 06/13/16 at 13:00; Status DC Heparin Sodium/ Sodium Chloride 500 ml @ As Directed STK-MED ONCE .ROUTE ; Start 06/13/16 at 12:59; Stop 06/13/16 at 13:00; Status DC Midazolam HCl (Versed) 5 mg STK-MED ONCE .ROUTE ; Start 06/13/16 at 13:46; Stop 06/13/16 at 13:47; Status DC Fentanyl Citrate 250 mcg 250 mcg STK-MED ONCE .ROUTE ; Start 06/13/16 at 13:46; Stop 06/13/16 at 13:47; Status DC Cefazolin Sodium (Ancef 1gm Ivpb For Omni) 50 ml @ As Directed STK-MED ONCE IV ; Start 06/13/16 at 13:46; Stop 06/13/16 at 13:47; Status DC Heparin Sodium/ Sodium Chloride 1,000 unit 1X ONCE IART Last administered on 14:12; Start 06/13/16 at 14:00; Stop 06/13/16 at 14:04; Status DC Lidocaine/Sodium Bicarbonate (Buffered Lidocaine 1%) 20 ml 1X ONCE IJ ; Start 06/13/16 at 14:00; Stop 06/13/16 at 14:04; Status DC Midazolam HCl (Versed) 2.5 mg 1X ONCE IV Last administered on 06/13/16 14:12 ; Start 06/13/16 at 14:00; Stop 06/13/16 at 14:04; Status DC Fentanyl Citrate (Fentanyl 5ml Vial) 125 mcg 1X ONCE IV Last administered on 14:11; Start 06/13/16 at 14:00; Stop 06/13/16 at 14:04; Status DC Heparin Sodium (Porcine) (Heparin Sodium) 4,000 unit 1X ONCE IV Last administered on 06/13/16 14:14; Start 06/13/16 at 14:00; Stop 06/13/16 at 14:04 ; Status DC Lidocaine/ Epinephrine 20 ml 20 ml 1X ONCE IJ Last administered on 06/13/16 14:12; Start 06/13/16 at 14:00; Stop 06/13/16 at 14:04; Status DC Cefazolin Sodium (Ancef 1gm Ivpb For Omni) 50 ml @ 100 mls/hr 1X ONCE IV Last administered on 06/13/16 13:52; Start 06/13/16 at 14:30; Stop 06/13/16 at 14:59; Status DC Vitamin B Complex/ Vitamin C (Vikki-Toño) 1 tab DAILY PO Last administered on 08:30; Start 06/14/16 at 09:00 Levothyroxine Sodium (Synthroid) 150 mcg DAILYAC PO Last administered on 08:30; Start 06/14/16 at 07:30 Non-Formulary Medication 1 each DAILY PO ; Start 06/14/16 at 09:00; Stop at 09:00; Status DC Glyburide (Diabeta) 2.5 mg DAILYWBKFT PO Last administered on 06/15/16 12:21; Start 06/14/16 at 08:00; Stop 06/16/16 at 11:28; Status DC Metoprolol Tartrate (Lopressor) 100 mg BID PO Last administered on 06/17/16 09 :31; Start 06/13/16 at 22:00 Potassium Chloride (Klor-Con) 10 meq DAILYWBKFT PO Last administered on 08:30; Start 06/14/16 at 08:00 Acetaminophen (Tylenol) 325 mg PRN Q6HRS PRN PO MILD PAIN / TEMP Last administered on 06/16/16 06:39; Start 06/13/16 at 21:00 Hydralazine HCl (Apresoline) 10 mg PRN Q4HRS PRN IVP ELEVATED BP, SEE COMMENTS ; Start 06/13/16 at 21:00; Status Cancel Ondansetron HCl (Zofran) 4 mg PRN Q8HRS PRN IV NAUSEA/VOMITING; Start 06/13/16 at 21:00 Albuterol Sulfate (Ventolin Neb Soln) 2.5 mg PRN Q4HRS PRN NEB SHORTNESS OF BREATH; Start 06/13/16 at 21:00 Amlodipine Besylate (Norvasc) 10 mg DAILY PO Last administered on 06/17/16 08: 31; Start 06/14/16 at 09:00 Losartan Potassium (Cozaar) 100 mg DAILY PO Last administered on 06/17/16 09: 32; Start 06/14/16 at 09:00 Levofloxacin/ Dextrose 500 mg 500 mg STK-MED ONCE IV ; Start 06/13/16 at 10:30; Stop 06/14/16 at 08:22; Status DC Sodium Chloride (Iv Sodium Chloride 0.9% 1000ml Bag) 1,000 ml @ 1,000 mls/hr Q1H PRN IV hypotension; Start 06/14/16 at 08:54; Stop 06/14/16 at 14:53; Status DC Sodium Chloride (Normal Saline Flush) 10 ml 1X PRN PRN IV AP catheter pack; Start 06/14/16 at 09:00; Stop 06/15/16 at 08:59; Status DC Sodium Chloride 10 ml 10 ml 1X PRN PRN IV [employer]PER[employer] catheter pack; Start 06/14/16 at 09:00; Stop 06/15/16 at 08:59; Status DC Sodium Chloride (Iv Sodium Chloride 0.9% 1000ml Bag) 1,000 ml @ 400 mls/hr Q2H30M PRN IV PATENCY; Start 06/14/16 at 08:54; Stop 06/14/16 at 20:53; Status DC Info (PHARMACY MONITORING -- do not chart) 1 each PRN DAILY PRN MC SEE COMMENTS ; Start 06/14/16 at 09:00; Status Cancel Sevelamer Carbonate 800 mg 800 mg TIDWMEALS PO Last administered on 06/17/16 11:34; Start 06/14/16 at 12:00 Sodium Chloride 1,000 ml @ 1,000 mls/hr Q1H PRN IV hypotension; Start 06/15/16 at 08:03; Stop 06/15/16 at 14:02; Status DC Albumin Human (Albuminar) 200 ml @ 200 mls/hr 1X PRN PRN IV Hypotension; Start 06/15/16 at 08:15; Stop 06/15/16 at 14:14; Status DC Acetaminophen (Tylenol) 500 mg 1X PRN PRN PO MILD PAIN / TEMP; Start 06/15/16 at 08:15; Stop 06/16/16 at 08:14; Status DC Diphenhydramine HCl (Benadryl) 25 mg 1X PRN PRN IV ITCHING; Start 06/15/16 at 08:15; Stop 06/16/16 at 08:14; Status DC Diphenhydramine HCl (Benadryl) 25 mg 1X PRN PRN IV ITCHING; Start 06/15/16 at 08:15; Stop 06/16/16 at 08:14; Status DC Labetalol HCl (Normodyne) 10 mg PRN Q1HR PRN IVP SBP > 180; Start 06/15/16 at 08:15; Stop 06/16/16 at 08:14; Status DC Clonidine HCl (Catapres) 0.1 mg 1X PRN PRN PO SBP > 180; Start 06/15/16 at 08: 15; Stop 06/16/16 at 08:14; Status DC Info (PHARMACY MONITORING -- do not chart) 1 each PRN DAILY PRN MC SEE COMMENTS ; Start 06/15/16 at 08:15; Status Cancel Dextrose (Dextrose 50%-Water Syringe) 25 gm STK-MED ONCE IV ; Start 06/16/16 at 07:28; Stop 06/16/16 at 07:29; Status DC Dextrose (Dextrose 50%-Water Syringe) 12.5 gm PRN Q15MIN PRN IV SEE COMMENTS; Start 06/16/16 at 07:30 Lidocaine (Lidoderm) 1 patch DAILY TD Last administered on 06/17/16 08:32; Start 06/16/16 at 11:30 Piperacillin Sod/ Tazobactam Sod 1 each 1 each PRN DAILY PRN MC SEE COMMENTS; Start 06/16/16 at 12:30 Piperacillin Sod/ Tazobactam Sod 2.25 gm/Sodium Chloride 50 ml @ 100 mls/hr Q8HRS IV Last administered on 06/17/16 06:23; Start 06/16/16 at 14:00 Sodium Chloride (Iv Sodium Chloride 0.9% 1000ml Bag) 1,000 ml @ 1,000 mls/hr Q1H PRN IV hypotension; Start 06/16/16 at 14:08; Stop 06/16/16 at 20:07; Status DC Info (PHARMACY MONITORING -- do not chart) 1 each PRN DAILY PRN MC SEE COMMENTS ; Start 06/16/16 at 14:15 Active Scripts Active Potassium Chloride 10 Meq Tablet.er 10 Meq PO DAILY Metoprolol Tartrate 100 Mg Tablet 1 Tab PO BID Prednisone 20 Mg Tablet 40 Mg PO DAILY Glyburide 2.5 Mg Tablet 1 Tab PO DAILY Vikki-Toño Tablet (Folic Acid/Vitamin B Comp W-C) 0.8 Mg Tablet 1 Tab PO DAILY Reported Levothyroxine Sodium 150 Mcg Tablet 150 Mcg PO DAILYAC Gaby 10-40 Mg Tablet (Amlodipine Bes/Olmesartan Med) 1 Each Tablet 1 Each PO DAILY Allopurinol 100 Mg Tablet 100 Mg PO Aspir 81 (Aspirin) 81 Mg Tablet. 1 Tab PO DAILY Vitals/I & O Vital Sign - Last 24 Hours 06/16/16 06/16/16 06/16/16 06/16/16 17:38 17:39 19:00 21:23 Temp 98.3 98.3 Pulse 113 113 107 107 Resp 20 B/P 134/95 134/95 136/94 136/94 Pulse Ox 96 O2 Delivery Room Air 06/16/16 06/16/16 06/17/16 06/17/16 23:00 23:51 03:00 07:00 Temp 97.9 98.8 102.0 97.9 98.8 102.0 Pulse 100 88 98 Resp 20 16 20 18 B/P 139/92 110/77 124/84 Pulse Ox 96 96 94 94 O2 Delivery Room Air Room Air Room Air Room Air 06/17/16 06/17/16 06/17/16 06/17/16 08:05 08:31 08:32 09:31 Pulse 98 98 Resp 18 B/P 124/84 124/84 Pulse Ox 94 O2 Delivery Room Air Room Air 06/17/16 06/17/16 06/17/16 09:32 09:32 11:00 Temp 99.1 99.1 Pulse 98 93 Resp 18 18 B/P 124/84 123/70 Pulse Ox 97 97 O2 Delivery Room Air Room Air Intake and Output 06/16/16 06/16/16 06/17/16 15:00 23:00 07:00 Intake Total 300 ml 240 ml 300 ml Output Total 7600 ml 2175 ml 1450 ml Balance -7300 ml -1935 ml -1150 ml DAIJA GOLDSMITH MD Jun 17, 2016 13:30
[2016-06-17] MEDS ORDERED: BISACODYL 10 MG SUPP.RECT. PR PRN (13:45)
[2016-06-17] MEDS: SENNOSIDES/DOCUSATE 8.6/50MG TABLET. PO SCH ×2 (13:59→21:01)
[2016-06-17] MEDS: DOCUSATE SODIUM 100 MG CAPSULE. PO SCH ×2 (13:59→21:01)
--- NOTE | 2016-06-17 14:03 | PDOC ---
Infectious Disease Note Vital Sign Vital Signs Vital Signs Date Time Temp Pulse Resp B/P Pulse Ox O2 Delivery O2 Flow Rate FiO2 06/17/16 11:00 99.1 93 18 123/70 97 Room Air 99.1 Labs Lab Laboratory Tests Test 06/16/16 16:47 06/16/16 21:36 06/17/16 07:38 06/17/16 11:43 Glucose (Fingerstick) 96mg/dL (70-99) 140mg/dL (70-99) 146mg/dL (70-99) 129mg/dL (70-99) Objective Assessment Fever. Leukocytosis. Constipation s/p cysto and right ureteral stent placement, 06/13 Hematoma right kidney post biopsy on 05/31 Plan Plan of Care Zosyn Bowel regime Monitor WBC count, temp f/u BC Supportive care D/w dr. Meraz Thank you [id number] SADAF ANDERS APRN Jun 17, 2016 14:03 SVEN CORTEZ MD Jun 18, 2016 11:35
[2016-06-17 15:04] VITALS: BP 114/79
[2016-06-17 19:59] VITALS: BP 132/92
[2016-06-17 22:56] VITALS: BP 124/87
[2016-06-18 03:59] VITALS: BP 129/86
[2016-06-18] MEDS: HYDROCODONE/APAP 5/325MG TABLET. PO PRN ×2 (06:15→22:19)
[2016-06-18] MEDS: PIPERACILLIN/TAZOBACTAM 2.25 GM in IV NORMAL SALINE 50ML 50 ML IV SCH ×3 (06:15→22:16)
[2016-06-18 07:00] VITALS: BP 177/54
[2016-06-18] MEDS: LEVOTHYROXINE 150 MCG TABLET PO SCH (07:35)
[2016-06-18] MEDS: DOCUSATE SODIUM 100 MG CAPSULE. PO SCH ×2 (07:36→22:17)
[2016-06-18] MEDS: FOLIC/VIT B COMP W-C (RENAL) TABLET. PO SCH (07:36)
[2016-06-18] MEDS: SENNOSIDES/DOCUSATE 8.6/50MG TABLET. PO SCH ×2 (07:36→22:17)
[2016-06-18] MEDS: POTASSIUM CHLORIDE 10 MEQ TABLET.ER. PO SCH (07:36)
[2016-06-18] MEDS: SEVELAMER CARBONATE 800 MG TABLET. PO SCH ×3 (07:36→17:02)
[2016-06-18] MEDS: LIDOCAINE (700MG/PATCH) PATCH. TD SCH (07:37)
--- NOTE | 2016-06-18 09:00 | CONS ---
DATE OF CONSULTATION: 06/17/2016 REQUESTING PHYSICIAN: Dr. Meraz. REASON FOR CONSULTATION: Fever and leukocytosis. HISTORY OF PRESENT ILLNESS: This patient is a 60-year-old male with a history of hypertension and renal disease, who presented with right flank pain and hematuria after a renal biopsy on 05/31/2016. An abdominal/pelvis CT revealed a right ____intraparenchymal hematoma and blood clots within the urinary bladder. He was seen by Dr. Burciaga, Urology. He underwent a cystoscopy with evacuation of blood clots and a right ureteral stent placement on 06/13/2016. Pre-procedure, he was given a dose of cefazolin and dexamethasone. In addition, he had a temporary hemodialysis catheter placement. He has developed a fever of 102 and an increase in WBC count. Hence, ID consult. PAST MEDICAL HISTORY: Hypertension, hyperlipidemia, hypothyroidism, and renal disease. PAST SURGICAL HISTORY: Cholecystectomy, tonsillectomy. FAMILY HISTORY: Unknown. SOCIAL HISTORY: Nonsmoker. ALLERGIES: No known drug allergies. CURRENT MEDICATIONS: Piperacillin/tazobactam. Other medications are available and have been reviewed on the MAR. The patient is feeling better. He says that he does not feel sick. He has a mild headache, though not too bad. Denies sinus congestion or sore throat. Denies any tooth pain. Denies cough, shortness of air, or wheezing. Denies chest pain, palpitations, or swelling. Some nausea, but no vomiting or diarrhea. He has not had a bowel movement for nearly a week and feels somewhat bloated. He is undergoing a continuous bladder irrigation. Denies muscle aches, joint pains, chills, or sweats. PHYSICAL EXAMINATION: GENERAL: A male lying in bed, in no apparent distress. VITAL SIGNS: Temperature is 99.1, T-max 102.0, blood pressure 123/70, heart rate 93, respiratory rate 18, and pulse oximetry is 97% on room air. Weight is 217 pounds. HEENT: Normal conjunctivae. Oral mucosa is pink and moist. NECK: Supple, no adenopathy present. LUNGS: Clear to auscultation. HEART: Normal S1 and S2. ABDOMEN: Obese. Bowel sounds are present, soft, and nontender to light palpation. GENITOURINARY: Continuous bladder irrigation with gross hematuria noted. EXTREMITIES: No gross edema or cyanosis. SKIN: Without rash. Warm to touch. NEUROLOGIC: Alert and oriented x 3. Moves all extremities. LINES: Right IJ tunneled hemodialysis catheter. LABORATORY DATA: Today's WBC is 19.0, hemoglobin 9.0, and hematocrit 27.9, and platelet count 99,000. Recent creatinine 3.6, BUN 32. Electrolytes unremarkable. Glucose 129, total bilirubin 0.3, AST 17, ALT 45, albumin 2.0, and lipase 634 on admission. Urinalysis unremarkable for infection. Urine culture - no growth. Blood cultures are negative so far. Hepatitis antibody nonreactive. Abdominal/pelvis CT per HPI. IMPRESSION: 1. Fever. 2. Leukocytosis. 3. Constipation. 4. Status post cystoscopy, evacuation of bladder clots, and right ureteral stent placement on 06/13/2016. 5. Hematoma - right kidney, post-biopsy on 05/31/2016. PLAN: Continue the Piperacillin/tazobactam for now. Bowel regimen. Monitor WBC count and temperature. We will follow up on blood cultures. Supportive care. Thank you Dr. Meraz for asking me to participate in this patient's care. Should you have further questions or concerns, please call. The patient was seen and examined, and plan of care implemented by Dr. Edvin Edward. EDVIN EDWARD MD DR: SHOSHANA/david JOB#: [id number] / [id number]
[2016-06-18] MEDS: AMLODIPINE BESYLATE 10 MG TABLET. PO SCH (09:24)
[2016-06-18] MEDS: LOSARTAN POTASSIUM 50 MG TABLET. PO SCH (09:24)
[2016-06-18] MEDS: METOPROLOL TART IMMED RELEASE 50 MG TABLET. PO SCH ×2 (09:25→22:18)
[2016-06-18 11:00] VITALS: BP 130/88
--- NOTE | 2016-06-18 11:34 | PDOC ---
PROGRESS NOTES Chief Complaint Chief Complaint cc: hematuria A/P Acute renal failure, FSGS, CKD IV, : s/p HDC catheter placement, HD per nephrology. need out pt HD, set up by SW. Fever, wbc, unclear source. : clinically looks good, vitals stable, on IV Zosyn , ID following, bcx pending, Hematuria, better, : CBI, S/P cystoscopy. Right flank pain better , recent biopsy prior admission. HTN stable. Hypoglycemia resolved. : DC medications at DC, Not diabetic, HBA1C 6.1 Leucocytosis at POA, due to steroids, Constipation: on protocol Disposition : based on ID and nephrology, need out pt HD History of Present Illness History of Present Illness PAIN 06/12, Vitals Vitals Vital Signs Date Time Temp Pulse Resp B/P Pulse Ox O2 Delivery O2 Flow Rate FiO2 06/18/16 09:25 83 129/86 06/18/16 08:05 Room Air 06/18/16 07:00 99.4 20 97 99.4 Physical Exam General: Alert, Oriented X3, Cooperative, No acute distress Heart: Regular rate, Normal S1, Normal S2 Lungs: Clear Abdomen: Normal bowel sounds, Soft, No tenderness, Other Skin: No rashes Labs LABS Laboratory Tests Test 06/17/16 11:43 06/17/16 17:00 06/17/16 21:08 06/18/16 07:26 Glucose (Fingerstick) 129mg/dL (70-99) 142mg/dL (70-99) 126mg/dL (70-99) 126mg/dL (70-99) Assessment and Plan Assessmemt and Plan Problems Medical Problems: (1) Acute renal failure Status: Acute Problems: Comment Review of Relevant I have reviewed the following items jose (where applicable) has been applied. Labs Laboratory Tests Test 06/16/16 11:37 06/16/16 16:47 06/16/16 21:36 06/17/16 07:38 Glucose (Fingerstick) 68mg/dL (70-99) 96mg/dL (70-99) 140mg/dL (70-99) 146mg/dL (70-99) Test 06/17/16 11:43 06/17/16 17:00 06/17/16 21:08 06/18/16 07:26 Glucose (Fingerstick) 129mg/dL (70-99) 142mg/dL (70-99) 126mg/dL (70-99) 126mg/dL (70-99) Laboratory Tests Test 06/17/16 11:43 06/17/16 17:00 06/17/16 21:08 06/18/16 07:26 Glucose (Fingerstick) 129mg/dL (70-99) 142mg/dL (70-99) 126mg/dL (70-99) 126mg/dL (70-99) Microbiology 06/16/16 Blood Culture - Preliminary, Resulted NO GROWTH AFTER 1 DAY 06/12/16 Urine Culture - Final, Complete 06/12/16 Urine Culture Result 1 (QUENTIN) - Final, Complete Medications Current Medications Ondansetron HCl (Zofran) 4 mg 1X ONCE IV Last administered on 06/12/16 08:30 ; Start 06/12/16 at 08:45; Stop 06/12/16 at 08:46; Status DC Morphine Sulfate 5 mg 1X ONCE IV Last administered on 06/12/16 08:30; Start 06/12/16 at 08:45; Stop 06/12/16 at 08:46; Status DC Morphine Sulfate 5 mg 1X ONCE IV Last administered on 06/12/16 10:20; Start 06/12/16 at 11:00; Stop 06/12/16 at 11:01; Status DC Morphine Sulfate 4 mg PRN Q2HR PRN IV PAIN Last administered on 06/12/16 20:33 ; Start 06/12/16 at 11:30; Stop 06/13/16 at 11:29; Status DC Ondansetron HCl (Zofran) 4 mg PRN Q6HRS PRN IV NAUSEA/VOMITING; Start 06/12/16 at 11:30; Stop 06/12/16 at 17:35; Status DC Acetaminophen (Tylenol) 325 mg PRN Q6HRS PRN PO MILD PAIN / TEMP; Start at 12:30; Stop 06/12/16 at 17:35; Status DC Acetaminophen/ Hydrocodone Bitart (Lortab 5/325) 1 tab PRN Q6HRS PRN PO MODERATE TO SEVERE PAIN; Start 06/12/16 at 12:30; Stop 06/12/16 at 17:35; Status DC Hydralazine HCl (Apresoline) 10 mg PRN Q4HRS PRN IVP ELEVATED BP, SEE COMMENTS ; Start 06/12/16 at 12:30; Stop 06/12/16 at 17:35; Status DC Ondansetron HCl (Zofran) 4 mg PRN Q8HRS PRN IV NAUSEA/VOMITING; Start 06/12/16 at 12:30; Stop 06/12/16 at 17:35; Status DC Albuterol Sulfate 2.5 mg 2.5 mg PRN Q4HRS PRN NEB SHORTNESS OF BREATH; Start at 12:30; Stop 06/12/16 at 17:35; Status DC Sodium Chloride (Iv Sodium Chloride 0.9% 1000ml Bag) 1,000 ml @ 75 mls/hr 1X ONCE IV Last administered on 06/12/16 15:30; Start 06/12/16 at 12:30; Stop 01/19 at 01:49; Status DC Darbepoetin Richard (Aranesp) 60 mcg WEEKLYHS SQ Last administered on 06/12/16 20 :28; Start 06/12/16 at 21:00 Acetaminophen (Tylenol) 325 mg PRN Q6HRS PRN PO MILD PAIN / TEMP; Start at 17:30; Stop 06/12/16 at 17:34; Status DC Acetaminophen/ Hydrocodone Bitart (Lortab 5/325) 1 tab PRN Q6HRS PRN PO MODERATE TO SEVERE PAIN Last administered on 06/18/16 06:15; Start 06/12/16 at 17:30 Hydralazine HCl (Apresoline) 10 mg PRN Q4HRS PRN IVP ELEVATED BP, SEE COMMENTS Last administered on 06/13/16 17:13; Start 06/12/16 at 17:30 Ondansetron HCl (Zofran) 4 mg PRN Q8HRS PRN IV NAUSEA/VOMITING; Start 06/12/16 at 17:30; Stop 06/16/16 at 16:43; Status DC Albuterol Sulfate (Ventolin Neb Soln) 2.5 mg PRN Q4HRS PRN NEB SHORTNESS OF BREATH; Start 06/12/16 at 17:30; Stop 06/15/16 at 08:18; Status DC Acetaminophen (Tylenol) 325 mg PRN Q6HRS PRN PO MILD PAIN / TEMP Last administered on 06/14/16t 21:44; Start 06/12/16 at 17:45; Stop 06/15/16 at 08:18 ; Status DC Ondansetron HCl (Zofran) 4 mg PRN Q6HRS PRN IV NAUSEA/VOMITING; Start 06/13/16 at 06:45; Stop 06/14/16 at 06:44; Status DC Fentanyl Citrate (Fentanyl 2ml Vial) 25 mcg PRN Q5MIN PRN IV MILD PAIN; Start 06/13/16 at 06:45; Stop 06/14/16 at 06:44; Status DC Fentanyl Citrate (Fentanyl 2ml Vial) 50 mcg PRN Q5MIN PRN IV MODERATE PAIN; Start 06/13/16 at 06:45; Stop 06/14/16 at 06:44; Status DC Morphine Sulfate 1 mg 1 mg PRN Q10MIN PRN IV SEVERE PAIN; Start 06/13/16 at 06: 45; Stop 06/14/16 at 06:44; Status DC Lactated Ringer's (Iv Lactated Ringers) 1,000 ml @ 0 mls/hr Q0M IV ; Start 01/19 at 06:45; Stop 06/13/16 at 15:00; Status Cancel Lidocaine HCl 2 ml PRN 1X PRN ID PRIOR TO IV START; Start 06/13/16 at 06:45; Stop 06/14/16 at 06:44; Status DC Hydromorphone HCl (Dilaudid) 0.5 mg PRN Q10MIN PRN IV SEV PAIN, Second choice; Start 06/13/16 at 06:45; Stop 06/14/16 at 06:44; Status DC Prochlorperazine Edisylate 5 mg 5 mg PACU PRN PRN IV NAUSEA, MRX1; Start at 06:45; Stop 06/14/16 at 06:44; Status DC Sodium Chloride (Iv Sodium Chloride 0.9% 1000ml Bag) 1,000 ml @ 30 mls/hr Q24H IV ; Start 06/13/16 at 07:30; Stop 06/14/16 at 16:54; Status DC Iohexol 50 ml 50 ml [place]-MED ONCE .ROUTE Last administered on 06/13/16t 14:23; Start 06/13/16 at 10:10; Stop 06/13/16 at 10:11; Status DC Levofloxacin/ Dextrose (LEVAQUIN 500mg PREMIX) 100 ml @ As Directed STK-MED ONCE IV ; Start 06/13/16 at 10:21; Stop 06/13/16 at 10:22; Status DC Dexamethasone Sodium Phosphate (Decadron) 20 mg STK-MED ONCE .ROUTE ; Start 01/19 at 11:07; Stop 06/13/16 at 11:08; Status DC Ondansetron HCl 4 mg 4 mg STK-MED ONCE .ROUTE ; Start 06/13/16 at 11:07; Stop at 11:08; Status DC Propofol (Diprivan) 20 ml @ As Directed STK-MED ONCE IV ; Start 06/13/16 at 11: 07; Stop 06/13/16 at 11:08; Status DC Lidocaine HCl (Xylocaine-Mpf 1% Vial) 5 ml STK-MED ONCE .ROUTE ; Start 06/13/16 at 11:07; Stop 06/13/16 at 11:08; Status DC Fentanyl Citrate (Fentanyl 2ml Vial) 100 mcg STK-MED ONCE .ROUTE ; Start at 11:07; Stop 06/13/16 at 11:08; Status DC Succinylcholine Chloride (Anectine) 200 mg STK-MED ONCE .ROUTE ; Start 06/13/16 at 11:07; Stop 06/13/16 at 11:08; Status DC Rocuronium [place] (Zemuron) 50 mg STK-MED ONCE .ROUTE ; Start 06/13/16 at 11:09 ; Stop 06/13/16 at 11:10; Status DC Darbepoetin Richard (Aranesp) 60 mcg WEEKLYHS SQ ; Start 06/13/16 at 21:00; Status Cancel Ephedrine Sulfate 50 mg STK-MED ONCE IV ; Start 06/13/16 at 11:43; Stop at 11:44; Status DC Glycopyrrolate (Robinul) 1 mg STK-MED ONCE .ROUTE ; Start 06/13/16 at 12:05; Stop 06/13/16 at 12:06; Status DC Neostigmine Methylsulfate 5 mg 5 mg STK-MED ONCE .ROUTE ; Start 06/13/16 at 12: 05; Stop 06/13/16 at 12:06; Status DC Levofloxacin/ Dextrose (LEVAQUIN 500mg PREMIX) 100 ml @ 100 mls/hr 1X PREOP IV ; Start 06/13/16 at 12:30; Stop 06/14/16 at 18:00; Status DC Desflurane (Suprane) 60 ml STK-MED ONCE IH ; Start 06/13/16 at 12:34; Stop 06/13 at 12:35; Status DC Fentanyl Citrate (Fentanyl 2ml Vial) 100 mcg STK-MED ONCE .ROUTE ; Start at 12:41; Stop 06/13/16 at 12:42; Status DC Lidocaine/ Epinephrine (Xylocaine 2%-Epi 1:100,000) 20 ml STK-MED ONCE .ROUTE ; Start 06/13/16 at 12:59; Stop 06/13/16 at 13:00; Status DC Heparin Sodium (Porcine) 25291 unit 10,000 unit STK-MED ONCE .ROUTE ; Start 01/19 at 12:59; Stop 06/13/16 at 13:00; Status DC Heparin Sodium/ Sodium Chloride 500 ml @ As Directed STK-MED ONCE .ROUTE ; Start 06/13/16 at 12:59; Stop 06/13/16 at 13:00; Status DC Midazolam HCl (Versed) 5 mg STK-MED ONCE .ROUTE ; Start 06/13/16 at 13:46; Stop 06/13/16 at 13:47; Status DC Fentanyl Citrate 250 mcg 250 mcg STK-MED ONCE .ROUTE ; Start 06/13/16 at 13:46; Stop 06/13/16 at 13:47; Status DC Cefazolin Sodium (Ancef 1gm Ivpb For Omni) 50 ml @ As Directed STK-MED ONCE IV ; Start 06/13/16 at 13:46; Stop 06/13/16 at 13:47; Status DC Heparin Sodium/ Sodium Chloride 1,000 unit 1X ONCE IART Last administered on t 14:12; Start 06/13/16 at 14:00; Stop 06/13/16 at 14:04; Status DC Lidocaine/Sodium Bicarbonate (Buffered Lidocaine 1%) 20 ml 1X ONCE IJ ; Start 06/13/16 at 14:00; Stop 06/13/16 at 14:04; Status DC Midazolam HCl (Versed) 2.5 mg 1X ONCE IV Last administered on 06/13/16 14:12 ; Start 06/13/16 at 14:00; Stop 06/13/16 at 14:04; Status DC Fentanyl Citrate (Fentanyl 5ml Vial) 125 mcg 1X ONCE IV Last administered on 14:11; Start 06/13/16 at 14:00; Stop 06/13/16 at 14:04; Status DC Heparin Sodium (Porcine) (Heparin Sodium) 4,000 unit 1X ONCE IV Last administered on 06/13/16 14:14; Start 06/13/16 at 14:00; Stop 06/13/16 at 14:04 ; Status DC Lidocaine/ Epinephrine 20 ml 20 ml 1X ONCE IJ Last administered on 06/13/16 14:12; Start 06/13/16 at 14:00; Stop 06/13/16 at 14:04; Status DC Cefazolin Sodium (Ancef 1gm Ivpb For Omni) 50 ml @ 100 mls/hr 1X ONCE IV Last administered on 06/13/16 13:52; Start 06/13/16 at 14:30; Stop 06/13/16 at 14:59; Status DC Vitamin B Complex/ Vitamin C (Vikki-Toño) 1 tab DAILY PO Last administered on 07:36; Start 06/14/16 at 09:00 Levothyroxine Sodium (Synthroid) 150 mcg DAILYAC PO Last administered on 07:35; Start 06/14/16 at 07:30 Non-Formulary Medication 1 each DAILY PO ; Start 06/14/16 at 09:00; Stop at 09:00; Status DC Glyburide (Diabeta) 2.5 mg DAILYWBKFT PO Last administered on 06/15/16 12:21; Start 06/14/16 at 08:00; Stop 06/16/16 at 11:28; Status DC Metoprolol Tartrate (Lopressor) 100 mg BID PO Last administered on 06/18/16 09 :25; Start 06/13/16 at 22:00 Potassium Chloride (Klor-Con) 10 meq DAILYWBKFT PO Last administered on 07:36; Start 06/14/16 at 08:00 Acetaminophen (Tylenol) 325 mg PRN Q6HRS PRN PO MILD PAIN / TEMP Last administered on 06/16/16 06:39; Start 06/13/16 at 21:00 Hydralazine HCl (Apresoline) 10 mg PRN Q4HRS PRN IVP ELEVATED BP, SEE COMMENTS ; Start 06/13/16 at 21:00; Status Cancel Ondansetron HCl (Zofran) 4 mg PRN Q8HRS PRN IV NAUSEA/VOMITING; Start 06/13/16 at 21:00 Albuterol Sulfate (Ventolin Neb Soln) 2.5 mg PRN Q4HRS PRN NEB SHORTNESS OF BREATH; Start 06/13/16 at 21:00 Amlodipine Besylate (Norvasc) 10 mg DAILY PO Last administered on 06/18/16 09: 24; Start 06/14/16 at 09:00 Losartan Potassium (Cozaar) 100 mg DAILY PO Last administered on 06/18/16 09: 24; Start 06/14/16 at 09:00 Levofloxacin/ Dextrose 500 mg 500 mg STK-MED ONCE IV ; Start 06/13/16 at 10:30; Stop 06/14/16 at 08:22; Status DC Sodium Chloride (Iv Sodium Chloride 0.9% 1000ml Bag) 1,000 ml @ 1,000 mls/hr Q1H PRN IV hypotension; Start 06/14/16 at 08:54; Stop 06/14/16 at 14:53; Status DC Sodium Chloride (Normal Saline Flush) 10 ml 1X PRN PRN IV AP catheter pack; Start 06/14/16 at 09:00; Stop 06/15/16 at 08:59; Status DC Sodium Chloride 10 ml 10 ml 1X PRN PRN IV WILTON WEAVER catheter pack; Start 06/14/16 at 09:00; Stop 06/15/16 at 08:59; Status DC Sodium Chloride (Iv Sodium Chloride 0.9% 1000ml Bag) 1,000 ml @ 400 mls/hr Q2H30M PRN IV PATENCY; Start 06/14/16 at 08:54; Stop 06/14/16 at 20:53; Status DC Info (PHARMACY MONITORING -- do not chart) 1 each PRN DAILY PRN MC SEE COMMENTS ; Start 06/14/16 at 09:00; Status Cancel Sevelamer Carbonate 800 mg 800 mg TIDWMEALS PO Last administered on 06/18/16t 07:36; Start 06/14/16 at 12:00 Sodium Chloride 1,000 ml @ 1,000 mls/hr Q1H PRN IV hypotension; Start 06/15/16 at 08:03; Stop 06/15/16 at 14:02; Status DC Albumin Human (Albuminar) 200 ml @ 200 mls/hr 1X PRN PRN IV Hypotension; Start 06/15/16 at 08:15; Stop 06/15/16 at 14:14; Status DC Acetaminophen (Tylenol) 500 mg 1X PRN PRN PO MILD PAIN / TEMP; Start 06/15/16 at 08:15; Stop 06/16/16 at 08:14; Status DC Diphenhydramine HCl (Benadryl) 25 mg 1X PRN PRN IV ITCHING; Start 06/15/16 at 08:15; Stop 06/16/16 at 08:14; Status DC Diphenhydramine HCl (Benadryl) 25 mg 1X PRN PRN IV ITCHING; Start 06/15/16 at 08:15; Stop 06/16/16 at 08:14; Status DC Labetalol HCl (Normodyne) 10 mg PRN Q1HR PRN IVP SBP > 180; Start 06/15/16 at 08:15; Stop 06/16/16 at 08:14; Status DC Clonidine HCl (Catapres) 0.1 mg 1X PRN PRN PO SBP > 180; Start 06/15/16 at 08: 15; Stop 06/16/16 at 08:14; Status DC Info (PHARMACY MONITORING -- do not chart) 1 each PRN DAILY PRN MC SEE COMMENTS ; Start 06/15/16 at 08:15; Status Cancel Dextrose (Dextrose 50%-Water Syringe) 25 gm STK-MED ONCE IV ; Start 06/16/16 at 07:28; Stop 06/16/16 at 07:29; Status DC Dextrose (Dextrose 50%-Water Syringe) 12.5 gm PRN Q15MIN PRN IV SEE COMMENTS; Start 06/16/16 at 07:30 Lidocaine (Lidoderm) 1 patch DAILY TD Last administered on 06/18/16 07:37; Start 06/16/16 at 11:30 Piperacillin Sod/ Tazobactam Sod 1 each 1 each PRN DAILY PRN MC SEE COMMENTS; Start 06/16/16 at 12:30 Piperacillin Sod/ Tazobactam Sod 2.25 gm/Sodium Chloride 50 ml @ 100 mls/hr Q8HRS IV Last administered on 06/18/16 06:15; Start 06/16/16 at 14:00 Sodium Chloride (Iv Sodium Chloride 0.9% 1000ml Bag) 1,000 ml @ 1,000 mls/hr Q1H PRN IV hypotension; Start 06/16/16 at 14:08; Stop 06/16/16 at 20:07; Status DC Info (PHARMACY MONITORING -- do not chart) 1 each PRN DAILY PRN MC SEE COMMENTS ; Start 06/16/16 at 14:15 Senna/Docusate Sodium (Senna Plus) 1 tab BID PO Last administered on 06/18/16 07:36; Start 06/17/16 at 14:30 Docusate Sodium (Colace) 100 mg BID PO Last administered on 06/18/16 07:36; Start 06/17/16 at 14:30 Bisacodyl (Dulcolax Supp) 10 mg PRN DAILY PRN MS CONSTIPATION; Start 06/17/16 at 13:45 Active Scripts Active Potassium Chloride 10 Meq Tablet.er 10 Meq PO DAILY Metoprolol Tartrate 100 Mg Tablet 1 Tab PO BID Prednisone 20 Mg Tablet 40 Mg PO DAILY Glyburide 2.5 Mg Tablet 1 Tab PO DAILY Vikki-Toño Tablet (Folic Acid/Vitamin B Comp W-C) 0.8 Mg Tablet 1 Tab PO DAILY Reported Levothyroxine Sodium 150 Mcg Tablet 150 Mcg PO DAILYAC Gaby 10-40 Mg Tablet (Amlodipine Bes/Olmesartan Med) 1 Each Tablet 1 Each PO DAILY Allopurinol 100 Mg Tablet 100 Mg PO Aspir 81 (Aspirin) 81 Mg Tablet. 1 Tab PO DAILY Vitals/I & O Vital Sign - Last 24 Hours 06/17/16 06/17/16 06/17/16 06/17/16 15:04 19:59 21:01 21:02 Temp 98.1 100.4 98.1 100.4 Pulse 92 93 93 Resp 18 18 16 B/P 114/79 132/92 132/92 Pulse Ox 96 94 94 O2 Delivery Room Air Room Air Room Air 06/17/16 06/17/16 06/18/16 06/18/16 22:05 22:56 03:59 06:15 Temp 100.4 98.1 100.4 98.1 Pulse 92 83 Resp B/P 124/87 129/86 Pulse Ox 94 94 96 96 O2 Delivery Room Air Room Air Room Air Room Air 06/18/16 06/18/16 06/18/16 06/18/16 07:00 08:05 09:24 09:24 Temp 99.4 99.4 Pulse 91 83 83 Resp 20 B/P 177/54 129/86 129/86 Pulse Ox 97 O2 Delivery Room Air Room Air 06/18/16 09:25 Pulse 83 B/P 129/86 Intake and Output 06/17/16 06/17/16 06/18/16 15:00 23:00 07:00 Intake Total 320 ml Output Total 2900 ml 2100 ml 1500 ml Balance -2900 ml -1780 ml -1500 ml DAIJA GOLDSMITH MD Jun 18, 2016 11:34
--- NOTE | 2016-06-18 11:49 | PDOC ---
Infectious Disease Note Subjective Subjective Small BM Itch around left eye ROS ROS GEN: Denies fevers, chills, sweats HEENT: Denies blurred vision, sore throat CV: Denies chest pain RESP: Denies shortness of air, cough GI: Denies n/v/d NEURO: Denies confusion, dizziness MSK: Denies weakness, joint pain/swelling Vital Sign Vital Signs Vital Signs Date Time Temp Pulse Resp B/P Pulse Ox O2 Delivery O2 Flow Rate FiO2 06/18/16 11:36 98 Room Air 06/18/16 09:25 83 129/86 06/18/16 07:00 99.4 20 99.4 Physical Exam PHYSICAL EXAM GENERAL: NAD, Alert HEENT: PERRL, OC/OP -clear NECK: Supple, no JVD, no LN LUNGS: Clear HEART: S1S2, no gallop, no murmur ABD: Soft, NT, no organomegaly, no rebound, obese [place] EXT: No edema, no cyanosis ROTARY HELPER: Alert, oriented x 3, no focal neurologic deficit SKIN: R forehead/eye ? early shingle - small vesicle with well defined distribution IV: ok Labs Lab Laboratory Tests Test 06/17/16 17:00 06/17/16 21:08 06/18/16 07:26 06/18/16 11:12 Glucose (Fingerstick) 142mg/dL (70-99) 126mg/dL (70-99) 126mg/dL (70-99) 118mg/dL (70-99) Objective Assessment ? early shingle right forehead Fever - some better Leukocytosis. Constipation s/p cysto and right ureteral stent placement, 06/13 Hematoma right kidney post biopsy on 05/31 Plan Plan of Care Cont Zosyn Add Valtrx Cont Bowel regime Monitor WBC count in am, temp f/u Supportive care D/w SVEN Iyer MD Jun 18, 2016 11:49
[2016-06-18] MEDS: valACYclovir 500 MG TABLET. PO SCH (11:57)
[2016-06-18 15:00] VITALS: BP 118/78
[2016-06-18 19:00] VITALS: BP 147/91
[2016-06-18 22:57] VITALS: BP 153/95
[2016-06-19 03:00] VITALS: BP 133/85
[2016-06-19] MEDS: HYDROCODONE/APAP 5/325MG TABLET. PO PRN (06:08)
[2016-06-19] MEDS: PIPERACILLIN/TAZOBACTAM 2.25 GM in IV NORMAL SALINE 50ML 50 ML IV SCH (06:08)
[2016-06-19 06:43] LABS: BASO # 0.1 x10^3/uL (0.0-0.2); BASO % 1 % (0-3); EOS % 3 % (0-3); HEMATOCRIT 25.5 % (39.0-53.0); HEMOGLOBIN 8.6 g/dL (13.0-17.5); LYMPH # 0.9 x10^3/uL (1.0-4.8); LYMPH % 9 % (24-48); MEAN CORPUSCULAR HEMOGLOBIN 31 pg (25-35); MEAN CORPUSCULAR HGB CONC 34 g/dL (31-37); MEAN CORPUSCULAR VOLUME 91 fL (79-100); MONO % 8 % (0-9); NEUT % 80 % (31-73); PLATELET COUNT 106 x10^3/uL (140-400); RED CELL DISTRIBUTION WIDTH 14.4 % (11.5-14.5); WHITE BLOOD COUNT 9.9 x10^3/uL (4.0-11.0)
[2016-06-19 07:00] VITALS: BP 120/82
[2016-06-19 07:00] LABS: CREATININE 5.1 mg/dL (0.7-1.3); GFR 11.6; POTASSIUM 4.1 mmol/L (3.5-5.1)
[2016-06-19] MEDS ORDERED: IV NORMAL SALINE 1000ML BAG 1,000 ML IV PRN ×2 (07:51)
[2016-06-19] MEDS ORDERED: ALBUMIN HUMAN 25% 200 ML IV PRN (08:00)
[2016-06-19] MEDS ORDERED: MIDODRINE 5 MG TABLET PO ONE (08:00)
[2016-06-19] MEDS ORDERED: DIALYSIS PATIENT. MC PRN (08:00)
[2016-06-19] MEDS ORDERED: LABETALOL 20 MG/4 ML DISP.SYRIN. IVP PRN (08:00)
[2016-06-19] MEDS ORDERED: DIPHENHYDRAMINE 50 MG/ML VIAL. IV PRN ×2 (08:00)
[2016-06-19] MEDS ORDERED: CLONIDINE HCL 0.1 MG TABLET PO PRN (08:00)
[2016-06-19] MEDS ORDERED: ACETAMINOPHEN 500 MG TABLET PO PRN (08:00)
--- NOTE | 2016-06-19 08:40 | PDOC ---
Infectious Disease Note Subjective Subjective + BM Itch around left eye Better ROS ROS GEN: Denies fevers, chills, sweats HEENT: Denies blurred vision, sore throat CV: Denies chest pain RESP: Denies shortness of air, cough GI: Denies n/v/d NEURO: Denies confusion, dizziness MSK: Denies weakness, joint pain/swelling Vital Sign Vital Signs Vital Signs Date Time Temp Pulse Resp B/P Pulse Ox O2 Delivery O2 Flow Rate FiO2 06/19/16 06:08 17 94 Room Air 06/19/16 03:00 98.2 64 133/85 98.2 Physical Exam PHYSICAL EXAM GENERAL: NAD, Alert HEENT: PERRL, OC/OP -clear NECK: Supple, no JVD, no LN LUNGS: Clear HEART: S1S2, no gallop, no murmur ABD: Soft, NT, no organomegaly, no rebound, obese [place] - clear urine EXT: No edema, no cyanosis [employer] LABOURER: Alert, oriented x 3, no focal neurologic deficit SKIN: R forehead/eye ? early shingle - small vesicle with well defined distribution IV: ok Labs Lab Laboratory Tests Test 06/18/16 11:12 06/18/16 17:04 06/19/16 06:15 06/19/16 07:19 Glucose (Fingerstick) 118mg/dL (70-99) 116mg/dL (70-99) 111mg/dL (70-99) White Blood Count 9.9x10^3/uL (4.0-11.0) Red Blood Count 2.80x10^6/uL (4.30-5.70) Hemoglobin 8.6g/dL (13.0-17.5) Hematocrit 25.5% (39.0-53.0) Mean Corpuscular Volume 91fL (79-100) Mean Corpuscular Hemoglobin 31pg (25-35) Mean Corpuscular Hemoglobin Concent 34g/dL (31-37) Red Cell Distribution Width 14.4% (11.5-14.5) Platelet Count 106x10^3/uL (140-400) Neutrophils (%) (Auto) 80% (31-73) Lymphocytes (%) (Auto) 9% (24-48) Monocytes (%) (Auto) 8% (0-9) Eosinophils (%) (Auto) 3% (0-3) Basophils (%) (Auto) 1% (0-3) Neutrophils # (Auto) 7.8x10^3uL (1.8-7.7) Lymphocytes # (Auto) 0.9x10^3/uL (1.0-4.8) Monocytes # (Auto) 0.8x10^3/uL (0.0-1.1) Eosinophils # (Auto) 0.3x10^3/uL (0.0-0.7) Basophils # (Auto) 0.1x10^3/uL (0.0-0.2) Sodium Level 138mmol/L (136-145) Potassium Level 4.1mmol/L (3.5-5.1) Chloride Level 101mmol/L (98-107) Carbon Dioxide Level 27mmol/L (21-32) Anion Gap 10 (6-14) Blood Urea Nitrogen 45mg/dL (8-26) Creatinine 5.1mg/dL (0.7-1.3) Estimated GFR (Cockcroft-Gault) 11.6 Glucose Level 106mg/dL (70-99) Calcium Level 8.0mg/dL (8.5-10.1) Objective Assessment ? early shingle right forehead Fever - some better Leukocytosis - resolved Constipation -resolved s/p cysto and right ureteral stent placement, 06/13 Hematoma right kidney post biopsy on 05/31 Plan Plan of Care Discont Zosyn Valtrex for another 6 days ID to sign off SVEN CORTEZ MD Jun 19, 2016 08:40
[2016-06-19] MEDS: LIDOCAINE (700MG/PATCH) PATCH. TD SCH (09:00)
--- NOTE | 2016-06-19 09:50 | PDOC ---
PROGRESS NOTES Chief Complaint Chief Complaint ESRD, new HD Illegal migrant Anemia of CKD Hematuria s/p cysto and bladder irrigation - clear FSGS CKD st 4 HTN - controlled COnsitipation Left forehead dermatitis History of Present Illness History of Present Illness HAs temp HD cath on R subclavian CRea 5 today (higher) Jackman in with good uO Cleared from urology to dc jackman Pt illegal migrant - cant set up OP HD LEft forehead lesions seem to be drying up, no vesicles seen Some pruritus PLAN: Topical steroid to forehead Dc jackman HD per renal HOme when cleared by renal Dw SW - cant do OP HD set up, illegal LAbs again edson AM Dw pt and Vitals Vitals Vital Signs Date Time Temp Pulse Resp B/P Pulse Ox O2 Delivery O2 Flow Rate FiO2 06/19/16 07:00 99.4 78 16 120/82 92 Room Air 99.4 Physical Exam General: Alert, Oriented X3, Cooperative, No acute distress Heart: Regular rate, Normal S1, Normal S2 Lungs: Clear Abdomen: Normal bowel sounds, Soft, No tenderness, Other Skin: No rashes Labs LABS Laboratory Tests Test 06/18/16 11:12 06/18/16 17:04 06/19/16 06:15 06/19/16 07:19 Glucose (Fingerstick) 118mg/dL (70-99) 116mg/dL (70-99) 111mg/dL (70-99) White Blood Count 9.9x10^3/uL (4.0-11.0) Red Blood Count 2.80x10^6/uL (4.30-5.70) Hemoglobin 8.6g/dL (13.0-17.5) Hematocrit 25.5% (39.0-53.0) Mean Corpuscular Volume 91fL (79-100) Mean Corpuscular Hemoglobin 31pg (25-35) Mean Corpuscular Hemoglobin Concent 34g/dL (31-37) Red Cell Distribution Width 14.4% (11.5-14.5) Platelet Count 106x10^3/uL (140-400) Neutrophils (%) (Auto) 80% (31-73) Lymphocytes (%) (Auto) 9% (24-48) Monocytes (%) (Auto) 8% (0-9) Eosinophils (%) (Auto) 3% (0-3) Basophils (%) (Auto) 1% (0-3) Neutrophils # (Auto) 7.8x10^3uL (1.8-7.7) Lymphocytes # (Auto) 0.9x10^3/uL (1.0-4.8) Monocytes # (Auto) 0.8x10^3/uL (0.0-1.1) Eosinophils # (Auto) 0.3x10^3/uL (0.0-0.7) Basophils # (Auto) 0.1x10^3/uL (0.0-0.2) Sodium Level 138mmol/L (136-145) Potassium Level 4.1mmol/L (3.5-5.1) Chloride Level 101mmol/L (98-107) Carbon Dioxide Level 27mmol/L (21-32) Anion Gap 10 (6-14) Blood Urea Nitrogen 45mg/dL (8-26) Creatinine 5.1mg/dL (0.7-1.3) Estimated GFR (Cockcroft-Gault) 11.6 Glucose Level 106mg/dL (70-99) Calcium Level 8.0mg/dL (8.5-10.1) Review of Systems Review of Systems itchy forehead, all else is neg Assessment and Plan Assessmemt and Plan Problems Medical Problems: (1) Acute renal failure Status: Acute Problems: Comment Review of Relevant I have reviewed the following items jose (where applicable) has been applied. Labs Laboratory Tests Test 06/17/16 11:43 06/17/16 17:00 06/17/16 21:08 06/18/16 07:26 Glucose (Fingerstick) 129mg/dL (70-99) 142mg/dL (70-99) 126mg/dL (70-99) 126mg/dL (70-99) Test 06/18/16 11:12 06/18/16 17:04 06/19/16 06:15 06/19/16 07:19 Glucose (Fingerstick) 118mg/dL (70-99) 116mg/dL (70-99) 111mg/dL (70-99) White Blood Count 9.9x10^3/uL (4.0-11.0) Red Blood Count 2.80x10^6/uL (4.30-5.70) Hemoglobin 8.6g/dL (13.0-17.5) Hematocrit 25.5% (39.0-53.0) Mean Corpuscular Volume 91fL (79-100) Mean Corpuscular Hemoglobin 31pg (25-35) Mean Corpuscular Hemoglobin Concent 34g/dL (31-37) Red Cell Distribution Width 14.4% (11.5-14.5) Platelet Count 106x10^3/uL (140-400) Neutrophils (%) (Auto) 80% (31-73) Lymphocytes (%) (Auto) 9% (24-48) Monocytes (%) (Auto) 8% (0-9) Eosinophils (%) (Auto) 3% (0-3) Basophils (%) (Auto) 1% (0-3) Neutrophils # (Auto) 7.8x10^3uL (1.8-7.7) Lymphocytes # (Auto) 0.9x10^3/uL (1.0-4.8) Monocytes # (Auto) 0.8x10^3/uL (0.0-1.1) Eosinophils # (Auto) 0.3x10^3/uL (0.0-0.7) Basophils # (Auto) 0.1x10^3/uL (0.0-0.2) Sodium Level 138mmol/L (136-145) Potassium Level 4.1mmol/L (3.5-5.1) Chloride Level 101mmol/L (98-107) Carbon Dioxide Level 27mmol/L (21-32) Anion Gap 10 (6-14) Blood Urea Nitrogen 45mg/dL (8-26) Creatinine 5.1mg/dL (0.7-1.3) Estimated GFR (Cockcroft-Gault) 11.6 Glucose Level 106mg/dL (70-99) Calcium Level 8.0mg/dL (8.5-10.1) Laboratory Tests Test 06/18/16 11:12 06/18/16 17:04 06/19/16 06:15 06/19/16 07:19 Glucose (Fingerstick) 118mg/dL (70-99) 116mg/dL (70-99) 111mg/dL (70-99) White Blood Count 9.9x10^3/uL (4.0-11.0) Red Blood Count 2.80x10^6/uL (4.30-5.70) Hemoglobin 8.6g/dL (13.0-17.5) Hematocrit 25.5% (39.0-53.0) Mean Corpuscular Volume 91fL (79-100) Mean Corpuscular Hemoglobin 31pg (25-35) Mean Corpuscular Hemoglobin Concent 34g/dL (31-37) Red Cell Distribution Width 14.4% (11.5-14.5) Platelet Count 106x10^3/uL (140-400) Neutrophils (%) (Auto) 80% (31-73) Lymphocytes (%) (Auto) 9% (24-48) Monocytes (%) (Auto) 8% (0-9) Eosinophils (%) (Auto) 3% (0-3) Basophils (%) (Auto) 1% (0-3) Neutrophils # (Auto) 7.8x10^3uL (1.8-7.7) Lymphocytes # (Auto) 0.9x10^3/uL (1.0-4.8) Monocytes # (Auto) 0.8x10^3/uL (0.0-1.1) Eosinophils # (Auto) 0.3x10^3/uL (0.0-0.7) Basophils # (Auto) 0.1x10^3/uL (0.0-0.2) Sodium Level 138mmol/L (136-145) Potassium Level 4.1mmol/L (3.5-5.1) Chloride Level 101mmol/L (98-107) Carbon Dioxide Level 27mmol/L (21-32) Anion Gap 10 (6-14) Blood Urea Nitrogen 45mg/dL (8-26) Creatinine 5.1mg/dL (0.7-1.3) Estimated GFR (Cockcroft-Gault) 11.6 Glucose Level 106mg/dL (70-99) Calcium Level 8.0mg/dL (8.5-10.1) Microbiology 06/16/16 Blood Culture - Preliminary, Resulted NO GROWTH AFTER 2 DAYS 06/12/16 Urine Culture - Final, Complete 06/12/16 Urine Culture Result 1 (QUENTIN) - Final, Complete Medications Current Medications Ondansetron HCl (Zofran) 4 mg 1X ONCE IV Last administered on 06/12/16 08:30 ; Start 06/12/16 at 08:45; Stop 06/12/16 at 08:46; Status DC Morphine Sulfate 5 mg 1X ONCE IV Last administered on 06/12/16 08:30; Start 06/12/16 at 08:45; Stop 06/12/16 at 08:46; Status DC Morphine Sulfate 5 mg 1X ONCE IV Last administered on 06/12/16 10:20; Start 06/12/16 at 11:00; Stop 06/12/16 at 11:01; Status DC Morphine Sulfate 4 mg PRN Q2HR PRN IV PAIN Last administered on 06/12/16 20:33 ; Start 06/12/16 at 11:30; Stop 06/13/16 at 11:29; Status DC Ondansetron HCl (Zofran) 4 mg PRN Q6HRS PRN IV NAUSEA/VOMITING; Start 06/12/16 at 11:30; Stop 06/12/16 at 17:35; Status DC Acetaminophen (Tylenol) 325 mg PRN Q6HRS PRN PO MILD PAIN / TEMP; Start at 12:30; Stop 06/12/16 at 17:35; Status DC Acetaminophen/ Hydrocodone Bitart (Lortab 5/325) 1 tab PRN Q6HRS PRN PO MODERATE TO SEVERE PAIN; Start 06/12/16 at 12:30; Stop 06/12/16 at 17:35; Status DC Hydralazine HCl (Apresoline) 10 mg PRN Q4HRS PRN IVP ELEVATED BP, SEE COMMENTS ; Start 06/12/16 at 12:30; Stop 06/12/16 at 17:35; Status DC Ondansetron HCl (Zofran) 4 mg PRN Q8HRS PRN IV NAUSEA/VOMITING; Start 06/12/16 at 12:30; Stop 06/12/16 at 17:35; Status DC Albuterol Sulfate 2.5 mg 2.5 mg PRN Q4HRS PRN NEB SHORTNESS OF BREATH; Start at 12:30; Stop 06/12/16 at 17:35; Status DC Sodium Chloride (Iv Sodium Chloride 0.9% 1000ml Bag) 1,000 ml @ 75 mls/hr 1X ONCE IV Last administered on 06/12/16 15:30; Start 06/12/16 at 12:30; Stop 01/19 at 01:49; Status DC Darbepoetin Richard (Aranesp) 60 mcg WEEKLYHS SQ Last administered on 06/12/16 20 :28; Start 06/12/16 at 21:00 Acetaminophen (Tylenol) 325 mg PRN Q6HRS PRN PO MILD PAIN / TEMP; Start at 17:30; Stop 06/12/16 at 17:34; Status DC Acetaminophen/ Hydrocodone Bitart (Lortab 5/325) 1 tab PRN Q6HRS PRN PO MODERATE TO SEVERE PAIN Last administered on 06/19/16 06:08; Start 06/12/16 at 17:30 Hydralazine HCl (Apresoline) 10 mg PRN Q4HRS PRN IVP ELEVATED BP, SEE COMMENTS Last administered on 06/13/16 17:13; Start 06/12/16 at 17:30 Ondansetron HCl (Zofran) 4 mg PRN Q8HRS PRN IV NAUSEA/VOMITING; Start 06/12/16 at 17:30; Stop 06/16/16 at 16:43; Status DC Albuterol Sulfate (Ventolin Neb Soln) 2.5 mg PRN Q4HRS PRN NEB SHORTNESS OF BREATH; Start 06/12/16 at 17:30; Stop 06/15/16 at 08:18; Status DC Acetaminophen (Tylenol) 325 mg PRN Q6HRS PRN PO MILD PAIN / TEMP Last administered on 06/14/16 21:44; Start 06/12/16 at 17:45; Stop 06/15/16 at 08:18 ; Status DC Ondansetron HCl (Zofran) 4 mg PRN Q6HRS PRN IV NAUSEA/VOMITING; Start 06/13/16 at 06:45; Stop 06/14/16 at 06:44; Status DC Fentanyl Citrate (Fentanyl 2ml Vial) 25 mcg PRN Q5MIN PRN IV MILD PAIN; Start 06/13/16 at 06:45; Stop 06/14/16 at 06:44; Status DC Fentanyl Citrate (Fentanyl 2ml Vial) 50 mcg PRN Q5MIN PRN IV MODERATE PAIN; Start 06/13/16 at 06:45; Stop 06/14/16 at 06:44; Status DC Morphine Sulfate 1 mg 1 mg PRN Q10MIN PRN IV SEVERE PAIN; Start 06/13/16 at 06: 45; Stop 06/14/16 at 06:44; Status DC Lactated Ringer's (Iv Lactated Ringers) 1,000 ml @ 0 mls/hr Q0M IV ; Start 01/19 at 06:45; Stop 06/13/16 at 15:00; Status Cancel Lidocaine HCl 2 ml PRN 1X PRN ID PRIOR TO IV START; Start 06/13/16 at 06:45; Stop 06/14/16 at 06:44; Status DC Hydromorphone HCl (Dilaudid) 0.5 mg PRN Q10MIN PRN IV SEV PAIN, Second choice; Start 06/13/16 at 06:45; Stop 06/14/16 at 06:44; Status DC Prochlorperazine Edisylate 5 mg 5 mg PACU PRN PRN IV NAUSEA, MRX1; Start at 06:45; Stop 06/14/16 at 06:44; Status DC Sodium Chloride (Iv Sodium Chloride 0.9% 1000ml Bag) 1,000 ml @ 30 mls/hr Q24H IV ; Start 06/13/16 at 07:30; Stop 06/14/16 at 16:54; Status DC Iohexol 50 ml 50 ml STK-MED ONCE .ROUTE Last administered on 06/13/16t 14:23; Start 06/13/16 at 10:10; Stop 06/13/16 at 10:11; Status DC Levofloxacin/ Dextrose (LEVAQUIN 500mg PREMIX) 100 ml @ As Directed STK-MED ONCE IV ; Start 06/13/16 at 10:21; Stop 06/13/16 at 10:22; Status DC Dexamethasone Sodium Phosphate (Decadron) 20 mg STK-MED ONCE .ROUTE ; Start 01/19 at 11:07; Stop 06/13/16 at 11:08; Status DC Ondansetron HCl 4 mg 4 mg STK-MED ONCE .ROUTE ; Start 06/13/16 at 11:07; Stop at 11:08; Status DC Propofol (Diprivan) 20 ml @ As Directed STK-MED ONCE IV ; Start 06/13/16 at 11: 07; Stop 06/13/16 at 11:08; Status DC Lidocaine HCl (Xylocaine-Mpf 1% Vial) 5 ml STK-MED ONCE .ROUTE ; Start 06/13/16 at 11:07; Stop 06/13/16 at 11:08; Status DC Fentanyl Citrate (Fentanyl 2ml Vial) 100 mcg STK-MED ONCE .ROUTE ; Start at 11:07; Stop 06/13/16 at 11:08; Status DC Succinylcholine Chloride (Anectine) 200 mg STK-MED ONCE .ROUTE ; Start 06/13/16 at 11:07; Stop 06/13/16 at 11:08; Status DC Rocuronium Meridian (Zemuron) 50 mg STK-MED ONCE .ROUTE ; Start 06/13/16 at 11:09 ; Stop 06/13/16 at 11:10; Status DC Darbepoetin Richard (Aranesp) 60 mcg WEEKLYHS SQ ; Start 06/13/16 at 21:00; Status Cancel Ephedrine Sulfate 50 mg STK-MED ONCE IV ; Start 06/13/16 at 11:43; Stop at 11:44; Status DC Glycopyrrolate (Robinul) 1 mg STK-MED ONCE .ROUTE ; Start 06/13/16 at 12:05; Stop 06/13/16 at 12:06; Status DC Neostigmine Methylsulfate 5 mg 5 mg STK-MED ONCE .ROUTE ; Start 06/13/16 at 12: 05; Stop 06/13/16 at 12:06; Status DC Levofloxacin/ Dextrose (LEVAQUIN 500mg PREMIX) 100 ml @ 100 mls/hr 1X PREOP IV ; Start 06/13/16 at 12:30; Stop 06/14/16 at 18:00; Status DC Desflurane (Suprane) 60 ml STK-MED ONCE IH ; Start 06/13/16 at 12:34; Stop 06/13 at 12:35; Status DC Fentanyl Citrate (Fentanyl 2ml Vial) 100 mcg STK-MED ONCE .ROUTE ; Start at 12:41; Stop 06/13/16 at 12:42; Status DC Lidocaine/ Epinephrine (Xylocaine 2%-Epi 1:100,000) 20 ml STK-MED ONCE .ROUTE ; Start 06/13/16 at 12:59; Stop 06/13/16 at 13:00; Status DC Heparin Sodium (Porcine) 96873 unit 10,000 unit STK-MED ONCE .ROUTE ; Start 01/19 at 12:59; Stop 06/13/16 at 13:00; Status DC Heparin Sodium/ Sodium Chloride 500 ml @ As Directed STK-MED ONCE .ROUTE ; Start 06/13/16 at 12:59; Stop 06/13/16 at 13:00; Status DC Midazolam HCl (Versed) 5 mg STK-MED ONCE .ROUTE ; Start 06/13/16 at 13:46; Stop 06/13/16 at 13:47; Status DC Fentanyl Citrate 250 mcg 250 mcg STK-MED ONCE .ROUTE ; Start 06/13/16 at 13:46; Stop 06/13/16 at 13:47; Status DC Cefazolin Sodium (Ancef 1gm Ivpb For Omni) 50 ml @ As Directed STK-MED ONCE IV ; Start 06/13/16 at 13:46; Stop 06/13/16 at 13:47; Status DC Heparin Sodium/ Sodium Chloride 1,000 unit 1X ONCE IART Last administered on 14:12; Start 06/13/16 at 14:00; Stop 06/13/16 at 14:04; Status DC Lidocaine/Sodium Bicarbonate (Buffered Lidocaine 1%) 20 ml 1X ONCE IJ ; Start 06/13/16 at 14:00; Stop 06/13/16 at 14:04; Status DC Midazolam HCl (Versed) 2.5 mg 1X ONCE IV Last administered on 06/13/16 14:12 ; Start 06/13/16 at 14:00; Stop 06/13/16 at 14:04; Status DC Fentanyl Citrate (Fentanyl 5ml Vial) 125 mcg 1X ONCE IV Last administered on 14:11; Start 06/13/16 at 14:00; Stop 06/13/16 at 14:04; Status DC Heparin Sodium (Porcine) (Heparin Sodium) 4,000 unit 1X ONCE IV Last administered on 06/13/16 14:14; Start 06/13/16 at 14:00; Stop 06/13/16 at 14:04 ; Status DC Lidocaine/ Epinephrine 20 ml 20 ml 1X ONCE IJ Last administered on 06/13/16 14:12; Start 06/13/16 at 14:00; Stop 06/13/16 at 14:04; Status DC Cefazolin Sodium (Ancef 1gm Ivpb For Omni) 50 ml @ 100 mls/hr 1X ONCE IV Last administered on 06/13/16 13:52; Start 06/13/16 at 14:30; Stop 06/13/16 at 14:59; Status DC Vitamin B Complex/ Vitamin C (Vikki-Toño) 1 tab DAILY PO Last administered on 07:36; Start 06/14/16 at 09:00 Levothyroxine Sodium (Synthroid) 150 mcg DAILYAC PO Last administered on 07:35; Start 06/14/16 at 07:30 Non-Formulary Medication 1 each DAILY PO ; Start 06/14/16 at 09:00; Stop at 09:00; Status DC Glyburide (Diabeta) 2.5 mg DAILYWBKFT PO Last administered on 06/15/16 12:21; Start 06/14/16 at 08:00; Stop 06/16/16 at 11:28; Status DC Metoprolol Tartrate (Lopressor) 100 mg BID PO Last administered on 06/18/16 22 :18; Start 06/13/16 at 22:00 Potassium Chloride (Klor-Con) 10 meq DAILYWBKFT PO Last administered on 07:36; Start 06/14/16 at 08:00 Acetaminophen (Tylenol) 325 mg PRN Q6HRS PRN PO MILD PAIN / TEMP Last administered on 06/16/16 06:39; Start 06/13/16 at 21:00 Hydralazine HCl (Apresoline) 10 mg PRN Q4HRS PRN IVP ELEVATED BP, SEE COMMENTS ; Start 06/13/16 at 21:00; Status Cancel Ondansetron HCl (Zofran) 4 mg PRN Q8HRS PRN IV NAUSEA/VOMITING; Start 06/13/16 at 21:00 Albuterol Sulfate (Ventolin Neb Soln) 2.5 mg PRN Q4HRS PRN NEB SHORTNESS OF BREATH; Start 06/13/16 at 21:00 Amlodipine Besylate (Norvasc) 10 mg DAILY PO Last administered on 06/18/16 09: 24; Start 06/14/16 at 09:00 Losartan Potassium (Cozaar) 100 mg DAILY PO Last administered on 06/18/16 09: 24; Start 06/14/16 at 09:00 Levofloxacin/ Dextrose 500 mg 500 mg STK-MED ONCE IV ; Start 06/13/16 at 10:30; Stop 06/14/16 at 08:22; Status DC Sodium Chloride (Iv Sodium Chloride 0.9% 1000ml Bag) 1,000 ml @ 1,000 mls/hr Q1H PRN IV hypotension; Start 06/14/16 at 08:54; Stop 06/14/16 at 14:53; Status DC Sodium Chloride (Normal Saline Flush) 10 ml 1X PRN PRN IV AP catheter pack; Start 06/14/16 at 09:00; Stop 06/15/16 at 08:59; Status DC Sodium Chloride 10 ml 10 ml 1X PRN PRN IV [employer] catheter pack; Start 06/14/16 at 09:00; Stop 06/15/16 at 08:59; Status DC Sodium Chloride (Iv Sodium Chloride 0.9% 1000ml Bag) 1,000 ml @ 400 mls/hr Q2H30M PRN IV PATENCY; Start 06/14/16 at 08:54; Stop 06/14/16 at 20:53; Status DC Info (PHARMACY MONITORING -- do not chart) 1 each PRN DAILY PRN MC SEE COMMENTS ; Start 06/14/16 at 09:00; Status Cancel Sevelamer Carbonate 800 mg 800 mg TIDWMEALS PO Last administered on 06/18/16 17:02; Start 06/14/16 at 12:00 Sodium Chloride 1,000 ml @ 1,000 mls/hr Q1H PRN IV hypotension; Start 06/15/16 at 08:03; Stop 06/15/16 at 14:02; Status DC Albumin Human (Albuminar) 200 ml @ 200 mls/hr 1X PRN PRN IV Hypotension; Start 06/15/16 at 08:15; Stop 06/15/16 at 14:14; Status DC Acetaminophen (Tylenol) 500 mg 1X PRN PRN PO MILD PAIN / TEMP; Start 06/15/16 at 08:15; Stop 06/16/16 at 08:14; Status DC Diphenhydramine HCl (Benadryl) 25 mg 1X PRN PRN IV ITCHING; Start 06/15/16 at 08:15; Stop 06/16/16 at 08:14; Status DC Diphenhydramine HCl (Benadryl) 25 mg 1X PRN PRN IV ITCHING; Start 06/15/16 at 08:15; Stop 06/16/16 at 08:14; Status DC Labetalol HCl (Normodyne) 10 mg PRN Q1HR PRN IVP SBP > 180; Start 06/15/16 at 08:15; Stop 06/16/16 at 08:14; Status DC Clonidine HCl (Catapres) 0.1 mg 1X PRN PRN PO SBP > 180; Start 06/15/16 at 08: 15; Stop 06/16/16 at 08:14; Status DC Info (PHARMACY MONITORING -- do not chart) 1 each PRN DAILY PRN MC SEE COMMENTS ; Start 06/15/16 at 08:15; Status Cancel Dextrose (Dextrose 50%-Water Syringe) 25 gm STK-MED ONCE IV ; Start 06/16/16 at 07:28; Stop 06/16/16 at 07:29; Status DC Dextrose (Dextrose 50%-Water Syringe) 12.5 gm PRN Q15MIN PRN IV SEE COMMENTS; Start 06/16/16 at 07:30 Lidocaine (Lidoderm) 1 patch DAILY TD Last administered on 06/18/16t 07:37; Start 06/16/16 at 11:30 Piperacillin Sod/ Tazobactam Sod 1 each 1 each PRN DAILY PRN MC SEE COMMENTS; Start 06/16/16 at 12:30; Stop 06/19/16 at 08:41; Status DC Piperacillin Sod/ Tazobactam Sod 2.25 gm/Sodium Chloride 50 ml @ 100 mls/hr Q8HRS IV Last administered on 06/19/16t 06:08; Start 06/16/16 at 14:00; Stop at 08:41; Status DC Sodium Chloride (Iv Sodium Chloride 0.9% 1000ml Bag) 1,000 ml @ 1,000 mls/hr Q1H PRN IV hypotension; Start 06/16/16 at 14:08; Stop 06/16/16 at 20:07; Status DC Info (PHARMACY MONITORING -- do not chart) 1 each PRN DAILY PRN MC SEE COMMENTS ; Start 06/16/16 at 14:15 Senna/Docusate Sodium (Senna Plus) 1 tab BID PO Last administered on 06/18/16 22:17; Start 06/17/16 at 14:30 Docusate Sodium (Colace) 100 mg BID PO Last administered on 06/18/16 22:17; Start 06/17/16 at 14:30 Bisacodyl (Dulcolax Supp) [address] CONSTIPATION; Start 06/17/16 at 13:45 Valacyclovir HCl 500 mg 500 mg DAILY PO Last administered on 06/18/16 11:57; Start 06/18/16 at 12:00 Sodium Chloride 1,000 ml @ 1,000 mls/hr Q1H PRN IV hypotension; Start 06/19/16 at 07:51; Stop 06/19/16 at 13:50 Albumin Human (Albuminar) 200 ml @ 200 mls/hr 1X PRN PRN IV Hypotension; Start 06/19/16 at 08:00; Stop 06/19/16 at 13:59 Midodrine (Proamatine) 5 mg 1X ONCE PO ; Start 06/19/16 at 08:00; Stop at 08:01; Status DC Acetaminophen (Tylenol) 500 mg 1X PRN PRN PO MILD PAIN / TEMP; Start 06/19/16 at 08:00; Stop 06/20/16 at 07:59 Diphenhydramine HCl (Benadryl) 25 mg 1X PRN PRN IV ITCHING; Start 06/19/16 at 08:00; Stop 06/20/16 at 07:59 Diphenhydramine HCl (Benadryl) 25 mg 1X PRN PRN IV ITCHING; Start 06/19/16 at 08:00; Stop 06/20/16 at 07:59 Labetalol HCl (Normodyne) 10 mg PRN Q1HR PRN IVP SBP > 180; Start 06/19/16 at 08:00; Stop 06/20/16 at 07:59 Clonidine HCl 0.1 mg 0.1 mg 1X PRN PRN PO SBP > 180; Start 06/19/16 at 08:00; Stop 06/20/16 at 07:59 Sodium Chloride (Iv Sodium Chloride 0.9% 1000ml Bag) 1,000 ml @ 400 mls/hr Q2H30M PRN IV PATENCY; Start 06/19/16 at 07:51; Stop 06/19/16 at 19:50 Info (PHARMACY MONITORING -- do not chart) 1 each PRN DAILY PRN MC SEE COMMENTS ; Start 06/19/16 at 08:00 Active Scripts Active Potassium Chloride 10 Meq Tablet.er 10 Meq PO DAILY Metoprolol Tartrate 100 Mg Tablet 1 Tab PO BID Prednisone 20 Mg Tablet 40 Mg PO DAILY Glyburide 2.5 Mg Tablet 1 Tab PO DAILY Vikki-Toño Tablet (Folic Acid/Vitamin B Comp W-C) 0.8 Mg Tablet 1 Tab PO DAILY Reported Levothyroxine Sodium 150 Mcg Tablet 150 Mcg PO DAILYAC Gaby 10-40 Mg Tablet (Amlodipine Bes/Olmesartan Med) 1 Each Tablet 1 Each PO DAILY Allopurinol 100 Mg Tablet 100 Mg PO Aspir 81 (Aspirin) 81 Mg Tablet. 1 Tab PO DAILY Vitals/I & O Vital Sign - Last 24 Hours 06/18/16 06/18/16 06/18/16 06/18/16 11:00 11:36 15:00 19:00 Temp 98.1 97.6 97.7 98.1 97.6 97.7 Pulse 84 89 70 Resp 18 B/P 130/88 118/78 147/91 Pulse Ox 98 98 97 95 O2 Delivery Room Air Room Air Room Air Room Air 06/18/16 06/18/16 06/18/16 06/18/16 22:18 22:19 22:57 23:20 Temp 97.9 97.9 Pulse 70 82 Resp 16 16 B/P 147/91 153/95 Pulse Ox 95 94 94 O2 Delivery Room Air Room Air Room Air 06/19/16 06/19/16 06/19/16 03:00 06:08 07:00 Temp 98.2 99.4 98.2 99.4 Pulse 64 78 Resp 16 B/P 133/85 120/82 Pulse Ox 96 94 92 O2 Delivery Room Air Room Air Room Air Intake and Output 06/18/16 06/18/1606/19/17 14:59 22:59 06:59 Intake Total 920 ml 1020 ml Output Total 1400 ml 1550 ml 4550 ml Balance -480 ml -530 ml -4550 ml DIANDRA PACHECO MD Jun 19, 2016 09:50
[2016-06-19 11:00] VITALS: BP 124/87
[2016-06-19] MEDS: SEVELAMER CARBONATE 800 MG TABLET. PO SCH ×3 (11:28→17:47)
[2016-06-19] MEDS: DOCUSATE SODIUM 100 MG CAPSULE. PO SCH (11:28)
[2016-06-19] MEDS: METOPROLOL TART IMMED RELEASE 50 MG TABLET. PO SCH (11:29)
[2016-06-19] MEDS: LOSARTAN POTASSIUM 50 MG TABLET. PO SCH (11:29)
[2016-06-19] MEDS: AMLODIPINE BESYLATE 10 MG TABLET. PO SCH (11:29)
[2016-06-19] MEDS: POTASSIUM CHLORIDE 10 MEQ TABLET.ER. PO SCH (11:30)
[2016-06-19] MEDS: FOLIC/VIT B COMP W-C (RENAL) TABLET. PO SCH (11:30)
[2016-06-19] MEDS: SENNOSIDES/DOCUSATE 8.6/50MG TABLET. PO SCH (11:31)
[2016-06-19] MEDS: LEVOTHYROXINE 150 MCG TABLET PO SCH (12:06)
[2016-06-19] MEDS: valACYclovir 500 MG TABLET. PO SCH (12:06)
--- NOTE | 2016-06-19 13:34 | PDOC ---
Dialysis Progress Note Dialysis Note Dialysis Note Seen on Hemodialysis, tolerating treatment Well Vitals on Hemodialysis: 139/96 75 16 afeb General Appearance: Awake: Alert Oriented x 3 Neck: No JVD or JVP Chest: CTA Estuardo Heart: S1 S2 Abdomen - Soft NTND Extremities - + Edema ESRD: Dialysis as below F 180 NR 3.0 Hrs 3 K 2.5 Ca 140 Na 35 HC03 Qb 350 + Qd 500+ Heparin 0 Units Uf 3 Kgs or to dry weight as tolerated May give 25-50 gms of 25% Albumin if needed to maintain Hemodynamic stability Treatment plan reviewed and discussed with line worker Ok to D/c when OP HD is setup Vitals Vital Signs Vital Signs Date Time Temp Pulse Resp B/P Pulse Ox O2 Delivery O2 Flow Rate FiO2 06/19/16 11:30 78 120/82 06/19/16 11:00 98.2 16 96 Room Air 98.2 06/19/16 07:10 2.0 Labs Last Labs Laboratory Tests Test 06/17/16 17:00 06/17/16 21:08 06/18/16 07:26 06/18/16 11:12 Glucose (Fingerstick) 142mg/dL (70-99) 126mg/dL (70-99) 126mg/dL (70-99) 118mg/dL (70-99) Test 06/18/16 17:04 06/19/16 06:15 06/19/16 07:19 06/19/16 11:41 Glucose (Fingerstick) 116mg/dL (70-99) 111mg/dL (70-99) 124mg/dL (70-99) White Blood Count 9.9x10^3/uL (4.0-11.0) Red Blood Count 2.80x10^6/uL (4.30-5.70) Hemoglobin 8.6g/dL (13.0-17.5) Hematocrit 25.5% (39.0-53.0) Mean Corpuscular Volume 91fL (79-100) Mean Corpuscular Hemoglobin 31pg (25-35) Mean Corpuscular Hemoglobin Concent 34g/dL (31-37) Red Cell Distribution Width 14.4% (11.5-14.5) Platelet Count 106x10^3/uL (140-400) Neutrophils (%) (Auto) 80% (31-73) Lymphocytes (%) (Auto) 9% (24-48) Monocytes (%) (Auto) 8% (0-9) Eosinophils (%) (Auto) 3% (0-3) Basophils (%) (Auto) 1% (0-3) Neutrophils # (Auto) 7.8x10^3uL (1.8-7.7) Lymphocytes # (Auto) 0.9x10^3/uL (1.0-4.8) Monocytes # (Auto) 0.8x10^3/uL (0.0-1.1) Eosinophils # (Auto) 0.3x10^3/uL (0.0-0.7) Basophils # (Auto) 0.1x10^3/uL (0.0-0.2) Sodium Level 138mmol/L (136-145) Potassium Level 4.1mmol/L (3.5-5.1) Chloride Level 101mmol/L (98-107) Carbon Dioxide Level 27mmol/L (21-32) Anion Gap 10 (6-14) Blood Urea Nitrogen 45mg/dL (8-26) Creatinine 5.1mg/dL (0.7-1.3) Estimated GFR (Cockcroft-Gault) 11.6 Glucose Level 106mg/dL (70-99) Calcium Level 8.0mg/dL (8.5-10.1) Laboratory Tests Test 06/18/16 17:04 06/19/16 06:15 06/19/16 07:19 06/19/16 11:41 Glucose (Fingerstick) 116mg/dL (70-99) 111mg/dL (70-99) 124mg/dL (70-99) White Blood Count 9.9x10^3/uL (4.0-11.0) Red Blood Count 2.80x10^6/uL (4.30-5.70) Hemoglobin 8.6g/dL (13.0-17.5) Hematocrit 25.5% (39.0-53.0) Mean Corpuscular Volume 91fL (79-100) Mean Corpuscular Hemoglobin 31pg (25-35) Mean Corpuscular Hemoglobin Concent 34g/dL (31-37) Red Cell Distribution Width 14.4% (11.5-14.5) Platelet Count 106x10^3/uL (140-400) Neutrophils (%) (Auto) 80% (31-73) Lymphocytes (%) (Auto) 9% (24-48) Monocytes (%) (Auto) 8% (0-9) Eosinophils (%) (Auto) 3% (0-3) Basophils (%) (Auto) 1% (0-3) Neutrophils # (Auto) 7.8x10^3uL (1.8-7.7) Lymphocytes # (Auto) 0.9x10^3/uL (1.0-4.8) Monocytes # (Auto) 0.8x10^3/uL (0.0-1.1) Eosinophils # (Auto) 0.3x10^3/uL (0.0-0.7) Basophils # (Auto) 0.1x10^3/uL (0.0-0.2) Sodium Level 138mmol/L (136-145) Potassium Level 4.1mmol/L (3.5-5.1) Chloride Level 101mmol/L (98-107) Carbon Dioxide Level 27mmol/L (21-32) Anion Gap 10 (6-14) Blood Urea Nitrogen 45mg/dL (8-26) Creatinine 5.1mg/dL (0.7-1.3) Estimated GFR (Cockcroft-Gault) 11.6 Glucose Level 106mg/dL (70-99) Calcium Level 8.0mg/dL (8.5-10.1) Assessment Assessment Problems Medical Problems: (1) Acute renal failure Status: Acute Problems: Plan Plan of Care Problems Medical Problems: (1) Acute renal failure Status: Acute SHILO SIBLEY MD Jun 19, 2016 13:34
--- NOTE | 2016-06-19 14:42 | PDOC3 ---
Discharge Summary Visit Information Date of Admission: Jun 12, 2016 Date of Discharge: Jun 19, 2016 Admitting Diagnosis Comment: Chief Complaint ESRD, new HD Illegal migrant Anemia of CKD Hematuria s/p cysto and bladder irrigation - clear FSGS CKD st 4 HTN - controlled COnsitipation Left forehead dermatitis Final Diagnosis Problems Medical Problems: (1) Acute renal failure Status: Acute (2) ESRD (end stage renal disease) Status: Acute Brief Hospital Course Allergies Allergies Coded Allergies Type Severity Reaction Last Updated Verified No Known Drug Allergies 06/13/16 No Vital Signs Vital Signs Date Time Temp Pulse Resp B/P Pulse Ox O2 Delivery O2 Flow Rate FiO2 06/19/16 11:30 78 120/82 06/19/16 11:00 98.2 16 96 Room Air 98.2 06/19/16 07:10 2.0 Lab Results Laboratory Tests Test 06/17/16 17:00 06/17/16 21:08 06/18/16 07:26 06/18/16 11:12 Glucose (Fingerstick) 142mg/dL (70-99) 126mg/dL (70-99) 126mg/dL (70-99) 118mg/dL (70-99) Test 06/18/16 17:04 06/19/16 06:15 06/19/16 07:19 06/19/16 11:41 Glucose (Fingerstick) 116mg/dL (70-99) 111mg/dL (70-99) 124mg/dL (70-99) White Blood Count 9.9x10^3/uL (4.0-11.0) Red Blood Count 2.80x10^6/uL (4.30-5.70) Hemoglobin 8.6g/dL (13.0-17.5) Hematocrit 25.5% (39.0-53.0) Mean Corpuscular Volume 91fL (79-100) Mean Corpuscular Hemoglobin 31pg (25-35) Mean Corpuscular Hemoglobin Concent 34g/dL (31-37) Red Cell Distribution Width 14.4% (11.5-14.5) Platelet Count 106x10^3/uL (140-400) Neutrophils (%) (Auto) 80% (31-73) Lymphocytes (%) (Auto) 9% (24-48) Monocytes (%) (Auto) 8% (0-9) Eosinophils (%) (Auto) 3% (0-3) Basophils (%) (Auto) 1% (0-3) Neutrophils # (Auto) 7.8x10^3uL (1.8-7.7) Lymphocytes # (Auto) 0.9x10^3/uL (1.0-4.8) Monocytes # (Auto) 0.8x10^3/uL (0.0-1.1) Eosinophils # (Auto) 0.3x10^3/uL (0.0-0.7) Basophils # (Auto) 0.1x10^3/uL (0.0-0.2) Sodium Level 138mmol/L (136-145) Potassium Level 4.1mmol/L (3.5-5.1) Chloride Level 101mmol/L (98-107) Carbon Dioxide Level 27mmol/L (21-32) Anion Gap 10 (6-14) Blood Urea Nitrogen 45mg/dL (8-26) Creatinine 5.1mg/dL (0.7-1.3) Estimated GFR (Cockcroft-Gault) 11.6 Glucose Level 106mg/dL (70-99) Calcium Level 8.0mg/dL (8.5-10.1) Laboratory Tests Test 06/18/16 17:04 06/19/16 06:15 06/19/16 07:19 06/19/16 11:41 Glucose (Fingerstick) 116mg/dL (70-99) 111mg/dL (70-99) 124mg/dL (70-99) White Blood Count 9.9x10^3/uL (4.0-11.0) Red Blood Count 2.80x10^6/uL (4.30-5.70) Hemoglobin 8.6g/dL (13.0-17.5) Hematocrit 25.5% (39.0-53.0) Mean Corpuscular Volume 91fL (79-100) Mean Corpuscular Hemoglobin 31pg (25-35) Mean Corpuscular Hemoglobin Concent 34g/dL (31-37) Red Cell Distribution Width 14.4% (11.5-14.5) Platelet Count 106x10^3/uL (140-400) Neutrophils (%) (Auto) 80% (31-73) Lymphocytes (%) (Auto) 9% (24-48) Monocytes (%) (Auto) 8% (0-9) Eosinophils (%) (Auto) 3% (0-3) Basophils (%) (Auto) 1% (0-3) Neutrophils # (Auto) 7.8x10^3uL (1.8-7.7) Lymphocytes # (Auto) 0.9x10^3/uL (1.0-4.8) Monocytes # (Auto) 0.8x10^3/uL (0.0-1.1) Eosinophils # (Auto) 0.3x10^3/uL (0.0-0.7) Basophils # (Auto) 0.1x10^3/uL (0.0-0.2) Sodium Level 138mmol/L (136-145) Potassium Level 4.1mmol/L (3.5-5.1) Chloride Level 101mmol/L (98-107) Carbon Dioxide Level 27mmol/L (21-32) Anion Gap 10 (6-14) Blood Urea Nitrogen 45mg/dL (8-26) Creatinine 5.1mg/dL (0.7-1.3) Estimated GFR (Cockcroft-Gault) 11.6 Glucose Level 106mg/dL (70-99) Calcium Level 8.0mg/dL (8.5-10.1) Brief Hospital Course Mr. Frazier is a 60 old male hx HTN, NON dm, admitted for ESRD needing to initiate hD this amdission, BUt unfortunately is illegal resident/immigrant, OP HD cant be set up. MEds reconcilded, 2 notes today Pls see my earlier note, Total cumulative time 34 mins Cleared from renal to go home Discharge Information Condition at Discharge: Improved, Stable Disposition/Orders: D/C to Home Scheduled Amlodipine Bes/Olmesartan Med (Gaby 10-40 Mg Tablet) 1 EACH PO DAILY (Reported) Aspirin (Aspir 81) 1 TAB PO DAILY (Reported) Folic Acid/Vitamin B Comp W-C (Vikki-Toño Tablet) 1 TAB PO DAILY Glyburide (Glyburide) 1 TAB PO DAILY Levothyroxine Sodium (Levothyroxine Sodium) 150 MCG PO DAILYAC (Reported) Metoprolol Tartrate (Metoprolol Tartrate) 1 TAB PO BID Potassium Chloride (Potassium Chloride) 10 MEQ PO DAILY Prednisone (Prednisone) 40 MG PO DAILY Miscellaneous Medications Allopurinol (Allopurinol) 100 MG PO (Reported) DIANDRA PACHECO MD Jun 19, 2016 14:42
[2016-06-19 15:00] VITALS: BP 144/99
== END 2016-06-19 19:20 | disposition home or self-care (01) | DRG 919 ==
LOC: ER 07:46 → 5 SOUTH 10:54
PROVIDERS: ADMIT Internal Medicine; ATTEND Internal Medicine
PROC: 0T768DZ Dilation of Right Ureter with Intraluminal Device, Via Natural or Artificial Opening Endoscopic (ICD-10-PCS; 2016-06-13)
PROC: 0TCB8ZZ Extirpation of Matter from Bladder, Via Natural or Artificial Opening Endoscopic (ICD-10-PCS; 2016-06-13)
PROC: 0T9B70Z Drainage of Bladder with Drainage Device, Via Natural or Artificial Opening (ICD-10-PCS; 2016-06-13)
PROC: 05HM33Z Insertion of Infusion Device into Right Internal Jugular Vein, Percutaneous Approach (ICD-10-PCS; 2016-06-13)
PROC: B5131ZA Fluoroscopy of Right Jugular Veins using Low Osmolar Contrast, Guidance (ICD-10-PCS; 2016-06-13)
PROC: BT1D1ZZ Fluoroscopy of Right Kidney, Ureter and Bladder using Low Osmolar Contrast (ICD-10-PCS; principal; 2016-06-13 11:15)
DX: N99.840 Postprocedural hematoma of a genitourinary system organ or structure following a genitourinary system procedure (principal); N18.6 End stage renal disease; I12.0 Hypertensive chronic kidney disease with stage 5 chronic kidney disease or end stage renal disease; N17.9 Acute kidney failure, unspecified; Y83.8 Other surgical procedures as the cause of abnormal reaction of the patient, or of later complication, without mention of misadventure at the time of the procedure; R31.0 Gross hematuria; E78.00 Pure hypercholesterolemia, unspecified; E03.9 Hypothyroidism, unspecified; E11.22 Type 2 diabetes mellitus with diabetic chronic kidney disease; D63.1 Anemia in chronic kidney disease; D72.829 Elevated white blood cell count, unspecified; L30.9 Dermatitis, unspecified; E11.649 Type 2 diabetes mellitus with hypoglycemia without coma; E78.5 Hyperlipidemia, unspecified; T38.0X5A Adverse effect of glucocorticoids and synthetic analogues, initial encounter; K59.00 Constipation, unspecified; Z90.49 Acquired absence of other specified parts of digestive tract; Z90.89 Acquired absence of other organs; Z82.49 Family history of ischemic heart disease and other diseases of the circulatory system; Z79.899 Other long term (current) drug therapy; Y92.89 Other specified places as the place of occurrence of the external cause
CPT/HCPCS: 36415; 36558; 74176; 74420; 76937; 77001; 80048; 80053; 80076; 81001; 82947; 83690; 84100; 85007; 85027; 85610; 86704; 86706; 87040; 87086; 87340; 87341; 88305; 94250; 94640; 94760; 96374; 96375; 96376; C1750; C1769; C1892; C2617; G0480; G0481; J0330; J0360; J0690; J0881; J1100; J1956; J2250; J2270; J2405; J2543; J2704; J2710; J3010; J3490; J7030; J7042; Q9967; 99285-25